=== PATIENT | female | born 1945 | race Caucasian/White ===

== ENCOUNTER 2017-03-16 17:22 | Inpatient (IN) | payer MEDICARE, OTHER ==
[~2017-03-16] VITALS: Ht 157.5 cm; Wt 48.1 kg
[2017-03-16] MEDS ORDERED: PIPER-TAZO 3.375 GM IV (PMX) 100 ML IVPB STA (19:31)
[2017-03-16] MEDS ORDERED: morphine 4 MG/ML VIAL IV STA (19:31)
[2017-03-16] MEDS ORDERED: ONDANSETRON 4 MG INJ IV STA (19:31)
[2017-03-16] MEDS ORDERED: SODIUM CHLORIDE 0.9% 1L BAG IV* STA (19:31)
[2017-03-16] MEDS ORDERED: VANCOMYCIN 1 GM (PMX) 250 ML IVPB ONE (20:00)
[2017-03-16 20:02] LABS: ADD SCAN DIFF NO
[2017-03-16 20:09] LABS: BASOPHILS % 0.2 % (0.0-2.0); EOSINOPHILS % 0.1 % (0.0-7.0); HEMATOCRIT 35.5 % (37.0-47.0); HEMOGLOBIN 11.8 g/dl (12.0-16.0); LYMPHOCYTES # 1.2 10^3/ul (0.8-2.9); MEAN CORPUSCULAR HEMOGLOBIN 28.9 pg (29.0-33.0); MEAN CORPUSCULAR HGB CONC 33.2 g/dl (32.0-37.0); MEAN PLATELET VOLUME 11.4 fl (7.4-10.4); MONOCYTE # 1.1 10^3/ul (0.3-0.9); MONOCYTES % 8.1 % (0.0-11.0); NEUTROPHIL # 10.9 10^3/ul (1.6-7.5); NEUTROPHILS % 82.1 % (39.0-77.0); PLATELET COUNT 332 10^3/UL (140-415); RED BLOOD COUNT 4.08 10^6/ul (4.20-5.40); WHITE BLOOD COUNT 13.3 10^3/ul (4.8-10.8)
[2017-03-16 20:21] LABS: INR 0.95; PROTIME 12.7 Sec (12.2-14.2)
[2017-03-16 20:22] LABS: PARTIAL THROMBOPLASTIN TIME 27.5 Sec (25.0-35.0)
[2017-03-16 20:32] LABS: ALBUMIN 3.8 g/dl (3.3-4.9); ALBUMIN/GLOBULIN RATIO 0.97; BILIRUBIN,INDIRECT 0.9 mg/dl (0-1.1); BILIRUBIN,TOTAL 0.9 mg/dl (0.2-1.3); CALCIUM 9.8 mg/dl (8.4-10.2); CREATININE 1.44 mg/dl (0.44-1.00); POTASSIUM 4.8 mmol/L (3.5-5.1); TOTAL PROTEIN 7.7 g/dl (6.1-8.1)
[2017-03-16] MEDS ORDERED: LEVO75TA5 PO (20:39)
[2017-03-16] MEDS ORDERED: ATEN100T PO (20:40)
[2017-03-16] MEDS ORDERED: LANT3I SC (20:40)
[2017-03-16] MEDS ORDERED: SIMV20TA PO (20:40)
[2017-03-16] MEDS ORDERED: NOVO3I SC (20:42)
[2017-03-16] MEDS ORDERED: BENA10TA48 PO (20:48)
[2017-03-16] MEDS ORDERED: AMLO-218 PO (20:49)
[2017-03-16] MEDS ORDERED: GABA300C16 PO (20:49)
[2017-03-16] MEDS ORDERED: HEPARIN 25000 UNITS/250 ML 250 ML IV STA (20:51)
--- NOTE | 2017-03-16 21:08 | RADRPT ---
PROCEDURE: XR Chest. CLINICAL INDICATION: Chest pain. Possible sepsis TECHNIQUE: Portable AP view of the chest was obtained. COMPARISON: None. FINDINGS: The cardiomediastinal silhouette is within normal limits. The lungs are clear. There is no evidenc e for pleural effusion, pneumothorax or pulmonary vascular congestion. The osseous structures are i ntact with no evidence for acute abnormality. Calcification is visible within the aorta. RPTAT:HJJR IMPRESSION: 1.No evidence for acute intrathoracic pathology. 2. Aortic atherosclerosis is present. Physician Natalie Date Time Electronically viewed and signed by Physician Natalie on 03/16/2017 21:08 JR/
--- NOTE | 2017-03-16 21:09 | RADRPT ---
PROCEDURE: XR left foot. CLINICAL INDICATION: Infection and pain of the toes TECHNIQUE: AP, lateral and oblique views of the left foot were obtained. COMPARISON: None. FINDINGS: Diffuse demineralization is noted. No fracture or osseous lesion is identified. There is no eviden ce for dislocation. No focal periosteal reaction or bone destruction is demonstrated. Incidental p lantar calcaneal spur is seen. Diffuse soft tissue swelling is noted. There is no evidence for a ra diopaque foreign body. IMPRESSION: Demineralization and soft tissue swelling without acute osseous abnormality involving the left foot. RPTAT:HJJR Physician Natalie Date Time Electronically viewed and signed by Physician Natalie on 03/16/2017 21:09 /
[2017-03-16] MEDS ORDERED: metroNIDAZOLE 500 MG/NS (PMX) 100 ML IVPB ONE (22:00)
[2017-03-16] MEDS ORDERED: CEFEPIME 1GM/50 ML (PMX) 50 ML IVPB ONE (22:00)
[2017-03-16] MEDS ORDERED: ONDANSETRON 4 MG INJ IV PRN (22:30)
--- NOTE | 2017-03-16 23:10 | ERA ---
ER Documentation Chief Complaint Date/Time DATE: 03/16/17 TIME: 23:03 Chief Complaint LEFT FOOT PAIN AND POSSIBLE INFECTION SENT BY PMD. NO FEVERS. HPI 71-year-old female sent in by vascular surgeon Jimmie from [place]. She was told that she would need to have toes amputated. He sent in handwritten note saying that he performed an arterial angiogram today as well as attempted procedures to clear vascular occlusions. She does have pain of her left 2 first toes in spite of neuropathy with decreased sensation. Says she has had chills but denies fevers. Has no pain or symptoms anywhere else in her body. ROS All systems reviewed and are negative except as per history of present illness. Medications Home Meds Reported Medications Gabapentin* (Gabapentin*) 300 Mg Capsule, 300 MG PO BID, #60 CAP 03/16/17 Amlodipine Besylate* (Norvasc*) 10 Mg Tablet, 10 MG PO DAILY, TAB 03/16/17 Benazepril Hcl* (Benazepril Hcl*) 10 Mg Tablet, 10 MG PO DAILY, #30 TAB 03/16/17 Insulin Aspart* (Novolog Insulin Pen*) 100 Unit/Ml Soln, 8 UNIT SC WITH MEALS, EA 03/16/17 Simvastatin* (Zocor*) 20 Mg Tablet, 20 MG PO QHS, #30 TAB 03/16/17 Atenolol* (Atenolol*) 100 Mg Tablet, 100 MG PO DAILY, #30 TAB 03/16/17 Insulin Glargine* (Lantus*) 100 Unit/Ml Soln, 20 UNIT SC QHS, #1 VIAL 03/16/17 Levothyroxine Sodium* (Levothyroxine Sodium*) 75 Mcg Tablet, 75 MCG PO BEFORE BREAKFAST, #30 TAB 03/16/17 Allergies Allergies: Coded Allergies: Penicillins (Verified Allergy, Unknown, 03/16/17) acetaminophen (Verified Allergy, Unknown, 03/16/17) codeine (Verified Allergy, Unknown, 03/16/17) PMhx/Soc Medical and Surgical Hx: pt denies Surgical Hx History of Surgery: No Anesthesia Reaction: No Hx Neurological Disorder: No Hx Respiratory Disorders: No Hx Cardiac Disorders: Yes (high cholesterol) Hx Psychiatric Problems: No Hx Miscellaneous Medical Probl: Yes (diabetes) Hx Alcohol Use: No Hx Substance Use: No Hx Tobacco Use: No Smoking Status: Never smoker Physical Exam Vitals Vital Signs Date Time Temp Pulse Resp B/P Pulse Ox O2 Delivery O2 Flow Rate FiO2 03/16/17 20:35 98.1 96 18 144/60 10 Room Air 03/16/17 19:59 97.8 93 19 144/85 100 Room Air 03/16/17 17:30 98.9 100 20 78/45 99 Physical Exam Const: [] Mild distress Head: Atraumatic Eyes: Normal Conjunctiva ENT: Normal External Ears, Nose and Mouth. Neck: Full range of motion..~ No meningismus. Resp: Clear to auscultation bilaterally Cardio: Regular rate and rhythm, no murmurs Abd: Soft, non tender, non distended. Normal bowel sounds Skin: No petechiae or rashes Back: No midline or flank tenderness Ext: No cyanosis, or edema, right lower leg and foot cold compared to right, no palpable pulses in left lower leg, necrotic first and second digit. Able to move all toes. Neur: Awake and alert and oriented 3, no focal deficits Psych: Normal Mood and Affect Result Diagram: 03/16/17193903/16/171939 Results 24 hrs Laboratory Tests Test 03/16/17 19:40 03/16/17 19:43 White Blood Count 13.310^3/ul Red Blood Count 4.0810^6/ul Hemoglobin 11.8g/dl Hematocrit 35.5% Mean Corpuscular Volume 87.0fl Mean Corpuscular Hemoglobin 28.9pg Mean Corpuscular Hemoglobin Concent 33.2g/dl Red Cell Distribution Width 12.0% Platelet Count 59161^3/UL Mean Platelet Volume 11.4fl Neutrophils % 82.1% Lymphocytes % 9.0% Monocytes % 8.1% Eosinophils % 0.1% Basophils % 0.2% Nucleated Red Blood Cells % 0.0/100WBC Neutrophils # 10.910^3/ul Lymphocytes # 1.210^3/ul Monocytes # 1.110^3/ul Eosinophils # 0.010^3/ul Basophils # 0.010^3/ul Nucleated Red Blood Cells # 0.010^3/ul Prothrombin Time 12.7Sec Prothrombin Time Ratio 1.0 INR International Normalized Ratio 0.95 Activated Partial Thromboplast Time 27.5Sec Sodium Level 136mmol/L Potassium Level 4.8mmol/L Chloride Level 98mmol/L Carbon Dioxide Level 22mmol/L Anion Gap 21 Blood Urea Nitrogen 48mg/dl Creatinine 1.44mg/dl Glucose Level 190mg/dl Calcium Level 9.8mg/dl Total Bilirubin 0.9mg/dl Direct Bilirubin 0.00mg/dl Indirect Bilirubin 0.9mg/dl Aspartate Amino Transf (AST/SGOT) 22IU/L Alanine Aminotransferase (ALT/SGPT) 29IU/L Alkaline Phosphatase 76IU/L Total Protein 7.7g/dl Albumin 3.8g/dl Globulin 3.90g/dl Albumin/Globulin Ratio 0.97 Bedside Glucose 185mg/dL Current Medications Medications (Trade) Dose Ordered Sig/Remy Route PRN Reason Start Time Stop Time Status Last Admin Dose Admin Sodium Chloride 1830 ml 1,830 ml BOLUS OVER 2 HOURS STAT IV* 03/16/17 19:31 03/16/17 19:35 DC 03/16/17 19:52 Vancomycin HCl 250 ml @ 125 mls/hr ONCE ONCE IVPB 03/16/17 20:00 03/16/17 21:59 DC 03/16/17 20:40 Piperacillin Sod/ Tazobactam Sod (Zosyn 3.375gm/ 100 ml (Pmx)) 100 ml @ 200 mls/hr ONCE STAT IVPB 03/16/17 19:31 03/16/17 20:00 Cancel Morphine Sulfate (morphine) 4 mg ONCE STAT IV 03/16/17 19:31 03/16/17 19:35 DC 03/16/17 19:52 Ondansetron HCl 4 mg 4 mg ONCE STAT IV 03/16/17 19:31 03/16/17 19:35 DC 03/16/17 19:51 Heparin Sodium (Porcine) 250 ml @ 0 mls/hr ONCE STAT IV 03/16/17 20:51 03/16/17 20:52 DC 03/16/17 21:44 Cefepime HCl 50 ml @ 100 mls/hr ONCE ONCE IVPB 03/16/17 22:00 03/16/17 22:29 DC Metronidazole (Flagyl 500 Mg (Pmx)) 100 ml @ 100 mls/hr ONCE ONCE IVPB 03/16/17 22:00 03/16/17 22:59 DC Ondansetron HCl (Zofran Inj) 4 mg ER BRIDGE PRN IV NAUSEA AND/OR VOMITING 03/16/17 22:30 03/17/17 22:29 Procedures/MDM Arterial vascular occlusion and necrotic foot infection. Patient was given normal saline hydration and heparinized. Spoke with , vascular surgeon, who agrees with heparin and asked that I add an arterial ultrasound of lower extremities. If the patient bank, cefepime and Flagyl as she is allergic to penicillin. Will be admitting to telemetry because of heparin drip. Dr. barbara arredondo will be admitting. Chest x-ray interpretation: I see no acute process. No infiltrate, no pulmonary edema, pneumothorax, no fractures Left foot x-ray interpretation: No fracture dislocation or bony erosion that I can see. Departure Diagnosis: Primary Impression: Arterial occlusion, lower extremity Additional Impressions: Cellulitis Tissue necrosis with gangrene in peripheral vascular disease Renal insufficiency Condition: Serious DIANNA MCKEON DO Mar 16, 2017 23:10
--- NOTE | 2017-03-16 23:19 | RADRPT ---
PROCEDURE: US bilateral lower extremity arteries. CLINICAL INDICATION: Bilateral leg pain. Claudication that interferes significantly with the kamila ent's lifestyle. TECHNIQUE: Multiple longitudinal and transverse images of the bilateral lower extremity arteries w ere obtained with cooper scale, pulsed Doppler, and color Doppler imaging. COMPARISON: No prior studies are available for comparison. FINDINGS: Right HAND BRAILLE TRANSCRIBER:122 cm/sec PSFA:66 cm/sec MSFA:101 cm/sec DSFA:104 cm/sec POP:49 cm/sec AURICULAR ACUPUNCTURIST:Occluded DPA:90 cm/sec Left HAND BRAILLE TRANSCRIBER:Occluded PSFA:Occluded MSFA:Occluded DSFA:Occluded POP:Occluded AURICULAR ACUPUNCTURIST:Occluded DPA:Occluded The right ankle-brachial index is 1.3. There is normal triphasic flow in the right femoral and popl iteal systems. There is biphasic flow in the right dorsalis pedis artery. The right posterior tibi al artery is completely occluded. The left lower extremity arterial system is completely occluded throughout. IMPRESSION: 1. Occluded right posterior tibial artery. 2. 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 Call report: A call report of the findings was made to Dr. Plasencia on 03/16/2017 at 2320 hours. RPTAT: QQ .Elpidio Gibbons MD, MD Date Time Electronically viewed and signed by .Elpidio Gibbons MD, MD on 03/16/2017 23:19 .R/
[2017-03-16] MEDS ORDERED: morphine 10 MG INJ IV ONE (23:30)
[2017-03-16 23:38] LABS: ADD UMIC YES; UR ASCORBIC ACID NEGATIVE (NEGATIVE); UR BILIRUBIN (Dip) NEGATIVE (NEGATIVE); UR BLOOD (Dip) NEGATIVE (NEGATIVE); UR BUDDING YEAST MANY /HPF (NONE SEEN); UR CLARITY SLIGHTLY CLOUDY (CLEAR); UR COLOR YELLOW (YELLOW); UR GLUCOSE (Dip) 1+ mg/dL (NEGATIVE); UR KETONES (Dip) TRACE mg/dL (NEGATIVE); UR LEUKOCYTE ESTERASE (Dip) TRACE Leu/ul (NEGATIVE); UR NITRITE (Dip) NEGATIVE (NEGATIVE); UR RBC 3 /HPF (0-5); UR SPECIFIC GRAVITY (Dip) 1.021 (1.003-1.030); UR SQUAMOUS EPITHELIAL CELL MODERATE /HPF (FEW); UR TOTAL PROTEIN (Dip) NEGATIVE (NEGATIVE); UR UROBILINOGEN (Dip) NEGATIVE (NEGATIVE)
[2017-03-17] VITALS (42 sets, daily range): BP systolic 120–159; BP diastolic 56–72; PULSE 77–94; RESP 15–28; TEMP 98.5; Ht 157.5 cm; Wt 48.1 kg
[2017-03-17] MEDS ORDERED: LIDOCAINE/MYLANTA 40 ML BTL PO ONE
[2017-03-17] MEDS ORDERED: NACL 0.9% 3 ML SYG IV SCH (01:00)
[2017-03-17 04:27] LABS: ADD SCAN DIFF NO
[2017-03-17 04:32] LABS: BASOPHILS % 0.2 % (0.0-2.0); HEMATOCRIT 31.7 % (37.0-47.0); HEMOGLOBIN 10.3 g/dl (12.0-16.0); LYMPHOCYTES # 1.7 10^3/ul (0.8-2.9); LYMPHOCYTES % 13.7 % (15.0-51.0); MEAN CORPUSCULAR HEMOGLOBIN 28.4 pg (29.0-33.0); MEAN CORPUSCULAR HGB CONC 32.5 g/dl (32.0-37.0); MEAN CORPUSCULAR VOLUME 87.3 fl (82.0-101.0); MEAN PLATELET VOLUME 11.6 fl (7.4-10.4); MONOCYTE # 0.8 10^3/ul (0.3-0.9); MONOCYTES % 6.7 % (0.0-11.0); NEUTROPHIL # 9.8 10^3/ul (1.6-7.5); NEUTROPHILS % 78.9 % (39.0-77.0); PLATELET COUNT 281 10^3/UL (140-415); RED BLOOD COUNT 3.63 10^6/ul (4.20-5.40); RED CELL DISTRIBUTION WIDTH 12.1 % (11.5-14.5); WHITE BLOOD COUNT 12.5 10^3/ul (4.8-10.8)
[2017-03-17 04:47] LABS: ALBUMIN 3.2 g/dl (3.3-4.9); ALBUMIN/GLOBULIN RATIO 0.88; BILIRUBIN,INDIRECT 0.6 mg/dl (0-1.1); BILIRUBIN,TOTAL 0.6 mg/dl (0.2-1.3); CALCIUM 9.2 mg/dl (8.4-10.2); CHOL/HDL RATIO 2.7 RATIO; CREATININE 1.04 mg/dl (0.44-1.00); INR 0.97; POTASSIUM 4.6 mmol/L (3.5-5.1); PROTIME 12.9 Sec (12.2-14.2); TOTAL PROTEIN 6.8 g/dl (6.1-8.1)
[2017-03-17 05:17] LABS: THYROID STIMULATING HORMONE 1.28 MIU/L (0.465-4.680)
[2017-03-17 05:52] LABS: PARTIAL THROMBOPLASTIN TIME 119.7 Sec (25.0-35.0)
[2017-03-17] MEDS ORDERED: VANCOMYCIN IV PER PHARMACY XX SCH (07:00)
[2017-03-17] MEDS: LEVOTHYROXINE 75 MCG TAB PO SCH (08:07)
[2017-03-17] MEDS: INSULIN ASPART [NOVOLOG] 3 ML PEN SC SCH ×3 (09:35→17:35)
[2017-03-17] MEDS: BENAZEPRIL 10 MG TAB PO SCH (09:57)
[2017-03-17] MEDS: GABAPENTIN 300 MG CAP PO SCH ×2 (09:58→21:00)
[2017-03-17] MEDS: AMLODIPINE 10 MG TAB PO SCH (09:59)
[2017-03-17] MEDS: ATENOLOL 100 MG TAB PO SCH (10:00)
[2017-03-17] MEDS: ENOXAPARIN 100 MG/ML SYG SC SCH ×2 (10:14→21:00)
--- NOTE | 2017-03-17 11:02 | QN ---
Documentation Comment Called to see our patient whom presented with left lower extremity cold and mottled limb. Upon discussion with the patient prior to midnight it seems shes been in denial with her critical limb ischemia as shes had LLE gangrene for months and shes been "hiding her black toes for a long time" per her sons reporting. Further he reports shes been in denial and rarely allows her children to help her with medical status. As I had evaluated the patient she has no motor from the knee down and fixed ankle. No sensory from knee down, Her lower leg is mottled with gangrene of her toes. Based on the findings provided from her interventionalist, Arterial Duplex and clinical exam there's no further vascular intervention possible as she would likely require a major amputation - Above knee amputation. The patient was informed of this and is in denial and would like to wait and think about her decision. Therefore, will keep the patient on Heparin gtt overnight and readdress the issue again in few hours. I have explained to the patient that her life can be threatened by waiting and risks of ID, rhabdomyolysis, stroke and further worsening her status is there by waiting. Consultation note will be dictated BERNY MOORE MD Mar 17, 2017 10:59
[2017-03-17] MEDS ORDERED: GLUCAGON 1 MG INJ IM PRN (12:00)
[2017-03-17] MEDS ORDERED: DEXTROSE 50% 50 ML SYRINGE IV PRN ×2 (12:00)
[2017-03-17] MEDS ORDERED: GLUCOSE GEL 15 GRAM TUBE BUCCAL PRN (12:00)
[2017-03-17] MEDS ORDERED: GLUCOSE GEL 15 GRAM TUBE PO PRN ×2 (12:00)
--- NOTE | 2017-03-17 12:42 | RADRPT ---
PROCEDURE: US Lower extremity Veins. CLINICAL INDICATION: Left toe gangrene. Preoperative evaluation. TECHNIQUE: Multiple longitudinal and transverse images of the bilateral lower extremity greater an d lesser saphenous veins was obtained with cooper scale and color Doppler imaging. COMPARISON: None available FINDINGS: Right lower extremity: Groin GSV0.41 cm Upper thigh GSV 0.15 cm Mid thigh GSV 0.10 cm Lower thigh GSV 0.11 cm Knee GSV 0.14 cm Upper calf GSV 0.09 cm Mid calf GSV 0.10 cm Ankle GSV0.09 cm Proximal calf SSV: 0.24 cm Mid calf SSV: 0.09 cm Proximal ankle SSV: 0.09 cm Left lower extremity: Groin GSV0.25 cm Upper thigh GSV 0.14 cm Mid thigh GSV 4.12 cm Lower thigh GSV 0.14 cm Knee GSV 0.16 cm Upper calf GSV 0.13 cm Mid calf GSV 0.14 cm Ankle GSV0.19 cm Proximal calf SSV: 0.24 cm Mid calf SSV: 0.19 cm Proximal ankle SSV: 0.25 cm IMPRESSION: 1. Bilateral lower extremity venous mapping as detailed above. RPTAT: GG .Fredrick Lewis MD, Date Time Electronically viewed and signed by .Fredrick Lewis MD, MD on 03/17/2017 12:41 .P/
[2017-03-17 13:10] LABS: PROTIME 13.2 Sec (12.2-14.2)
[2017-03-17 13:42] LABS: PARTIAL THROMBOPLASTIN TIME 130.1 Sec (25.0-35.0)
--- NOTE | 2017-03-17 16:05 | HPN ---
Date/Time of Note Date/Time of Note DATE: 03/17/17 TIME: 16:04 Interval H&P Admission Note Pt. seen H&P reviewed: No system changes BERNY MOORE MD Mar 17, 2017 16:05
[2017-03-17] MEDS ORDERED: HEPARIN 1000 UNITS/ML 10 ML INJ ONE (16:36)
[2017-03-17] MEDS ORDERED: LIDOCAINE 1% (MPF) 30 ML INJ ONE (16:36)
[2017-03-17] MEDS ORDERED: MIDAZOLAM 1 MG/ML 2 ML INJ ONE (16:40)
[2017-03-17] MEDS ORDERED: FENTAnyl 50 MCG/ML VIAL ONE (16:40)
[2017-03-17] MEDS ORDERED: ROPIVACAINE 0.5 % 30 ML VIAL ONE (16:41)
[2017-03-17] MEDS ORDERED: KETAMINE 500 MG INJ ONE (16:48)
[2017-03-17] MEDS ORDERED: SOD CHLORIDE 0.9% 100 ML ONE (17:15)
[2017-03-17] MEDS ORDERED: IODIXANOL LOCM 100 ML BTL ONE (17:15)
[2017-03-17] MEDS ORDERED: IODIXANOL LOCM 50 ML BTL ONE (17:15)
--- NOTE | 2017-03-17 18:25 | RADRPT ---
AMENDMENT: 03/17/2017 6:33:39 PM Sunil Taylor MD These findings were discussed with Wm Monet over the phone on 03/17/2017 at 6:28 PM . PROCEDURE: CT angiogram of the abdomen and pelvis with bilateral lower extremity runoff and with 3 -D reconstructions CLINICAL INDICATION: aortic occlusion TECHNIQUE: CT angiogram of the abdomen and pelvis with lower extremity runoff was performed on a m ultislice CT scanner . The patient was scanned after administration of intravenous contrast. Sagit maru and coronal reformatted images were obtained from the axial source images. 3D MIP reformatted im ages were also created from the axial source images. DLP 745.41 mGycm CTDI vol 45.19, 5.60 mGy One or more of the following dose reduction techniques were used: - Automated exposure control. - Adjustment of the mA and/or kV according to patient size. - Use of iterative reconstruction technique. COMPARISON: Duplex sonogram of the lower extremity arteries from 03/16/2017 FINDINGS: ANGIOGRAM: There is no acute dissection or aneurysm of the abdominal aorta. The celiac axis is widely patent. There is severe narrowing of the origin and proximal aspect of the SMA. The right hepatic artery is replaced off the SMA. There are single renal arteries bilaterally with severe narrowing at the origins of the right greate r than left renal arteries. The JUSTYNA is widely patent. There is mild narrowing of the proximal left common iliac artery. The right common iliac artery as well as the right internal and external iliac arteries are widely patent. The left internal and exte rnal iliac arteries are widely patent. RIGHT LOWER EXTREMITY: The BUS DRIVER, SFA, and profunda arteries are widely patent. The popliteal artery is widely patent. There is severe narrowing at the origin of the right anterior tibial artery which is patent to the a nkle. A patent dorsalis pedis artery is noted below the ankle. There is occlusion of the tibioperoneal trunk, peroneal artery and posterior tibial artery along the ir entire course. LEFT LOWER EXTREMITY: There is occlusion of the left common femoral artery at its origin just past the inferior epigastric artery. There is reconstitution of the left profunda and superficial femoral arteries at their rafael gins. The left profunda artery is widely patent. There is moderate narrowing of the mid to distal left superficial femoral artery which occludes at t he entrance to Benjamin's canal. The left popliteal artery as well as the infrapopliteal arteries are completely occluded along nearl y their entire course. There is reconstitution of very faint peroneal and posterior tibial arteries just above the ankle in even fainter posterior tibial artery noted below the ankle along the plantar surface of the foot. ANCILLARY: There are surgical clips in the gallbladder fossa consistent with cholecystectomy. There is asymmetric atrophy of the left kidney. There are numerous small bowel loops dilated to approximately 3.2 cm with air-fluid levels noted. Co llapsed distal loops of small bowel are noted with a transition point in the posterior aspect of the pelvis on series 3, image 156 The uterus is absent. Anastomotic sutures are identified in the cecum. Subcutaneous gas and deformity of the distal phalanx of the left big toe are noted. IMPRESSION: Complete occlusion of the left common femoral artery at its origin with reconstitution of the left s uperficial femoral and profunda arteries at their respective origins. There is moderate narrowing o f the mid to distal left superficial femoral artery as well as complete occlusion of the popliteal a nd anterior tibial arteries. There is faint reconstitution of the left peroneal and posterior tibia l arteries just above the ankle with the posterior tibial artery continuing below the ankle along th e plantar surface of the foot. Deformity of the distal phalanx of the left big toe with surrounding subcutaneous gas or suspicious for osteomyelitis. Clinical correlation is recommended. The right femoropopliteal arteries are widely patent. There is one-vessel uninterrupted runoff to t he right ankle from the anterior tibial artery which is severely narrowed proximally. Correlation f or symptoms of peripheral vascular disease in the right lower extremity is recommended. Severe narrowing at the origins of the right greater than left renal arteries. Correlation for wilson vascular hypertension is recommended. Status post cholecystectomy. Multiple dilated loops of small bowel with air-fluid levels as well as collapsed distal loops with a transition point in the posterior aspect of the pelvis consistent with a high-grade bowel obstructi on. These findings were discussed with the nurse taking care of the patient, aSnjuanita, over the phone on at 6:24 PM. RPTAT: EE Ar Claudia, Physician Date Time Electronically viewed and signed by Ar Taylor Physician on 03/17/2017 18:33 RA/
[2017-03-17 18:44] LABS: ADD SCAN DIFF NO
[2017-03-17 18:46] LABS: BASOPHILS % 0.2 % (0.0-2.0); EOSINOPHILS % 0.1 % (0.0-7.0); HEMATOCRIT 36.6 % (37.0-47.0); HEMOGLOBIN 12.2 g/dl (12.0-16.0); LYMPHOCYTES # 0.9 10^3/ul (0.8-2.9); LYMPHOCYTES % 6.4 % (15.0-51.0); MEAN CORPUSCULAR HEMOGLOBIN 28.8 pg (29.0-33.0); MEAN CORPUSCULAR HGB CONC 33.3 g/dl (32.0-37.0); MEAN CORPUSCULAR VOLUME 86.5 fl (82.0-101.0); MEAN PLATELET VOLUME 11.1 fl (7.4-10.4); MONOCYTE # 0.8 10^3/ul (0.3-0.9); MONOCYTES % 5.6 % (0.0-11.0); NEUTROPHIL # 12.5 10^3/ul (1.6-7.5); NEUTROPHILS % 87.2 % (39.0-77.0); PLATELET COUNT 319 10^3/UL (140-415); RED BLOOD COUNT 4.23 10^6/ul (4.20-5.40); RED CELL DISTRIBUTION WIDTH 12.2 % (11.5-14.5); WHITE BLOOD COUNT 14.3 10^3/ul (4.8-10.8)
[2017-03-17] MEDS: LACTATED RINGER'S 1,000 ML IV SCH (18:57)
[2017-03-17 19:01] LABS: INR 1.01; PROTIME 13.3 Sec (12.2-14.2)
[2017-03-17 19:02] LABS: PARTIAL THROMBOPLASTIN TIME 39.8 Sec (25.0-35.0)
[2017-03-17 19:04] LABS: CALCIUM 9.9 mg/dl (8.4-10.2); CREATININE 0.99 mg/dl (0.44-1.00); POTASSIUM 4.1 mmol/L (3.5-5.1)
[2017-03-17 19:16] LABS: CK-MB 11.6 ng/ml (0.0-2.4)
[2017-03-17 19:20] LABS: TROPONIN-I 2.11 ng/ml (0.00-0.12)
--- NOTE | 2017-03-17 19:35 | RADRPT ---
PROCEDURE: XR Abdomen. CLINICAL INDICATION: Abdominal pain. Nasogastric tube placement TECHNIQUE: AP abdomen x-ray. COMPARISON: None. FINDINGS: A nasogastric tube is seen in the gastric lumen. Diffusely distended small bowel is seen. Residual contrast in the collecting systems is seen. Upper quadrant surgical clips are seen. There are no ab normal calcifications overlying the urinary tracts. No osseous lesion is seen. The 89 age related se nescent changes in the osseous structures is seen. IMPRESSION: 1. Nasogastric tube in the gastric lumen. 2. Diffusely distended small bowel which may represent an ileus. RPTAT: HPNM Physician Hernan Date Time Electronically viewed and signed by Physician Hernan on 03/17/2017 19:34 /
--- NOTE | 2017-03-17 19:54 | CONS ---
Date/Time of Note Date/Time of Note DATE: 03/17/17 TIME: 19:31 Assessment/Plan Assessment/Plan Chief Complaint/Hosp Course 1. Abdominal pain with CT findings are suggestive of either obstructive pattern versus ileus. Patient has gas and stool in the colon. Less likelihood of bowel ischemia. -NG tube -NPO -Judicious IV fluids -Close monitoring 2. PVD/PAD with Left lower extremity ischemia with tissue necrosis and gangrene -Deferred to vascular surgery -Judicious fluid management -Anticoagulation -Amputation per vascular 3. Elevated troponin with possible demand ischemia and WI -Cardiac evaluation on optimization 4. Elevated BNP with possible CHF -Judicious fluid management -Cardiac optimization 5. Renal insufficiency, multifactorial secondary to above -Judicious fluid management and avoid nephrotoxic agents as possible 6. Anemia. Coffee-ground NG tube aspirate. -Close monitoring -Transfuse as needed 7. Diabetes -Diet and medication optimization 8. Hypertension -Diet and medication optimization 9. Hypercholesterolemia -Diet and medication optimization Thank you very much for consulting me in this patient's care, Problems: Consultation Date/Type/Reason Admit Date/Time Mar 16, 2017 at 22:23 Date of Consultation: Mar 17, 2017 Type of Consultation: General surgical Reason for Consultation Abdominal pain Renal insufficiency Left leg ischemia with plan for AKA by vascular Referring Provider: BERNY MOORE MD Hx of Present Illness Staci Masters is a 71-year-old female with multiple comorbidities who apparently was diagnosed on angiogram with left lower extremity ischemia and was transferred here for surgical intervention. Apparently patient has been ignoring her left black toes for a while. Patient was scheduled for AKA by vascular today however she was complaining of abdominal pain and therefore CT angiography abdomen was obtained. NG tube has been placed and dark fluid of about 400 mL's has been suctioned out. She reports bowel function yesterday. She denies any fevers or chills. She denies any nausea vomiting. She denies any chest pain or shortness of breath. She denies any cough, seizure, visual or neurologic changes. She denies dysuria or abnormal discharge. She denies any trauma or sick contacts. Patient does not seem to be a great historian and is somewhat confused. General surgical consultations obtained further evaluation and treatment. 12 point review of system negative unless addressed in HPI is obtained from patient staff and chart. Past Medical History Left lower extremity ischemia with tissue necrosis and gangrene Peripheral vascular/arterial disease Renal insufficiency Abdominal pain and distention Anemia Leukocytosis Cholesterolemia Diabetes Hypoalbuminemia Elevated troponin with possible WI Elevated BNP with possible CHF History of abdominal pains and discomfort Past Surgical History Open cholecystectomy Open hysterectomy Appendectomy Possible abdominal hernia repairs Recent angiography Family History Significant Family History: no pertinent family hx Social History Alcohol Use: none Smoking Status: Former smoker Drug Use: none Exam/Review of Systems Vital Signs Vitals Vital Signs Date Time Temp Pulse Resp B/P Pulse Ox O2 Delivery O2 Flow Rate FiO2 03/17/17 18:41 78 17 149/62 98 Room Air 03/17/17 18:36 97.8 Intake and Output 03/16/17 03/16/17 03/17/17 15:00 23:00 07:00 Intake Total 1830 ml 300 ml Balance 1830 ml 300 ml Exam Constitutional: alert, No oriented (Oriented to self but not location) Psych: confusion, No anxiety, No nl mood/affect Head: atraumatic, normocephalic Eyes: EOMI, PERRL, nl conjunctiva, No icteric ENMT: nl external ears & nose, nl lips & teeth, No mucosa pink and moist (Dry mucosa) Neck: jvd, non-tender, supple Respiratory: normal air movement, No congested cough, No diminished breath sounds, No labored breathing Cardiovascular: regular rate and rhythm, No edema Gastrointestinal: distended, soft, tender (Minimally in left lower quadrant), No firm, No rebound or guarding Musculoskeletal: No joint tenderness, No nl extremities to inspection (Left lower extremity gangrenous changes), No nl gait and stance Extremities: No calf tenderness, No normal pulses Neurological: nl speech, No nl strength Skin: No diaphoresis, No nl turgor, No rash or lesions Lymph: nl lymph nodes Results CT abdomen pelvis extremity angiography: Complete occlusion of the left common femoral artery at its origin with reconstitution of the left superficial femoral and profunda arteries at their respective origins. There is moderate narrowing of the mid to distal left superficial femoral artery as well as complete occlusion of the popliteal and anterior tibial arteries. There is faint reconstitution of the left peroneal and posterior tibial arteries just above the ankle with the posterior tibial artery continuing below the ankle along the plantar surface of the foot. Deformity of the distal phalanx of the left big toe with surrounding subcutaneous gas or suspicious for osteomyelitis. Clinical correlation is recommended. The right femoropopliteal arteries are widely patent. There is one-vessel uninterrupted runoff to the right ankle from the anterior tibial artery which is severely narrowed proximally. Correlation for symptoms of peripheral vascular disease in the right lower extremity is recommended. Severe narrowing at the origins of the right greater than left renal arteries. Correlation for renovascular hypertension is recommended. Status post cholecystectomy. Multiple dilated loops of small bowel with air-fluid levels as well as collapsed distal loops with a transition point in the posterior aspect of the pelvis consistent with a high-grade bowel obstruction. Result Diagram: 03/17/17 1835 03/17/17 183 Results 24 hrs Laboratory Tests Test 03/16/17 19:40 03/16/17 19:43 03/16/17 23:00 03/17/17 04:10 White Blood Count 13.3 H 12.5 H Red Blood Count 4.08 L 3.63 L Hemoglobin 11.8 L 10.3 L Hematocrit 35.5 L 31.7 L Mean Corpuscular Volume 87.0 87.3 Mean Corpuscular Hemoglobin 28.9 L 28.4 L Mean Corpuscular Hemoglobin Concent 33.2 32.5 Red Cell Distribution Width 12.0 12.1 Platelet Count 332 281 Mean Platelet Volume 11.4 H 11.6 H Neutrophils % 82.1 H 78.9 H Lymphocytes % 9.0 L 13.7 L Monocytes % 8.1 6.7 Eosinophils % 0.1 0.0 Basophils % 0.2 0.2 Nucleated Red Blood Cells % 0.0 0.0 Neutrophils # 10.9 H 9.8 H Lymphocytes # 1.2 1.7 Monocytes # 1.1 H 0.8 Eosinophils # 0.0 0.0 Basophils # 0.0 0.0 Nucleated Red Blood Cells # 0.0 0.0 Prothrombin Time 12.7 12.9 Prothrombin Time Ratio 1.0 1.0 INR International Normalized Ratio 0.95 0.97 Activated Partial Thromboplast Time 27.5 119.7 *H Sodium Level 136 141 Potassium Level 4.8 4.6 Chloride Level 98 103 Carbon Dioxide Level 22 21 Anion Gap 21 H 22 H Blood Urea Nitrogen 48 H 36 #H Creatinine 1.44 H 1.04 H Glucose Level 190 215 Calcium Level 9.8 9.2 Total Bilirubin 0.9 0.6 Direct Bilirubin 0.00 0.00 Indirect Bilirubin 0.9 0.6 Aspartate Amino Transf (AST/SGOT) 22 27 Alanine Aminotransferase (ALT/SGPT) 29 29 Alkaline Phosphatase 76 71 Total Protein 7.7 6.8 Albumin 3.8 3.2 L Globulin 3.90 H 3.60 H Albumin/Globulin Ratio 0.97 0.88 Bedside Glucose 185 Urine Color YELLOW Urine Clarity SLIGHTLY CLOUDY A Urine pH 5.0 Urine Specific [place] 1.021 Urine Ketones TRACE A Urine Nitrite NEGATIVE Urine Bilirubin NEGATIVE Urine Urobilinogen NEGATIVE Urine Leukocyte Esterase TRACE A Urine Microscopic RBC 3 Urine Microscopic WBC 7 H Urine Squamous Epithelial Cells MODERATE Urine Yeast (Budding) MANY A Urine Hemoglobin NEGATIVE Urine Glucose 1+ H Urine Total Protein NEGATIVE Hemoglobin A1c 8.4 H Triglycerides Level 67 Cholesterol Level 102 LDL Cholesterol, Calculated 52 HDL Cholesterol 37 Cholesterol/HDL Ratio 2.7 Thyroid Stimulating Hormone (TSH) 1.280 Test 03/17/17 09:21 03/17/17 12:12 03/17/17 18:35 Bedside Glucose 219 Prothrombin Time 13.2 13.3 Prothrombin Time Ratio 1.0 1.0 INR International Normalized Ratio 1.00 1.01 Activated Partial Thromboplast Time 130.1 *H 39.8 H White Blood Count 14.3 H Red Blood Count 4.23 Hemoglobin 12.2 Hematocrit 36.6 L Mean Corpuscular Volume 86.5 Mean Corpuscular Hemoglobin 28.8 L Mean Corpuscular Hemoglobin Concent 33.3 Red Cell Distribution Width 12.2 Platelet Count 319 Mean Platelet Volume 11.1 H Neutrophils % 87.2 H Lymphocytes % 6.4 L Monocytes % 5.6 Eosinophils % 0.1 Basophils % 0.2 Nucleated Red Blood Cells % 0.0 Neutrophils # 12.5 H Lymphocytes # 0.9 Monocytes # 0.8 Eosinophils # 0.0 Basophils # 0.0 Nucleated Red Blood Cells # 0.0 Sodium Level 142 Potassium Level 4.1 Chloride Level 96 L Carbon Dioxide Level 30 Anion Gap 20 H Blood Urea Nitrogen 29 H Creatinine 0.99 Glucose Level 86 # Calcium Level 9.9 Creatine Kinase 592 H Creatine Kinase Index 2.0 Creatinine Kinase MB (Mass) 11.60 H Troponin I 2.110 *H B-Type Natriuretic Peptide 9440 H Medications Medications Current Medications Ondansetron HCl (Zofran Inj) 4 mg Q6H PRN IV NAUSEA AND/OR VOMITING; Start at 01:00 Morphine Sulfate (morphine) 2 mg Q4H PRN IV PAIN LEVEL 7-10; Start 03/17/17 at 01:00 Amlodipine Besylate (Norvasc) 10 mg DAILY PO Last administered on 03/17/17 09: 59; Admin Dose 10 MG; Start 03/17/17 at 09:00 Atenolol (Tenormin) 100 mg DAILY PO Last administered on 03/17/17 10:00; Admin Dose 100 MG; Start 03/17/17 at 09:00 Benazepril HCl (Lotensin) 10 mg DAILY PO Last administered on 03/17/17 09:57; Admin Dose 10 MG; Start 03/17/17 at 09:00 Gabapentin (Neurontin) 300 mg BID PO Last administered on 03/17/17 09:58; Admin Dose 300 MG; Start 03/17/17 at 09:00 Insulin Glargine (Lantus) 20 unit QHS SC ; Start 03/17/17 at 21:00 Atorvastatin Calcium (Lipitor) 10 mg DAILY@21 PO ; Start 03/17/17 at 21:00 Enoxaparin Sodium 60 mg 60 mg Q12 SC ; Start 03/17/17 at 09:00 Vancomycin HCl/ Sodium Chloride (Vancocin/NS) 150 ml @ 75 mls/hr Q24H IVPB ; Start 03/17/17 at 21:00 Miscellaneous Information 1 ea NOTE XX ; Start 03/17/17 at 12:00 Glucose (Glutose) 15 gm Q15M PRN PO DECREASED GLUCOSE; Start 03/17/17 at 12:00 Glucose (Glutose) 22.5 gm Q15M PRN PO DECREASED GLUCOSE; Start 03/17/17 at 12: 00 Dextrose (D50w Syringe) 25 ml Q15M PRN IV DECREASED GLUCOSE; Start 03/17/17 at 12:00 Dextrose (D50w Syringe) 50 ml Q15M PRN IV DECREASED GLUCOSE; Start 03/17/17 at 12:00 Glucagon (Glucagen) 1 mg Q15M PRN IM DECREASED GLUCOSE; Start 03/17/17 at 12:00 Glucose (Glutose) 15 gm Q15M PRN BUCCAL DECREASED GLUCOSE; Start 03/17/17 at 12 :00 Famotidine 20 mg 20 mg HS IV ; Start 03/17/17 at 21:00 Lactated Ringer's (Lr) 1,000 ml @ 125 mls/hr Q8H IV Last administered on t 18:57; Admin Dose 125 MLS/HR; Start 03/17/17 at 18:30 Copies To: CC: BERNY MOORE MD, SAMUEL MD Mar 17, 2017 19:41
[2017-03-17] MEDS: ATORVASTATIN 10 MG TAB PO SCH (21:00)
[2017-03-17] MEDS ORDERED: INSULIN GLARGINE [LANtus] 3 ML PEN SC SCH (21:00)
[2017-03-17] MEDS ORDERED: NON-FORMULARY/PATIENT OWN MED (Simvastatin* (Zocor*) 20 MG) PO SCH (21:00)
[2017-03-17 22:48] LABS: ADD UMIC YES; UR ASCORBIC ACID NEGATIVE (NEGATIVE); UR BILIRUBIN (Dip) NEGATIVE (NEGATIVE); UR BLOOD (Dip) 3+ mg/dL (NEGATIVE); UR CLARITY SLIGHTLY CLOUDY (CLEAR); UR COLOR YELLOW (YELLOW); UR GLUCOSE (Dip) NEGATIVE (NEGATIVE); UR KETONES (Dip) 1+ mg/dL (NEGATIVE); UR LEUKOCYTE ESTERASE (Dip) 2+ Leu/ul (NEGATIVE); UR MUCUS FEW /HPF (NONE SEEN); UR NITRITE (Dip) NEGATIVE (NEGATIVE); UR RBC 58 /HPF (0-5); UR SPECIFIC GRAVITY (Dip) 1.059 (1.003-1.030); UR TOTAL PROTEIN (Dip) NEGATIVE (NEGATIVE); UR UROBILINOGEN (Dip) NEGATIVE (NEGATIVE)
[2017-03-17] MEDS ORDERED: HEPARIN 25000 UNITS/250 ML 250 ML IV SCH (23:00)
[2017-03-17] MEDS ORDERED: HEPARIN 1000 UNITS/ML 10 ML INJ IV ONE (23:00)
[2017-03-17] MEDS: FAMOTIDINE 20 MG INJ IV SCH (23:30)
[2017-03-17] MEDS: VANCOMYCIN 750 MG in SOD CHLORIDE 0.9% 150 ML IVPB SCH (23:31)
[2017-03-18] VITALS (50 sets, daily range): BP systolic 14–185; BP diastolic 42–128; PULSE 64–89; RESP 8–24
--- NOTE | 2017-03-18 03:43 | HP ---
DATE OF ADMISSION: 03/16/2017 Vascular Surgery History and Physical Dear Doctors, Ms. Masters is a 71-year-old female, who was transferred over to us from [facility] for evaluation of higher care from vascular surgery and limb salvage. It seems that the patient has had a history of left lower extremity gangrene that she has had for some time and a history of severe atherosclerotic disease in which she had presented to the [facility] with left lower extremity rest pain and mottling that she had developed for some time. At that time, patient was taken to the angio suite, and was evaluated by the interventionalist and had undergone multiple interventions that unfortunately seemed that it did not necessarily resolve all of her pain and issues. It was identified that the patient has significant atherosclerotic disease and occlusion below her knee. Attempt was made in order to increase her inflow to the popliteal artery; however, it seemed that may have not worked. At the moment the patient has been evaluated in the emergency department and it was identified patient has mottling of her left lower extremity, fixed ankle, unable to move any toes, has gangrene of her first 3 toes that have been there for some time. Further, the patient is not necessarily a great historian and seems to be in a bit of a denial of her current status. She does deny shortness of breath, chest pain, nausea, vomiting, fever, or chills. Patient has had history of rest pain for some time now in regard to her left lower. REVIEW OF SYSTEMS: Fourteen point review performed and negative except as mentioned in HPI. PAST MEDICAL HISTORY: 1. Diabetes. 2. Hypertension. 3. Coronary artery disease. 4. Hypercholesterolemia. 5. Bilateral lower extremity atherosclerosis and left lower extremity gangrene. PAST SURGICAL HISTORY: Endovascular intervention done at outside location for her left lower extremity. ALLERGIES: PENICILLIN. ACETAMINOPHEN AND CODEINE. SOCIAL HISTORY: Denies current tobacco, alcohol, or illicit drug use. PHYSICAL EXAMINATION: GENERAL APPEARANCE: She is alert and oriented x2. She is not able to tell us the time. HEENT: Normocephalic, atraumatic. EOMI. PERRLA. Mucosa moist. NECK: Supple. No carotid bruit. LUNGS: Clear to auscultation bilaterally. No crackles. CARDIOVASCULAR: S1, S2 present. No murmurs. ABDOMEN: Soft, nontender, nondistended. Bowel sounds positive. EXTREMITIES: Right lower extremity has faint femoral pulse. Nonpalpable pedal pulse. Motor and sensory intact. Capillary refill of 3-4 seconds. Left lower extremity: Faint femoral pulse. Nonpalpable pedal pulse. No motor or sensory from her knee down. The patient has mottling that goes from her toe all the way up to her knee. Gangrene of the first 3 toes. Has some calf pain in addition to ankle pain and forefoot pain. ASSESSMENT AND PLAN: Bilateral lower extremity atherosclerosis with left lower extremity critical limb ischemia: It seems the patient had developed significant gangrene, development of rest pain with critical limb ischemia for some time now. It seemed upon her presentation to the emergency department patient already had developed mottling of her left lower extremity with gangrene and cold foot. Upon evaluation of her arterial ultrasound, unfortunately everything seems to be occluded. There was no further intervention that can be done from a vascular surgery standpoint. At the bedside ultrasound there was no viable conduit for us to attempt for any limb salvage as the patient already has a fixed ankle and gangrene and mottling that has been going on for some time. Further discussion, we did speak with her vascular interventionalist, Dr. Samuel, who mentioned that the patient had presented with significant rest pain and mottling of her left lower extremity when he had seen her yesterday. It seems that this event has been going on for a longer than 24 hours prior to us being able to see the patient. At the moment I would recommend for the patient to be placed on heparin drip and I have offered the patient for an above knee amputation as she is not a candidate for any vascular surgery intervention. The patient would like to take the time and think about it as she has not understood her full extent of her vascular disease and vascular pathology. We will plan to contact family members to discuss our findings, they are aware as well. Optimize vascular status (blood pressure medications, diet, nutrition, exercise, sugar control, antiplatelets). Continue with anticoagulation. Discussed findings, plan and management with the patient and she understands; however, would like to wait and not to have any amputation for now as she would like to discuss this further with her family. Thank you for allowing us to partake in the care of your patient. Please call with any questions. Dictated By: Wm Fitch MD /olga/jason /Document#: [id number]
[2017-03-18] MEDS: LACTATED RINGER'S 1,000 ML IV SCH ×3 (04:20→14:06)
[2017-03-18] MEDS ORDERED: HEPARIN 1000 UNITS/ML 10 ML INJ IV PRN ×2 (05:00)
[2017-03-18 05:25] LABS: ADD SCAN DIFF NO
[2017-03-18 05:30] LABS: BASOPHILS % 0.2 % (0.0-2.0); HEMATOCRIT 36.6 % (37.0-47.0); HEMOGLOBIN 11.8 g/dl (12.0-16.0); LYMPHOCYTES # 1.5 10^3/ul (0.8-2.9); LYMPHOCYTES % 13.5 % (15.0-51.0); MEAN CORPUSCULAR HEMOGLOBIN 28.1 pg (29.0-33.0); MEAN CORPUSCULAR HGB CONC 32.2 g/dl (32.0-37.0); MEAN CORPUSCULAR VOLUME 87.1 fl (82.0-101.0); MEAN PLATELET VOLUME 11.5 fl (7.4-10.4); MONOCYTE # 0.7 10^3/ul (0.3-0.9); MONOCYTES % 6.5 % (0.0-11.0); NEUTROPHIL # 9.1 10^3/ul (1.6-7.5); NEUTROPHILS % 79.6 % (39.0-77.0); PLATELET COUNT 313 10^3/UL (140-415); RED CELL DISTRIBUTION WIDTH 12.5 % (11.5-14.5); WHITE BLOOD COUNT 11.4 10^3/ul (4.8-10.8)
[2017-03-18 05:53] LABS: ALBUMIN 3.3 g/dl (3.3-4.9); ALBUMIN/GLOBULIN RATIO 0.97; BILIRUBIN,INDIRECT 0.6 mg/dl (0-1.1); BILIRUBIN,TOTAL 0.6 mg/dl (0.2-1.3); CALCIUM 9.2 mg/dl (8.4-10.2); CREATININE 0.96 mg/dl (0.44-1.00); POTASSIUM 4.2 mmol/L (3.5-5.1); TOTAL PROTEIN 6.7 g/dl (6.1-8.1)
[2017-03-18 06:02] LABS: CK-MB 11.4 ng/ml (0.0-2.4)
[2017-03-18 06:04] LABS: TROPONIN-I 1.31 ng/ml (0.00-0.12)
[2017-03-18] MEDS ORDERED: GELATIN SIZE 100 SPONGE ONE (06:06)
[2017-03-18] MEDS ORDERED: THROMBIN 5000 UNIT VIAL ONE (06:06)
[2017-03-18] MEDS ORDERED: HEPARIN 1000 UNITS/ML 10 ML INJ ONE (06:07)
[2017-03-18 06:08] LABS: PROTIME 15.3 Sec (12.2-14.2); PT RATIO 1.2
[2017-03-18] MEDS ORDERED: MIDAZOLAM 1 MG/ML 2 ML INJ ONE (06:38)
[2017-03-18] MEDS ORDERED: FENTAnyl 50 MCG/ML VIAL ONE (06:49)
[2017-03-18] MEDS ORDERED: ETOMIDATE 20 MG INJ ONE (07:00)
[2017-03-18] MEDS: LEVOTHYROXINE 75 MCG TAB PO SCH (07:00)
[2017-03-18] MEDS ORDERED: LIDOCAINE 2% (SDV) 5 ML INJ ONE (07:00)
[2017-03-18 07:12] LABS: PARTIAL THROMBOPLASTIN TIME > 120.0 Sec (25.0-35.0)
[2017-03-18] MEDS ORDERED: SUCCINYLCHOLINE CHLORIDE 100 MG/5 ML SYG IV ONE (07:16)
[2017-03-18] MEDS ORDERED: FAMOTIDINE 20 MG INJ ONE (07:16)
[2017-03-18] MEDS ORDERED: ONDANSETRON 4 MG INJ ONE (07:16)
[2017-03-18] MEDS ORDERED: LABETALOL HCL 20MG INJ ONE (07:27)
--- NOTE | 2017-03-18 07:32 | QN ---
Documentation Comment -Patient seen and examined prior to going to Surgery in PACU. -It was identified patient having coffee ground, stool smelling vomitus. Concern for abdominal pathology was addressed by obtaining general surgery evaluation and emergent CT angiography of the abdomen and pelvis. -It was identified patient having high-grade SBO and concern for some bowel ischemia and in light of these findings in addition to her non-salvageable LLE ischemic limb and gangrene, decision was made to resuscitate further, NGT placement, Desai catheter placement and serial abdominal examinations and repeat laboratory work up. -Further the patient had elevated troponins and Cardiology has evaluated patient as the patient has concern for possible AL. -Had a detailed conversation with the family and addressed that concern of abdominal pathology supersedes her LLE already non-salvageable limb and await her improvement is of most importance prior to amputation. Our multidisciplinary colleagues also agreed with our plan and resuscitation -Will continue with close monitory, serial abdominal examinations, and labs and arrange amputation in the coming hours BERNY MOORE MD Mar 18, 2017 07:32
[2017-03-18] MEDS: INSULIN ASPART [NOVOLOG] 3 ML PEN SC SCH ×5 (07:35→20:33)
--- NOTE | 2017-03-18 07:46 | OPR ---
Date/Time of Note Date/Time of Note DATE: 03/18/17 TIME: 07:32 Operative Report Free Text/Dictation DATE OF OPERATION: 03/18/2017 SURGEON: Berny Moore MD PREOPERATIVE DIAGNOSIS: Left Lower Extremity critical limb ischemia and gangrene POSTOPERATIVE DIAGNOSIS: same ANESTHESIA: general BLOOD LOSS: 10ml COMPLICATIONS: None. INDICATIONS: This is an 71 female whom presented with left lower extremity critical ischemia with tissue loss no popliteal and pedal pulses and cold leg. Patient on examination also had mottled lower leg, fixed ankle and gangrene toes. Further, she had an episode of ground coffee-like vomiting last night prior to surgery and upon CT Angiogram it was identified that she has small bowel obstruction and question of bowel ischemia. General surgery evaluated the patient and with our team it was decided to observe her overnight with serial abdominal examination and blood work with resuscitation. Overnight her lactic acid was improved and abdominal examination improved. Risks and benefits were discussed with patient and family and not limited to , AK, stroke, pneumonia, hematoma, infection, revision of amputation, bleeding. PROCEDURE: 1. Left above knee amputation 2. Left femoral artery thrombectomy DESCRIPTION OF THE PROCEDURE: The patient was brought to the operating room and positioned in the supine position on the operating room table. The lower extremity was prepped and draped in usual sterile fashion. The preoperative antibiotics were given. Anesthesia was initiated and patient tolerated well. Desai catheter was placed. The correct site was marked and confirmed. Time-out was performed. Anterior and posterior skin flaps were outlined with a marking pen 10 cm proximal to the knee joint. This incision was then performed and deepened through serpiginous tissue into the muscular fascia was identified. The greater saphenous vein was identified and ligated with a 3-0 silk ties and divided. Muscle groups over the anterior and medial thigh were divided with electrocautery at the same level of the skin incision. The neurovascular bundle was identified in the medial aspect of the thigh. The popliteal vein was isolated and suture ligated with 3-0 Vicryl suture. The popliteal artery was isolated as well, a retrograde thrombectomy was performed with a 3 Fr Katelynn balloon catheter to address her proximal femoral thrombus and moderate amount of thrombus was removed. There was some rebleeding and the common femoral pulse still had appropriate pulsation of 2+. At this point the artery was suture ligated. The sciatic nerve was pulled and ligated with a 3-0 Vicryl suture tied and divided. The posterior thigh muscles were then divided with electrocautery. Once the muscle groups were circumferentially divided the periosteum was incised and elevated approximately 5 cm proximally off the femur. The femur was divided with electric saw. The proximal end of the transected femur was smoothed with a file. The amputation stump was irrigated copiously with antibiotic solution. Hemostasis was secured. The periosteum was closed with a interrupted 2-0 Vicryl suture over the transected femur. The fascia of the thigh muscles was also closed with interrupted 2-0 Vicryl suture. The dermal layer was approximated with interrupted 3-0 Vicryl sutures. Skin krystle were applied. Sterile dressing was applied with gauze and Kerlix and Juan Pablo bandage. The patient on procedure well was taken to post anesthesia care unit in stable condition. All instrument needle and sponge counts were correct 2. BERNY MOORE MD Mar 18, 2017 07:45
[2017-03-18] MEDS ORDERED: FENTAnyl 50 MCG/ML VIAL IV PRN (08:00)
[2017-03-18] MEDS ORDERED: ONDANSETRON 4 MG INJ IV PRN (08:00)
[2017-03-18] MEDS ORDERED: HYDROmorphONE 1 MG/ML SYG IV PRN (08:00)
[2017-03-18] MEDS: morphine 2 MG INJ IV PRN ×4 (08:35→21:27)
[2017-03-18] MEDS: BENAZEPRIL 10 MG TAB PO SCH (08:43)
[2017-03-18] MEDS: ATENOLOL 100 MG TAB PO SCH (08:44)
[2017-03-18] MEDS: AMLODIPINE 10 MG TAB PO SCH (08:44)
[2017-03-18] MEDS: GABAPENTIN 300 MG CAP PO SCH ×2 (08:44→20:00)
[2017-03-18] MEDS: METOPROLOL 5 MG INJ IV SCH ×4 (08:48→20:36)
--- NOTE | 2017-03-18 08:58 | RADRPT ---
PROCEDURE: XR Chest. CLINICAL INDICATION: POST SURGERY TECHNIQUE: Single frontal chest x-ray. COMPARISON: 03/16/2017 FINDINGS: The lungs are clear of acute infiltrates, edema, effusions, or masses. There is a nasogastric tube i n place with tip coiled in the stomach. Calcific atherosclerosis of the aorta is present.. The card iomediastinal silhouette is unremarkable. The osseous structures are intact. IMPRESSION: No acute cardiopulmonary disease. Nasogastric tube in place with tip in the stomach. RPTAT: EE .Abner Arguello MD, MD Date Time Electronically viewed and signed by .Abner Arguello MD, MD on 03/18/2017 08:58 .L/
--- NOTE | 2017-03-18 09:04 | PN ---
Date/Time of Note Date/Time of Note DATE: 03/18/17 TIME: 09:01 Assessment/Plan Lines/Catheters IV Catheter Type (from Nrs): Peripheral IV Desai in Place (from Nrs): Yes Assessment/Plan Chief Complaint/Hosp Course 1. Abdominal pain with CT findings are suggestive of either obstructive pattern versus ileus. Patient has gas and stool in the colon. Less likelihood of bowel ischemia; 200ml out overnight per NG tube; no n/v -NPO -Judicious IV fluids -Close monitoring 2. PVD/PAD with Left lower extremity ischemia with tissue necrosis and gangrene ; s/p left AKA -Deferred to vascular surgery -Judicious fluid management -Anticoagulation 3. Elevated troponin with possible demand ischemia and ME; troponin trending down -Cardiac evaluation on optimization 4. Elevated BNP with possible CHF -Judicious fluid management -Cardiac optimization 5. Renal insufficiency, multifactorial secondary to above -Judicious fluid management and avoid nephrotoxic agents as possible 6. Anemia. Coffee-ground NG tube aspirate. h/h stable -Close monitoring -Transfuse as needed 7. Diabetes -Diet and medication optimization 8. Hypertension -Diet and medication optimization 9. Hypercholesterolemia -Diet and medication optimization Patient seen and examined in collaboration with Dr. Steffen Kelly Problems: Subjective 24 Hr Interval Summary AKA done this morning. NGT output 200ml out overnight. Pain on left leg. No n/v/ d, chakraborty, dizziness, sz, fainting, cp, palpitations, fevers, chills, SOB, cough. No bm/flatus Exam/Review of Systems Vital Signs Vitals Vital Signs Date Time Temp Pulse Resp B/P Pulse Ox O2 Delivery O2 Flow Rate FiO2 03/18/17 05:00 79 16 149/61 99 Room Air 03/18/17 04:00 98.2 Intake and Output 03/17/17 03/17/17 03/18/17 15:00 23:00 07:00 Intake Total 250 ml 2047.5 ml Output Total 100 ml 950 ml 300 ml Balance -100 ml -700 ml 1747.5 ml Exam Free Text/Dictation Constitutional: alert Psych: confused but able to answer simple questions, follows commands No anxiety, No nl mood/affect Head: atraumatic, normocephalic Eyes: EOMI, PERRL, nl conjunctiva, No icteric ENMT: nl external ears & nose, nl lips & teeth, No mucosa pink and moist (Dry mucosa) Neck: jvd, non-tender, supple Respiratory: normal air movement, No congested cough, No diminished breath sounds, No labored breathing Cardiovascular: regular rate and rhythm, No edema Gastrointestinal: distended, soft, tender (Minimally in left lower quadrant), No firm, No rebound or guarding Musculoskeletal: No joint tenderness, No nl extremities to inspection (Left AKA ), No nl gait and stance Extremities: No calf tenderness, No normal pulses Neurological: nl speech, No nl strength Skin: No diaphoresis, No nl turgor, No rash or lesions Lymph: nl lymph nodes Results Result Diagram: 03/18/17 0500 03/18/17 0500 JULIANA RUFFIN NP Mar 18, 2017 09:04
--- NOTE | 2017-03-18 09:14 | HP ---
DATE OF ADMISSION: 03/16/2017 CHIEF COMPLAINT: Left foot pain. HISTORY OF PRESENT ILLNESS: Patient is a 71-year-old female who has a history of diabetes and dyslipidemia, who was sent from [facility] for further evaluation. For the past 2 months, the patient has been having pain in her left foot and has been noticing some skin change on her 1st and 2nd toes. Arterial angiogram was done at [place] today, and reportedly a procedure was done in an attempt to clear some vascular occlusion, but after that she was told that she will need her toes amputated and was sent here for that reason. The patient is complaining of pain on her toes and they look necrotic. When she presented to the ER, initial blood pressure documented was 78/45 with a heart rate of 100, but since then her blood pressure has been within acceptable range after she was given IV fluid boluses. She was also started on a heparin drip and started on antibiotics while she was in the ER. As far as her labs are concerned, she presented with a WBC of 19.3, hemoglobin 11.8. BUN 48, creatinine 1.44. An x-ray of her left foot shows demineralization and soft tissue swelling without acute osseous abnormality. Extremity arterial study bilaterally shows that there is occluded right posterior tibial artery and completely occluded left lower extremity arterial system. A chest x-ray shows no evidence of acute intrathoracic pathology. REVIEW OF SYSTEMS: A 12-point review was performed and negative except as in HPI. PAST MEDICAL HISTORY: As per HPI. SOCIAL HISTORY: Denies history of tobacco, alcohol, or illicit drug use. ALLERGIES: PENICILLIN. ACETAMINOPHEN. CODEINE. HOME MEDICATIONS: 1. Norvasc. 2. Atenolol. 3. Benazepril. 4. Zocor. 5. Gabapentin. 6. Insulin. 7. Synthroid. PHYSICAL EXAMINATION: VITALS: Stable. GENERAL: Patient looks somewhat uncomfortable because of pain. HEENT: No deformity. Pupils are reactive to light. intact. CARDIOVASCULAR: Slightly tachycardic with regular rhythm. LUNGS: Clear. ABDOMEN: Soft. No tenderness. Positive bowel sounds. EXTREMITIES: Her left 1st and 2nd toes are necrotic. There is also some tenderness in her foot. LABORATORY: Pertinent positives as mentioned in HPI IMAGING: Chest x-ray, bilateral extremity arterial study, and a left foot x-ray as above in patient's HPI. IMPRESSION: 1. 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 2. Right posterior tibial artery occlusion. 3. Left 1st and 2nd toe necrosis. 4. Sepsis as evidenced by leukocytosis and tachycardia, secondary to left foot necrosis. 5. History of diabetes. 6. History of dyslipidemia. 7. Presumed acute injury. 8. History of hypertension. PLAN: She will be continued on a heparin drip. Will provide pain medication as needed. She will be placed on antibiotics. She is currently awaiting evaluation by Dr Fitch from vascular surgery. Will obtain blood culture. She will be continued with her insulin as well as statin. Will also continue her antihypertensives with adjustment as needed. Her elevated creatinine is presumed to be acute; will follow up closely and will do additional workup, including a renal ultrasound and nephrology consult as needed. She will receive IV fluid for now. hospital course. Dictated By: Jesus Chin MD /olga/gary /Document#: [id number]
--- NOTE | 2017-03-18 09:17 | PN ---
Date/Time of Note Date/Time of Note DATE: 03/18/17 TIME: 09:03 Assessment/Plan VTE Prophylaxis VTE Prophylaxis Intervention: heparin Lines/Catheters IV Catheter Type (from Nrsg): Peripheral IV Urinary Cath still in place: Yes Reason Cath still needed: other (indicate) Assessment/Plan Chief Complaint/Hosp Course 1. 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 -Patient has been switched to subcutaneous heparin. We will follow-up with vascular surgery for postoperative courses. -Continue pain management and vascular check 2. Abdominal pain. CT findings are suggestive of possible obstructive pattern versus ileus. -Surgery on board patient has been started on NG tube decompression. -Strict n.p.o. -Continue IV fluids hydration and pain management 3. Elevated troponin-rule out acute coronary syndrome. Likely possible demand ischemia vs MD -Cardiac consult Dr. Thomson. -Continue anticoagulation and beta-blockers for now. -Monitor serial troponin and EKG in ICU. 4. Elevated BNP ,Rule out CHF -Obtain 2D echocardiogram. Follow-up with cardiology recommendation on further management. - Judicious fluid management 5. Anemia, mild, likely postoperative versus chronic -Panel and recording. Currently no indication for blood transfusion. 7. Type II diabetes. A1c 8.4 -Start Accu-Chek and mild algorithm insulin sliding scale every 4 hours patient is n.p.o. -Add Lantus 10 units subcutaneous at bedtime. 8. Essential hypertension -Continue under tenses. Further recommendation from cardiology. 9. Hypothyroidism. -Continue Synthroid and we will switch to PO while patient is n.p.o. 10. Hypercholesterolemia -Resume statin once patient is able to take p.o. 11. Leukocytosis, this is likely reactive. Improving. -Continue prophylactic antibiotics postoperatively. -Await for culture reports and consider ID if indicated. Prophylaxis: Heparin subcutaneous for DVT and Pepcid for PUD prophylaxis Plan patient to be monitored in ICU. We will follow-up with vascular and cardiology recommendation. Continue strict n.p.o. and continue to monitor vascular check. Monitor for possible arrhythmias. Start incentive spirometry every hour while awake. Patient will be kept full code. Plan of care discussed with patient and son at bedside. Discussed with nursing staff. 60 minutes critical care time spent. Case discussed with . Problems: Subjective 24 Hr Interval Summary Free Text/Dictation Patient in ICU, status post left AKA. Heparin gtt off. Exam/Review of Systems Vital Signs Vitals Vital Signs Date Time Temp Pulse Resp B/P Pulse Ox O2 Delivery O2 Flow Rate FiO2 03/18/17 05:00 79 16 149/61 99 Room Air 03/18/17 04:00 98.2 Intake and Output 03/17/17 03/17/17 03/18/17 15:00 23:00 07:00 Intake Total 250 ml 2047.5 ml Output Total 100 ml 950 ml 300 ml Balance -100 ml -700 ml 1747.5 ml Exam General: Thin built, not in any acute distress . HEENT: Normocephalic, Atraumatic, No laceration or hematoma; Eyes: PEERL, Conjunctiva clear, Anicteric sclera Neck: Supple without any lymphadenopathy, nontender, no JVD, no carotid bruits, trachea midline, no thyromegaly Cardiac: S1, S2 auscultated, regular rhythm and rate, no mumurs or gallop Pulmonary: Diminished breath sound bibasilar. Normal respiratory effort. Chest clear to auscultation bilaterally, no adventitious breath sounds GI: NG tube. Abdomen is slightly distended with minimal tenderness left lower quadrant. S no masses, no rebound tenderness or guarding. Bowel sounds hypoactive on all four quadrants Genitourinary: Deferred Extremities: Left AKA, surgical dressing intact. Neurologic: Alert to person, place, time, and situation. Affect appropriate, intact sensation. Skin: Clean,dry, and intact. No ecchymosis, no rashes, or lesions Results Result Diagram: 03/18/17 0500 03/18/17 0500 Results 24 hrs Laboratory Tests Test 03/17/17 09:21 03/17/17 12:12 03/17/17 18:35 03/17/17 19:30 Bedside Glucose 219 Prothrombin Time 13.2 13.3 Prothrombin Time Ratio 1.0 1.0 INR International Normalized Ratio 1.00 1.01 Activated Partial Thromboplast Time 130.1 *H 39.8 H White Blood Count 14.3 H Red Blood Count 4.23 Hemoglobin 12.2 Hematocrit 36.6 L Mean Corpuscular Volume 86.5 Mean Corpuscular Hemoglobin 28.8 L Mean Corpuscular Hemoglobin Concent 33.3 Red Cell Distribution Width 12.2 Platelet Count 319 Mean Platelet Volume 11.1 H Neutrophils % 87.2 H Lymphocytes % 6.4 L Monocytes % 5.6 Eosinophils % 0.1 Basophils % 0.2 Nucleated Red Blood Cells % 0.0 Neutrophils # 12.5 H Lymphocytes # 0.9 Monocytes # 0.8 Eosinophils # 0.0 Basophils # 0.0 Nucleated Red Blood Cells # 0.0 Sodium Level 142 Potassium Level 4.1 Chloride Level 96 L Carbon Dioxide Level 30 Anion Gap 20 H Blood Urea Nitrogen 29 H Creatinine 0.99 Glucose Level 86 # Calcium Level 9.9 Creatine Kinase 592 H Creatine Kinase Index 2.0 Creatinine Kinase MB (Mass) 11.60 H Troponin I 2.110 *H B-Type Natriuretic Peptide 9440 H Lactic Acid Level 11.6 *H Test 03/17/17 20:49 03/17/17 22:10 03/18/17 05:00 03/18/17 06:05 Bedside Glucose 122 158 Urine Color YELLOW Urine Clarity SLIGHTLY CLOUDY A Urine pH 5.0 Urine Specific [place] 1.059 H Urine Ketones 1+ H Urine Nitrite NEGATIVE Urine Bilirubin NEGATIVE Urine Urobilinogen NEGATIVE Urine Leukocyte Esterase 2+ H Urine Microscopic RBC 58 H Urine Microscopic WBC 43 H Urine Mucus FEW A Urine Hemoglobin 3+ H Urine Glucose NEGATIVE Urine Total Protein NEGATIVE White Blood Count 11.4 #H Red Blood Count 4.20 Hemoglobin 11.8 L Hematocrit 36.6 L Mean Corpuscular Volume 87.1 Mean Corpuscular Hemoglobin 28.1 L Mean Corpuscular Hemoglobin Concent 32.2 Red Cell Distribution Width 12.5 Platelet Count 313 Mean Platelet Volume 11.5 H Neutrophils % 79.6 H Lymphocytes % 13.5 L Monocytes % 6.5 Eosinophils % 0.0 Basophils % 0.2 Nucleated Red Blood Cells % 0.0 Neutrophils # 9.1 H Lymphocytes # 1.5 Monocytes # 0.7 Eosinophils # 0.0 Basophils # 0.0 Nucleated Red Blood Cells # 0.0 Prothrombin Time 15.3 H Prothrombin Time Ratio 1.2 INR International Normalized Ratio 1.20 Activated Partial Thromboplast Time > 120.0 *H Sodium Level 143 Potassium Level 4.2 Chloride Level 100 Carbon Dioxide Level 23 Anion Gap 24 H Blood Urea Nitrogen 23 H Creatinine 0.96 Glucose Level 154 Lactic Acid Level 1.1 Calcium Level 9.2 Total Bilirubin 0.6 Direct Bilirubin 0.00 Indirect Bilirubin 0.6 Aspartate Amino Transf (AST/SGOT) 47 H Alanine Aminotransferase (ALT/SGPT) 35 Alkaline Phosphatase 75 Creatine Kinase 788 H Creatine Kinase Index 1.4 Creatinine Kinase MB (Mass) 11.40 H Troponin I 1.310 *H Total Protein 6.7 Albumin 3.3 Globulin 3.40 H Albumin/Globulin Ratio 0.97 Test 03/18/17 08:38 Bedside Glucose 196 Medications Medications Current Medications Ondansetron HCl (Zofran Inj) 4 mg Q6H PRN IV NAUSEA AND/OR VOMITING; Start at 01:00 Morphine Sulfate (morphine) 2 mg Q4H PRN IV PAIN LEVEL 7-10 Last administered on 03/18/17 08:35; Admin Dose 2 MG; Start 03/17/17 at 01:00 Amlodipine Besylate (Norvasc) 10 mg DAILY PO Last administered on 03/17/17 09: 59; Admin Dose 10 MG; Start 03/17/17 at 09:00 Atenolol (Tenormin) 100 mg DAILY PO Last administered on 03/17/17 10:00; Admin Dose 100 MG; Start 03/17/17 at 09:00 Benazepril HCl (Lotensin) 10 mg DAILY PO Last administered on 03/17/17 09:57; Admin Dose 10 MG; Start 03/17/17 at 09:00 Gabapentin (Neurontin) 300 mg BID PO Last administered on 03/17/17 09:58; Admin Dose 300 MG; Start 03/17/17 at 09:00 Insulin Glargine (Lantus) 20 unit QHS SC ; Start 03/17/17 at 21:00 Atorvastatin Calcium 10 mg 10 mg DAILY@21 PO ; Start 03/17/17 at 21:00 Vancomycin HCl/ Sodium Chloride (Vancocin/NS) 150 ml @ 75 mls/hr Q24H IVPB Last administered on 03/17/17 23:31; Admin Dose 75 MLS/HR; Start 03/17/17 at 21 :00 Miscellaneous Information 1 ea NOTE XX ; Start 03/17/17 at 12:00 Glucose (Glutose) 15 gm Q15M PRN PO DECREASED GLUCOSE; Start 03/17/17 at 12:00 Glucose (Glutose) 22.5 gm Q15M PRN PO DECREASED GLUCOSE; Start 03/17/17 at 12: 00 Dextrose (D50w Syringe) 25 ml Q15M PRN IV DECREASED GLUCOSE; Start 03/17/17 at 12:00 Dextrose (D50w Syringe) 50 ml Q15M PRN IV DECREASED GLUCOSE; Start 03/17/17 at 12:00 Glucagon (Glucagen) 1 mg Q15M PRN IM DECREASED GLUCOSE; Start 03/17/17 at 12:00 Glucose (Glutose) 15 gm Q15M PRN BUCCAL DECREASED GLUCOSE; Start 03/17/17 at 12 :00 Famotidine 20 mg 20 mg HS IV Last administered on 03/17/17 23:30; Admin Dose 20 MG; Start 03/17/17 at 21:00 Lactated Ringer's (Lr) 1,000 ml @ 125 mls/hr Q8H IV Last administered on 04:20; Admin Dose 125 MLS/HR; Start 03/17/17 at 18:30 Metoprolol Tartrate (Lopressor) 5 mg Q4 IV Last administered on 03/18/17 08:48 ; Admin Dose 5 MG; Start 03/18/17 at 09:00 Heparin Sodium (Porcine) (Heparin (5000 Units/0.5 ml)) 5,000 unit Q8 SC ; Start 03/18/17 at 14:00 BEBA HENSON NP Mar 18, 2017 09:13
[2017-03-18] MEDS ORDERED: HYDROmorphONE 1 MG/ML SYG IV STA (11:17)
[2017-03-18] MEDS ORDERED: ASPIRIN 300 MG SUPP PR ONE (11:30)
[2017-03-18] MEDS ORDERED: CLONIDINE 0.2 MG/24 HR PATCH TRANSDERM SCH (12:30)
[2017-03-18] MEDS: HEPARIN 5,000 UNIT/0.5 ML VIAL SC SCH ×2 (13:15→21:24)
[2017-03-18 14:39] LABS: ADD SCAN DIFF NO
[2017-03-18 14:45] LABS: BASOPHILS % 0.2 % (0.0-2.0); EOSINOPHILS % 0.1 % (0.0-7.0); HEMATOCRIT 29.5 % (37.0-47.0); HEMOGLOBIN 9.7 g/dl (12.0-16.0); LYMPHOCYTES # 1.2 10^3/ul (0.8-2.9); LYMPHOCYTES % 12.1 % (15.0-51.0); MEAN CORPUSCULAR HEMOGLOBIN 28.4 pg (29.0-33.0); MEAN CORPUSCULAR HGB CONC 32.9 g/dl (32.0-37.0); MEAN CORPUSCULAR VOLUME 86.3 fl (82.0-101.0); MEAN PLATELET VOLUME 11.6 fl (7.4-10.4); MONOCYTE # 0.8 10^3/ul (0.3-0.9); MONOCYTES % 8.1 % (0.0-11.0); NEUTROPHIL # 7.5 10^3/ul (1.6-7.5); PLATELET COUNT 267 10^3/UL (140-415); RED BLOOD COUNT 3.42 10^6/ul (4.20-5.40); RED CELL DISTRIBUTION WIDTH 12.4 % (11.5-14.5); WHITE BLOOD COUNT 9.5 10^3/ul (4.8-10.8)
[2017-03-18 15:03] LABS: CALCIUM 8.8 mg/dl (8.4-10.2); CREATININE 0.83 mg/dl (0.44-1.00); POTASSIUM 3.6 mmol/L (3.5-5.1)
[2017-03-18 15:10] LABS: CK-MB 11.4 ng/ml (0.0-2.4)
[2017-03-18 15:16] LABS: TROPONIN-I 0.634 ng/ml (0.00-0.12)
--- NOTE | 2017-03-18 15:23 | RADRPT ---
Echocardiogram Report Patient Name: PIETER PEREZ Gender: Female Date: 1945 Study Date: 18-Mar-2017 Pipe Inspector: Suraj [facility] Location: 113 Ref. Physician: BEBA HENSON Quality: Adequate Procedures: Transthoracic echocardiogram with complete 2D, M-Mode, and doppler examination. Indications: Elevated troponin/elevated BNP. 2D/M Mode Doppler Measurement Value Normal Ranges Measurement Value Normal Ranges LVIDd 2D 3.5 3.5 - 5.6 cm AV Peak Facundo 1.3 m/sec LVIDs 2D 2.3 2.1 - 4.1 cm AV Peak PG 6.0 mmHg FS 2D 32.9 % LVOT Peak Facundo 0.8 m/sec LVPWd 2D 1.3 0.6 - 1.1 cm LVOT Peak PG 3.0 mmHg IVSd 2D 1.3 0.6 - 1.1 cm MV E Peak Facundo 0.8 m/sec IVS/LVPW 2D 1.0 MV A Peak Facundo 1.0 m/sec AoR Diam 2D 2.2 2.0 - 3.7 cm MV E/A 0.8 LA/Ao 2D 2 0 - 1 MV Decel Time 197 msec EDV 2D 42.9 cm3 MV E/A 0.8 ESV 2D 13.0 cm3 TR Peak Facundo 2.6 m/sec LA Dimen 2D 3.7 2.3 - 4.0 cm TR Peak PG 27.0 mmHg RVSP 30.0 mmHg Findings Left Ventricle: Normal left ventricular systolic function. Normal left ventricular cavity size. Mild concentric left ventricular hypertrophy. Ejection fraction is visually estimated at 60 %. Tissue Doppler/Mitral Doppler indices are consistent with impaired relaxation (Stage I diastolic dysfunction). Right Ventricle: Normal right ventricular size. Normal right ventricular systolic function. Left Atrium: The left atrium is normal in size. Right Atrium: The right atrium is normal in size. Mitral Valve: Mitral valve leaflets appear mildly thickened. Mild mitral annular calcification. Trace mitral regurgitation. Aortic Valve: No significant aortic stenosis or insufficiency. Aortic cusps appear mildly calcified. Tricuspid Valve: Normal appearance of the tricuspid valve. Estimated peak PA systolic pressure 30 mmHg. There is mild tricuspid regurgitation. Pulmonic Valve: Pulmonic valve not well visualized. There is trace pulmonic regurgitation. Pericardium: Normal pericardium with no significant pericardial effusion. Aorta: Normal aortic root. IVC: Normal size and normal respiratory collapse consistent with normal right atrial pressure. Conclusions 1.Normal left ventricular systolic function. Normal left ventricular cavity size. Mild concentric left ventricular hypertrophy. Ejection fraction is visually estimated at 60 %. Tissue Doppler/Mitral Doppler indices are consistent with impaired relaxation (Stage I diastolic dysfunction). 2.Normal right ventricular size. Normal right ventricular systolic function. 3.Mitral valve leaflets appear mildly thickened. Mild mitral annular calcification. Trace mitral regurgitation. 4.Normal appearance of the tricuspid valve. Estimated peak PA systolic pressure 30 mmHg. There is mild tricuspid regurgitation. 5.Pulmonic valve not well visualized. There is trace pulmonic regurgitation. Electronically Signed By: Ebenezer Thomson 18-Mar-2017 15:21:47 -0700 Patient Name: PIETER PEREZ Study Date: 18-Mar-2017 [id number]
--- NOTE | 2017-03-18 15:29 | RADRPT ---
Vent Rate: 84 bpm RR Interval: 0 msec CA Interval: 156 msec QRS Duration: 98 msec QT Interval: 416 msec QTC Interval: 491 msec P-R-T [place]: 61 - -29 - -52 degrees Normal sinus rhythm Cannot rule out Anterior infarct , age undetermined T wave abnormality, consider lateral ischemia Abnormal ECG Electronically Signed By: Ebenezer Thomson [id number]
[2017-03-18] MEDS: hydrALAzine 20 MG INJ IV PRN (15:30)
--- NOTE | 2017-03-18 15:30 | RADRPT ---
Vent Rate: 84 bpm RR Interval: 0 msec UT Interval: 172 msec QRS Duration: 100 msec QT Interval: 428 msec QTC Interval: 505 msec P-R-T [place]: 59 - -26 - -44 degrees Normal sinus rhythm Cannot rule out Anterior infarct , age undetermined T wave abnormality, consider inferolateral ischemia Abnormal ECG Electronically Signed By: Ebenezer Thomson [id number]
[2017-03-18] MEDS: KETOROLAC 15 MG INJ IV SCH ×2 (17:04→21:19)
[2017-03-18] MEDS: ATORVASTATIN 10 MG TAB PO SCH (20:00)
[2017-03-18] MEDS: FAMOTIDINE 20 MG INJ IV SCH (20:36)
[2017-03-18] MEDS ORDERED: INSULIN GLARGINE [LANtus] 3 ML PEN SC SCH (21:00)
[2017-03-18] MEDS: VANCOMYCIN 750 MG in SOD CHLORIDE 0.9% 150 ML IVPB SCH (21:18)
[2017-03-18] MEDS: ACCU-CHEK XX SCH (23:36)
[2017-03-19] VITALS (49 sets, daily range): BP systolic 95–178; BP diastolic 41–68; PULSE 69–85; RESP 11–28
[2017-03-19] MEDS: LACTATED RINGER'S 1,000 ML IV SCH ×4 (00:29→20:31)
[2017-03-19] MEDS: METOPROLOL 5 MG INJ IV SCH ×6 (00:29→20:35)
[2017-03-19] MEDS: INSULIN ASPART [NOVOLOG] 3 ML PEN SC SCH ×6 (00:45→20:39)
[2017-03-19] MEDS: hydrALAzine 20 MG INJ IV PRN ×3 (02:20→22:25)
[2017-03-19] MEDS: morphine 2 MG INJ IV PRN ×5 (02:48→20:37)
[2017-03-19] MEDS: KETOROLAC 15 MG INJ IV SCH ×2 (04:58→14:38)
[2017-03-19 05:31] LABS: ADD SCAN DIFF NO
[2017-03-19 05:34] LABS: BASOPHILS % 0.1 % (0.0-2.0); EOSINOPHILS # 0.1 10^3/ul (0.0-0.5); EOSINOPHILS % 0.5 % (0.0-7.0); HEMATOCRIT 30.6 % (37.0-47.0); HEMOGLOBIN 10.1 g/dl (12.0-16.0); LYMPHOCYTES # 1.8 10^3/ul (0.8-2.9); LYMPHOCYTES % 18.1 % (15.0-51.0); MEAN CORPUSCULAR HEMOGLOBIN 28.7 pg (29.0-33.0); MEAN CORPUSCULAR VOLUME 86.9 fl (82.0-101.0); MEAN PLATELET VOLUME 11.5 fl (7.4-10.4); MONOCYTE # 1.1 10^3/ul (0.3-0.9); MONOCYTES % 11.2 % (0.0-11.0); NEUTROPHILS % 69.8 % (39.0-77.0); PLATELET COUNT 286 10^3/UL (140-415); RED BLOOD COUNT 3.52 10^6/ul (4.20-5.40); RED CELL DISTRIBUTION WIDTH 12.6 % (11.5-14.5)
[2017-03-19] MEDS ORDERED: hydrALAzine 20 MG INJ IV ONE (06:00)
[2017-03-19] MEDS: LEVOTHYROXINE 100 MCG VIAL IV SCH (06:03)
[2017-03-19 06:07] LABS: IRON 37 ug/dl (35-150)
[2017-03-19] MEDS: HEPARIN 5,000 UNIT/0.5 ML VIAL SC SCH ×3 (06:13→22:14)
[2017-03-19 06:17] LABS: TOTAL IRON BINDING CAPACITY 193 ug/dl (241-421)
[2017-03-19] MEDS ORDERED: LEVOTHYROXINE 100 MCG VIAL IV ONE (06:30)
[2017-03-19 07:36] LABS: CALCIUM 8.9 mg/dl (8.4-10.2); CREATININE 0.83 mg/dl (0.44-1.00); MAGNESIUM 1.6 mg/dl (1.7-2.5); POTASSIUM 3.5 mmol/L (3.5-5.1)
[2017-03-19 08:13] LABS: CHOL/HDL RATIO 2.4 RATIO
--- NOTE | 2017-03-19 08:22 | PN ---
Date/Time of Note Date/Time of Note DATE: 03/19/17 TIME: 08:02 Assessment/Plan Lines/Catheters IV Catheter Type (from Nrs): A Line Desai in Place (from Nrs): Yes Assessment/Plan Chief Complaint/Hosp Course 1. Abdominal pain with CT findings are suggestive of either obstructive pattern versus ileus. Patient has gas and stool in the colon. Less likelihood of bowel ischemia; 100ml out overnight per NG tube; sanguinous drainage in tube. coffee grounds in canisterno n/v -NPO -Judicious IV fluids -Close monitoring -SBFT -Gi consult: likely need EGD -decrease/stop heparin 2. PVD/PAD with Left lower extremity ischemia with tissue necrosis and gangrene ; s/p left AKA with thrombectomy -Deferred to vascular surgery -Judicious fluid management -Anticoagulation 3. Elevated troponin with possible demand ischemia and TX; troponin improving -Cardiac evaluation on optimization 4. Elevated BNP with possible CHF -Judicious fluid management -Cardiac optimization 5. Renal insufficiency, multifactorial secondary to above -Judicious fluid management and avoid nephrotoxic agents as possible 6. Anemia. Coffee-ground NG tube aspirate. h/h improving -Close monitoring -Transfuse as needed 7. Diabetes: one episode of hypoglycemia overnight; BS improved -Diet and medication optimization 8. Hypertension -Diet and medication optimization 9. Hypercholesterolemia -Diet and medication optimization 10. Leukocytosis: 2/2 #1 and #2 improved -abx -supportive -as above Patient seen and examined in collaboration with Dr. Steffen Kelly Problems: Subjective 24 Hr Interval Summary Feeling well. Intermittent pain in left leg, especially when moving. GT tube with bloody drainage, canister with coffee ground drainage. No flatus/bm. No n/v /d, fevers, chills, chakraborty, sz, dizziness, cp, palpitations, sob. Exam/Review of Systems Vital Signs Vitals Vital Signs Date Time Temp Pulse Resp B/P Pulse Ox O2 Delivery O2 Flow Rate FiO2 03/19/17 06:20 85 18 145/42 97 Room Air 03/19/17 00:00 98.5 Intake and Output 03/18/17 03/18/17 03/19/17 15:00 23:00 07:00 Intake Total 1000 ml 900 ml 875 ml Output Total 805 ml 250 ml 400 ml Balance 195 ml 650 ml 475 ml Exam Free Text/Dictation Constitutional: alert Psych: confused but able to answer simple questions, follows commands No anxiety, No nl mood/affect Head: atraumatic, normocephalic Eyes: EOMI, PERRL, nl conjunctiva, No icteric ENMT: nl external ears & nose, nl lips & teeth, NG tube with sanguinous drainage, coffee ground drainage in suction canister No mucosa pink and moist (Dry mucosa) Neck: jvd, non-tender, supple Respiratory: normal air movement, No congested cough, No diminished breath sounds, No labored breathing Cardiovascular: regular rate and rhythm, No edema Gastrointestinal: distended, soft, tender (Minimally in left lower quadrant), No firm, No rebound or guarding, bowel sounds Musculoskeletal: No joint tenderness, No nl extremities to inspection (Left AKA ), No nl gait and stance Extremities: No calf tenderness, No normal pulses Neurological: nl speech, No nl strength Skin: No diaphoresis, No nl turgor, No rash or lesions Lymph: nl lymph nodes Results Result Diagram: 03/19/17 0445 03/19/17 0445 JULIANA RUFFIN NP Mar 19, 2017 08:15
--- NOTE | 2017-03-19 08:29 | PN ---
Date/Time of Note Date/Time of Note DATE: 03/19/17 TIME: 08:23 Assessment/Plan VTE Prophylaxis VTE Prophylaxis Intervention: heparin Lines/Catheters IV Catheter Type (from Nrsg): A Line Urinary Cath still in place: Yes Reason Cath still needed: other (indicate) Assessment/Plan Chief Complaint/Hosp Course 1. 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 -We will follow-up with vascular surgery for postoperative courses. -Continue pain management and vascular check 2. Abdominal pain. CT findings are suggestive of possible obstructive pattern versus ileus. -Continue NG tube decompression. -Strict n.p.o. -Continue IV fluids hydration and pain management -F/u with Surgery recs. 3. Non-STEMI . Troponin trending down. -Cardiology on board -On aspirin, BB, nitrates and anticoagulation 4. Elevated BNP ,Likely 2/2 diastolic dysfunction. 2D echo with preserved EF. - Follow-up with cardiology recommendation on further management. - On nitrates, betablockers and Judicious fluid management 5. Anemia, mild, likely postoperative versus chronic. HH stable. - Currently no indication for blood transfusion. 7. Type II diabetes. A1c 8.4 -On Accu-Chek and mild algorithm insulin sliding scale every 4 hours patient is n.p.o. -Decrease Lantus to 5 units subcutaneous at bedtime. 8. Essential hypertension -Continue antihypertensives. Further recommendation from cardiology. 9. Hypothyroidism. -Continue Synthroid and we will switch to PO while patient is n.p.o. 10. Hypercholesterolemia -Resume statin once patient is able to take p.o. 11. Leukocytosis, this is likely reactive. Resolved -Continue prophylactic antibiotics postoperatively. -Await cultures and consider ID if indicated. 12.Hypomagnesemia. replete and monitor. Prophylaxis: Heparin subcutaneous for DVT and Pepcid for PUD prophylaxis Plan:Continue ICU monitoring and follow up with consultants recs. 60 minutes critical care time spent. Case discussed with . Problems: Subjective 24 Hr Interval Summary Free Text/Dictation patient in ICU, off heparin drip. Improved pain status. denies chest pain, SOB, N/V or other constitutional symptoms.No overnight episodes. Exam/Review of Systems Vital Signs Vitals Vital Signs Date Time Temp Pulse Resp B/P Pulse Ox O2 Delivery O2 Flow Rate FiO2 03/19/17 06:20 85 18 145/42 97 Room Air 03/19/17 00:00 98.5 Intake and Output 03/18/17 03/18/17 03/19/17 15:00 23:00 07:00 Intake Total 1000 ml 900 ml 875 ml Output Total 805 ml 250 ml 400 ml Balance 195 ml 650 ml 475 ml Exam General: Thin built, not in any acute distress . HEENT: Normocephalic, Atraumatic, No laceration or hematoma; Eyes: PEERL, Conjunctiva clear, Anicteric sclera Neck: Supple without any lymphadenopathy, nontender, no JVD, no carotid bruits, trachea midline, no thyromegaly Cardiac: S1, S2 auscultated, regular rhythm and rate, no mumurs or gallop Pulmonary: Diminished breath sound bibasilar. Normal respiratory effort. Chest clear to auscultation bilaterally, no adventitious breath sounds GI: NG tube. Abdomen is slightly distended with minimal tenderness left lower quadrant. S no masses, no rebound tenderness or guarding. Bowel sounds hypoactive on all four quadrants Genitourinary: Deferred Extremities: Left AKA, surgical dressing intact. Neurologic: Alert to person, place, time, and situation. Affect appropriate, intact sensation. Skin: Clean,dry, and intact. No ecchymosis, no rashes, or lesions Results Result Diagram: 03/19/17 0445 03/19/17 0445 Results 24 hrs Laboratory Tests Test 03/18/17 08:38 03/18/17 13:11 03/18/17 14:00 03/18/17 16:58 Bedside Glucose 196 202 164 White Blood Count 9.5 Red Blood Count 3.42 L Hemoglobin 9.7 L Hematocrit 29.5 L Mean Corpuscular Volume 86.3 Mean Corpuscular Hemoglobin 28.4 L Mean Corpuscular Hemoglobin Concent 32.9 Red Cell Distribution Width 12.4 Platelet Count 267 Mean Platelet Volume 11.6 H Neutrophils % 79.0 H Lymphocytes % 12.1 L Monocytes % 8.1 Eosinophils % 0.1 Basophils % 0.2 Nucleated Red Blood Cells % 0.0 Neutrophils # 7.5 Lymphocytes # 1.2 Monocytes # 0.8 Eosinophils # 0.0 Basophils # 0.0 Nucleated Red Blood Cells # 0.0 Sodium Level 139 Potassium Level 3.6 Chloride Level 98 Carbon Dioxide Level 24 Anion Gap 21 H Blood Urea Nitrogen 21 H Creatinine 0.83 Glucose Level 184 Lactic Acid Level 1.3 Calcium Level 8.8 Creatine Kinase 754 H Creatine Kinase Index 1.5 Creatinine Kinase MB (Mass) 11.40 H Troponin I 0.634 *H Test 03/18/17 20:33 03/19/17 00:30 03/19/17 04:45 03/19/17 06:05 Bedside Glucose 129 104 69 L White Blood Count 10.0 Red Blood Count 3.52 L Hemoglobin 10.1 L Hematocrit 30.6 L Mean Corpuscular Volume 86.9 Mean Corpuscular Hemoglobin 28.7 L Mean Corpuscular Hemoglobin Concent 33.0 Red Cell Distribution Width 12.6 Platelet Count 286 Mean Platelet Volume 11.5 H Neutrophils % 69.8 Lymphocytes % 18.1 Monocytes % 11.2 H Eosinophils % 0.5 Basophils % 0.1 Nucleated Red Blood Cells % 0.0 Neutrophils # 7.0 Lymphocytes # 1.8 Monocytes # 1.1 H Eosinophils # 0.1 Basophils # 0.0 Nucleated Red Blood Cells # 0.0 Sodium Level 142 Potassium Level 3.5 Chloride Level 101 Carbon Dioxide Level 26 Anion Gap 19 H Blood Urea Nitrogen 15 Creatinine 0.83 Glucose Level 75 # Calcium Level 8.9 Magnesium Level 1.6 L Iron Level 37 Total Iron Binding Capacity 193 L Percent Iron Saturation 19 L Triglycerides Level 92 Cholesterol Level 94 L LDL Cholesterol, Calculated 38 HDL Cholesterol 38 Cholesterol/HDL Ratio 2.4 Test 03/19/17 06:26 03/19/17 06:47 Bedside Glucose 151 138 Medications Medications Current Medications Ondansetron HCl (Zofran Inj) 4 mg Q6H PRN IV NAUSEA AND/OR VOMITING; Start at 01:00 Morphine Sulfate (morphine) 2 mg Q4H PRN IV PAIN LEVEL 7-10 Last administered on 03/19/17 06:50; Admin Dose 2 MG; Start 03/17/17 at 01:00 Amlodipine Besylate (Norvasc) 10 mg DAILY PO Last administered on 03/17/17 09: 59; Admin Dose 10 MG; Start 03/17/17 at 09:00 Atenolol (Tenormin) 100 mg DAILY PO Last administered on 03/17/17 10:00; Admin Dose 100 MG; Start 03/17/17 at 09:00 Benazepril HCl (Lotensin) 10 mg DAILY PO Last administered on 03/17/17 09:57; Admin Dose 10 MG; Start 03/17/17 at 09:00 Gabapentin (Neurontin) 300 mg BID PO Last administered on 03/17/17 09:58; Admin Dose 300 MG; Start 03/17/17 at 09:00 Atorvastatin Calcium 10 mg 10 mg DAILY@21 PO ; Start 03/17/17 at 21:00 Vancomycin HCl/ Sodium Chloride (Vancocin/NS) 150 ml @ 75 mls/hr Q24H IVPB Last administered on 03/18/17 21:18; Admin Dose 75 MLS/HR; Start 03/17/17 at 21 :00 Miscellaneous Information 1 ea NOTE XX ; Start 03/17/17 at 12:00 Glucose (Glutose) 15 gm Q15M PRN PO DECREASED GLUCOSE; Start 03/17/17 at 12:00 Glucose (Glutose) 22.5 gm Q15M PRN PO DECREASED GLUCOSE; Start 03/17/17 at 12: 00 Dextrose (D50w Syringe) 25 ml Q15M PRN IV DECREASED GLUCOSE Last administered on 03/19/17 06:08; Admin Dose 25 ML; Start 03/17/17 at 12:00 Dextrose (D50w Syringe) 50 ml Q15M PRN IV DECREASED GLUCOSE; Start 03/17/17 at 12:00 Glucagon (Glucagen) 1 mg Q15M PRN IM DECREASED GLUCOSE; Start 03/17/17 at 12:00 Glucose (Glutose) 15 gm Q15M PRN BUCCAL DECREASED GLUCOSE; Start 03/17/17 at 12 :00 Famotidine 20 mg 20 mg HS IV Last administered on 03/18/17 20:36; Admin Dose 20 MG; Start 03/17/17 at 21:00 Lactated Ringer's (Lr) 1,000 ml @ 125 mls/hr Q8H IV Last administered on 00:29; Admin Dose 125 MLS/HR; Start 03/17/17 at 18:30 Metoprolol Tartrate (Lopressor) 5 mg Q4 IV Last administered on 03/19/17 04:19 ; Admin Dose 5 MG; Start 03/18/17 at 09:00 Heparin Sodium (Porcine) (Heparin (5000 Units/0.5 ml)) 5,000 unit Q8 SC Last administered on 03/19/17 06:13; Admin Dose 5,000 UNIT; Start 03/18/17 at 14:00 Insulin Glargine (Lantus) 10 unit QHS SC Last administered on 03/18/17 20:45; Admin Dose 10 UNIT; Start 03/18/17 at 21:00 Diagnostic Test (Pha) (Accu-Chek) 1 ea 02 XX ; Start 03/19/17 at 02:00 Insulin Aspart (Novolog Insulin Pen) NOVOLOG *MILD* ALGORI... Q4 SC Last administered on 03/18/17 17:06; Admin Dose 1 UNIT; Start 03/18/17 at 09:15 Levothyroxine Sodium (Synthroid Iv) 75 mcg DAILY@06 IV Last administered on 06:03; Admin Dose 75 MCG; Start 03/19/17 at 06:00 Clonidine HCl (Catapres-Tts 2 Patch) 1 patch Q7D TRANSDERM Last administered on 03/18/17 13:12; Admin Dose 1 PATCH; Start 03/18/17 at 12:30 Hydralazine HCl (Apresoline) 10 mg Q4H PRN IV SBP>160 Last administered on 03/19 02:20; Admin Dose 10 MG; Start 03/18/17 at 12:00 Ketorolac Tromethamine (Toradol) 15 mg Q8 IV Last administered on 03/19/17 04: 58; Admin Dose 15 MG; Start 03/18/17 at 16:30; Stop 03/19/17 at 16:30 BEBA HENSON NP Mar 19, 2017 08:29 BEBA HENSON NP Mar 19, 2017 08:29
[2017-03-19] MEDS ORDERED: MAGNESIUM SULFATE 2 GM/50 ML 50 ML IVPB ONE (08:30)
[2017-03-19] MEDS: GABAPENTIN 300 MG CAP PO SCH ×2 (09:00→21:00)
[2017-03-19] MEDS: ATENOLOL 100 MG TAB PO SCH (09:00)
[2017-03-19] MEDS: BENAZEPRIL 10 MG TAB PO SCH (09:00)
[2017-03-19] MEDS: AMLODIPINE 10 MG TAB PO SCH (09:00)
--- NOTE | 2017-03-19 11:41 | CONS ---
Date/Time of Note Date/Time of Note DATE: 03/19/17 TIME: 11:35 Assessment/Plan Assessment/Plan Chief Complaint/Hosp Course IMP: 1.Nstemi-now decreasing cardiac enzymes. NO CP. NL EF by echo 2.HTN 3.SBO 4.PAD s/p LLE amputtaion POD#1 5. Hypopthyroid 6.UTI 7.anemia Recc: -Tele monitoring/ok for transfer to tele floor -serial ecg's -maintain NPO for now -Continue IVP BB -Increase clonidine TTS to improve BP control -Continue abx's and f/u cx data -trend cardiac enzymes Problems: Consultation Date/Type/Reason Admit Date/Time Mar 16, 2017 at 22:23 Initial Consult Date 03/17/17 Type of Consultation: cardiology Reason for Consultation nstemi Referring Provider: BERNY MOORE MD Exam/Review of Systems Vital Signs Vitals Vital Signs Date Time Temp Pulse Resp B/P Pulse Ox O2 Delivery O2 Flow Rate FiO2 03/19/17 09:30 76 22 157/47 97 03/19/17 09:00 Room Air 03/19/17 08:00 97.7 Intake and Output 03/18/17 03/18/17 03/19/17 15:00 23:00 07:00 Intake Total 1000 ml 900 ml 875 ml Output Total 805 ml 250 ml 400 ml Balance 195 ml 650 ml 475 ml Exam Review of Systems: CONSTITUTIONAL: No fevers, chills. PULMONARY: No sob CARDIOVASCULAR: No chest pain/palpitations GASTROINTESTINAL: No nausea/vomiting. GENITOURINARY: No hematuria/dysuria. MUSCULOSKELETAL: pain in leg PSYCHIATRIC: The patient denies depression. NEUROLOGIC: No weakness Constitutional: alert Psych: no complaints ENMT: mucosa pink and moist, other (NGT in place) Cardiovascular: regular rate and rhythm Gastrointestinal: non-tender, soft Musculoskeletal: muscle tone (normal) Extremities: edema (none) Neurological: other (No focal deficits) Results Result Diagram: 03/19/175 03/19/17 0445 Results 24 hrs Laboratory Tests Test 03/18/17 13:11 03/18/17 14:00 03/18/17 16:58 03/18/17 20:33 Bedside Glucose 202 164 129 White Blood Count 9.5 Red Blood Count 3.42 L Hemoglobin 9.7 L Hematocrit 29.5 L Mean Corpuscular Volume 86.3 Mean Corpuscular Hemoglobin 28.4 L Mean Corpuscular Hemoglobin Concent 32.9 Red Cell Distribution Width 12.4 Platelet Count 267 Mean Platelet Volume 11.6 H Neutrophils % 79.0 H Lymphocytes % 12.1 L Monocytes % 8.1 Eosinophils % 0.1 Basophils % 0.2 Nucleated Red Blood Cells % 0.0 Neutrophils # 7.5 Lymphocytes # 1.2 Monocytes # 0.8 Eosinophils # 0.0 Basophils # 0.0 Nucleated Red Blood Cells # 0.0 Sodium Level 139 Potassium Level 3.6 Chloride Level 98 Carbon Dioxide Level 24 Anion Gap 21 H Blood Urea Nitrogen 21 H Creatinine 0.83 Glucose Level 184 Lactic Acid Level 1.3 Calcium Level 8.8 Creatine Kinase 754 H Creatine Kinase Index 1.5 Creatinine Kinase MB (Mass) 11.40 H Troponin I 0.634 *H Test 03/19/17 00:30 03/19/17 04:45 03/19/17 06:05 03/19/17 06:26 Bedside Glucose 104 69 L 151 White Blood Count 10.0 Red Blood Count 3.52 L Hemoglobin 10.1 L Hematocrit 30.6 L Mean Corpuscular Volume 86.9 Mean Corpuscular Hemoglobin 28.7 L Mean Corpuscular Hemoglobin Concent 33.0 Red Cell Distribution Width 12.6 Platelet Count 286 Mean Platelet Volume 11.5 H Neutrophils % 69.8 Lymphocytes % 18.1 Monocytes % 11.2 H Eosinophils % 0.5 Basophils % 0.1 Nucleated Red Blood Cells % 0.0 Neutrophils # 7.0 Lymphocytes # 1.8 Monocytes # 1.1 H Eosinophils # 0.1 Basophils # 0.0 Nucleated Red Blood Cells # 0.0 Sodium Level 142 Potassium Level 3.5 Chloride Level 101 Carbon Dioxide Level 26 Anion Gap 19 H Blood Urea Nitrogen 15 Creatinine 0.83 Glucose Level 75 # Calcium Level 8.9 Magnesium Level 1.6 L Iron Level 37 Total Iron Binding Capacity 193 L Percent Iron Saturation 19 L Triglycerides Level 92 Cholesterol Level 94 L LDL Cholesterol, Calculated 38 HDL Cholesterol 38 Cholesterol/HDL Ratio 2.4 Test 03/19/17 06:47 03/19/17 09:24 Bedside Glucose 138 133 Medications Medications Current Medications Ondansetron HCl (Zofran Inj) 4 mg Q6H PRN IV NAUSEA AND/OR VOMITING; Start at 01:00 Morphine Sulfate (morphine) 2 mg Q4H PRN IV PAIN LEVEL 7-10 Last administered on 03/19/17 06:50; Admin Dose 2 MG; Start 03/17/17 at 01:00 Amlodipine Besylate (Norvasc) 10 mg DAILY PO Last administered on 03/17/17 09: 59; Admin Dose 10 MG; Start 03/17/17 at 09:00 Atenolol (Tenormin) 100 mg DAILY PO Last administered on 03/17/17 10:00; Admin Dose 100 MG; Start 03/17/17 at 09:00 Benazepril HCl (Lotensin) 10 mg DAILY PO Last administered on 03/17/17 09:57; Admin Dose 10 MG; Start 03/17/17 at 09:00 Gabapentin (Neurontin) 300 mg BID PO Last administered on 03/17/17 09:58; Admin Dose 300 MG; Start 03/17/17 at 09:00 Atorvastatin Calcium 10 mg 10 mg DAILY@21 PO ; Start 03/17/17 at 21:00 Vancomycin HCl/ Sodium Chloride (Vancocin/NS) 150 ml @ 75 mls/hr Q24H IVPB Last administered on 03/18/17 21:18; Admin Dose 75 MLS/HR; Start 03/17/17 at 21 :00 Miscellaneous Information 1 ea NOTE XX ; Start 03/17/17 at 12:00 Glucose (Glutose) 15 gm Q15M PRN PO DECREASED GLUCOSE; Start 03/17/17 at 12:00 Glucose (Glutose) 22.5 gm Q15M PRN PO DECREASED GLUCOSE; Start 03/17/17 at 12: 00 Dextrose (D50w Syringe) 25 ml Q15M PRN IV DECREASED GLUCOSE Last administered on 03/19/17 06:08; Admin Dose 25 ML; Start 03/17/17 at 12:00 Dextrose (D50w Syringe) 50 ml Q15M PRN IV DECREASED GLUCOSE; Start 03/17/17 at 12:00 Glucagon (Glucagen) 1 mg Q15M PRN IM DECREASED GLUCOSE; Start 03/17/17 at 12:00 Glucose (Glutose) 15 gm Q15M PRN BUCCAL DECREASED GLUCOSE; Start 03/17/17 at 12 :00 Famotidine 20 mg 20 mg HS IV Last administered on 03/18/17 20:36; Admin Dose 20 MG; Start 03/17/17 at 21:00 Lactated Ringer's (Lr) 1,000 ml @ 125 mls/hr Q8H IV Last administered on 09:30; Admin Dose 125 MLS/HR; Start 03/17/17 at 18:30 Metoprolol Tartrate (Lopressor) 5 mg Q4 IV Last administered on 03/19/17 09:23 ; Admin Dose 5 MG; Start 03/18/17 at 09:00 Heparin Sodium (Porcine) (Heparin (5000 Units/0.5 ml)) 5,000 unit Q8 SC Last administered on 03/19/17 06:13; Admin Dose 5,000 UNIT; Start 03/18/17 at 14:00 Diagnostic Test (Pha) (Accu-Chek) 1 ea 02 XX ; Start 03/19/17 at 02:00 Insulin Aspart (Novolog Insulin Pen) NOVOLOG *MILD* ALGORI... Q4 SC Last administered on 03/18/17 17:06; Admin Dose 1 UNIT; Start 03/18/17 at 09:15 Levothyroxine Sodium (Synthroid Iv) 75 mcg DAILY@06 IV Last administered on 06:03; Admin Dose 75 MCG; Start 03/19/17 at 06:00 Clonidine HCl (Catapres-Tts 2 Patch) 1 patch Q7D TRANSDERM Last administered on 03/18/17 13:12; Admin Dose 1 PATCH; Start 03/18/17 at 12:30 Hydralazine HCl (Apresoline) 10 mg Q4H PRN IV SBP>160 Last administered on 03/19 02:20; Admin Dose 10 MG; Start 03/18/17 at 12:00 Ketorolac Tromethamine (Toradol) 15 mg Q8 IV Last administered on 03/19/17 04: 58; Admin Dose 15 MG; Start 03/18/17 at 16:30; Stop 03/19/17 at 16:30 Insulin Glargine (Lantus) 5 unit QHS SC ; Start 03/19/17 at 21:00 Miscellaneous Information (*Rx Drug Level Order Reminder*) VANCO TROUGH @ 2, 000 ON... ONCE ONCE XX ; Start 03/19/17 at 20:00; Stop 03/19/17 at 20:01 JAVI LION Mar 19, 2017 11:40
[2017-03-19] MEDS ORDERED: SOD CHLORIDE 0.9% 500 ML IV ONE (13:00)
[2017-03-19 14:14] LABS: ADD SCAN DIFF NO
[2017-03-19 14:27] LABS: BASOPHILS % 0.1 % (0.0-2.0); EOSINOPHILS % 0.2 % (0.0-7.0); HEMATOCRIT 29.2 % (37.0-47.0); HEMOGLOBIN 9.3 g/dl (12.0-16.0); LYMPHOCYTES # 1.3 10^3/ul (0.8-2.9); LYMPHOCYTES % 14.2 % (15.0-51.0); MEAN CORPUSCULAR HEMOGLOBIN 28.1 pg (29.0-33.0); MEAN CORPUSCULAR HGB CONC 31.8 g/dl (32.0-37.0); MEAN CORPUSCULAR VOLUME 88.2 fl (82.0-101.0); MEAN PLATELET VOLUME 11.4 fl (7.4-10.4); MONOCYTE # 0.9 10^3/ul (0.3-0.9); MONOCYTES % 9.7 % (0.0-11.0); NEUTROPHIL # 6.8 10^3/ul (1.6-7.5); NEUTROPHILS % 75.5 % (39.0-77.0); PLATELET COUNT 253 10^3/UL (140-415); RED BLOOD COUNT 3.31 10^6/ul (4.20-5.40); RED CELL DISTRIBUTION WIDTH 12.8 % (11.5-14.5)
[2017-03-19 14:35] LABS: CALCIUM 8.1 mg/dl (8.4-10.2); CREATININE 0.77 mg/dl (0.44-1.00); POTASSIUM 3.4 mmol/L (3.5-5.1)
[2017-03-19] MEDS: CLONIDINE 0.3 MG/24 HR PATCH TRANSDERM SCH (14:39)
[2017-03-19 14:46] LABS: CK-MB 16.3 ng/ml (0.0-2.4)
[2017-03-19 14:48] LABS: CK-MB 14.6 ng/ml (0.0-2.4)
[2017-03-19 14:49] LABS: TROPONIN-I 0.459 ng/ml (0.00-0.12)
[2017-03-19 14:50] LABS: TROPONIN-I 0.429 ng/ml (0.00-0.12)
[2017-03-19] MEDS ORDERED: DIATR MEGLU/DIATRIZOATE SODIUM 120 ML BTL ONE (16:54)
[2017-03-19] MEDS: FAMOTIDINE 20 MG INJ IV SCH (20:35)
[2017-03-19] MEDS: INSULIN GLARGINE [LANtus] 3 ML PEN SC SCH (20:40)
--- NOTE | 2017-03-19 21:05 | RADRPT ---
Vent Rate: 83 bpm RR Interval: 0 msec WV Interval: 158 msec QRS Duration: 96 msec QT Interval: 342 msec QTC Interval: 401 msec P-R-T [place]: 63 - -26 - 0 degrees Normal sinus rhythm Cannot rule out Anterior infarct , age undetermined Abnormal ECG Electronically Signed By: Ebenezer Thomson [id number]
[2017-03-19] MEDS: VANCOMYCIN 750 MG in SOD CHLORIDE 0.9% 150 ML IVPB SCH (22:13)
[2017-03-19] MEDS: ONDANSETRON 4 MG INJ IV PRN (22:49)
[2017-03-20] VITALS (39 sets, daily range): BP systolic 139–177; BP diastolic 44–144; PULSE 67–100; RESP 9–27
[2017-03-20] MEDS ORDERED: METOCLOPRAMIDE 10 MG INJ IV ONE (01:15)
[2017-03-20] MEDS: METOPROLOL 5 MG INJ IV SCH ×6 (01:32→21:24)
[2017-03-20] MEDS: morphine 2 MG INJ IV PRN ×5 (01:33→19:55)
[2017-03-20] MEDS: INSULIN ASPART [NOVOLOG] 3 ML PEN SC SCH ×6 (01:34→21:00)
[2017-03-20] MEDS: ACCU-CHEK XX SCH (02:00)
[2017-03-20] MEDS: LEVOTHYROXINE 100 MCG VIAL IV SCH (05:19)
[2017-03-20] MEDS: HEPARIN 5,000 UNIT/0.5 ML VIAL SC SCH ×3 (05:22→21:27)
[2017-03-20 05:35] LABS: ADD SCAN DIFF NO
[2017-03-20 05:37] LABS: ABNORMAL IP MESSAGE 1; BASOPHILS % 0.2 % (0.0-2.0); HEMATOCRIT 30.2 % (37.0-47.0); HEMOGLOBIN 9.6 g/dl (12.0-16.0); LYMPHOCYTES # 0.6 10^3/ul (0.8-2.9); LYMPHOCYTES % 6.4 % (15.0-51.0); MEAN CORPUSCULAR HGB CONC 31.8 g/dl (32.0-37.0); MEAN PLATELET VOLUME 11.4 fl (7.4-10.4); MONOCYTE # 0.6 10^3/ul (0.3-0.9); MONOCYTES % 6.5 % (0.0-11.0); NEUTROPHILS % 86.7 % (39.0-77.0); PLATELET COUNT 251 10^3/UL (140-415); RED BLOOD COUNT 3.43 10^6/ul (4.20-5.40); WHITE BLOOD COUNT 9.2 10^3/ul (4.8-10.8)
[2017-03-20] MEDS: LACTATED RINGER'S 1,000 ML IV SCH ×3 (06:22→19:57)
[2017-03-20 06:27] LABS: CREATININE 0.8 mg/dl (0.44-1.00); MAGNESIUM 2.2 mg/dl (1.7-2.5); POTASSIUM 3.8 mmol/L (3.5-5.1)
--- NOTE | 2017-03-20 08:48 | PN ---
Date/Time of Note Date/Time of Note DATE: 03/20/17 TIME: 08:45 Assessment/Plan VTE Prophylaxis VTE Prophylaxis Intervention: heparin Lines/Catheters IV Catheter Type (from Nrsg): A Line Urinary Cath still in place: Yes Reason Cath still needed: other (indicate) Assessment/Plan Chief Complaint/Hosp Course 1. 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 -We will follow-up with vascular surgery for postoperative courses. -Continue pain management and vascular check 2. Abdominal pain. CT findings are suggestive of possible obstructive pattern versus ileus. Symptoms improved. -Continue NG tube decompression. -Strict n.p.o. -Continue IV fluids hydration and pain management -F/u with Surgery/GI recs. 3. Non-STEMI . Troponin trending down. -Cardiology on board -On aspirin, BB, nitrates and anticoagulation 4. Elevated BNP ,Likely 2/2 diastolic dysfunction. 2D echo with preserved EF. - Follow-up with cardiology recommendation on further management. - On nitrates, betablockers and Judicious fluid management 5. Anemia, mild, likely postoperative versus chronic. HH stable. - Currently no indication for blood transfusion. 7. Type II diabetes. A1c 8.4 -On Accu-Chek and mild algorithm insulin sliding scale every 4 hours patient is n.p.o. -Continue Lantus to 5 units subcutaneous at bedtime. 8. Essential hypertension -Continue antihypertensives. Further recommendation from cardiology. 9. Hypothyroidism. -Continue Synthroid and we will switch to PO while patient is n.p.o. 10. Hypercholesterolemia -Resume statin once patient is able to take p.o. 11. Leukocytosis, this is likely reactive vs possible [place] UTI. Resolved -Continue prophylactic antibiotics postoperatively. -Urine growing yeast.Will wait for final cs.Add fluconazole. Prophylaxis: Heparin subcutaneous for DVT and Pepcid for PUD prophylaxis Plan:Once cleared from vascular, DC A line and possibly transfer to a tele bed. For now, Continue ICU monitoring and follow up with consultants recs. Discussed with RN. 60 minutes critical care time spent. Case discussed with . Problems: Subjective 24 Hr Interval Summary Free Text/Dictation Patient doing well. Passing flatus. NGtube to suction.With improved abdominal pain/discomfort.Afebrile. Exam/Review of Systems Vital Signs Vitals Vital Signs Date Time Temp Pulse Resp B/P Pulse Ox O2 Delivery O2 Flow Rate FiO2 03/20/17 06:30 79 16 177/57 98 03/20/17 06:00 Room Air 03/20/17 04:00 98.4 Intake and Output 03/19/17 03/19/17 03/20/17 15:00 23:00 07:00 Intake Total 1000 ml 950 ml 825 ml Output Total 205 ml 185 ml 1530 ml Balance 795 ml 765 ml -705 ml Exam General: Thin built, not in any acute distress . HEENT: Normocephalic, Atraumatic, No laceration or hematoma; Eyes: PEERL, Conjunctiva clear, Anicteric sclera Neck: Supple without any lymphadenopathy, nontender, no JVD, no carotid bruits, trachea midline, no thyromegaly Cardiac: S1, S2 auscultated, regular rhythm and rate, no mumurs or gallop Pulmonary: Diminished breath sound bibasilar. Normal respiratory effort. Chest clear to auscultation bilaterally, no adventitious breath sounds GI: NG tube. Abdomen soft,no masses, no rebound tenderness or guarding. Bowel sounds hypoactive on all four quadrants Genitourinary: Deferred Extremities: Left AKA, surgical dressing intact. Neurologic: Alert to person, place, time, and situation. Affect appropriate, intact sensation. Skin: Clean,dry, and intact. No ecchymosis, no rashes, or lesions Results Result Diagram: 03/20/17 0520 03/20/17 0520 Results 24 hrs Laboratory Tests Test 03/19/17 09:24 03/19/17 12:57 03/19/17 14:01 03/19/17 20:14 Bedside Glucose 133 116 White Blood Count 9.0 Red Blood Count 3.31 L Hemoglobin 9.3 L Hematocrit 29.2 L Mean Corpuscular Volume 88.2 Mean Corpuscular Hemoglobin 28.1 L Mean Corpuscular Hemoglobin Concent 31.8 L Red Cell Distribution Width 12.8 Platelet Count 253 Mean Platelet Volume 11.4 H Neutrophils % 75.5 Lymphocytes % 14.2 L Monocytes % 9.7 Eosinophils % 0.2 Basophils % 0.1 Neutrophils # 6.8 Lymphocytes # 1.3 Monocytes # 0.9 Eosinophils # 0.0 Basophils # 0.0 Nucleated Red Blood Cells # 0.0 Sodium Level 139 Potassium Level 3.4 L Chloride Level 103 Carbon Dioxide Level 25 Anion Gap 14 Blood Urea Nitrogen 14 Creatinine 0.77 Glucose Level 114 Lactic Acid Level 0.7 Calcium Level 8.1 L Creatine Kinase 1250 #H Creatine Kinase Index 1.3 Creatinine Kinase MB (Mass) 16.30 H Troponin I 0.459 *H Vancomycin Level Trough 12.1 Test 03/19/17 20:37 03/20/17 01:31 03/20/17 05:20 03/20/17 05:21 Bedside Glucose 149 147 142 White Blood Count 9.2 Red Blood Count 3.43 L Hemoglobin 9.6 L Hematocrit 30.2 L Mean Corpuscular Volume 88.0 Mean Corpuscular Hemoglobin 28.0 L Mean Corpuscular Hemoglobin Concent 31.8 L Red Cell Distribution Width 13.0 Platelet Count 251 Mean Platelet Volume 11.4 H Neutrophils % 86.7 H Lymphocytes % 6.4 L Monocytes % 6.5 Eosinophils % 0.0 Basophils % 0.2 Neutrophils # 8.0 H Lymphocytes # 0.6 L Monocytes # 0.6 Eosinophils # 0.0 Basophils # 0.0 Nucleated Red Blood Cells # 0.0 Sodium Level 142 Potassium Level 3.8 Chloride Level 102 Carbon Dioxide Level 25 Anion Gap 19 H Blood Urea Nitrogen 16 Creatinine 0.80 Glucose Level 145 Calcium Level 9.0 Magnesium Level 2.2 Medications Medications Current Medications Ondansetron HCl (Zofran Inj) 4 mg Q6H PRN IV NAUSEA AND/OR VOMITING Last administered on 03/19/17 22:49; Admin Dose 4 MG; Start 03/17/17 at 01:00 Morphine Sulfate (morphine) 2 mg Q4H PRN IV PAIN LEVEL 7-10 Last administered on 03/20/17 01:33; Admin Dose 2 MG; Start 03/17/17 at 01:00 Amlodipine Besylate (Norvasc) 10 mg DAILY PO Last administered on 03/17/17 09: 59; Admin Dose 10 MG; Start 03/17/17 at 09:00; Status Future Hold Atenolol (Tenormin) 100 mg DAILY PO Last administered on 03/17/17 10:00; Admin Dose 100 MG; Start 03/17/17 at 09:00; Status Future Hold Benazepril HCl (Lotensin) 10 mg DAILY PO Last administered on 03/17/17 09:57; Admin Dose 10 MG; Start 03/17/17 at 09:00; Status Future Hold Gabapentin (Neurontin) 300 mg BID PO Last administered on 03/17/17 09:58; Admin Dose 300 MG; Start 03/17/17 at 09:00 Atorvastatin Calcium 10 mg 10 mg DAILY@21 PO ; Start 03/17/17 at 21:00; Status Future Hold Vancomycin HCl/ Sodium Chloride (Vancocin/NS) 150 ml @ 75 mls/hr Q24H IVPB Last administered on 03/19/17 22:13; Admin Dose 75 MLS/HR; Start 03/17/17 at 21 :00 Miscellaneous Information 1 ea NOTE XX ; Start 03/17/17 at 12:00 Glucose (Glutose) 15 gm Q15M PRN PO DECREASED GLUCOSE; Start 03/17/17 at 12:00 Glucose (Glutose) 22.5 gm Q15M PRN PO DECREASED GLUCOSE; Start 03/17/17 at 12: 00 Dextrose (D50w Syringe) 25 ml Q15M PRN IV DECREASED GLUCOSE Last administered on 03/19/17 06:08; Admin Dose 25 ML; Start 03/17/17 at 12:00 Dextrose (D50w Syringe) 50 ml Q15M PRN IV DECREASED GLUCOSE; Start 03/17/17 at 12:00 Glucagon (Glucagen) 1 mg Q15M PRN IM DECREASED GLUCOSE; Start 03/17/17 at 12:00 Glucose (Glutose) 15 gm Q15M PRN BUCCAL DECREASED GLUCOSE; Start 03/17/17 at 12 :00 Famotidine 20 mg 20 mg HS IV Last administered on 03/19/17 20:35; Admin Dose 20 MG; Start 03/17/17 at 21:00 Lactated Ringer's (Lr) 1,000 ml @ 125 mls/hr Q8H IV Last administered on 06:22; Admin Dose 125 MLS/HR; Start 03/17/17 at 18:30 Metoprolol Tartrate (Lopressor) 5 mg Q4 IV Last administered on 03/20/17 05:20 ; Admin Dose 5 MG; Start 03/18/17 at 09:00 Heparin Sodium (Porcine) (Heparin (5000 Units/0.5 ml)) 5,000 unit Q8 SC Last administered on 03/20/17 05:22; Admin Dose 5,000 UNIT; Start 03/18/17 at 14:00 Diagnostic Test (Pha) (Accu-Chek) 1 ea 02 XX ; Start 03/19/17 at 02:00 Insulin Aspart (Novolog Insulin Pen) NOVOLOG *MILD* ALGORI... Q4 SC Last administered on 03/20/17 05:24; Admin Dose 1 UNIT; Start 03/18/17 at 09:15 Levothyroxine Sodium (Synthroid Iv) 75 mcg DAILY@06 IV Last administered on 05:19; Admin Dose 75 MCG; Start 03/19/17 at 06:00 Hydralazine HCl (Apresoline) 10 mg Q4H PRN IV SBP>160 Last administered on 03/19 22:25; Admin Dose 10 MG; Start 03/18/17 at 12:00 Insulin Glargine (Lantus) 5 unit QHS SC Last administered on 03/19/17 20:40; Admin Dose 5 UNIT; Start 03/19/17 at 21:00 Clonidine HCl (Catapres-Tts 3 Patch) 1 patch Q7D TRANSDERM Last administered on 03/19/17 14:39; Admin Dose 1 PATCH; Start 03/19/17 at 14:00 BEBA HENSON NP Mar 20, 2017 08:48
[2017-03-20] MEDS: GABAPENTIN 300 MG CAP PO SCH ×3 (09:00→21:00)
--- NOTE | 2017-03-20 11:46 | CONS ---
Date/Time of Note Date/Time of Note DATE: 03/20/17 TIME: 11:44 Assessment/Plan Assessment/Plan Chief Complaint/Hosp Course IMP: 1.Nstemi-now decreasing cardiac enzymes. NO CP. NL EF by echo 2.HTN 3.SBO 4.PAD s/p LLE amputation POD#2 5. Hypopthyroid 6.UTI 7.anemia Recc: -Tele monitoring/ok for transfer to tele floor -serial ecg's -Continue IVP BB while NPO -Increase clonidine TTS to improve BP control -Continue abx's and f/u cx data -trend cardiac enzymes -Pain control Problems: Consultation Date/Type/Reason Admit Date/Time Mar 16, 2017 at 22:23 Initial Consult Date 03/17/17 Type of Consultation: cardiology Reason for Consultation Nstemi Referring Provider: BERNY MOORE MD Exam/Review of Systems Vital Signs Vitals Vital Signs Date Time Temp Pulse Resp B/P Pulse Ox O2 Delivery O2 Flow Rate FiO2 03/20/17 10:00 69 12 149/50 98 Room Air 03/20/17 08:00 97.6 Intake and Output 03/19/17 03/19/17 03/20/17 15:00 23:00 07:00 Intake Total 1000 ml 950 ml 825 ml Output Total 205 ml 185 ml 1555 ml Balance 795 ml 765 ml -730 ml Exam Review of Systems: CONSTITUTIONAL: No fevers, chills. PULMONARY: No sob CARDIOVASCULAR: No chest pain/palpitations GASTROINTESTINAL: No nausea/vomiting. GENITOURINARY: No hematuria/dysuria. MUSCULOSKELETAL: pain in leg PSYCHIATRIC: The patient denies depression. NEUROLOGIC: No weakness Constitutional: alert Psych: no complaints Head: normocephalic ENMT: mucosa pink and moist Neck: jvd (9 cm water), supple Respiratory: diminished breath sounds (at bases/B) Cardiovascular: regular rate and rhythm Gastrointestinal: non-tender, soft Musculoskeletal: muscle tone (normal), other (s/p LLE amputation) Extremities: edema (none) Neurological: other (No focal deficts) Results Result Diagram: 03/20/17 0520 03/20/17 0520 Results 24 hrs Laboratory Tests Test 03/19/17 12:57 03/19/17 14:01 03/19/17 20:14 03/19/17 20:37 Bedside Glucose 116 149 White Blood Count 9.0 Red Blood Count 3.31 L Hemoglobin 9.3 L Hematocrit 29.2 L Mean Corpuscular Volume 88.2 Mean Corpuscular Hemoglobin 28.1 L Mean Corpuscular Hemoglobin Concent 31.8 L Red Cell Distribution Width 12.8 Platelet Count 253 Mean Platelet Volume 11.4 H Neutrophils % 75.5 Lymphocytes % 14.2 L Monocytes % 9.7 Eosinophils % 0.2 Basophils % 0.1 Neutrophils # 6.8 Lymphocytes # 1.3 Monocytes # 0.9 Eosinophils # 0.0 Basophils # 0.0 Nucleated Red Blood Cells # 0.0 Sodium Level 139 Potassium Level 3.4 L Chloride Level 103 Carbon Dioxide Level 25 Anion Gap 14 Blood Urea Nitrogen 14 Creatinine 0.77 Glucose Level 114 Lactic Acid Level 0.7 Calcium Level 8.1 L Creatine Kinase 1250 #H Creatine Kinase Index 1.3 Creatinine Kinase MB (Mass) 16.30 H Troponin I 0.459 *H Vancomycin Level Trough 12.1 Test 03/20/17 01:31 03/20/17 05:20 03/20/17 05:21 03/20/17 09:25 Bedside Glucose 147 142 144 White Blood Count 9.2 Red Blood Count 3.43 L Hemoglobin 9.6 L Hematocrit 30.2 L Mean Corpuscular Volume 88.0 Mean Corpuscular Hemoglobin 28.0 L Mean Corpuscular Hemoglobin Concent 31.8 L Red Cell Distribution Width 13.0 Platelet Count 251 Mean Platelet Volume 11.4 H Neutrophils % 86.7 H Lymphocytes % 6.4 L Monocytes % 6.5 Eosinophils % 0.0 Basophils % 0.2 Neutrophils # 8.0 H Lymphocytes # 0.6 L Monocytes # 0.6 Eosinophils # 0.0 Basophils # 0.0 Nucleated Red Blood Cells # 0.0 Sodium Level 142 Potassium Level 3.8 Chloride Level 102 Carbon Dioxide Level 25 Anion Gap 19 H Blood Urea Nitrogen 16 Creatinine 0.80 Glucose Level 145 Calcium Level 9.0 Magnesium Level 2.2 Medications Medications Current Medications Ondansetron HCl (Zofran Inj) 4 mg Q6H PRN IV NAUSEA AND/OR VOMITING Last administered on 03/19/17t 22:49; Admin Dose 4 MG; Start 03/17/17 at 01:00 Morphine Sulfate (morphine) 2 mg Q4H PRN IV PAIN LEVEL 7-10 Last administered on 03/20/17 09:23; Admin Dose 2 MG; Start 03/17/17 at 01:00 Amlodipine Besylate (Norvasc) 10 mg DAILY PO Last administered on 03/17/17 09: 59; Admin Dose 10 MG; Start 03/17/17 at 09:00; Status Future Hold Atenolol (Tenormin) 100 mg DAILY PO Last administered on 03/17/17 10:00; Admin Dose 100 MG; Start 03/17/17 at 09:00; Status Future Hold Benazepril HCl (Lotensin) 10 mg DAILY PO Last administered on 03/17/17 09:57; Admin Dose 10 MG; Start 03/17/17 at 09:00; Status Future Hold Gabapentin (Neurontin) 300 mg BID PO Last administered on 03/17/17 09:58; Admin Dose 300 MG; Start 03/17/17 at 09:00 Atorvastatin Calcium 10 mg 10 mg DAILY@21 PO ; Start 03/17/17 at 21:00; Status Future Hold Vancomycin HCl/ Sodium Chloride (Vancocin/NS) 150 ml @ 75 mls/hr Q24H IVPB Last administered on 03/19/17 22:13; Admin Dose 75 MLS/HR; Start 03/17/17 at 21 :00 Miscellaneous Information 1 ea NOTE XX ; Start 03/17/17 at 12:00 Glucose (Glutose) 15 gm Q15M PRN PO DECREASED GLUCOSE; Start 03/17/17 at 12:00 Glucose (Glutose) 22.5 gm Q15M PRN PO DECREASED GLUCOSE; Start 03/17/17 at 12: 00 Dextrose (D50w Syringe) 25 ml Q15M PRN IV DECREASED GLUCOSE Last administered on 03/19/17 06:08; Admin Dose 25 ML; Start 03/17/17 at 12:00 Dextrose (D50w Syringe) 50 ml Q15M PRN IV DECREASED GLUCOSE; Start 03/17/17 at 12:00 Glucagon (Glucagen) 1 mg Q15M PRN IM DECREASED GLUCOSE; Start 03/17/17 at 12:00 Glucose (Glutose) 15 gm Q15M PRN BUCCAL DECREASED GLUCOSE; Start 03/17/17 at 12 :00 Famotidine 20 mg 20 mg HS IV Last administered on 7/20/17at 20:35; Admin Dose 20 MG; Start 03/17/17 at 21:00 Lactated Ringer's (Lr) 1,000 ml @ 125 mls/hr Q8H IV Last administered on 06:22; Admin Dose 125 MLS/HR; Start 03/17/17 at 18:30 Metoprolol Tartrate (Lopressor) 5 mg Q4 IV Last administered on 03/20/17 09:23 ; Admin Dose 5 MG; Start 03/18/17 at 09:00 Heparin Sodium (Porcine) (Heparin (5000 Units/0.5 ml)) 5,000 unit Q8 SC Last administered on 03/20/17 05:22; Admin Dose 5,000 UNIT; Start 03/18/17 at 14:00 Diagnostic Test (Pha) (Accu-Chek) 1 ea 02 XX ; Start 03/19/17 at 02:00 Insulin Aspart (Novolog Insulin Pen) NOVOLOG *MILD* ALGORI... Q4 SC Last administered on 03/20/17 09:27; Admin Dose 1 UNIT; Start 03/18/17 at 09:15 Levothyroxine Sodium (Synthroid Iv) 75 mcg DAILY@06 IV Last administered on 05:19; Admin Dose 75 MCG; Start 03/19/17 at 06:00 Hydralazine HCl (Apresoline) 10 mg Q4H PRN IV SBP>160 Last administered on 03/19 22:25; Admin Dose 10 MG; Start 03/18/17 at 12:00 Insulin Glargine (Lantus) 5 unit QHS SC Last administered on 03/19/17 20:40; Admin Dose 5 UNIT; Start 03/19/17 at 21:00 Clonidine HCl 1 patch 1 patch Q7D TRANSDERM Last administered on 03/19/17 14: 39; Admin Dose 1 PATCH; Start 03/19/17 at 14:00 Fluconazole (Diflucan 400 Mg/ NS (Pmx)) 200 ml @ 200 mls/hr Q24H IVPB ; Start 03/20/17 at 12:00; Status JAVI FIGUEROA Mar 20, 2017 11:46
--- NOTE | 2017-03-20 13:31 | RADRPT ---
PROCEDURE: Small bowel follow-through. CLINICAL INDICATION: Abdomen pain. TECHNIQUE: Water-soluble contrast was administered orally and several spot and overhead radiograph s of the abdomen were obtained. COMPARISON: None. FINDINGS: On the preliminary radiograph, there is a nasogastric tube with the tip in the stomach. There is mi ld gaseous distension throughout the small bowel and colon. Surgical clips are present in the right upper quadrant of the abdomen. Surgical clips are present in the pelvis and there is a Desai cathete r in the bladder. There is no small bowel displacement or mass. The small bowel folds are normal. There is no definite evidence of obstruction. There is slow transit time with contrast in the stomach and mid small bowel at 8 hours. At 12 hours , the contrast is completely dilated and not well seen. The study was terminated at 12 hours. IMPRESSION: 1. No definite evidence of obstruction. However, the colon is not opacified due to dilution of con trast at 12 hours. RPTAT: QQ .Elpidio Gibbons MD, MD Date Time Electronically viewed and signed by .Elpidio Gibbons MD, on 03/20/2017 13:31 .R/
--- NOTE | 2017-03-20 13:51 | PN ---
Date/Time of Note Date/Time of Note DATE: 03/20/17 TIME: 13:31 Assessment/Plan Lines/Catheters IV Catheter Type (from Nrs): A Line Desai in Place (from Nrs): Yes Assessment/Plan Chief Complaint/Hosp Course 1. Abdominal pain with CT findings are suggestive of either obstructive pattern versus ileus. Patient has gas and stool in the colon. Less likelihood of bowel ischemia; sbft done, + flatus, no bm -NPO -Judicious IV fluids -Close monitoring -Gi consult: likely need EGD -decrease/stop heparin 2. PVD/PAD with Left lower extremity ischemia with tissue necrosis and gangrene ; s/p left AKA with thrombectomy; -Judicious fluid management -Anticoagulation 3. Elevated troponin with possible demand ischemia and DE -Cardiac evaluation on optimization 4. Elevated BNP with possible CHF -Judicious fluid management -Cardiac optimization 5. Renal insufficiency, multifactorial secondary to above -Judicious fluid management and avoid nephrotoxic agents as possible 6. Anemia. Coffee-ground NG tube aspirate. h/h stable -Close monitoring -Transfuse as needed 7. Diabetes: one episode of hypoglycemia overnight; BS improved -Diet and medication optimization 8. Hypertension -Diet and medication optimization 9. Hypercholesterolemia -Diet and medication optimization 10. Leukocytosis: 2/ #1 and #2 normalized -abx -supportive -as above Patient seen and examined in collaboration with Dr. Steffen Kelly Problems: Subjective 24 Hr Interval Summary Feels well. Report of vomiting after sbft, poss contrast material. 1400ml out from NGT. Now feels better. No n/v/d, chills, fevers, chakraborty, sz, dizziness, cough, cp, palpitations. + flatus/ no bm. Exam/Review of Systems Vital Signs Vitals Vital Signs Date Time Temp Pulse Resp B/P Pulse Ox O2 Delivery O2 Flow Rate FiO2 03/21/17 12:38 87 03/21/17 10:56 98.2 16 158/78 96 03/20/17 20:00 Room Air Intake and Output 03/20/17 03/20/17 03/21/17 15:00 23:00 07:00 Intake Total 0 ml 1950 ml 1000 ml Output Total 275 ml 145 ml 450 ml Balance -275 ml 1805 ml 550 ml Exam Free Text/Dictation Constitutional: alert Psych: confused but able to answer simple questions, follows commands No anxiety, No nl mood/affect Head: atraumatic, normocephalic Eyes: EOMI, PERRL, nl conjunctiva, No icteric ENMT: nl external ears & nose, nl lips & teeth, NG tube No mucosa pink and moist (Dry mucosa) Neck: jvd, non-tender, supple Respiratory: normal air movement, No congested cough, No diminished breath sounds, No labored breathing Cardiovascular: regular rate and rhythm, No edema Gastrointestinal: distended, soft, tender (Minimally in left lower quadrant), bowel sounds x 4 quads No firm, No rebound or guarding, Musculoskeletal: No joint tenderness, No nl extremities to inspection (Left AKA ), No nl gait and stance Extremities: No calf tenderness, No normal pulses Neurological: nl speech, No nl strength Skin: No diaphoresis, No nl turgor, No rash or lesions Lymph: nl lymph nodes Results Result Diagram: 03/21/17 0611 03/21/17 0611 JULIANA RUFFIN NP Mar 20, 2017 13:44
[2017-03-20] MEDS: FLUCONAZOLE 400 MG/NS (PMX) 200 ML IVPB SCH (13:53)
[2017-03-20] MEDS: CLONIDINE 0.1 MG/24 HR PATCH TRANSDERM SCH (13:53)
[2017-03-20 14:03] LABS: CK-MB 28.1 ng/ml (0.0-2.4)
[2017-03-20 14:18] LABS: TROPONIN-I 0.277 ng/ml (0.00-0.12)
[2017-03-20] MEDS: hydrALAzine 20 MG INJ IV PRN (17:12)
--- NOTE | 2017-03-20 20:06 | PN ---
Date/Time of Note Date/Time of Note DATE: 03/20/17 TIME: 20:02 Assessment/Plan Lines/Catheters IV Catheter Type (from Nrs): A Line Desai in Place (from Nrs): Yes Assessment/Plan Chief Complaint/Hosp Course -Left Lower extremity gangrene: S/P High Left AKA -Can be transferred to Telemetry -Continue supportive care -Continue antibiotics -Continue IVF hydration -Optimize vascular status (BP meds, diet nutrition, antiplatelets, sugar control ) Problems: Subjective 24 Hr Interval Summary No new vascular events overnight Exam/Review of Systems Vital Signs Vitals Vital Signs Date Time Temp Pulse Resp B/P Pulse Ox O2 Delivery O2 Flow Rate FiO2 03/20/17 18:00 74 21 159/59 99 Room Air 03/20/17 16:00 98.4 Intake and Output 03/19/17 03/19/17 03/20/17 15:00 23:00 07:00 Intake Total 1000 ml 950 ml 825 ml Output Total 205 ml 185 ml 1555 ml Balance 795 ml 765 ml -730 ml Exam Free Text/Dictation GENERAL: Alert and oriented x3 LUNGS: Clear to auscultation bilaterally. . CARDIOVASCULAR: S1, S2 present. ABDOMEN: Soft, nontender, nondistended. Bowel sounds positive. EXTREMITIES: Right lower extremity has faint femoral pulse. Nonpalpable pedal pulse. Motor and sensory intact. Capillary refill of 3-4 seconds. Left lower extremity: femoral pulse. Motor and sensory intact. Capillary refill of 2-3 seconds. stump site clean and intact Results Result Diagram: 03/20/17 0520 03/20/17 0520 BERNY MOORE MD Mar 20, 2017 20:06
[2017-03-20] MEDS: INSULIN GLARGINE [LANtus] 3 ML PEN SC SCH (21:25)
[2017-03-20] MEDS: FAMOTIDINE 20 MG INJ IV SCH (21:55)
[2017-03-21] VITALS (11 sets, daily range): BP systolic 152–167; BP diastolic 65–78; PULSE 71–87; RESP 16–18
[2017-03-21] MEDS: METOPROLOL 5 MG INJ IV SCH ×5 (00:40→17:29)
[2017-03-21] MEDS: INSULIN ASPART [NOVOLOG] 3 ML PEN SC SCH ×4 (00:40→12:11)
[2017-03-21] MEDS: ACCU-CHEK XX SCH (00:41)
[2017-03-21] MEDS: morphine 2 MG INJ IV PRN ×6 (00:46→21:10)
[2017-03-21] MEDS: LEVOTHYROXINE 100 MCG VIAL IV SCH (04:48)
[2017-03-21] MEDS: HEPARIN 5,000 UNIT/0.5 ML VIAL SC SCH ×3 (04:59→21:12)
[2017-03-21] MEDS: LACTATED RINGER'S 1,000 ML IV SCH (06:44)
[2017-03-21 07:33] LABS: BASOPHILS % 0.1 % (0.0-2.0); EOSINOPHILS % 0.1 % (0.0-7.0); HEMOGLOBIN 9.3 g/dl (12.0-16.0); LYMPHOCYTES # 1.1 10^3/ul (0.8-2.9); MEAN CORPUSCULAR HEMOGLOBIN 28.4 pg (29.0-33.0); MEAN CORPUSCULAR HGB CONC 32.1 g/dl (32.0-37.0); MEAN CORPUSCULAR VOLUME 88.7 fl (82.0-101.0); MEAN PLATELET VOLUME 11.8 fl (7.4-10.4); MONOCYTES % 9.5 % (0.0-11.0); NEUTROPHIL # 8.5 10^3/ul (1.6-7.5); NEUTROPHILS % 79.9 % (39.0-77.0); PLATELET COUNT 245 10^3/UL (140-415); RED BLOOD COUNT 3.27 10^6/ul (4.20-5.40); RED CELL DISTRIBUTION WIDTH 12.8 % (11.5-14.5); WHITE BLOOD COUNT 10.7 10^3/ul (4.8-10.8)
[2017-03-21 08:08] LABS: CALCIUM 8.6 mg/dl (8.4-10.2); CREATININE 0.69 mg/dl (0.44-1.00); MAGNESIUM 1.7 mg/dl (1.7-2.5); POTASSIUM 3.6 mmol/L (3.5-5.1)
[2017-03-21] MEDS: GABAPENTIN 300 MG CAP PO SCH ×2 (08:29→20:55)
--- NOTE | 2017-03-21 11:26 | CONS ---
Date/Time of Note Date/Time of Note DATE: 03/21/17 TIME: 10:54 Assessment/Plan Assessment/Plan Additional Assessment/Plan Assessment Abdominal pain Ileus resolved Small bowel follow through . No definite evidence of obstruction. However, the colon is not opacified due to dilution of contrast at 12 hours. * S/P above knee amputation left Impending gangrene foot left * PAD * Diabetes mellitus Plan * D/C NGT * clear liquids then progress if tolerated * continue present management * case discussed with Dr Chaudhary * further orders will depend on clinical course Consultation Date/Type/Reason Admit Date/Time Mar 16, 2017 at 22:23 Date of Consultation: Mar 21, 2017 Type of Consultation: Gastroenterology Reason for Consultation small bowel obstruction Referring Provider: MILES FLOREZ of Present Illness 71 year old female with history of diabetes mellitus,peripheral artery disease who was admitted in our hospital because of impending ischemic gangrene left foot.She subsequently underwent above knee amputation left and thrombectomy left femoral.Subsequently she had an episode of abdominal pain where a CT abdominal angiography revealed Complete occlusion of the left common femoral artery at its origin with reconstitution of the left superficial femoral and profunda arteries at their respective origins. There is moderate narrowing of the mid to distal left superficial femoral artery as well as complete occlusion of the popliteal and anterior tibial arteries. There is faint reconstitution of the left peroneal and posterior tibial arteries just above the ankle with the posterior tibial artery continuing below the ankle along the plantar surface of the foot. Deformity of the distal phalanx of the left big toe with surrounding subcutaneous gas or suspicious for osteomyelitis. Clinical correlation is recommended. The right femoropopliteal arteries are widely patent. There is one-vessel uninterrupted runoff to the right ankle from the anterior tibial artery which is severely narrowed proximally. Correlation for symptoms of peripheral vascular disease in the right lower extremity is recommended. Severe narrowing at the origins of the right greater than left renal arteries. Correlation for renovascular hypertension is recommended. Status post cholecystectomy. Multiple dilated loops of small bowel with air-fluid levels as well as collapsed distal loops with a transition point in the posterior aspect of the pelvis consistent with a high-grade bowel obstruction Subsequent small bowel series revealed. No definite evidence of obstruction. However, the colon is not opacified due to dilution of contrast at 12 hours. . On examination,patient claims to have been passing gas during the duration with no associated abdominal pain,nausea ,vomiting,nor hematemesis nor hematochezia. Present hemoglobin is 9.I have discussed the findings with the patient with no signs of obstruction,NGT is removed and will start her on clear liquids . Psychological: no complaints Past Medical History Medical History: diabetes Past Surgical History Past Surgical Hx: other (left aka) Social History Alcohol Use: none Smoking Status: Former smoker Drug Use: none Exam/Review of Systems Vital Signs Vitals Vital Signs Date Time Temp Pulse Resp B/P Pulse Ox O2 Delivery O2 Flow Rate FiO2 03/21/17 08:34 80 03/21/17 07:14 97.9 18 167/74 97 03/20/17 20:00 Room Air Intake and Output 03/20/17 03/20/17 03/21/17 15:00 23:00 07:00 Intake Total 0 ml 1950 ml 1000 ml Output Total 275 ml 145 ml 450 ml Balance -275 ml 1805 ml 550 ml Exam Constitutional: alert, oriented, well developed Psych: nl mood/affect, no complaints Head: atraumatic, normocephalic Eyes: EOMI, PERRL, nl conjunctiva, nl lids, nl sclera ENMT: nl external ears & nose, nl lips & teeth, nl nasal mucosa & septum Neck: non-tender, supple Respiratory: clear to auscultation, normal air movement Cardiovascular: nl pulses, regular rate and rhythm Gastrointestinal: nl liver, spleen, non-tender, soft Musculoskeletal: other (left aka) Extremities: normal pulses Neurological: nl speech, nl strength Skin: nl turgor, No rash or lesions Lymph: nl lymph nodes Results Result Diagram: 03/21/17 0611 03/21/17 0611 Results 24 hrs Laboratory Tests Test 03/20/17 13:05 03/20/17 13:56 03/20/17 17:14 03/20/17 21:08 Creatine Kinase 2457 #H Creatine Kinase Index 1.1 Creatinine Kinase MB (Mass) 28.10 H Troponin I 0.277 *H Bedside Glucose 118 112 118 Test 03/21/17 00:39 03/21/17 04:40 03/21/17 06:11 03/21/17 07:56 Bedside Glucose 117 83 72 White Blood Count 10.7 Red Blood Count 3.27 L Hemoglobin 9.3 L Hematocrit 29.0 L Mean Corpuscular Volume 88.7 Mean Corpuscular Hemoglobin 28.4 L Mean Corpuscular Hemoglobin Concent 32.1 Red Cell Distribution Width 12.8 Platelet Count 245 Mean Platelet Volume 11.8 H Neutrophils % 79.9 H Lymphocytes % 10.0 L Monocytes % 9.5 Eosinophils % 0.1 Basophils % 0.1 Nucleated Red Blood Cells % 0.0 Neutrophils # 8.5 H Lymphocytes # 1.1 Monocytes # 1.0 H Eosinophils # 0.0 Basophils # 0.0 Nucleated Red Blood Cells # 0.0 Sodium Level 142 Potassium Level 3.6 Chloride Level 100 Carbon Dioxide Level 28 Anion Gap 18 H Blood Urea Nitrogen 12 Creatinine 0.69 Glucose Level 64 #L Calcium Level 8.6 Magnesium Level 1.7 Medications Medications Current Medications Ondansetron HCl (Zofran Inj) 4 mg Q6H PRN IV NAUSEA AND/OR VOMITING Last administered on 03/19/17 22:49; Admin Dose 4 MG; Start 03/17/17 at 01:00 Morphine Sulfate (morphine) 2 mg Q4H PRN IV PAIN LEVEL 7-10 Last administered on 03/21/17 08:41; Admin Dose 2 MG; Start 03/17/17 at 01:00 Amlodipine Besylate (Norvasc) 10 mg DAILY PO Last administered on 03/17/17 09: 59; Admin Dose 10 MG; Start 03/17/17 at 09:00; Status Future Hold Atenolol (Tenormin) 100 mg DAILY PO Last administered on 03/17/17 10:00; Admin Dose 100 MG; Start 03/17/17 at 09:00; Status Future Hold Benazepril HCl (Lotensin) 10 mg DAILY PO Last administered on 03/17/17 09:57; Admin Dose 10 MG; Start 03/17/17 at 09:00; Status Future Hold Gabapentin (Neurontin) 300 mg BID PO Last administered on 03/17/17 09:58; Admin Dose 300 MG; Start 03/17/17 at 09:00 Atorvastatin Calcium (Lipitor) 10 mg DAILY@21 PO ; Start 03/17/17 at 21:00; Status Future Hold Miscellaneous Information 1 ea NOTE XX ; Start 03/17/17 at 12:00 Glucose (Glutose) 15 gm Q15M PRN PO DECREASED GLUCOSE; Start 03/17/17 at 12:00 Glucose (Glutose) 22.5 gm Q15M PRN PO DECREASED GLUCOSE; Start 03/17/17 at 12: 00 Dextrose (D50w Syringe) 25 ml Q15M PRN IV DECREASED GLUCOSE Last administered on 03/19/17 06:08; Admin Dose 25 ML; Start 03/17/17 at 12:00 Dextrose (D50w Syringe) 50 ml Q15M PRN IV DECREASED GLUCOSE; Start 03/17/17 at 12:00 Glucagon (Glucagen) 1 mg Q15M PRN IM DECREASED GLUCOSE; Start 03/17/17 at 12:00 Glucose (Glutose) 15 gm Q15M PRN BUCCAL DECREASED GLUCOSE; Start 03/17/17 at 12 :00 Famotidine 20 mg 20 mg HS IV Last administered on 03/20/17 21:55; Admin Dose 20 MG; Start 03/17/17 at 21:00 Lactated Ringer's (Lr) 1,000 ml @ 125 mls/hr Q8H IV Last administered on 06:44; Admin Dose 125 MLS/HR; Start 03/17/17 at 18:30 Metoprolol Tartrate (Lopressor) 5 mg Q4 IV Last administered on 03/21/17 08:42 ; Admin Dose 5 MG; Start 03/18/17 at 09:00 Heparin Sodium (Porcine) (Heparin (5000 Units/0.5 ml)) 5,000 unit Q8 SC Last administered on 03/21/17 04:59; Admin Dose 5,000 UNIT; Start 03/18/17 at 14:00 Diagnostic Test (Pha) (Accu-Chek) 1 ea 02 XX ; Start 03/19/17 at 02:00 Insulin Aspart (Novolog Insulin Pen) NOVOLOG *MILD* ALGORI... Q4 SC Last administered on 03/20/17 09:27; Admin Dose 1 UNIT; Start 03/18/17 at 09:15 Levothyroxine Sodium (Synthroid Iv) 75 mcg DAILY@06 IV Last administered on 04:48; Admin Dose 75 MCG; Start 03/19/17 at 06:00 Hydralazine HCl (Apresoline) 10 mg Q4H PRN IV SBP>160 Last administered on 03/20 17:12; Admin Dose 10 MG; Start 03/18/17 at 12:00 Insulin Glargine (Lantus) 5 unit QHS SC Last administered on 03/20/17 21:25; Admin Dose 5 UNIT; Start 03/19/17 at 21:00 Clonidine HCl 1 patch 1 patch Q7D TRANSDERM Last administered on 03/19/17 14: 39; Admin Dose 1 PATCH; Start 03/19/17 at 14:00 Fluconazole (Diflucan 400 Mg/ NS (Pmx)) 200 ml @ 200 mls/hr Q24H IVPB Last administered on 03/20/17 13:53; Admin Dose 200 MLS/HR; Start 03/20/17 at 13:00 Clonidine HCl (Catapres-Tts 1 Patch) 1 patch Q7D TRANSDERM Last administered on 03/20/17 13:53; Admin Dose 1 PATCH; Start 03/20/17 at 13:00 LUANN MACIAS NP Mar 21, 2017 11:04
[2017-03-21] MEDS: FLUCONAZOLE 400 MG/NS (PMX) 200 ML IVPB SCH (12:11)
--- NOTE | 2017-03-21 14:18 | PN ---
Date/Time of Note Date/Time of Note DATE: 03/21/17 TIME: 14:06 Assessment/Plan VTE Prophylaxis VTE Prophylaxis Intervention: heparin Lines/Catheters IV Catheter Type (from Nrs): Saline Lock Urinary Cath still in place: Yes Reason Cath still needed: other (indicate) (montior I&O) Assessment/Plan Chief Complaint/Hosp Course Assessment and plan 1. Left lower extremity critical limb ischemia and gangrene. Patient status post left [id number] amputation and left lateral artery thrombectomy . Continue surgeon recommendations and vascular checks. 2. Abdominal pain with CT scan suggestive of possible obstructive pattern versus ileus. NG tube was in place but now discontinued. Advance diet as tolerated. GI following as well as surgeon. Small bowel follow-through with no definite evidence of obstruction. 3. Non-ST elevated myocardial infarction. The following. Continue telemetry monitoring. Continue optimization of beta terra and nitrates anticoagulation. 4. Anemia (likely postoperative). H&H remained stable. Monitor at this time. 5. Diabetes with A1c of 8.4. Continue insulin regimen. Will adjust as needed 6. Essential hypertension. On antihypertensives and adjust as needed. 7. Hypothyroidism. Continue on Synthroid 8. Dyslipidemia. Continue on statin medication once able to tolerate oral intake Disposition and plan: Appears to be improving. NG tube was discontinued. Advance diet as tolerated. Await for clinical improvement. Discharge when medically stable for by consultants. Discussed plan of care with Dr. Rush Problems: Subjective 24 Hr Interval Summary Free Text/Dictation Seen with NG tube in place. Denies any abdominal pain at this time. Exam/Review of Systems Vital Signs Vitals Vital Signs Date Time Temp Pulse Resp B/P Pulse Ox O2 Delivery O2 Flow Rate FiO2 03/21/17 12:38 87 03/21/17 10:56 98.2 16 158/78 96 03/20/17 20:00 Room Air Intake and Output 03/20/17 03/20/17 03/21/17 15:00 23:00 07:00 Intake Total 0 ml 1950 ml 1000 ml Output Total 275 ml 145 ml 450 ml Balance -275 ml 1805 ml 550 ml Exam Constitutional: alert Psych: nl mood/affect Head: normocephalic Neck: supple, No jvd Respiratory: normal air movement Cardiovascular: regular rate and rhythm Gastrointestinal: non-tender, soft Musculoskeletal: other (Left AKA) Neurological: nl mental status, nl speech Results Result Diagram: 03/21/17 0611 03/21/17 0611 Results 24 hrs Laboratory Tests Test 03/20/17 17:14 03/20/17 21:08 03/21/17 00:39 03/21/17 04:40 Bedside Glucose 112 118 117 83 Test 03/21/17 06:11 03/21/17 07:56 03/21/17 12:06 White Blood Count 10.7 Red Blood Count 3.27 L Hemoglobin 9.3 L Hematocrit 29.0 L Mean Corpuscular Volume 88.7 Mean Corpuscular Hemoglobin 28.4 L Mean Corpuscular Hemoglobin Concent 32.1 Red Cell Distribution Width 12.8 Platelet Count 245 Mean Platelet Volume 11.8 H Neutrophils % 79.9 H Lymphocytes % 10.0 L Monocytes % 9.5 Eosinophils % 0.1 Basophils % 0.1 Nucleated Red Blood Cells % 0.0 Neutrophils # 8.5 H Lymphocytes # 1.1 Monocytes # 1.0 H Eosinophils # 0.0 Basophils # 0.0 Nucleated Red Blood Cells # 0.0 Sodium Level 142 Potassium Level 3.6 Chloride Level 100 Carbon Dioxide Level 28 Anion Gap 18 H Blood Urea Nitrogen 12 Creatinine 0.69 Glucose Level 64 #L Calcium Level 8.6 Magnesium Level 1.7 Bedside Glucose 72 93 Medications Medications Current Medications Ondansetron HCl (Zofran Inj) 4 mg Q6H PRN IV NAUSEA AND/OR VOMITING Last administered on 03/19/17 22:49; Admin Dose 4 MG; Start 03/17/17 at 01:00 Morphine Sulfate (morphine) 2 mg Q4H PRN IV PAIN LEVEL 7-10 Last administered on 03/21/17 13:18; Admin Dose 2 MG; Start 03/17/17 at 01:00 Amlodipine Besylate (Norvasc) 10 mg DAILY PO Last administered on 03/17/17 09: 59; Admin Dose 10 MG; Start 03/17/17 at 09:00; Status Future Hold Atenolol (Tenormin) 100 mg DAILY PO Last administered on 03/17/17 10:00; Admin Dose 100 MG; Start 03/17/17 at 09:00; Status Future Hold Benazepril HCl (Lotensin) 10 mg DAILY PO Last administered on 03/17/17 09:57; Admin Dose 10 MG; Start 03/17/17 at 09:00; Status Future Hold Gabapentin (Neurontin) 300 mg BID PO Last administered on 03/17/17 09:58; Admin Dose 300 MG; Start 03/17/17 at 09:00 Atorvastatin Calcium (Lipitor) 10 mg DAILY@21 PO ; Start 03/17/17 at 21:00; Status Future Hold Miscellaneous Information 1 ea NOTE XX ; Start 03/17/17 at 12:00 Glucose (Glutose) 15 gm Q15M PRN PO DECREASED GLUCOSE; Start 03/17/17 at 12:00 Glucose (Glutose) 22.5 gm Q15M PRN PO DECREASED GLUCOSE; Start 03/17/17 at 12: 00 Dextrose (D50w Syringe) 25 ml Q15M PRN IV DECREASED GLUCOSE Last administered on 03/19/17 06:08; Admin Dose 25 ML; Start 03/17/17 at 12:00 Dextrose (D50w Syringe) 50 ml Q15M PRN IV DECREASED GLUCOSE; Start 03/17/17 at 12:00 Glucagon (Glucagen) 1 mg Q15M PRN IM DECREASED GLUCOSE; Start 03/17/17 at 12:00 Glucose (Glutose) 15 gm Q15M PRN BUCCAL DECREASED GLUCOSE; Start 03/17/17 at 12 :00 Famotidine (Pepcid Iv) 20 mg HS IV Last administered on 03/20/17 21:55; Admin Dose 20 MG; Start 03/17/17 at 21:00 Metoprolol Tartrate (Lopressor) 5 mg Q4 IV Last administered on 03/21/17 12:11 ; Admin Dose 5 MG; Start 03/18/17 at 09:00 Heparin Sodium (Porcine) (Heparin (5000 Units/0.5 ml)) 5,000 unit Q8 SC Last administered on 03/21/17 13:30; Admin Dose 5,000 UNIT; Start 03/18/17 at 14:00 Diagnostic Test (Pha) (Accu-Chek) 1 ea 02 XX ; Start 03/19/17 at 02:00 Levothyroxine Sodium (Synthroid Iv) 75 mcg DAILY@06 IV Last administered on 04:48; Admin Dose 75 MCG; Start 03/19/17 at 06:00 Hydralazine HCl (Apresoline) 10 mg Q4H PRN IV SBP>160 Last administered on 03/20 17:12; Admin Dose 10 MG; Start 03/18/17 at 12:00 Insulin Glargine (Lantus) 5 unit QHS SC Last administered on 03/20/17 21:25; Admin Dose 5 UNIT; Start 03/19/17 at 21:00 Clonidine HCl 1 patch 1 patch Q7D TRANSDERM Last administered on 03/19/17 14: 39; Admin Dose 1 PATCH; Start 03/19/17 at 14:00 Fluconazole (Diflucan 400 Mg/ NS (Pmx)) 200 ml @ 200 mls/hr Q24H IVPB Last administered on 03/21/17 12:11; Admin Dose 200 MLS/HR; Start 03/20/17 at 13:00 Clonidine HCl (Catapres-Tts 1 Patch) 1 patch Q7D TRANSDERM Last administered on 03/20/17 13:53; Admin Dose 1 PATCH; Start 03/20/17 at 13:00 MILES FLOREZ Mar 21, 2017 14:18
[2017-03-21] MEDS ORDERED: INSULIN ASPART [NOVOLOG] 3 ML PEN SC SCH (17:25)
[2017-03-21] MEDS: Insulin NOVOLOG SS MILD Algorithm (SS with meals and bedtime) SC SCH ×2 (17:37→21:02)
--- NOTE | 2017-03-21 17:53 | CONS ---
Date/Time of Note Date/Time of Note DATE: 03/21/17 TIME: 17:50 Assessment/Plan Assessment/Plan Additional Assessment/Plan Left Lower extremity gangrene: S/P High Left AKA ACS HTN SBO Hypothyroid UTI Anemia Continue Metoprolol Continue Lipitor Continue Insulin continue Levothyroxine Consultation Date/Type/Reason Admit Date/Time Mar 16, 2017 at 22:23 Psychological: nl mood/affect Past Medical History Medical History: diabetes Past Surgical History Past Surgical Hx: other (left aka) Social History Alcohol Use: none Smoking Status: Former smoker Drug Use: none Exam/Review of Systems Vital Signs Vitals Vital Signs Date Time Temp Pulse Resp B/P Pulse Ox O2 Delivery O2 Flow Rate FiO2 03/21/17 16:40 87 03/21/17 15:12 98.2 16 155/65 96 03/20/17 20:00 Room Air Intake and Output 03/20/17 03/20/17 03/21/17 15:00 23:00 07:00 Intake Total 0 ml 1950 ml 1000 ml Output Total 275 ml 145 ml 450 ml Balance -275 ml 1805 ml 550 ml Exam Head: atraumatic, normocephalic Neck: non-tender, supple Respiratory: clear to auscultation Cardiovascular: regular rate and rhythm Gastrointestinal: nl liver, spleen, non-tender Extremities: other ( High Left AKA) Results Result Diagram: 03/21/17 0611 03/21/17 0611 Results 24 hrs Laboratory Tests Test 03/20/17 21:08 03/21/17 00:39 03/21/17 04:40 03/21/17 06:11 Bedside Glucose 118 117 83 White Blood Count 10.7 Red Blood Count 3.27 L Hemoglobin 9.3 L Hematocrit 29.0 L Mean Corpuscular Volume 88.7 Mean Corpuscular Hemoglobin 28.4 L Mean Corpuscular Hemoglobin Concent 32.1 Red Cell Distribution Width 12.8 Platelet Count 245 Mean Platelet Volume 11.8 H Neutrophils % 79.9 H Lymphocytes % 10.0 L Monocytes % 9.5 Eosinophils % 0.1 Basophils % 0.1 Nucleated Red Blood Cells % 0.0 Neutrophils # 8.5 H Lymphocytes # 1.1 Monocytes # 1.0 H Eosinophils # 0.0 Basophils # 0.0 Nucleated Red Blood Cells # 0.0 Sodium Level 142 Potassium Level 3.6 Chloride Level 100 Carbon Dioxide Level 28 Anion Gap 18 H Blood Urea Nitrogen 12 Creatinine 0.69 Glucose Level 64 #L Calcium Level 8.6 Magnesium Level 1.7 Test 03/21/17 07:56 03/21/17 12:06 03/21/17 17:26 Bedside Glucose 72 93 293 H Medications Medications Current Medications Ondansetron HCl (Zofran Inj) 4 mg Q6H PRN IV NAUSEA AND/OR VOMITING Last administered on 03/19/17 22:49; Admin Dose 4 MG; Start 03/17/17 at 01:00 Morphine Sulfate (morphine) 2 mg Q4H PRN IV PAIN LEVEL 7-10 Last administered on 03/21/17 17:29; Admin Dose 2 MG; Start 03/17/17 at 01:00 Amlodipine Besylate (Norvasc) 10 mg DAILY PO Last administered on 03/17/17 09: 59; Admin Dose 10 MG; Start 03/17/17 at 09:00; Status Future Hold Atenolol (Tenormin) 100 mg DAILY PO Last administered on 03/17/17 10:00; Admin Dose 100 MG; Start 03/17/17 at 09:00; Status Future Hold Benazepril HCl (Lotensin) 10 mg DAILY PO Last administered on 03/17/17 09:57; Admin Dose 10 MG; Start 03/17/17 at 09:00; Status Future Hold Gabapentin (Neurontin) 300 mg BID PO Last administered on 03/17/17 09:58; Admin Dose 300 MG; Start 03/17/17 at 09:00 Atorvastatin Calcium (Lipitor) 10 mg DAILY@21 PO ; Start 03/17/17 at 21:00; Status Future Hold Miscellaneous Information 1 ea NOTE XX ; Start 03/17/17 at 12:00 Glucose (Glutose) 15 gm Q15M PRN PO DECREASED GLUCOSE; Start 03/17/17 at 12:00 Glucose (Glutose) 22.5 gm Q15M PRN PO DECREASED GLUCOSE; Start 03/17/17 at 12: 00 Dextrose (D50w Syringe) 25 ml Q15M PRN IV DECREASED GLUCOSE Last administered on 03/19/17 06:08; Admin Dose 25 ML; Start 03/17/17 at 12:00 Dextrose (D50w Syringe) 50 ml Q15M PRN IV DECREASED GLUCOSE; Start 03/17/17 at 12:00 Glucagon (Glucagen) 1 mg Q15M PRN IM DECREASED GLUCOSE; Start 03/17/17 at 12:00 Glucose (Glutose) 15 gm Q15M PRN BUCCAL DECREASED GLUCOSE; Start 03/17/17 at 12 :00 Famotidine (Pepcid Iv) 20 mg HS IV Last administered on 03/20/17 21:55; Admin Dose 20 MG; Start 03/17/17 at 21:00 Metoprolol Tartrate (Lopressor) 5 mg Q4 IV Last administered on 03/21/17 17:29 ; Admin Dose 5 MG; Start 03/18/17 at 09:00 Heparin Sodium (Porcine) (Heparin (5000 Units/0.5 ml)) 5,000 unit Q8 SC Last administered on 03/21/17 13:30; Admin Dose 5,000 UNIT; Start 03/18/17 at 14:00 Diagnostic Test (Pha) (Accu-Chek) 1 ea 02 XX ; Start 03/19/17 at 02:00 Levothyroxine Sodium (Synthroid Iv) 75 mcg DAILY@06 IV Last administered on 04:48; Admin Dose 75 MCG; Start 03/19/17 at 06:00 Hydralazine HCl (Apresoline) 10 mg Q4H PRN IV SBP>160 Last administered on 03/20 17:12; Admin Dose 10 MG; Start 03/18/17 at 12:00 Insulin Glargine (Lantus) 5 unit QHS SC Last administered on 03/20/17 21:25; Admin Dose 5 UNIT; Start 03/19/17 at 21:00 Clonidine HCl 1 patch 1 patch Q7D TRANSDERM Last administered on 03/19/17 14: 39; Admin Dose 1 PATCH; Start 03/19/17 at 14:00 Fluconazole (Diflucan 400 Mg/ NS (Pmx)) 200 ml @ 200 mls/hr Q24H IVPB Last administered on 03/21/17 12:11; Admin Dose 200 MLS/HR; Start 03/20/17 at 13:00 Clonidine HCl (Catapres-Tts 1 Patch) 1 patch Q7D TRANSDERM Last administered on 03/20/17 13:53; Admin Dose 1 PATCH; Start 03/20/17 at 13:00 SULEIMAN FLOYD M.D. Mar 21, 2017 17:53
[2017-03-21] MEDS: CALCIUM CARBONATE 500 MG CHEW TAB PO SCH (19:09)
--- NOTE | 2017-03-21 20:41 | PN ---
Date/Time of Note Date/Time of Note DATE: 03/21/17 TIME: 20:39 Assessment/Plan Lines/Catheters IV Catheter Type (from [facility]): Saline Lock Desai in Place (from [facility]): Yes Assessment/Plan Chief Complaint/Hosp Course 1. Abdominal pain with CT findings are suggestive of either obstructive pattern versus ileus. Patient has gas and stool in the colon. Less likelihood of bowel ischemia; Flatus. SBFT noted. NGT has been removed and pt given clears. -diet as tolerated -close monitoring 2. PVD/PAD with Left lower extremity ischemia with tissue necrosis and gangrene ; s/p left AKA with thrombectomy; -Judicious fluid management -Anticoagulation 3. Elevated troponin with possible demand ischemia and SD -Cardiac evaluation on optimization 4. Elevated BNP with possible CHF -Judicious fluid management -Cardiac optimization 5. Renal insufficiency, multifactorial secondary to above -Judicious fluid management and avoid nephrotoxic agents as possible 6. Anemia. Coffee-ground NG tube aspirate. h/h stable -Close monitoring -Transfuse as needed 7. Diabetes: one episode of hypoglycemia overnight; BS improved -Diet and medication optimization 8. Hypertension -Diet and medication optimization 9. Hypercholesterolemia -Diet and medication optimization 10. Leukocytosis: 2/ #1 and #2 normalized -abx -supportive -as above Thank you, Problems: Subjective 24 Hr Interval Summary Flatus. Feels well. NGT has been removed and given fluids. No n/v/d, chills, fevers, chakraborty, sz, dizziness, cough, cp, palpitations. Exam/Review of Systems Vital Signs Vitals Vital Signs Date Time Temp Pulse Resp B/P Pulse Ox O2 Delivery O2 Flow Rate FiO2 03/21/17 20:16 82 03/21/17 15:12 98.2 16 155/65 96 03/20/17 20:00 Room Air Intake and Output 03/20/17 03/20/17 03/21/17 15:00 23:00 07:00 Intake Total 0 ml 1950 ml 1000 ml Output Total 275 ml 145 ml 450 ml Balance -275 ml 1805 ml 550 ml Exam Free Text/Dictation Constitutional: awake, NAD Psych: confused but able to answer simple questions, follows commands No anxiety, No nl mood/affect Head: atraumatic, normocephalic Eyes: EOMI, PERRL, nl conjunctiva, No icteric ENMT: nl external ears & nose, nl lips & teeth, NG tube No mucosa pink and moist (Dry mucosa) Neck: jvd, non-tender, supple Respiratory: normal air movement, No congested cough, No diminished breath sounds, No labored breathing Cardiovascular: regular rate and rhythm, No edema Gastrointestinal: Min distended, soft, tender (Minimally in left lower quadrant ), No firm, No rebound or guarding, Musculoskeletal: No joint tenderness, No nl extremities to inspection (Left AKA ), No nl gait and stance Extremities: No calf tenderness, No normal pulses Neurological: nl speech, No nl strength Skin: No diaphoresis, No nl turgor, No rash or lesions Lymph: nl lymph nodes Results Result Diagram: 03/21/17 0611 03/21/17 0611 ABNER FELIPE MD Mar 21, 2017 20:41
[2017-03-21] MEDS: FAMOTIDINE 20 MG INJ IV SCH (20:55)
[2017-03-21] MEDS: METOPROLOL 50 MG TAB PO SCH (20:55)
[2017-03-21] MEDS: INSULIN GLARGINE [LANtus] 3 ML PEN SC SCH (21:04)
[2017-03-22] VITALS (12 sets, daily range): BP systolic 122–151; BP diastolic 64–88; PULSE 71–101; RESP 16–20
[2017-03-22] MEDS: ACCU-CHEK XX SCH (02:00)
[2017-03-22] MEDS: LEVOTHYROXINE 100 MCG VIAL IV SCH (06:18)
[2017-03-22] MEDS: HEPARIN 5,000 UNIT/0.5 ML VIAL SC SCH ×3 (06:31→21:49)
[2017-03-22] MEDS: morphine 2 MG INJ IV PRN ×2 (07:53→14:01)
[2017-03-22] MEDS: Insulin NOVOLOG SS MILD Algorithm (SS with meals and bedtime) SC SCH ×4 (08:01→21:00)
[2017-03-22] MEDS: GABAPENTIN 300 MG CAP PO SCH ×2 (08:02→21:43)
[2017-03-22] MEDS: METOPROLOL 50 MG TAB PO SCH ×2 (08:02→21:44)
[2017-03-22] MEDS: CALCIUM CARBONATE 500 MG CHEW TAB PO SCH ×3 (08:02→16:54)
--- NOTE | 2017-03-22 11:32 | PN ---
Date/Time of Note Date/Time of Note DATE: 03/22/17 TIME: 11:28 Assessment/Plan VTE Prophylaxis VTE Prophylaxis Intervention: heparin Lines/Catheters IV Catheter Type (from Nrs): Saline Lock Urinary Cath still in place: Yes Reason Cath still needed: urinary retention Assessment/Plan Chief Complaint/Hosp Course . Problems: Assessment/Plan Assessment Abdominal pain Ileus resolved Small bowel follow through . No definite evidence of obstruction. However, the colon is not opacified due to dilution of contrast at 12 hours. * S/P above knee amputation left Impending gangrene foot left * PAD * Diabetes mellitus Plan * will signed out but will see patient is needed * regular diet * continue present management * case discussed with Dr Chaudhary * further orders will depend on clinical course Subjective 24 Hr Interval Summary Free Text/Dictation * Course reviewed with RN * Tolerating diet * Denies any abdominal pain,patient passing gas Exam/Review of Systems Vital Signs Vitals Vital Signs Date Time Temp Pulse Resp B/P Pulse Ox O2 Delivery O2 Flow Rate FiO2 03/22/17 11:09 98.3 79 16 122/68 96 03/22/17 04:00 Room Air Intake and Output 03/21/17 03/21/17 03/22/17 15:00 23:00 07:00 Intake Total 450 ml Output Total 850 ml Balance -400 ml Exam Constitutional: alert, oriented Head: atraumatic, normocephalic Neck: non-tender, supple Respiratory: clear to auscultation, normal air movement Cardiovascular: nl pulses, regular rate and rhythm Gastrointestinal: nl liver, spleen, non-tender, soft Musculoskeletal: other (s/p aka left) Extremities: normal pulses Neurological: nl speech, nl strength Skin: nl turgor, No rash or lesions Lymph: nl lymph nodes Results Result Diagram: 03/21/17 0611 03/21/17 0611 Results 24 hrs Laboratory Tests Test 03/21/17 12:06 03/21/17 17:26 03/21/17 20:18 03/21/17 20:58 Bedside Glucose 93 293 H 281 H 277 H Test 03/22/17 02:50 03/22/17 07:52 Bedside Glucose 250 H 230 H Medications Medications Current Medications Ondansetron HCl (Zofran Inj) 4 mg Q6H PRN IV NAUSEA AND/OR VOMITING Last administered on 03/19/17t 22:49; Admin Dose 4 MG; Start 03/17/17 at 01:00 Morphine Sulfate (morphine) 2 mg Q4H PRN IV PAIN LEVEL 7-10 Last administered on 03/22/17 07:53; Admin Dose 2 MG; Start 03/17/17 at 01:00 Amlodipine Besylate (Norvasc) 10 mg DAILY PO Last administered on 03/17/17 09: 59; Admin Dose 10 MG; Start 03/17/17 at 09:00; Status Future Hold Atenolol (Tenormin) 100 mg DAILY PO Last administered on 03/17/17 10:00; Admin Dose 100 MG; Start 03/17/17 at 09:00; Status Future Hold Benazepril HCl (Lotensin) 10 mg DAILY PO Last administered on 03/17/17 09:57; Admin Dose 10 MG; Start 03/17/17 at 09:00; Status Future Hold Gabapentin (Neurontin) 300 mg BID PO Last administered on 03/22/17 08:02; Admin Dose 300 MG; Start 03/17/17 at 09:00 Atorvastatin Calcium (Lipitor) 10 mg DAILY@21 PO ; Start 03/17/17 at 21:00; Status Future Hold Miscellaneous Information 1 ea NOTE XX ; Start 03/17/17 at 12:00 Glucose (Glutose) 15 gm Q15M PRN PO DECREASED GLUCOSE; Start 03/17/17 at 12:00 Glucose (Glutose) 22.5 gm Q15M PRN PO DECREASED GLUCOSE; Start 03/17/17 at 12: 00 Dextrose (D50w Syringe) 25 ml Q15M PRN IV DECREASED GLUCOSE Last administered on 03/19/17 06:08; Admin Dose 25 ML; Start 03/17/17 at 12:00 Dextrose (D50w Syringe) 50 ml Q15M PRN IV DECREASED GLUCOSE; Start 03/17/17 at 12:00 Glucagon (Glucagen) 1 mg Q15M PRN IM DECREASED GLUCOSE; Start 03/17/17 at 12:00 Glucose (Glutose) 15 gm Q15M PRN BUCCAL DECREASED GLUCOSE; Start 03/17/17 at 12 :00 Famotidine (Pepcid Iv) 20 mg HS IV Last administered on 03/21/17 20:55; Admin Dose 20 MG; Start 03/17/17 at 21:00 Heparin Sodium (Porcine) (Heparin (5000 Units/0.5 ml)) 5,000 unit Q8 SC Last administered on 03/22/17 06:31; Admin Dose 5,000 UNIT; Start 03/18/17 at 14:00 Diagnostic Test (Pha) (Accu-Chek) 1 ea 02 XX ; Start 03/19/17 at 02:00 Levothyroxine Sodium (Synthroid Iv) 75 mcg DAILY@06 IV Last administered on 06:18; Admin Dose 75 MCG; Start 03/19/17 at 06:00 Hydralazine HCl (Apresoline) 10 mg Q4H PRN IV SBP>160 Last administered on 03/20 17:12; Admin Dose 10 MG; Start 03/18/17 at 12:00 Insulin Glargine (Lantus) 5 unit QHS SC Last administered on 03/21/17 21:04; Admin Dose 5 UNIT; Start 03/19/17 at 21:00 Clonidine HCl 1 patch 1 patch Q7D TRANSDERM Last administered on 03/19/17 14: 39; Admin Dose 1 PATCH; Start 03/19/17 at 14:00 Fluconazole (Diflucan 400 Mg/ NS (Pmx)) 200 ml @ 200 mls/hr Q24H IVPB Last administered on 03/21/17 12:11; Admin Dose 200 MLS/HR; Start 03/20/17 at 13:00 Clonidine HCl (Catapres-Tts 1 Patch) 1 patch Q7D TRANSDERM Last administered on 03/20/17 13:53; Admin Dose 1 PATCH; Start 03/20/17 at 13:00 Metoprolol Tartrate (Lopressor) 50 mg BID PO Last administered on 03/22/17 08: 02; Admin Dose 50 MG; Start 03/21/17 at 21:00 LUANN MACIAS NP Mar 22, 2017 11:32
[2017-03-22 13:08] LABS: CALCIUM 7.8 mg/dl (8.4-10.2); CREATININE 0.65 mg/dl (0.44-1.00); POTASSIUM 3.2 mmol/L (3.5-5.1)
[2017-03-22] MEDS: FLUCONAZOLE 400 MG/NS (PMX) 200 ML IVPB SCH (13:41)
--- NOTE | 2017-03-22 14:31 | PN ---
Date/Time of Note Date/Time of Note DATE: 03/22/17 TIME: 14:30 Assessment/Plan VTE Prophylaxis VTE Prophylaxis Intervention: heparin Lines/Catheters IV Catheter Type (from Nrs): Saline Lock Urinary Cath still in place: Yes Reason Cath still needed: other (indicate) (montior I&O) Assessment/Plan Chief Complaint/Hosp Course Assessment and plan 1. Left lower extremity critical limb ischemia and gangrene. Patient status post left [id number] amputation and left lateral artery thrombectomy . Continue surgeon recommendations and vascular checks. 2. Abdominal pain with CT scan suggestive of possible obstructive pattern versus ileus. NG tube was in place but now discontinued. . GI following as well as surgeon. Small bowel follow-through with no definite evidence of obstruction. Continue to advance diet as tolerated 3. Non-ST elevated myocardial infarction. The following. Continue telemetry monitoring. Continue optimization of beta terra and nitrates anticoagulation. 4. Anemia (likely postoperative). H&H remained stable. Monitor at this time. 5. Diabetes with A1c of 8.4. Continue insulin regimen. Will adjust as needed 6. Essential hypertension. On antihypertensives and adjust as needed. 7. Hypothyroidism. Continue on Synthroid 8. Dyslipidemia. Continue on statin medication once able to tolerate oral intake Disposition and plan: Continue to advance diet as tolerated. Follow-up with case management for possible placement. Discharged in medically stable and cleared by consultants Discussed plan of care with Dr. Rush Problems: Subjective 24 Hr Interval Summary Free Text/Dictation No apparent distress seen at this time. Denies any abdominal pain. Still reports feeling constipated Exam/Review of Systems Vital Signs Vitals Vital Signs Date Time Temp Pulse Resp B/P Pulse Ox O2 Delivery O2 Flow Rate FiO2 03/22/17 12:25 71 03/22/17 11:09 98.3 16 122/68 96 03/22/17 04:00 Room Air Intake and Output 03/21/17 03/21/17 03/22/17 15:00 23:00 07:00 Intake Total 450 ml Output Total 850 ml Balance -400 ml Exam Constitutional: alert Psych: nl mood/affect Head: normocephalic Neck: supple, No jvd Respiratory: normal air movement Cardiovascular: regular rate and rhythm Gastrointestinal: non-tender, soft Musculoskeletal: other (Left AKA) Neurological: nl mental status, nl speech Results Result Diagram: 03/21/17 0611 03/22/17 1206 Results 24 hrs Laboratory Tests Test 03/21/17 17:26 03/21/17 20:18 03/21/17 20:58 03/22/17 02:50 Bedside Glucose 293 H 281 H 277 H 250 H Test 03/22/17 07:52 03/22/17 11:52 03/22/17 12:06 Bedside Glucose 230 H 228 H Sodium Level 133 L Potassium Level 3.2 L Chloride Level 94 L Carbon Dioxide Level 32 H Anion Gap 10 # Blood Urea Nitrogen 10 Creatinine 0.65 Glucose Level 216 # Calcium Level 7.8 L Medications Medications Current Medications Ondansetron HCl (Zofran Inj) 4 mg Q6H PRN IV NAUSEA AND/OR VOMITING Last administered on 03/19/17 22:49; Admin Dose 4 MG; Start 03/17/17 at 01:00 Morphine Sulfate (morphine) 2 mg Q4H PRN IV PAIN LEVEL 7-10 Last administered on 03/22/17 14:01; Admin Dose 2 MG; Start 03/17/17 at 01:00 Amlodipine Besylate (Norvasc) 10 mg DAILY PO Last administered on 03/17/17 09: 59; Admin Dose 10 MG; Start 03/17/17 at 09:00; Status Future Hold Atenolol (Tenormin) 100 mg DAILY PO Last administered on 03/17/17 10:00; Admin Dose 100 MG; Start 03/17/17 at 09:00; Status Future Hold Benazepril HCl (Lotensin) 10 mg DAILY PO Last administered on 03/17/17 09:57; Admin Dose 10 MG; Start 03/17/17 at 09:00; Status Future Hold Gabapentin (Neurontin) 300 mg BID PO Last administered on 03/22/17 08:02; Admin Dose 300 MG; Start 03/17/17 at 09:00 Atorvastatin Calcium (Lipitor) 10 mg DAILY@21 PO ; Start 03/17/17 at 21:00; Status Future Hold Miscellaneous Information 1 ea NOTE XX ; Start 03/17/17 at 12:00 Glucose (Glutose) 15 gm Q15M PRN PO DECREASED GLUCOSE; Start 03/17/17 at 12:00 Glucose (Glutose) 22.5 gm Q15M PRN PO DECREASED GLUCOSE; Start 03/17/17 at 12: 00 Dextrose (D50w Syringe) 25 ml Q15M PRN IV DECREASED GLUCOSE Last administered on 03/19/17 06:08; Admin Dose 25 ML; Start 03/17/17 at 12:00 Dextrose (D50w Syringe) 50 ml Q15M PRN IV DECREASED GLUCOSE; Start 03/17/17 at 12:00 Glucagon (Glucagen) 1 mg Q15M PRN IM DECREASED GLUCOSE; Start 03/17/17 at 12:00 Glucose (Glutose) 15 gm Q15M PRN BUCCAL DECREASED GLUCOSE; Start 03/17/17 at 12 :00 Famotidine (Pepcid Iv) 20 mg HS IV Last administered on 03/21/17 20:55; Admin Dose 20 MG; Start 03/17/17 at 21:00 Heparin Sodium (Porcine) (Heparin (5000 Units/0.5 ml)) 5,000 unit Q8 SC Last administered on 03/22/17 13:45; Admin Dose 5,000 UNIT; Start 03/18/17 at 14:00 Diagnostic Test (Pha) (Accu-Chek) 1 ea 02 XX ; Start 03/19/17 at 02:00 Levothyroxine Sodium (Synthroid Iv) 75 mcg DAILY@06 IV Last administered on 06:18; Admin Dose 75 MCG; Start 03/19/17 at 06:00 Hydralazine HCl (Apresoline) 10 mg Q4H PRN IV SBP>160 Last administered on 03/20 17:12; Admin Dose 10 MG; Start 03/18/17 at 12:00 Clonidine HCl 1 patch 1 patch Q7D TRANSDERM Last administered on 03/19/17 14: 39; Admin Dose 1 PATCH; Start 03/19/17 at 14:00 Fluconazole (Diflucan 400 Mg/ NS (Pmx)) 200 ml @ 200 mls/hr Q24H IVPB Last administered on 03/22/17 13:41; Admin Dose 200 MLS/HR; Start 03/20/17 at 13:00 Clonidine HCl (Catapres-Tts 1 Patch) 1 patch Q7D TRANSDERM Last administered on 03/20/17 13:53; Admin Dose 1 PATCH; Start 03/20/17 at 13:00 Metoprolol Tartrate (Lopressor) 50 mg BID PO Last administered on 03/22/17t 08: 02; Admin Dose 50 MG; Start 03/21/17 at 21:00 Insulin Glargine (Lantus) 12 unit QHS SC ; Start 03/22/17 at 21:00 MILES FLOREZ Mar 22, 2017 14:31
[2017-03-22] MEDS ORDERED: PENDING SANTYL ORDER FOR WOUND CARE XX PRN (15:00)
--- NOTE | 2017-03-22 15:19 | CONS ---
Date/Time of Note Date/Time of Note DATE: 03/22/17 TIME: 15:18 Assessment/Plan Assessment/Plan Additional Assessment/Plan Left Lower extremity gangrene: S/P High Left AKA ACS HTN SBO Dyslipidemia Diabetes Hypothyroid UTI Anemia Clinically stable Continue Metoprolol Continue Lipitor Continue Insulin continue Levothyroxine Consultation Date/Type/Reason Admit Date/Time Mar 16, 2017 at 22:23 Initial Consult Date 03/21/17 Type of Consultation: Gastroenterology Referring Provider: MILES FLOREZ Exam/Review of Systems Vital Signs Vitals Vital Signs Date Time Temp Pulse Resp B/P Pulse Ox O2 Delivery O2 Flow Rate FiO2 03/22/17 12:25 71 03/22/17 11:09 98.3 16 122/68 96 03/22/17 04:00 Room Air Intake and Output 03/21/17 03/21/17 03/22/17 15:00 23:00 07:00 Intake Total 450 ml Output Total 850 ml Balance -400 ml Results Result Diagram: 03/21/17 0611 03/22/17 1206 Results 24 hrs Laboratory Tests Test 03/21/17 17:26 03/21/17 20:18 03/21/17 20:58 03/22/17 02:50 Bedside Glucose 293 H 281 H 277 H 250 H Test 03/22/17 07:52 03/22/17 11:52 03/22/17 12:06 Bedside Glucose 230 H 228 H Sodium Level 133 L Potassium Level 3.2 L Chloride Level 94 L Carbon Dioxide Level 32 H Anion Gap 10 # Blood Urea Nitrogen 10 Creatinine 0.65 Glucose Level 216 # Calcium Level 7.8 L Medications Medications Current Medications Ondansetron HCl (Zofran Inj) 4 mg Q6H PRN IV NAUSEA AND/OR VOMITING Last administered on 03/19/17 22:49; Admin Dose 4 MG; Start 03/17/17 at 01:00 Morphine Sulfate (morphine) 2 mg Q4H PRN IV PAIN LEVEL 7-10 Last administered on 03/22/17 14:01; Admin Dose 2 MG; Start 03/17/17 at 01:00 Amlodipine Besylate (Norvasc) 10 mg DAILY PO Last administered on 03/17/17 09: 59; Admin Dose 10 MG; Start 03/17/17 at 09:00; Status Future Hold Atenolol (Tenormin) 100 mg DAILY PO Last administered on 03/17/17 10:00; Admin Dose 100 MG; Start 03/17/17 at 09:00; Status Future Hold Benazepril HCl (Lotensin) 10 mg DAILY PO Last administered on 03/17/17 09:57; Admin Dose 10 MG; Start 03/17/17 at 09:00; Status Future Hold Gabapentin (Neurontin) 300 mg BID PO Last administered on 03/22/17 08:02; Admin Dose 300 MG; Start 03/17/17 at 09:00 Atorvastatin Calcium (Lipitor) 10 mg DAILY@21 PO ; Start 03/17/17 at 21:00; Status Future Hold Miscellaneous Information 1 ea NOTE XX ; Start 03/17/17 at 12:00 Glucose (Glutose) 15 gm Q15M PRN PO DECREASED GLUCOSE; Start 03/17/17 at 12:00 Glucose (Glutose) 22.5 gm Q15M PRN PO DECREASED GLUCOSE; Start 03/17/17 at 12: 00 Dextrose (D50w Syringe) 25 ml Q15M PRN IV DECREASED GLUCOSE Last administered on 03/19/17 06:08; Admin Dose 25 ML; Start 03/17/17 at 12:00 Dextrose (D50w Syringe) 50 ml Q15M PRN IV DECREASED GLUCOSE; Start 03/17/17 at 12:00 Glucagon (Glucagen) 1 mg Q15M PRN IM DECREASED GLUCOSE; Start 03/17/17 at 12:00 Glucose (Glutose) 15 gm Q15M PRN BUCCAL DECREASED GLUCOSE; Start 03/17/17 at 12 :00 Famotidine (Pepcid Iv) 20 mg HS IV Last administered on 03/21/17 20:55; Admin Dose 20 MG; Start 03/17/17 at 21:00 Heparin Sodium (Porcine) (Heparin (5000 Units/0.5 ml)) 5,000 unit Q8 SC Last administered on 03/22/17 13:45; Admin Dose 5,000 UNIT; Start 03/18/17 at 14:00 Diagnostic Test (Pha) (Accu-Chek) 1 ea 02 XX ; Start 03/19/17 at 02:00 Levothyroxine Sodium (Synthroid Iv) 75 mcg DAILY@06 IV Last administered on 06:18; Admin Dose 75 MCG; Start 03/19/17 at 06:00 Hydralazine HCl (Apresoline) 10 mg Q4H PRN IV SBP>160 Last administered on 03/20 17:12; Admin Dose 10 MG; Start 03/18/17 at 12:00 Clonidine HCl 1 patch 1 patch Q7D TRANSDERM Last administered on 03/19/17 14: 39; Admin Dose 1 PATCH; Start 03/19/17 at 14:00 Fluconazole (Diflucan 400 Mg/ NS (Pmx)) 200 ml @ 200 mls/hr Q24H IVPB Last administered on 03/22/17 13:41; Admin Dose 200 MLS/HR; Start 03/20/17 at 13:00 Clonidine HCl (Catapres-Tts 1 Patch) 1 patch Q7D TRANSDERM Last administered on 03/20/17 13:53; Admin Dose 1 PATCH; Start 03/20/17 at 13:00 Metoprolol Tartrate (Lopressor) 50 mg BID PO Last administered on 03/22/17 08: 02; Admin Dose 50 MG; Start 03/21/17 at 21:00 Insulin Glargine (Lantus) 12 unit QHS SC ; Start 03/22/17 at 21:00 Miscellaneous Information (Pending [facility]yl Order For Wound Care) This patient chakraborty... PRN PRN XX WOUND CARE; Start 03/22/17 at 15:00 SULEIMAN FLOYD M.D. Mar 22, 2017 15:19
[2017-03-22] MEDS ORDERED: POTASSIUM CHLORIDE 20 MEQ POWDER FOR ORAL SOLN PO ONE (16:30)
[2017-03-22] MEDS: ONDANSETRON 4 MG INJ IV PRN (20:44)
[2017-03-22] MEDS: FAMOTIDINE 20 MG INJ IV SCH (21:44)
[2017-03-22] MEDS: INSULIN GLARGINE [LANtus] 3 ML PEN SC SCH (21:48)
[2017-03-23] VITALS (12 sets, daily range): BP systolic 114–137; BP diastolic 58–68; PULSE 80–100; RESP 15–18
[2017-03-23] MEDS: ACCU-CHEK XX SCH (02:00)
[2017-03-23] MEDS: LEVOTHYROXINE 100 MCG VIAL IV SCH (06:29)
[2017-03-23] MEDS: HEPARIN 5,000 UNIT/0.5 ML VIAL SC SCH ×3 (06:31→23:00)
[2017-03-23] MEDS: CALCIUM CARBONATE 500 MG CHEW TAB PO SCH ×3 (08:55→17:34)
[2017-03-23] MEDS: GABAPENTIN 300 MG CAP PO SCH ×2 (08:55→20:25)
[2017-03-23] MEDS: METOPROLOL 50 MG TAB PO SCH ×2 (08:55→20:27)
[2017-03-23] MEDS ORDERED: MAGNESIUM HYDROXIDE 30ML CUP PO ONE (09:00)
[2017-03-23] MEDS ORDERED: MAGNESIUM HYDROXIDE 30ML CUP PO PRN (09:00)
[2017-03-23] MEDS: Insulin NOVOLOG SS MILD Algorithm (SS with meals and bedtime) SC SCH ×4 (09:07→20:29)
--- NOTE | 2017-03-23 09:15 | PN ---
Date/Time of Note Date/Time of Note DATE: 03/23/17 TIME: 09:08 Assessment/Plan VTE Prophylaxis VTE Prophylaxis Intervention: heparin Lines/Catheters IV [facility] Type [facility] Saline Lock Assessment/Plan Chief Complaint/Hosp Course 1. Left lower extremity critical limb ischemia and gangrene. -Patient status post left [id number] amputation and left lateral artery thrombectomy . Continue surgeon recommendations and vascular checks. 2. Abdominal pain with CT scan suggestive of possible obstructive pattern versus ileus. -Status post NGtube decompression. Small bowel follow-through with no definite evidence of obstruction. -Continue to advance diet as tolerated 3. Non-ST elevated myocardial infarction. -Cardiology following. -Continue telemetry monitoring. Continue optimization of beta terra and nitrates anticoagulation. 4. Anemia (likely postoperative). H&H remained stable. - Monitor at this time. 5. Diabetes with A1c of 8.4. -Change diet to ADA-carb controlled. Patient has been on anon-carb controlled diet and this explains her hyperglycemia yesterday. - Continue insulin regimen. Will adjust as needed 6. Essential hypertension. Stable. - On antihypertensives and adjust as needed. 7. Hypothyroidism. Continue on Synthroid 8. Dyslipidemia. Continue on statin 9.Constipation.Treat with stool softners and PRN Laxatives. 10.Nina UTI. -Continue Azole. -Repeat culture Prophylaxis: Heparin subcu/Pepcid Disposition and plan: Continue to advance diet as tolerated. Follow-up with case management for possible placement. Discharged in medically stable and cleared by consultants Discussed plan of care with . Problems: Subjective 24 Hr Interval Summary Free Text/Dictation Desai has been dcd and no voids yet. Denies any abdominal or urinary discomfort.Afebrile.Having constipation.Reports no BM since surgery. Exam/Review of Systems Vital Signs Vitals Vital Signs Date Time Temp Pulse Resp B/P Pulse Ox O2 Delivery O2 Flow Rate FiO2 03/23/17 07:55 98.3 92 18 125/59 95 03/22/17 04:00 Room Air Intake and Output 03/22/17 03/22/17 03/23/17 15:00 23:00 07:00 Intake Total 800 ml 550 ml Output Total 800 ml Balance 0 ml 550 ml Exam General: Thin built, not in any acute distress . HEENT: Normocephalic, Atraumatic, No laceration or hematoma; Eyes: PEERL, Conjunctiva clear, Anicteric sclera Neck: Supple without any lymphadenopathy, nontender, no JVD, no carotid bruits, trachea midline, no thyromegaly Cardiac: S1, S2 auscultated, regular rhythm and rate, no mumurs or gallop Pulmonary: Diminished breath sound bibasilar. Normal respiratory effort. Chest clear to auscultation bilaterally, no adventitious breath sounds GI: NG tube. Abdomen soft,no masses, no rebound tenderness or guarding. Bowel sounds hypoactive on all four quadrants Genitourinary: Deferred Extremities: Left AKA, surgical dressing intact. Neurologic: Alert to person, place, time, and situation. Affect appropriate, intact sensation. Skin: Clean,dry, and intact. No ecchymosis, no rashes, or lesions Results Result Diagram: 03/21/17 0611 03/22/17 1206 Results 24 hrs Laboratory Tests Test 03/22/17 11:52 03/22/17 12:06 03/22/17 16:52 03/22/17 21:11 Bedside Glucose 228 H 175 141 Sodium Level 133 L Potassium Level 3.2 L Chloride Level 94 L Carbon Dioxide Level 32 H Anion Gap 10 # Blood Urea Nitrogen 10 Creatinine 0.65 Glucose Level 216 # Calcium Level 7.8 L Medications Medications Current Medications Ondansetron HCl (Zofran Inj) 4 mg Q6H PRN IV NAUSEA AND/OR VOMITING Last administered on 03/22/17 20:44; Admin Dose 4 MG; Start 03/17/17 at 01:00 Morphine Sulfate (morphine) 2 mg Q4H PRN IV PAIN LEVEL 7-10 Last administered on 03/22/17 14:01; Admin Dose 2 MG; Start 03/17/17 at 01:00 Amlodipine Besylate (Norvasc) 10 mg DAILY PO Last administered on 03/17/17 09: 59; Admin Dose 10 MG; Start 03/17/17 at 09:00; Status Future Hold Atenolol (Tenormin) 100 mg DAILY PO Last administered on 03/17/17 10:00; Admin Dose 100 MG; Start 03/17/17 at 09:00; Status Future Hold Benazepril HCl (Lotensin) 10 mg DAILY PO Last administered on 03/17/17 09:57; Admin Dose 10 MG; Start 03/17/17 at 09:00; Status Future Hold Gabapentin (Neurontin) 300 mg BID PO Last administered on 03/22/17 21:43; Admin Dose 300 MG; Start 03/17/17 at 09:00 Atorvastatin Calcium (Lipitor) 10 mg DAILY@21 PO ; Start 03/17/17 at 21:00; Status Future Hold Miscellaneous Information 1 ea NOTE XX ; Start 03/17/17 at 12:00 Glucose (Glutose) 15 gm Q15M PRN PO DECREASED GLUCOSE; Start 03/17/17 at 12:00 Glucose (Glutose) 22.5 gm Q15M PRN PO DECREASED GLUCOSE; Start 03/17/17 at 12: 00 Dextrose (D50w Syringe) 25 ml Q15M PRN IV DECREASED GLUCOSE Last administered on 03/19/17 06:08; Admin Dose 25 ML; Start 03/17/17 at 12:00 Dextrose (D50w Syringe) 50 ml Q15M PRN IV DECREASED GLUCOSE; Start 03/17/17 at 12:00 Glucagon (Glucagen) 1 mg Q15M PRN IM DECREASED GLUCOSE; Start 03/17/17 at 12:00 Glucose (Glutose) 15 gm Q15M PRN BUCCAL DECREASED GLUCOSE; Start 03/17/17 at 12 :00 Famotidine (Pepcid Iv) 20 mg HS IV Last administered on 03/22/17 21:44; Admin Dose 20 MG; Start 03/17/17 at 21:00 Heparin Sodium (Porcine) (Heparin (5000 Units/0.5 ml)) 5,000 unit Q8 SC Last administered on 03/23/17 06:31; Admin Dose 5,000 UNIT; Start 03/18/17 at 14:00 Diagnostic Test (Pha) (Accu-Chek) 1 ea 02 XX ; Start 03/19/17 at 02:00 Levothyroxine Sodium (Synthroid Iv) 75 mcg DAILY@06 IV Last administered on 06:29; Admin Dose 75 MCG; Start 03/19/17 at 06:00 Hydralazine HCl (Apresoline) 10 mg Q4H PRN IV SBP>160 Last administered on 03/20 17:12; Admin Dose 10 MG; Start 03/18/17 at 12:00 Clonidine HCl 1 patch 1 patch Q7D TRANSDERM Last administered on 03/19/17 14: 39; Admin Dose 1 PATCH; Start 03/19/17 at 14:00 Fluconazole (Diflucan 400 Mg/ NS (Pmx)) 200 ml @ 200 mls/hr Q24H IVPB Last administered on 03/22/17 13:41; Admin Dose 200 MLS/HR; Start 03/20/17 at 13:00 Clonidine HCl (Catapres-Tts 1 Patch) 1 patch Q7D TRANSDERM Last administered on 03/20/17 13:53; Admin Dose 1 PATCH; Start 03/20/17 at 13:00 Metoprolol Tartrate (Lopressor) 50 mg BID PO Last administered on 03/22/17 21: 44; Admin Dose 50 MG; Start 03/21/17 at 21:00 Insulin Glargine (Lantus) 12 unit QHS SC Last administered on 03/22/17 21:48; Admin Dose 12 UNIT; Start 03/22/17 at 21:00 Miscellaneous Information (Pending [facility] Order For Wound Care) This patient chakraborty... PRN PRN XX WOUND CARE; Start 03/22/17 at 15:00 BEBA HENSON NP Mar 23, 2017 09:15
--- NOTE | 2017-03-23 10:03 | PN ---
Date/Time of Note Date/Time of Note DATE: 03/23/17 TIME: 09:57 Assessment/Plan Lines/Catheters IV [facility]from [facility] Saline Lock Assessment/Plan Chief Complaint/Hosp Course 1. Abdominal pain with CT findings are suggestive of either obstructive pattern versus ileus. Patient has gas and stool in the colon. Less likelihood of bowel ischemia; Flatus. SBFT noted. NGT out, min nausea after meds -diet as tolerated -close monitoring 2. PVD/PAD with Left lower extremity ischemia with tissue necrosis and gangrene ; s/p left AKA with thrombectomy; -Judicious fluid management -Anticoagulation 3. Elevated troponin with possible demand ischemia and SD -Cardiac evaluation on optimization 4. Elevated BNP with possible CHF -Judicious fluid management -Cardiac optimization 5. Renal insufficiency, multifactorial secondary to above -Judicious fluid management and avoid nephrotoxic agents as possible 6. Anemia. Coffee-ground NG tube aspirate. h/h stable -Close monitoring -Transfuse as needed 7. Diabetes: one episode of hypoglycemia overnight; BS improved -Diet and medication optimization 8. Hypertension -Diet and medication optimization 9. Hypercholesterolemia -Diet and medication optimization 10. Leukocytosis: 10/02 #1 and #2 normalized -abx -supportive -as above Patient seen and examined in collaboration with Dr. Steffen Kelly Problems: Subjective 24 Hr Interval Summary Feeling ok. Min nausea after medications this morning with some vomiting. + flatus, no bm. rivera out. Tolerating clears. Up with PT. No c/o chakraborty, sz, dizziness, n/v/d, dysuria, fevers, chills. Exam/Review of Systems Vital Signs Vitals Vital Signs Date Time Temp Pulse Resp B/P Pulse Ox O2 Delivery O2 Flow Rate FiO2 03/23/17 08:22 87 03/23/17 07:55 98.3 18 125/59 95 03/22/17 04:00 Room Air Intake and Output 03/22/17 03/22/17 03/23/17 15:00 23:00 07:00 Intake Total 800 ml 550 ml Output Total 800 ml Balance 0 ml 550 ml Exam Free Text/Dictation Constitutional: awake, NAD Psych: confused but able to answer simple questions, follows commands No anxiety, No nl mood/affect Head: atraumatic, normocephalic Eyes: EOMI, PERRL, nl conjunctiva, No icteric ENMT: nl external ears & nose, nl lips & teeth, NG tube No mucosa pink and moist (Dry mucosa) Neck: jvd, non-tender, supple Respiratory: normal air movement, No congested cough, No diminished breath sounds, No labored breathing Cardiovascular: regular rate and rhythm, No edema Gastrointestinal: Min distended, soft, nontender No firm, No rebound or guarding, Musculoskeletal: No joint tenderness, No nl extremities to inspection (Left AKA ), No nl gait and stance Extremities: No calf tenderness, No normal pulses Neurological: nl speech, No nl strength Skin: No diaphoresis, No nl turgor, No rash or lesions Lymph: nl lymph nodes Results Result Diagram: 03/21/17 0611 03/22/17 1206 JULIANA RUFFIN NP Mar 23, 2017 10:02
[2017-03-23 10:20] LABS: EOSINOPHILS % 0.1 % (0.0-7.0); HEMATOCRIT 26.9 % (37.0-47.0); HEMOGLOBIN 8.9 g/dl (12.0-16.0); MEAN CORPUSCULAR HEMOGLOBIN 28.8 pg (29.0-33.0); MEAN CORPUSCULAR HGB CONC 33.1 g/dl (32.0-37.0); MEAN CORPUSCULAR VOLUME 87.1 fl (82.0-101.0); MEAN PLATELET VOLUME 11.9 fl (7.4-10.4); MONOCYTE # 0.6 10^3/ul (0.3-0.9); MONOCYTES % 5.4 % (0.0-11.0); NEUTROPHIL # 9.7 10^3/ul (1.6-7.5); NEUTROPHILS % 85.1 % (39.0-77.0); RED BLOOD COUNT 3.09 10^6/ul (4.20-5.40); RED CELL DISTRIBUTION WIDTH 12.8 % (11.5-14.5); WHITE BLOOD COUNT 11.4 10^3/ul (4.8-10.8)
[2017-03-23 10:21] LABS: PLATELET COUNT 151 10^3/UL (140-415); POSITIVE DIFF @See below
[2017-03-23] MEDS: morphine 2 MG INJ IV PRN ×2 (10:23→22:27)
[2017-03-23] MEDS: ONDANSETRON 4 MG INJ IV PRN (10:24)
[2017-03-23 10:35] LABS: CALCIUM 8.2 mg/dl (8.4-10.2); CREATININE 0.84 mg/dl (0.44-1.00)
[2017-03-23 11:10] LABS: POTASSIUM 3.4 mmol/L (3.5-5.1)
[2017-03-23] MEDS ORDERED: PENDING SANTYL ORDER FOR WOUND CARE XX PRN (11:30)
[2017-03-23] MEDS ORDERED: COLLAGENASE 30 GM TUBE TOP PRN (11:30)
[2017-03-23] MEDS ORDERED: COLLAGENASE 30 GM TUBE TOP ONE (11:30)
--- NOTE | 2017-03-23 12:15 | CONS ---
Date/Time of Note Date/Time of Note DATE: 03/23/17 TIME: 12:12 Assessment/Plan Assessment/Plan Chief Complaint/Hosp Course IMP: 1.Nstemi-now decreasing cardiac enzymes. NO CP. NL EF by echo 2.HTN 3.SBO 4.PAD s/p LLE amputation POD#2 5. Hypopthyroid 6.UTI 7.anemia Recc: -Tele -serial ecg's -Continue PO BB -Continue clonidine TTAS -Continue abx's and f/u cx data -trend cardiac enzymes -Pain control Problems: Consultation Date/Type/Reason Admit Date/Time Mar 16, 2017 at 22:23 Initial Consult Date 03/17/17 Type of Consultation: caradiology Reason for Consultation positive troponin Referring Provider: MILES FLOREZ Exam/Review of Systems Vital Signs Vitals Vital Signs Date Time Temp Pulse Resp B/P Pulse Ox O2 Delivery O2 Flow Rate FiO2 03/23/17 11:21 98.2 80 16 131/60 97 03/22/17 04:00 Room Air Intake and Output 03/22/17 03/22/17 03/23/17 15:00 23:00 07:00 Intake Total 800 ml 550 ml Output Total 800 ml Balance 0 ml 550 ml Exam Review of Systems: CONSTITUTIONAL: No fevers, chills. PULMONARY: No sob CARDIOVASCULAR: No chest pain/palpitations GASTROINTESTINAL: No nausea/vomiting. GENITOURINARY: No hematuria/dysuria. MUSCULOSKELETAL: pain in leg PSYCHIATRIC: The patient denies depression. NEUROLOGIC: No weakness Constitutional: alert Psych: no complaints Head: normocephalic Neck: jvd (9 cm water), supple Respiratory: diminished breath sounds (at bases/B) Cardiovascular: regular rate and rhythm Gastrointestinal: non-tender, soft Musculoskeletal: muscle tone (normal) Extremities: edema (none), other (s/p LLE amputtaion) Neurological: other (No focal deficits) Results Result Diagram: 03/23/17 0934 03/23/17 0934 Results 24 hrs Laboratory Tests Test 03/22/17 16:52 03/22/17 21:11 03/23/17 08:52 03/23/17 09:34 Bedside Glucose 175 141 248 H White Blood Count 11.4 H Red Blood Count 3.09 L Hemoglobin 8.9 L Hematocrit 26.9 L Mean Corpuscular Volume 87.1 Mean Corpuscular Hemoglobin 28.8 L Mean Corpuscular Hemoglobin Concent 33.1 Red Cell Distribution Width 12.8 Platelet Count 151 # Mean Platelet Volume 11.9 H Neutrophils % 85.1 H Lymphocytes % 9.0 L Monocytes % 5.4 Eosinophils % 0.1 Basophils % 0.0 Nucleated Red Blood Cells % 0.0 Neutrophils # 9.7 H Lymphocytes # 1.0 Monocytes # 0.6 Eosinophils # 0.0 Basophils # 0.0 Nucleated Red Blood Cells # 0.0 Sodium Level 135 Potassium Level 3.4 L Chloride Level 90 L Carbon Dioxide Level 34 H Anion Gap 14 Blood Urea Nitrogen 14 Creatinine 0.84 Glucose Level 227 H Calcium Level 8.2 L Medications Medications Current Medications Ondansetron HCl (Zofran Inj) 4 mg Q6H PRN IV NAUSEA AND/OR VOMITING Last administered on 03/23/17 10:24; Admin Dose 4 MG; Start 03/17/17 at 01:00 Morphine Sulfate (morphine) 2 mg Q4H PRN IV PAIN LEVEL 7-10 Last administered on 03/23/17 10:23; Admin Dose 2 MG; Start 03/17/17 at 01:00 Amlodipine Besylate (Norvasc) 10 mg DAILY PO Last administered on 03/17/17 09: 59; Admin Dose 10 MG; Start 03/17/17 at 09:00; Status Future Hold Atenolol (Tenormin) 100 mg DAILY PO Last administered on 03/17/17 10:00; Admin Dose 100 MG; Start 03/17/17 at 09:00; Status Future Hold Benazepril HCl (Lotensin) 10 mg DAILY PO Last administered on 03/17/17 09:57; Admin Dose 10 MG; Start 03/17/17 at 09:00; Status Future Hold Gabapentin (Neurontin) 300 mg BID PO Last administered on 03/23/17 08:55; Admin Dose 300 MG; Start 03/17/17 at 09:00 Atorvastatin Calcium (Lipitor) 10 mg DAILY@21 PO ; Start 03/17/17 at 21:00; Status Future Hold Miscellaneous Information 1 ea NOTE XX ; Start 03/17/17 at 12:00 Glucose (Glutose) 15 gm Q15M PRN PO DECREASED GLUCOSE; Start 03/17/17 at 12:00 Glucose (Glutose) 22.5 gm Q15M PRN PO DECREASED GLUCOSE; Start 03/17/17 at 12: 00 Dextrose (D50w Syringe) 25 ml Q15M PRN IV DECREASED GLUCOSE Last administered on 03/19/17 06:08; Admin Dose 25 ML; Start 03/17/17 at 12:00 Dextrose (D50w Syringe) 50 ml Q15M PRN IV DECREASED GLUCOSE; Start 03/17/17 at 12:00 Glucagon (Glucagen) 1 mg Q15M PRN IM DECREASED GLUCOSE; Start 03/17/17 at 12:00 Glucose (Glutose) 15 gm Q15M PRN BUCCAL DECREASED GLUCOSE; Start 03/17/17 at 12 :00 Heparin Sodium (Porcine) (Heparin (5000 Units/0.5 ml)) 5,000 unit Q8 SC Last administered on 03/23/17 06:31; Admin Dose 5,000 UNIT; Start 03/18/17 at 14:00 Diagnostic Test (Pha) (Accu-Chek) 1 ea 02 XX ; Start 03/19/17 at 02:00 Levothyroxine Sodium (Synthroid Iv) 75 mcg DAILY@06 IV Last administered on 06:29; Admin Dose 75 MCG; Start 03/19/17 at 06:00 Hydralazine HCl (Apresoline) 10 mg Q4H PRN IV SBP>160 Last administered on 03/20 17:12; Admin Dose 10 MG; Start 03/18/17 at 12:00 Clonidine HCl 1 patch 1 patch Q7D TRANSDERM Last administered on 03/19/17 14: 39; Admin Dose 1 PATCH; Start 03/19/17 at 14:00 Fluconazole (Diflucan 400 Mg/ NS (Pmx)) 200 ml @ 200 mls/hr Q24H IVPB Last administered on 03/22/17 13:41; Admin Dose 200 MLS/HR; Start 03/20/17 at 13:00 Clonidine HCl (Catapres-Tts 1 Patch) 1 patch Q7D TRANSDERM Last administered on 03/20/17 13:53; Admin Dose 1 PATCH; Start 03/20/17 at 13:00 Metoprolol Tartrate (Lopressor) 50 mg BID PO Last administered on 03/23/17 08: 55; Admin Dose 50 MG; Start 03/21/17 at 21:00 Insulin Glargine (Lantus) 12 unit QHS SC Last administered on 03/22/17t 21:48; Admin Dose 12 UNIT; Start 03/22/17 at 21:00 Magnesium Hydroxide (Milk Of Mag) 30 ml DAILY PRN PO CONSTIPATION; Start at 09:00 Famotidine (Pepcid) 20 mg 21 PO ; Start 03/23/17 at 21:00 Collagenase (Santyl) 1 applic DAILY TOP ; Start 03/23/17 at 12:30 Collagenase (Santyl) 1 applic PRN PRN TOP WOUND CARE; Start 03/23/17 at 11:30 JVAI LION Mar 23, 2017 12:15
[2017-03-23 12:19] LABS: ADD UMIC YES; UR ASCORBIC ACID NEGATIVE (NEGATIVE); UR BACTERIA FEW /HPF (NONE SEEN); UR BILIRUBIN (Dip) NEGATIVE (NEGATIVE); UR BLOOD (Dip) 2+ mg/dL (NEGATIVE); UR BUDDING YEAST MANY /HPF (NONE SEEN); UR CLARITY CLOUDY (CLEAR); UR COLOR AMBER (YELLOW); UR GLUCOSE (Dip) 2+ mg/dL (NEGATIVE); UR KETONES (Dip) TRACE mg/dL (NEGATIVE); UR LEUKOCYTE ESTERASE (Dip) 2+ Leu/ul (NEGATIVE); UR NITRITE (Dip) NEGATIVE (NEGATIVE); UR RBC 69 /HPF (0-5); UR SQUAMOUS EPITHELIAL CELL FEW /HPF (FEW); UR TOTAL PROTEIN (Dip) 1+ mg/dl (NEGATIVE); UR UROBILINOGEN (Dip) 1+ mg/dL (NEGATIVE)
[2017-03-23] MEDS: COLLAGENASE 30 GM TUBE TOP SCH (12:30)
[2017-03-23] MEDS: FLUCONAZOLE 400 MG/NS (PMX) 200 ML IVPB SCH (12:50)
[2017-03-23] MEDS ORDERED: COLLAGENASE 30 GM TUBE TOP SCH (13:00)
[2017-03-23] MEDS: FAMOTIDINE 20 MG TAB PO SCH (20:25)
[2017-03-23] MEDS: INSULIN GLARGINE [LANtus] 3 ML PEN SC SCH (20:29)
[2017-03-24] VITALS (12 sets, daily range): BP systolic 91–133; BP diastolic 55–89; PULSE 76–95; RESP 15–18
[2017-03-24] MEDS: ACCU-CHEK XX SCH (02:00)
[2017-03-24] MEDS: LEVOTHYROXINE 100 MCG VIAL IV SCH (05:57)
[2017-03-24] MEDS: HEPARIN 5,000 UNIT/0.5 ML VIAL SC SCH ×2 (06:22→22:25)
[2017-03-24 07:54] LABS: BASOPHILS % 0.1 % (0.0-2.0); EOSINOPHILS % 0.3 % (0.0-7.0); HEMATOCRIT 26.6 % (37.0-47.0); HEMOGLOBIN 8.4 g/dl (12.0-16.0); LYMPHOCYTES # 1.5 10^3/ul (0.8-2.9); LYMPHOCYTES % 15.7 % (15.0-51.0); MEAN CORPUSCULAR HEMOGLOBIN 28.6 pg (29.0-33.0); MEAN CORPUSCULAR HGB CONC 31.6 g/dl (32.0-37.0); MEAN CORPUSCULAR VOLUME 90.5 fl (82.0-101.0); MEAN PLATELET VOLUME 11.9 fl (7.4-10.4); MONOCYTE # 0.9 10^3/ul (0.3-0.9); MONOCYTES % 9.6 % (0.0-11.0); NEUTROPHIL # 6.9 10^3/ul (1.6-7.5); PLATELET COUNT 230 10^3/UL (140-415); RED BLOOD COUNT 2.94 10^6/ul (4.20-5.40); RED CELL DISTRIBUTION WIDTH 12.9 % (11.5-14.5); WHITE BLOOD COUNT 9.3 10^3/ul (4.8-10.8)
[2017-03-24] MEDS: INSULIN ASPART [NOVOLOG] 3 ML PEN SC SCH ×4 (08:06→23:25)
[2017-03-24] MEDS: COLLAGENASE 30 GM TUBE TOP SCH (08:09)
[2017-03-24] MEDS: CALCIUM CARBONATE 500 MG CHEW TAB PO SCH ×3 (08:09→17:08)
[2017-03-24] MEDS: GABAPENTIN 300 MG CAP PO SCH ×2 (08:09→20:19)
[2017-03-24] MEDS: METOPROLOL 50 MG TAB PO SCH ×2 (08:10→20:22)
[2017-03-24] MEDS: morphine 2 MG INJ IV PRN ×4 (08:20→21:34)
[2017-03-24] MEDS: ONDANSETRON 4 MG INJ IV PRN (08:20)
[2017-03-24 08:36] LABS: CK-MB 14.8 ng/ml (0.0-2.4)
[2017-03-24 08:44] LABS: CALCIUM 7.6 mg/dl (8.4-10.2); CREATININE 0.8 mg/dl (0.44-1.00); POTASSIUM 3.9 mmol/L (3.5-5.1)
[2017-03-24 08:46] LABS: TROPONIN-I 3.8 ng/ml (0.00-0.12)
--- NOTE | 2017-03-24 11:04 | PN ---
Date/Time of Note Date/Time of Note DATE: 03/24/17 TIME: 10:57 Assessment/Plan VTE Prophylaxis VTE Prophylaxis Intervention: heparin Lines/Catheters IV [facility]): Saline Lock Urinary Cath still in place: Yes Reason Cath still needed: other (indicate) Assessment/Plan Chief Complaint/Hosp Course 1. Left lower extremity critical limb ischemia and gangrene. -Patient status post left [id number] amputation and left lateral artery thrombectomy . Continue surgeon recommendations and vascular checks. 2. Nausea/Vomiting/ Abdominal pain with CT scan suggestive of possible obstructive pattern versus ileus. Symptoms recurred again. -Status post NGtube decompression. Small bowel follow-through with no definite evidence of obstruction. -Continue n.p.o. status. -We will also consider GI consult to rule out other GI causes-may need endoscopy. 3. Non-ST elevated myocardial infarction. -Cardiology following. -Continue telemetry monitoring. Continue optimization of beta terra and nitrates anticoagulation. 4. Anemia (likely postoperative). Hemoglobin trending down. -We will decrease heparin to every 12 (spoke with vascular regarding this) and continue to monitor H&H.. 5. Diabetes with A1c of 8.4. - Continue insulin regimen. Will adjust as needed -Carb controlled diet once p.o. is resumed. 6. Essential hypertension. Stable. - On antihypertensives and adjust as needed. 7. Hypothyroidism. Continue on Synthroid 8. Dyslipidemia. Continue on statin 9.Constipation.Treat with stool softners and PRN Laxatives. 10.Nina UTI. Repeat culture growing yeast. -Continue Azole. 11. Urinary retention. -Reinsert Desai -Urology consult Prophylaxis: Heparin subcu/Pepcid Disposition and plan: Continue n.p.o. status. Follow-up with GI and surgery recommendation regarding persistent abdominal pain/nausea/vomiting. Follow-up with cardiology recommendation on elevated troponin. Discussed plan of care with . Problems: Subjective 24 Hr Interval Summary Free Text/Dictation Patient with persistent greenish colored vomiting multiple episodes with abdominal pain overnight. Now n.p.o. status. Patient was also retaining urine requiring Desai insertion Exam/Review of Systems Vital Signs Vitals Vital Signs Date Time Temp Pulse Resp B/P Pulse Ox O2 Delivery O2 Flow Rate FiO2 03/24/17 08:41 83 03/24/17 07:11 97.9 18 110/55 92 03/22/17 04:00 Room Air Intake and Output 03/23/17 03/23/17 03/24/17 14:59 22:59 06:59 Intake Total 1010 ml Output Total 450 ml 800 ml Balance -450 ml 210 ml Exam General: Thin built, not in any acute distress . HEENT: Normocephalic, Atraumatic, No laceration or hematoma; Eyes: PEERL, Conjunctiva clear, Anicteric sclera Neck: Supple without any lymphadenopathy, nontender, no JVD, no carotid bruits, trachea midline, no thyromegaly Cardiac: S1, S2 auscultated, regular rhythm and rate, no mumurs or gallop Pulmonary: Diminished breath sound bibasilar. Normal respiratory effort. Chest clear to auscultation bilaterally, no adventitious breath sounds GI: +Nausea/Vomiting. Abdomen soft,no masses, no rebound tenderness or guarding. Bowel sounds hypoactive on all four quadrants Genitourinary: Deferred Extremities: Left AKA, surgical dressing intact. Neurologic: Alert to person, place, time, and situation. Affect appropriate, intact sensation. Skin: Clean,dry, and intact. No ecchymosis, no rashes, or lesions Results Result Diagram: 03/24/17 0635 03/24/17 0635 Results 24 hrs Laboratory Tests Test 03/23/17 11:05 03/23/17 12:30 03/23/17 17:32 03/23/17 20:24 Urine Color LAURA Urine Clarity CLOUDY A Urine pH 5.0 Urine Specific [place] 1.020 Urine Ketones TRACE A Urine Nitrite NEGATIVE Urine Bilirubin NEGATIVE Urine Urobilinogen 1+ H Urine Leukocyte Esterase 2+ H Urine Microscopic RBC 69 H Urine Microscopic WBC 112 H Urine Squamous Epithelial Cells FEW Urine Bacteria FEW A Urine Yeast (Budding) MANY A Urine Hemoglobin 2+ H Urine Glucose 2+ H Urine Total Protein 1+ H Bedside Glucose 203 172 187 Test 03/24/17 02:54 03/24/17 06:35 03/24/17 07:59 Bedside Glucose 171 157 White Blood Count 9.3 Red Blood Count 2.94 L Hemoglobin 8.4 L Hematocrit 26.6 L Mean Corpuscular Volume 90.5 Mean Corpuscular Hemoglobin 28.6 L Mean Corpuscular Hemoglobin Concent 31.6 L Red Cell Distribution Width 12.9 Platelet Count 230 # Mean Platelet Volume 11.9 H Neutrophils % 74.0 Lymphocytes % 15.7 Monocytes % 9.6 Eosinophils % 0.3 Basophils % 0.1 Nucleated Red Blood Cells % 0.0 Neutrophils # 6.9 Lymphocytes # 1.5 Monocytes # 0.9 Eosinophils # 0.0 Basophils # 0.0 Nucleated Red Blood Cells # 0.0 Sodium Level 136 Potassium Level 3.9 Chloride Level 86 L Carbon Dioxide Level 39 H Anion Gap 15 Blood Urea Nitrogen 13 Creatinine 0.80 Glucose Level 152 Calcium Level 7.6 L Creatine Kinase 757 H Creatine Kinase Index 2.0 Creatinine Kinase MB (Mass) 14.80 H Troponin I 3.800 *H Medications Medications Current Medications Ondansetron HCl (Zofran Inj) 4 mg Q6H PRN IV NAUSEA AND/OR VOMITING Last administered on 03/24/17 08:20; Admin Dose 4 MG; Start 03/17/17 at 01:00 Morphine Sulfate (morphine) 2 mg Q4H PRN IV PAIN LEVEL 7-10 Last administered on 03/24/17 08:20; Admin Dose 2 MG; Start 03/17/17 at 01:00 Amlodipine Besylate (Norvasc) 10 mg DAILY PO Last administered on 03/17/17 09: 59; Admin Dose 10 MG; Start 03/17/17 at 09:00; Status Future Hold Atenolol (Tenormin) 100 mg DAILY PO Last administered on 03/17/17 10:00; Admin Dose 100 MG; Start 03/17/17 at 09:00; Status Future Hold Benazepril HCl (Lotensin) 10 mg DAILY PO Last administered on 03/17/17 09:57; Admin Dose 10 MG; Start 03/17/17 at 09:00; Status Future Hold Gabapentin (Neurontin) 300 mg BID PO Last administered on 03/23/17 20:25; Admin Dose 300 MG; Start 03/17/17 at 09:00 Atorvastatin Calcium (Lipitor) 10 mg DAILY@21 PO ; Start 03/17/17 at 21:00; Status Future Hold Miscellaneous Information 1 ea NOTE XX ; Start 03/17/17 at 12:00 Glucose (Glutose) 15 gm Q15M PRN PO DECREASED GLUCOSE; Start 03/17/17 at 12:00 Glucose (Glutose) 22.5 gm Q15M PRN PO DECREASED GLUCOSE; Start 03/17/17 at 12: 00 Dextrose (D50w Syringe) 25 ml Q15M PRN IV DECREASED GLUCOSE Last administered on 03/19/17 06:08; Admin Dose 25 ML; Start 03/17/17 at 12:00 Dextrose (D50w Syringe) 50 ml Q15M PRN IV DECREASED GLUCOSE; Start 03/17/17 at 12:00 Glucagon (Glucagen) 1 mg Q15M PRN IM DECREASED GLUCOSE; Start 03/17/17 at 12:00 Glucose (Glutose) 15 gm Q15M PRN BUCCAL DECREASED GLUCOSE; Start 03/17/17 at 12 :00 Heparin Sodium (Porcine) (Heparin (5000 Units/0.5 ml)) 5,000 unit Q8 SC Last administered on 03/24/17 06:22; Admin Dose 5,000 UNIT; Start 03/18/17 at 14:00 Diagnostic Test (Pha) (Accu-Chek) 1 ea 02 XX ; Start 03/19/17 at 02:00 Levothyroxine Sodium (Synthroid Iv) 75 mcg DAILY@06 IV Last administered on 05:57; Admin Dose 75 MCG; Start 03/19/17 at 06:00 Hydralazine HCl (Apresoline) 10 mg Q4H PRN IV SBP>160 Last administered on 03/20 17:12; Admin Dose 10 MG; Start 03/18/17 at 12:00 Clonidine HCl 1 patch 1 patch Q7D TRANSDERM Last administered on 03/19/17 14: 39; Admin Dose 1 PATCH; Start 03/19/17 at 14:00 Fluconazole (Diflucan 400 Mg/ NS (Pmx)) 200 ml @ 200 mls/hr Q24H IVPB Last administered on 03/23/17 12:50; Admin Dose 200 MLS/HR; Start 03/20/17 at 13:00 Clonidine HCl (Catapres-Tts 1 Patch) 1 patch Q7D TRANSDERM Last administered on 03/20/17 13:53; Admin Dose 1 PATCH; Start 03/20/17 at 13:00 Metoprolol Tartrate (Lopressor) 50 mg BID PO Last administered on 03/23/17 20: 27; Admin Dose 50 MG; Start 03/21/17 at 21:00 Insulin Glargine (Lantus) 12 unit QHS SC Last administered on 03/23/17 20:29; Admin Dose 12 UNIT; Start 03/22/17 at 21:00 Magnesium Hydroxide (Milk Of Mag) 30 ml DAILY PRN PO CONSTIPATION; Start at 09:00 Famotidine (Pepcid) 20 mg 21 PO Last administered on 03/23/17 20:25; Admin Dose 20 MG; Start 03/23/17 at 21:00 Collagenase (Santyl) 1 applic DAILY TOP ; Start 03/23/17 at 12:30 Collagenase (Santyl) 1 applic PRN PRN TOP WOUND CARE; Start 03/23/17 at 11:30 Insulin Aspart (Novolog Insulin Pen) NOVOLOG *MILD* ALGORI... Q6 SC Last administered on 03/24/17 08:06; Admin Dose 1 UNIT; Start 03/24/17 at 07:30 BEBA HENSON NP Mar 24, 2017 11:04
[2017-03-24] MEDS: FLUCONAZOLE 400 MG/NS (PMX) 200 ML IVPB SCH (12:16)
--- NOTE | 2017-03-24 12:21 | PN ---
Date/Time of Note Date/Time of Note DATE: 03/24/17 TIME: 12:19 Assessment/Plan Lines/Catheters IV Catheter Type (from Nrs): Saline Lock Desai in Place (from Nrsg): Yes Assessment/Plan Chief Complaint/Hosp Course -Left Lower extremity gangrene: S/P High Left AKA -Dynamics orthotics to be consulted for prosthetic evaluation and svp of digital placement -Continue supportive care -Continue antibiotics -Optimize vascular status (BP meds, diet nutrition, antiplatelets, sugar control ) -Discussed findings, plan and management with the patient and she understands -Thank you for allowing us to partake in the care of your patient, please call with any questions Problems: Subjective 24 Hr Interval Summary no new vascular events overnight Exam/Review of Systems Vital Signs Vitals Vital Signs Date Time Temp Pulse Resp B/P Pulse Ox O2 Delivery O2 Flow Rate FiO2 03/24/17 11:27 98.4 80 18 110/57 93 03/22/17 04:00 Room Air Intake and Output 03/23/17 03/23/17 03/24/17 15:00 23:00 07:00 Intake Total 1010 ml Output Total 450 ml 800 ml Balance -450 ml 210 ml Exam Free Text/Dictation GENERAL: Alert and oriented x3 LUNGS: Clear to auscultation bilaterally. . CARDIOVASCULAR: S1, S2 present. ABDOMEN: Soft, nontender, nondistended. Bowel sounds positive. EXTREMITIES: Right lower extremity: femoral pulse. Nonpalpable pedal pulse. Motor and sensory intact. Capillary refill of 3-4 seconds. Left lower extremity: femoral pulse. Motor and sensory intact. Capillary refill of 2-3 seconds. stump site clean and intact Results Result Diagram: 03/24/17 0635 03/24/17 0635 BERNY MOORE MD Mar 24, 2017 12:21
--- NOTE | 2017-03-24 13:39 | CONS ---
Date/Time of Note Date/Time of Note DATE: 03/24/17 TIME: 13:25 Assessment/Plan Assessment/Plan Chief Complaint/Hosp Course Patient has been having nausea and vomiting. She is n.p.o. at the present She was not making urine and voiding on her own. Bladder scan has been showing over 350 mL and she was getting in and out catheterization and now she does have an indwelling Desai catheter. I would recommend at the present to keep the Desai catheter in wait till she is able to take oral medications then I could start her on low-dose Urecholine and discontinue the Desai and see if she is able to urinate. She may have neurogenic diabetic bladder Problems: Additional Assessment/Plan Keep the Desai catheter until she is able to tolerate oral food and then discontinue the catheter and start her on Urecholine 10 mg 3 times a day and see if she is able to urinate Consultation Date/Type/Reason Admit Date/Time Mar 16, 2017 at 22:23 Date of Consultation: Mar 24, 2017 Type of Consultation: Urology Reason for Consultation Urinary retention Referring Provider: TOPHER DUNBAR MD Hx of Present Illness 71-year-old 1. Left lower extremity critical limb ischemia and gangrene. -Patient status post left [id number] amputation and left lateral artery thrombectomy . 2. Nausea/Vomiting/ Abdominal pain with CT scan suggestive of possible obstructive pattern versus ileus. -Status post NGtube decompression. Small bowel follow-through with no definite evidence of obstruction. 3. Non-ST elevated myocardial infarction. 4. Anemia (likely postoperative). Hemoglobin trending down. 5. Diabetes with A1c of 8.4. 6. Essential hypertension. Stable. 7. Hypothyroidism. 8. Dyslipidemia. 9.Constipation 10.Nina UTI. culture growing yeast. 11. Urinary retention. Patient states that she lives at home with her sons. She usually have nocturia about 2-3 times, no bedwetting at night. During the day she goes to the bathroom every 2-3 hours, denies any dysuria, no gross hematuria. After she underwent her surgery here, left above-knee amputation, she had an indwelling Desai catheter and one that was removed she was not urinating and the bladder scan showed over 350 mL therefore she was undergoing straight catheterization and this morning Desai catheter was reinserted and kept in. The patient is n.p.o. at the present because of nausea and vomiting, she is being worked up to find the reason for this nausea and vomiting Psychological: no complaints Past Medical History Medical History: diabetes, high cholesterol, hypertension, hypothyroid, urinary tract infection, other (Peripheral vascular disease) Past Surgical History Past Surgical Hx: appendectomy, cholecystectomy, other (left above knee amputation,hysterectomy) Family History Significant Family History: no pertinent family hx Social History Alcohol Use: none Smoking Status: Former smoker Drug Use: none Exam/Review of Systems Vital Signs Vitals Vital Signs Date Time Temp Pulse Resp B/P Pulse Ox O2 Delivery O2 Flow Rate FiO2 03/24/17 13:06 76 03/24/17 11:27 98.4 18 110/57 93 03/22/17 04:00 Room Air Intake and Output 03/23/17 03/23/17 03/24/17 15:00 23:00 07:00 Intake Total 1010 ml Output Total 450 ml 800 ml Balance -450 ml 210 ml Exam Constitutional: alert, oriented Psych: no complaints Head: normocephalic Eyes: nl conjunctiva ENMT: nl external ears & nose Neck: supple Respiratory: normal air movement Cardiovascular: No edema Gastrointestinal: non-tender, other (Patient had a bowel movement today), soft , surgical scars Genitourinary - Female: other (She does have ecchymosis and discoloration of the left labia majora most likely from hematoma was blood coming from the left inguinal area and settling in the labia majora. She does have an indwelling Desai catheter that is draining clear urine) Musculoskeletal: other (Status post left above-knee amputation) Extremities: other (Status post left above-knee amputation) Skin: nl turgor Results Result Diagram: 03/24/17 0635 03/24/17 0635 Results 24 hrs Laboratory Tests Test 03/23/17 17:32 03/23/17 20:24 03/24/17 02:54 03/24/17 06:35 Bedside Glucose 172 187 171 White Blood Count 9.3 Red Blood Count 2.94 L Hemoglobin 8.4 L Hematocrit 26.6 L Mean Corpuscular Volume 90.5 Mean Corpuscular Hemoglobin 28.6 L Mean Corpuscular Hemoglobin Concent 31.6 L Red Cell Distribution Width 12.9 Platelet Count 230 # Mean Platelet Volume 11.9 H Neutrophils % 74.0 Lymphocytes % 15.7 Monocytes % 9.6 Eosinophils % 0.3 Basophils % 0.1 Nucleated Red Blood Cells % 0.0 Neutrophils # 6.9 Lymphocytes # 1.5 Monocytes # 0.9 Eosinophils # 0.0 Basophils # 0.0 Nucleated Red Blood Cells # 0.0 Sodium Level 136 Potassium Level 3.9 Chloride Level 86 L Carbon Dioxide Level 39 H Anion Gap 15 Blood Urea Nitrogen 13 Creatinine 0.80 Glucose Level 152 Calcium Level 7.6 L Creatine Kinase 757 H Creatine Kinase Index 2.0 Creatinine Kinase MB (Mass) 14.80 H Troponin I 3.800 *H Test 03/24/17 07:59 03/24/17 12:08 Bedside Glucose 157 115 Medications Medications Current Medications Ondansetron HCl (Zofran Inj) 4 mg Q6H PRN IV NAUSEA AND/OR VOMITING Last administered on 03/24/17 08:20; Admin Dose 4 MG; Start 03/17/17 at 01:00 Morphine Sulfate (morphine) 2 mg Q4H PRN IV PAIN LEVEL 7-10 Last administered on 03/24/17 12:15; Admin Dose 2 MG; Start 03/17/17 at 01:00 Amlodipine Besylate (Norvasc) 10 mg DAILY PO Last administered on 03/17/17 09: 59; Admin Dose 10 MG; Start 03/17/17 at 09:00; Status Future Hold Atenolol (Tenormin) 100 mg DAILY PO Last administered on 03/17/17 10:00; Admin Dose 100 MG; Start 03/17/17 at 09:00; Status Future Hold Benazepril HCl (Lotensin) 10 mg DAILY PO Last administered on 03/17/17 09:57; Admin Dose 10 MG; Start 03/17/17 at 09:00; Status Future Hold Gabapentin (Neurontin) 300 mg BID PO Last administered on 03/23/17 20:25; Admin Dose 300 MG; Start 03/17/17 at 09:00 Atorvastatin Calcium (Lipitor) 10 mg DAILY@21 PO ; Start 03/17/17 at 21:00; Status Future Hold Miscellaneous Information 1 ea NOTE XX ; Start 03/17/17 at 12:00 Glucose (Glutose) 15 gm Q15M PRN PO DECREASED GLUCOSE; Start 03/17/17 at 12:00 Glucose (Glutose) 22.5 gm Q15M PRN PO DECREASED GLUCOSE; Start 03/17/17 at 12: 00 Dextrose (D50w Syringe) 25 ml Q15M PRN IV DECREASED GLUCOSE Last administered on 03/19/17 06:08; Admin Dose 25 ML; Start 03/17/17 at 12:00 Dextrose (D50w Syringe) 50 ml Q15M PRN IV DECREASED GLUCOSE; Start 03/17/17 at 12:00 Glucagon (Glucagen) 1 mg Q15M PRN IM DECREASED GLUCOSE; Start 03/17/17 at 12:00 Glucose (Glutose) 15 gm Q15M PRN BUCCAL DECREASED GLUCOSE; Start 03/17/17 at 12 :00 Diagnostic Test (Pha) (Accu-Chek) 1 ea 02 XX ; Start 03/19/17 at 02:00 Levothyroxine Sodium (Synthroid Iv) 75 mcg DAILY@06 IV Last administered on 05:57; Admin Dose 75 MCG; Start 03/19/17 at 06:00 Hydralazine HCl (Apresoline) 10 mg Q4H PRN IV SBP>160 Last administered on 03/20 17:12; Admin Dose 10 MG; Start 03/18/17 at 12:00 Clonidine HCl 1 patch 1 patch Q7D TRANSDERM Last administered on 03/19/17 14: 39; Admin Dose 1 PATCH; Start 03/19/17 at 14:00 Fluconazole (Diflucan 400 Mg/ NS (Pmx)) 200 ml @ 200 mls/hr Q24H IVPB Last administered on 03/24/17 12:16; Admin Dose 200 MLS/HR; Start 03/20/17 at 13:00 Clonidine HCl (Catapres-Tts 1 Patch) 1 patch Q7D TRANSDERM Last administered on 03/20/17 13:53; Admin Dose 1 PATCH; Start 03/20/17 at 13:00 Metoprolol Tartrate (Lopressor) 50 mg BID PO Last administered on 03/23/17 20: 27; Admin Dose 50 MG; Start 03/21/17 at 21:00 Insulin Glargine (Lantus) 12 unit QHS SC Last administered on 03/23/17 20:29; Admin Dose 12 UNIT; Start 03/22/17 at 21:00 Magnesium Hydroxide (Milk Of Mag) 30 ml DAILY PRN PO CONSTIPATION; Start at 09:00 Famotidine (Pepcid) 20 mg 21 PO Last administered on 03/23/17 20:25; Admin Dose 20 MG; Start 03/23/17 at 21:00 Collagenase (Santyl) 1 applic DAILY TOP ; Start 03/23/17 at 12:30 Collagenase (Santyl) 1 applic PRN PRN TOP WOUND CARE; Start 03/23/17 at 11:30 Insulin Aspart (Novolog Insulin Pen) NOVOLOG *MILD* ALGORI... Q6 SC Last administered on 03/24/17 08:06; Admin Dose 1 UNIT; Start 03/24/17 at 07:30 Heparin Sodium (Porcine) (Heparin (5000 Units/0.5 ml)) 5,000 unit Q12 SC ; Start 03/24/17 at 21:00 ELLI BURNETT MD Mar 24, 2017 13:36
--- NOTE | 2017-03-24 14:07 | PN ---
Date/Time of Note Date/Time of Note DATE: 03/24/17 TIME: 14:02 Assessment/Plan VTE Prophylaxis VTE Prophylaxis Intervention: SCD's Lines/Catheters [facility] Saline Lock Urinary Cath still in place: Yes Reason Cath still needed: urinary retention Assessment/Plan Chief Complaint/Hosp Course . Problems: Assessment/Plan Assessment * Nausea/vomiting resolved * Elevated troponin * Abdominal pain Ileus resolved Small bowel follow through . No definite evidence of obstruction. However, the colon is not opacified due to dilution of contrast at 12 hours. * S/P above knee amputation left Impending gangrene foot left * PAD * Diabetes mellitus Plan * clear liquids * KUB * continue present management * case discussed with Dr Chaudhary * further orders will depend on clinical course Subjective 24 Hr Interval Summary Free Text/Dictation * Course reviewed with RN * Patient seen and examined * Episode of nausea and vomiting yesterday but today no episode of nausea and vomiting * Had bowel movement and pass gas * troponin 3.8 Exam/Review of Systems Vital Signs Vitals Vital Signs Date Time Temp Pulse Resp B/P Pulse Ox O2 Delivery O2 Flow Rate FiO2 03/24/17 13:06 76 03/24/17 11:27 98.4 18 110/57 93 03/22/17 04:00 Room Air Intake and Output 03/23/17 03/23/17 03/24/17 15:00 23:00 07:00 Intake Total 1010 ml Output Total 450 ml 800 ml Balance -450 ml 210 ml Exam Constitutional: alert, oriented Neck: non-tender, supple Respiratory: clear to auscultation, normal air movement Cardiovascular: nl pulses, regular rate and rhythm Gastrointestinal: bowel sounds, non-tender, soft Musculoskeletal: other (aka left) Extremities: normal pulses Neurological: nl speech, nl strength Skin: nl turgor, No rash or lesions Results Result Diagram: 03/24/17 0635 03/24/17 0635 Results 24 hrs Laboratory Tests Test 03/23/17 17:32 03/23/17 20:24 03/24/17 02:54 03/24/17 06:35 Bedside Glucose 172 187 171 White Blood Count 9.3 Red Blood Count 2.94 L Hemoglobin 8.4 L Hematocrit 26.6 L Mean Corpuscular Volume 90.5 Mean Corpuscular Hemoglobin 28.6 L Mean Corpuscular Hemoglobin Concent 31.6 L Red Cell Distribution Width 12.9 Platelet Count 230 # Mean Platelet Volume 11.9 H Neutrophils % 74.0 Lymphocytes % 15.7 Monocytes % 9.6 Eosinophils % 0.3 Basophils % 0.1 Nucleated Red Blood Cells % 0.0 Neutrophils # 6.9 Lymphocytes # 1.5 Monocytes # 0.9 Eosinophils # 0.0 Basophils # 0.0 Nucleated Red Blood Cells # 0.0 Sodium Level 136 Potassium Level 3.9 Chloride Level 86 L Carbon Dioxide Level 39 H Anion Gap 15 Blood Urea Nitrogen 13 Creatinine 0.80 Glucose Level 152 Calcium Level 7.6 L Creatine Kinase 757 H Creatine Kinase Index 2.0 Creatinine Kinase MB (Mass) 14.80 H Troponin I 3.800 *H Test 03/24/17 07:59 03/24/17 12:08 Bedside Glucose 157 115 Medications Medications Current Medications Ondansetron HCl (Zofran Inj) 4 mg Q6H PRN IV NAUSEA AND/OR VOMITING Last administered on 03/24/17 08:20; Admin Dose 4 MG; Start 03/17/17 at 01:00 Morphine Sulfate (morphine) 2 mg Q4H PRN IV PAIN LEVEL 7-10 Last administered on 03/24/17 12:15; Admin Dose 2 MG; Start 03/17/17 at 01:00 Amlodipine Besylate (Norvasc) 10 mg DAILY PO Last administered on 03/17/17 09: 59; Admin Dose 10 MG; Start 03/17/17 at 09:00; Status Future Hold Atenolol (Tenormin) 100 mg DAILY PO Last administered on 03/17/17 10:00; Admin Dose 100 MG; Start 03/17/17 at 09:00; Status Future Hold Benazepril HCl (Lotensin) 10 mg DAILY PO Last administered on 03/17/17 09:57; Admin Dose 10 MG; Start 03/17/17 at 09:00; Status Future Hold Gabapentin (Neurontin) 300 mg BID PO Last administered on 03/23/17 20:25; Admin Dose 300 MG; Start 03/17/17 at 09:00 Atorvastatin Calcium (Lipitor) 10 mg DAILY@21 PO ; Start 03/17/17 at 21:00; Status Future Hold Miscellaneous Information 1 ea NOTE XX ; Start 03/17/17 at 12:00 Glucose (Glutose) 15 gm Q15M PRN PO DECREASED GLUCOSE; Start 03/17/17 at 12:00 Glucose (Glutose) 22.5 gm Q15M PRN PO DECREASED GLUCOSE; Start 03/17/17 at 12: 00 Dextrose (D50w Syringe) 25 ml Q15M PRN IV DECREASED GLUCOSE Last administered on 03/19/17 06:08; Admin Dose 25 ML; Start 03/17/17 at 12:00 Dextrose (D50w Syringe) 50 ml Q15M PRN IV DECREASED GLUCOSE; Start 03/17/17 at 12:00 Glucagon (Glucagen) 1 mg Q15M PRN IM DECREASED GLUCOSE; Start 03/17/17 at 12:00 Glucose (Glutose) 15 gm Q15M PRN BUCCAL DECREASED GLUCOSE; Start 03/17/17 at 12 :00 Diagnostic Test (Pha) (Accu-Chek) 1 ea 02 XX ; Start 03/19/17 at 02:00 Levothyroxine Sodium (Synthroid Iv) 75 mcg DAILY@06 IV Last administered on 05:57; Admin Dose 75 MCG; Start 03/19/17 at 06:00 Hydralazine HCl (Apresoline) 10 mg Q4H PRN IV SBP>160 Last administered on 03/20 17:12; Admin Dose 10 MG; Start 03/18/17 at 12:00 Clonidine HCl 1 patch 1 patch Q7D TRANSDERM Last administered on 03/19/17 14: 39; Admin Dose 1 PATCH; Start 03/19/17 at 14:00 Fluconazole (Diflucan 400 Mg/ NS (Pmx)) 200 ml @ 200 mls/hr Q24H IVPB Last administered on 03/24/17 12:16; Admin Dose 200 MLS/HR; Start 03/20/17 at 13:00 Clonidine HCl (Catapres-Tts 1 Patch) 1 patch Q7D TRANSDERM Last administered on 03/20/17 13:53; Admin Dose 1 PATCH; Start 03/20/17 at 13:00 Metoprolol Tartrate (Lopressor) 50 mg BID PO Last administered on 03/23/17 20: 27; Admin Dose 50 MG; Start 03/21/17 at 21:00 Insulin Glargine (Lantus) 12 unit QHS SC Last administered on 03/23/17 20:29; Admin Dose 12 UNIT; Start 03/22/17 at 21:00 Magnesium Hydroxide (Milk Of Mag) 30 ml DAILY PRN PO CONSTIPATION; Start at 09:00 Famotidine (Pepcid) 20 mg 21 PO Last administered on 03/23/17 20:25; Admin Dose 20 MG; Start 03/23/17 at 21:00 Collagenase (Santyl) 1 applic DAILY TOP ; Start 03/23/17 at 12:30 Collagenase (Santyl) 1 applic PRN PRN TOP WOUND CARE; Start 03/23/17 at 11:30 Insulin Aspart (Novolog Insulin Pen) NOVOLOG *MILD* ALGORI... Q6 SC Last administered on 03/24/17 08:06; Admin Dose 1 UNIT; Start 03/24/17 at 07:30 Heparin Sodium (Porcine) (Heparin (5000 Units/0.5 ml)) 5,000 unit Q12 SC ; Start 03/24/17 at 21:00 LUANN MACIAS NP Mar 24, 2017 14:07
--- NOTE | 2017-03-24 15:04 | CONS ---
Date/Time of Note Date/Time of Note DATE: 03/24/17 TIME: 15:01 Assessment/Plan Assessment/Plan Chief Complaint/Hosp Course IMP: 1.Nstemi-Increased troponin with decreased CK . NO CP. NL EF by echo 2.HTN 3.SBO 4.PAD s/p LLE amputation POD#2 5. Hypopthyroid 6.UTI 7.anemia Recc: -Tele -serial ecg's -Continue PO BB -Continue clonidine TTS -Continue abx's and f/u cx data -trend cardiac enzymes -Continue heparin SQ but increase to q8/start asa -Pain control Problems: Consultation Date/Type/Reason Admit Date/Time Mar 16, 2017 at 22:23 Initial Consult Date 03/17/17 Type of Consultation: cardiology Reason for Consultation Nstemi Referring Provider: TOPHER DUNBAR MD Exam/Review of Systems Vital Signs Vitals Vital Signs Date Time Temp Pulse Resp B/P Pulse Ox O2 Delivery O2 Flow Rate FiO2 03/24/17 13:06 76 03/24/17 11:27 98.4 18 110/57 93 03/22/17 04:00 Room Air Intake and Output 03/23/17 03/23/17 03/24/17 15:00 23:00 07:00 Intake Total 1010 ml Output Total 450 ml 800 ml Balance -450 ml 210 ml Exam Review of Systems: CONSTITUTIONAL: No fevers, chills. PULMONARY: No sob CARDIOVASCULAR: No chest pain/palpitations GASTROINTESTINAL: No nausea/vomiting. GENITOURINARY: No hematuria/dysuria. MUSCULOSKELETAL: No myagias/arthalgias. PSYCHIATRIC: The patient denies depression. NEUROLOGIC: somewhat lethargic Constitutional: alert Psych: no complaints Head: normocephalic ENMT: mucosa pink and moist Neck: jvd (8-9 cm water), supple Respiratory: diminished breath sounds Cardiovascular: regular rate and rhythm Gastrointestinal: non-tender, soft Extremities: edema (none) Neurological: other (No focal deficits) Results Result Diagram: 03/24/17 0635 03/24/17 0635 Results 24 hrs Laboratory Tests Test 03/23/17 17:32 03/23/17 20:24 03/24/17 02:54 03/24/17 06:35 Bedside Glucose 172 187 171 White Blood Count 9.3 Red Blood Count 2.94 L Hemoglobin 8.4 L Hematocrit 26.6 L Mean Corpuscular Volume 90.5 Mean Corpuscular Hemoglobin 28.6 L Mean Corpuscular Hemoglobin Concent 31.6 L Red Cell Distribution Width 12.9 Platelet Count 230 # Mean Platelet Volume 11.9 H Neutrophils % 74.0 Lymphocytes % 15.7 Monocytes % 9.6 Eosinophils % 0.3 Basophils % 0.1 Nucleated Red Blood Cells % 0.0 Neutrophils # 6.9 Lymphocytes # 1.5 Monocytes # 0.9 Eosinophils # 0.0 Basophils # 0.0 Nucleated Red Blood Cells # 0.0 Sodium Level 136 Potassium Level 3.9 Chloride Level 86 L Carbon Dioxide Level 39 H Anion Gap 15 Blood Urea Nitrogen 13 Creatinine 0.80 Glucose Level 152 Calcium Level 7.6 L Creatine Kinase 757 H Creatine Kinase Index 2.0 Creatinine Kinase MB (Mass) 14.80 H Troponin I 3.800 *H Test 03/24/17 07:59 03/24/17 12:08 Bedside Glucose 157 115 Medications Medications Current Medications Ondansetron HCl (Zofran Inj) 4 mg Q6H PRN IV NAUSEA AND/OR VOMITING Last administered on 03/24/17 08:20; Admin Dose 4 MG; Start 03/17/17 at 01:00 Morphine Sulfate (morphine) 2 mg Q4H PRN IV PAIN LEVEL 7-10 Last administered on 03/24/17 12:15; Admin Dose 2 MG; Start 03/17/17 at 01:00 Amlodipine Besylate (Norvasc) 10 mg DAILY PO Last administered on 03/17/17 09: 59; Admin Dose 10 MG; Start 03/17/17 at 09:00; Status Future Hold Atenolol (Tenormin) 100 mg DAILY PO Last administered on 03/17/17 10:00; Admin Dose 100 MG; Start 03/17/17 at 09:00; Status Future Hold Benazepril HCl (Lotensin) 10 mg DAILY PO Last administered on 03/17/17 09:57; Admin Dose 10 MG; Start 03/17/17 at 09:00; Status Future Hold Gabapentin (Neurontin) 300 mg BID PO Last administered on 03/23/17 20:25; Admin Dose 300 MG; Start 03/17/17 at 09:00 Atorvastatin Calcium (Lipitor) 10 mg DAILY@21 PO ; Start 03/17/17 at 21:00; Status Future Hold Miscellaneous Information 1 ea NOTE XX ; Start 03/17/17 at 12:00 Glucose (Glutose) 15 gm Q15M PRN PO DECREASED GLUCOSE; Start 03/17/17 at 12:00 Glucose (Glutose) 22.5 gm Q15M PRN PO DECREASED GLUCOSE; Start 03/17/17 at 12: 00 Dextrose (D50w Syringe) 25 ml Q15M PRN IV DECREASED GLUCOSE Last administered on 03/19/17 06:08; Admin Dose 25 ML; Start 03/17/17 at 12:00 Dextrose (D50w Syringe) 50 ml Q15M PRN IV DECREASED GLUCOSE; Start 03/17/17 at 12:00 Glucagon (Glucagen) 1 mg Q15M PRN IM DECREASED GLUCOSE; Start 03/17/17 at 12:00 Glucose (Glutose) 15 gm Q15M PRN BUCCAL DECREASED GLUCOSE; Start 03/17/17 at 12 :00 Diagnostic Test (Pha) (Accu-Chek) 1 ea 02 XX ; Start 03/19/17 at 02:00 Levothyroxine Sodium (Synthroid Iv) 75 mcg DAILY@06 IV Last administered on 05:57; Admin Dose 75 MCG; Start 03/19/17 at 06:00 Hydralazine HCl (Apresoline) 10 mg Q4H PRN IV SBP>160 Last administered on 03/20 17:12; Admin Dose 10 MG; Start 03/18/17 at 12:00 Clonidine HCl 1 patch 1 patch Q7D TRANSDERM Last administered on 03/19/17 14: 39; Admin Dose 1 PATCH; Start 03/19/17 at 14:00 Fluconazole (Diflucan 400 Mg/ NS (Pmx)) 200 ml @ 200 mls/hr Q24H IVPB Last administered on 03/24/17 12:16; Admin Dose 200 MLS/HR; Start 03/20/17 at 13:00 Clonidine HCl (Catapres-Tts 1 Patch) 1 patch Q7D TRANSDERM Last administered on 03/20/17 13:53; Admin Dose 1 PATCH; Start 03/20/17 at 13:00 Metoprolol Tartrate (Lopressor) 50 mg BID PO Last administered on 03/23/17 20: 27; Admin Dose 50 MG; Start 03/21/17 at 21:00 Insulin Glargine (Lantus) 12 unit QHS SC Last administered on 03/23/17 20:29; Admin Dose 12 UNIT; Start 03/22/17 at 21:00 Magnesium Hydroxide (Milk Of Mag) 30 ml DAILY PRN PO CONSTIPATION; Start at 09:00 Famotidine (Pepcid) 20 mg 21 PO Last administered on 03/23/17 20:25; Admin Dose 20 MG; Start 03/23/17 at 21:00 Collagenase (Santyl) 1 applic DAILY TOP ; Start 03/23/17 at 12:30 Collagenase (Santyl) 1 applic PRN PRN TOP WOUND CARE; Start 03/23/17 at 11:30 Insulin Aspart (Novolog Insulin Pen) NOVOLOG *MILD* ALGORI... Q6 SC Last administered on 03/24/17 08:06; Admin Dose 1 UNIT; Start 03/24/17 at 07:30 Heparin Sodium (Porcine) (Heparin (5000 Units/0.5 ml)) 5,000 unit Q12 SC ; Start 03/24/17 at 21:00 JAVI LION Mar 24, 2017 15:03
--- NOTE | 2017-03-24 15:39 | PN ---
Date/Time of Note Date/Time of Note DATE: 03/24/17 TIME: 15:34 Assessment/Plan Lines/Catheters IV C[facility]ter Type (from [facility] Saline Lock Desai in Place (from Nrs): Yes Assessment/Plan Chief Complaint/Hosp Course 1. Abdominal pain with CT findings are suggestive of either obstructive pattern versus ileus. Patient has gas and stool in the colon. Less likelihood of bowel ischemia; Flatus. SBFT noted. NGT out, vomiting overnight but improved now; tolerating liquid diet -diet as tolerated -close monitoring 2. PVD/PAD with Left lower extremity ischemia with tissue necrosis and gangrene ; s/p left AKA with thrombectomy; -Anticoagulation 3. Elevated troponin with possible demand ischemia and CA -Cardiac evaluation on optimization 4. Elevated BNP with possible CHF -Judicious fluid management -Cardiac optimization 5. Renal insufficiency, multifactorial secondary to above -Judicious fluid management and avoid nephrotoxic agents as possible 6. Anemia. no nat bleed noted. h/h stable -Close monitoring -Transfuse as needed 7. Diabetes: one episode of hypoglycemia overnight; BS improved -Diet and medication optimization 8. Hypertension: improved -Diet and medication optimization 9. Hypercholesterolemia -Diet and medication optimization 10. Leukocytosis: / #1 and #2 normalized -monitor 11. NSTEMI: elevated troponin, no cp -further workup per cardiology Patient seen and examined in collaboration with Dr. Steffen Kelly Problems: Subjective 24 Hr Interval Summary Patient feeling well. Reports of vomiting overnight. Tolerating liquids currently. + bowel function. No c/o chakraborty, dizziness, fainting, cp, palpitations, n /v/d, fevers, chills. Exam/Review of Systems Vital Signs Vitals Vital Signs Date Time Temp Pulse Resp B/P Pulse Ox O2 Delivery O2 Flow Rate FiO2 03/25/17 12:23 83 03/25/17 11:35 98.6 18 91/55 95 03/25/17 09:02 Nasal Cannula 2.0 Intake and Output 03/24/17 03/24/17 03/25/17 15:00 23:00 07:00 Intake Total 300 ml 1080 ml 660 ml Output Total 350 ml 550 ml 600 ml Balance -50 ml 530 ml 60 ml Exam Free Text/Dictation Constitutional: awake, NAD Psych: confused but able to answer simple questions, follows commands No anxiety, No nl mood/affect Head: atraumatic, normocephalic Eyes: EOMI, PERRL, nl conjunctiva, No icteric ENMT: nl external ears & nose, nl lips & teeth, NG tube No mucosa pink and moist (Dry mucosa) Neck: jvd, non-tender, supple Respiratory: normal air movement, No congested cough, No diminished breath sounds, No labored breathing Cardiovascular: regular rate and rhythm, No edema Gastrointestinal: nondistended, soft, nontender, bowel sounds x4 No firm, No rebound or guarding, Musculoskeletal: No joint tenderness, No nl extremities to inspection (Left AKA ), No nl gait and stance Extremities: No calf tenderness, No normal pulses Neurological: nl speech, No nl strength Skin: No diaphoresis, No nl turgor, No rash or lesions Lymph: nl lymph nodes Results Result Diagram: 03/25/17 0709 03/25/17 0709 JULIANA RUFFIN NP Mar 24, 2017 15:39
--- NOTE | 2017-03-24 16:44 | RADRPT ---
PROCEDURE: XR Abdomen. CLINICAL INDICATION: abdominal distention and vomiting TECHNIQUE: AP abdomen x-ray. COMPARISON: Small bowel follow-through 03/19/2017 and 03/20/2017 FINDINGS: Residual oral contrast material is seen within the hepatic flexure, transverse colon, descending col on and rectosigmoid. There are multiple gas-distended mildly dilated segments of small bowel. The degree of small bowel dilatation is decreased compared to prior study with a claim representative small bowel segment in the lef t lower quadrant measuring approximately 3 cm in diameter currently as compared to 4 cm on prior paula dy. There is no evidence of high-grade bowel obstruction at this time. Right upper quadrant surgical clips are compatible with prior cholecystectomy. Several surgical cli ps are again seen projecting over the lower pelvis. There are degenerative changes of the visualized spine. IMPRESSION: 1. As compared to the small bowel follow-through completed on 03/20/2017, there has been interval tr ansit of oral contrast material through the colon and into the lower rectum. 2. There are multiple persistent gas distended mildly dilated segments of small bowel. The degree of small bowel dilatation is overall decreased compared to prior study, with a claim representative small zachariah wel segment in the left lower quadrant currently measuring approximately 3 cm in diameter, as compar ed to 4 cm on prior study. 3. No evidence of high-grade bowel obstruction at this time. RPTAT: PP Physician Gosia Date Time Electronically viewed and signed by Physician Gosia on 03/24/2017 16:44 ARNAV/
[2017-03-24] MEDS: FAMOTIDINE 20 MG TAB PO SCH (20:19)
[2017-03-24] MEDS: INSULIN GLARGINE [LANtus] 3 ML PEN SC SCH (20:24)
[2017-03-24] MEDS ORDERED: HEPARIN 5,000 UNIT/0.5 ML VIAL SC SCH (21:00)
[2017-03-25] VITALS (13 sets, daily range): BP systolic 91–101; BP diastolic 53–58; PULSE 83–98; RESP 18
[2017-03-25] MEDS: ACCU-CHEK XX SCH (02:00)
[2017-03-25] MEDS: morphine 2 MG INJ IV PRN ×4 (02:29→22:05)
[2017-03-25] MEDS: LEVOTHYROXINE 100 MCG VIAL IV SCH (05:52)
[2017-03-25] MEDS: INSULIN ASPART [NOVOLOG] 3 ML PEN SC SCH ×4 (06:00→21:00)
[2017-03-25] MEDS: HEPARIN 5,000 UNIT/0.5 ML VIAL SC SCH ×3 (06:00→21:57)
[2017-03-25 08:21] LABS: BASOPHILS % 0.1 % (0.0-2.0); EOSINOPHILS # 0.1 10^3/ul (0.0-0.5); EOSINOPHILS % 0.8 % (0.0-7.0); HEMATOCRIT 25.3 % (37.0-47.0); HEMOGLOBIN 8.1 g/dl (12.0-16.0); LYMPHOCYTES # 1.7 10^3/ul (0.8-2.9); LYMPHOCYTES % 19.9 % (15.0-51.0); MEAN CORPUSCULAR VOLUME 90.7 fl (82.0-101.0); MEAN PLATELET VOLUME 12.5 fl (7.4-10.4); MONOCYTE # 0.9 10^3/ul (0.3-0.9); MONOCYTES % 10.6 % (0.0-11.0); NEUTROPHILS % 68.1 % (39.0-77.0); PLATELET COUNT 218 10^3/UL (140-415); RED BLOOD COUNT 2.79 10^6/ul (4.20-5.40); RED CELL DISTRIBUTION WIDTH 13.1 % (11.5-14.5); WHITE BLOOD COUNT 8.8 10^3/ul (4.8-10.8)
[2017-03-25] MEDS: COLLAGENASE 30 GM TUBE TOP SCH (08:45)
[2017-03-25] MEDS: GABAPENTIN 300 MG CAP PO SCH ×2 (08:45→21:24)
[2017-03-25] MEDS: CALCIUM CARBONATE 500 MG CHEW TAB PO SCH ×3 (08:45→16:41)
[2017-03-25] MEDS: ASPIRIN 300 MG SUPP PR SCH (08:45)
[2017-03-25 08:52] LABS: CALCIUM 7.7 mg/dl (8.4-10.2); CREATININE 0.86 mg/dl (0.44-1.00); POTASSIUM 3.8 mmol/L (3.5-5.1)
[2017-03-25] MEDS: METOPROLOL 50 MG TAB PO SCH ×2 (08:57→21:00)
[2017-03-25 09:01] LABS: CK-MB 26.8 ng/ml (0.0-2.4)
--- NOTE | 2017-03-25 09:02 | RADRPT ---
Vent Rate: 85 bpm RR Interval: 0 msec IN Interval: 182 msec QRS Duration: 108 msec QT Interval: 410 msec QTC Interval: 487 msec P-R-T [place]: 25 - -4 - 0 degrees Normal sinus rhythm ST amp; T wave abnormality, consider inferior ischemia Prolonged QT Abnormal ECG Electronically Signed By: Steve Kenny [id number]
[2017-03-25 09:15] LABS: TROPONIN-I 12.2 ng/ml (0.00-0.12)
--- NOTE | 2017-03-25 10:29 | PN ---
Date/Time of Note Date/Time of Note DATE: 03/25/17 TIME: 10:29 Assessment/Plan VTE Prophylaxis VTE Prophylaxis Intervention: heparin Lines/Catheters IV [facility] Saline Lock Urinary Cath still in place: No Assessment/Plan Chief Complaint/Hosp Course 1. Left lower extremity critical limb ischemia and gangrene. -Patient status post left [id number] amputation and left lateral artery thrombectomy . Continue surgeon recommendations and vascular checks. 2. Nausea/Vomiting/ Abdominal pain with CT scan suggestive of possible obstructive pattern versus ileus. Resolved. -Status post NGtube decompression. Small bowel follow-through with no definite evidence of obstruction. -Advance diet to full liquid. 3. Non-ST elevated myocardial infarction. Trending up Troponin. -Cardiology following and we will follow recs. -Continue telemetry monitoring. Continue optimization with anticoagulation, beta terra and nitrates anticoagulation. 4. Acute on chronic Anemia (likely postoperative). -Patient back to q8h Heparin per cards. Will monitor for any bleeding. Monitor HH closely and transfuse if indicated. 5. Diabetes with A1c of 8.4. - Continue insulin regimen. Will adjust as needed -Carb controlled diet 6. Essential hypertension. Stable. - On antihypertensives and adjust as needed. 7. Hypothyroidism. Continue on Synthroid 8. Dyslipidemia. Continue on statin 9.Constipation. Resolved. -continue stool softners and PRN Laxatives. 10.Nina UTI. -Continue Azole. 11. Urinary retention possibly neurogenic diabetic bladder.Urology eval appreciated and recommended rivera continuation until PO is tolerated and start urecholine 10mg Q8H and f/u. Prophylaxis: Heparin subcu/Pepcid Disposition and plan: Continue current medical management. Advance diet as tolerated. Anticipate DC planning to ARU Discussed plan of care with . Problems: Subjective 24 Hr Interval Summary Free Text/Dictation No further episodes of nausea,vomiting or abd pain.Tolerates clear diet.Afebrile. Exam/Review of Systems Vital Signs Vitals Vital Signs Date Time Temp Pulse Resp B/P Pulse Ox O2 Delivery O2 Flow Rate FiO2 03/25/17 09:02 Nasal Cannula 2.0 03/25/17 08:59 96 03/25/17 08:19 90 03/25/17 06:52 97.8 18 94/54 Intake and Output 03/24/17 03/24/17 03/25/17 15:00 23:00 07:00 Intake Total 300 ml 1080 ml 660 ml Output Total 350 ml 550 ml 600 ml Balance -50 ml 530 ml 60 ml Exam General: Thin built, not in any acute distress . HEENT: Normocephalic, Atraumatic, No laceration or hematoma; Eyes: PEERL, Conjunctiva clear, Anicteric sclera Neck: Supple without any lymphadenopathy, nontender, no JVD, no carotid bruits, trachea midline, no thyromegaly Cardiac: S1, S2 auscultated, regular rhythm and rate, no mumurs or gallop Pulmonary: Diminished breath sound bibasilar. Normal respiratory effort. Chest clear to auscultation bilaterally, no adventitious breath sounds GI: Abdomen soft,no masses, no rebound tenderness or guarding. Bowel sounds hypoactive on all four quadrants Genitourinary: Deferred Extremities: Left AKA, surgical dressing intact. Neurologic: Alert to person, place, time, and situation. Affect appropriate, intact sensation. Skin: Clean,dry, and intact. No ecchymosis, no rashes, or lesions Results Result Diagram: 03/25/17 0709 03/25/17 0709 Results 24 hrs Laboratory Tests Test 03/24/17 12:08 03/24/17 17:09 03/24/17 20:18 03/24/17 23:24 Bedside Glucose 115 88 119 126 Test 03/25/17 02:21 03/25/17 05:51 03/25/17 07:09 03/25/17 08:42 Bedside Glucose 125 111 108 White Blood Count 8.8 Red Blood Count 2.79 L Hemoglobin 8.1 L Hematocrit 25.3 L Mean Corpuscular Volume 90.7 Mean Corpuscular Hemoglobin 29.0 Mean Corpuscular Hemoglobin Concent 32.0 Red Cell Distribution Width 13.1 Platelet Count 218 Mean Platelet Volume 12.5 H Neutrophils % 68.1 Lymphocytes % 19.9 Monocytes % 10.6 Eosinophils % 0.8 Basophils % 0.1 Nucleated Red Blood Cells % 0.0 Neutrophils # 6.0 Lymphocytes # 1.7 Monocytes # 0.9 Eosinophils # 0.1 Basophils # 0.0 Nucleated Red Blood Cells # 0.0 Sodium Level 135 Potassium Level 3.8 Chloride Level 92 L Carbon Dioxide Level 34 H Anion Gap 13 Blood Urea Nitrogen 15 Creatinine 0.86 Glucose Level 94 # Calcium Level 7.7 L Creatine Kinase 698 H Creatine Kinase Index 3.8 Creatinine Kinase MB (Mass) 26.80 H Troponin I 12.200 *H Medications Medications Current Medications Ondansetron HCl (Zofran Inj) 4 mg Q6H PRN IV NAUSEA AND/OR VOMITING Last administered on 03/24/17 08:20; Admin Dose 4 MG; Start 03/17/17 at 01:00 Morphine Sulfate (morphine) 2 mg Q4H PRN IV PAIN LEVEL 7-10 Last administered on 03/25/17 08:44; Admin Dose 2 MG; Start 03/17/17 at 01:00 Amlodipine Besylate (Norvasc) 10 mg DAILY PO Last administered on 03/17/17 09: 59; Admin Dose 10 MG; Start 03/17/17 at 09:00; Status Future Hold Atenolol (Tenormin) 100 mg DAILY PO Last administered on 03/17/17 10:00; Admin Dose 100 MG; Start 03/17/17 at 09:00; Status Future Hold Benazepril HCl (Lotensin) 10 mg DAILY PO Last administered on 03/17/17 09:57; Admin Dose 10 MG; Start 03/17/17 at 09:00; Status Future Hold Gabapentin (Neurontin) 300 mg BID PO Last administered on 03/25/17 08:45; Admin Dose 300 MG; Start 03/17/17 at 09:00 Atorvastatin Calcium (Lipitor) 10 mg DAILY@21 PO ; Start 03/17/17 at 21:00; Status Future Hold Miscellaneous Information 1 ea NOTE XX ; Start 03/17/17 at 12:00 Glucose (Glutose) 15 gm Q15M PRN PO DECREASED GLUCOSE; Start 03/17/17 at 12:00 Glucose (Glutose) 22.5 gm Q15M PRN PO DECREASED GLUCOSE; Start 03/17/17 at 12: 00 Dextrose (D50w Syringe) 25 ml Q15M PRN IV DECREASED GLUCOSE Last administered on 03/19/17 06:08; Admin Dose 25 ML; Start 03/17/17 at 12:00 Dextrose (D50w Syringe) 50 ml Q15M PRN IV DECREASED GLUCOSE; Start 03/17/17 at 12:00 Glucagon (Glucagen) 1 mg Q15M PRN IM DECREASED GLUCOSE; Start 03/17/17 at 12:00 Glucose (Glutose) 15 gm Q15M PRN BUCCAL DECREASED GLUCOSE; Start 03/17/17 at 12 :00 Diagnostic Test (Pha) (Accu-Chek) 1 ea 02 XX ; Start 03/19/17 at 02:00 Levothyroxine Sodium (Synthroid Iv) 75 mcg DAILY@06 IV Last administered on 05:52; Admin Dose 75 MCG; Start 03/19/17 at 06:00 Hydralazine HCl (Apresoline) 10 mg Q4H PRN IV SBP>160 Last administered on 03/20 17:12; Admin Dose 10 MG; Start 03/18/17 at 12:00 Clonidine HCl 1 patch 1 patch Q7D TRANSDERM Last administered on 03/19/17 14: 39; Admin Dose 1 PATCH; Start 03/19/17 at 14:00 Fluconazole (Diflucan 400 Mg/ NS (Pmx)) 200 ml @ 200 mls/hr Q24H IVPB Last administered on 03/24/17 12:16; Admin Dose 200 MLS/HR; Start 03/20/17 at 13:00 Clonidine HCl (Catapres-Tts 1 Patch) 1 patch Q7D TRANSDERM Last administered on 03/20/17 13:53; Admin Dose 1 PATCH; Start 03/20/17 at 13:00 Insulin Glargine (Lantus) 12 unit QHS SC Last administered on 03/24/17 20:24; Admin Dose 12 UNIT; Start 03/22/17 at 21:00 Magnesium Hydroxide (Milk Of Mag) 30 ml DAILY PRN PO CONSTIPATION; Start at 09:00 Famotidine (Pepcid) 20 mg 21 PO Last administered on 03/24/17 20:19; Admin Dose 20 MG; Start 03/23/17 at 21:00 Collagenase (Santyl) 1 applic DAILY TOP ; Start 03/23/17 at 12:30 Collagenase (Santyl) 1 applic PRN PRN TOP WOUND CARE; Start 03/23/17 at 11:30 Heparin Sodium (Porcine) (Heparin (5000 Units/0.5 ml)) 5,000 unit Q8 SC Last administered on 03/25/17 06:00; Admin Dose 5,000 UNIT; Start 03/24/17 at 22:00 Aspirin (Aspirin) 300 mg DAILY MS Last administered on 03/25/17t 08:45; Admin Dose 300 MG; Start 03/25/17 at 09:00 Metoprolol Tartrate (Lopressor) 25 mg BID PO ; Start 03/25/17 at 21:00 BEBA HENSON NP Mar 25, 2017 10:29
--- NOTE | 2017-03-25 11:49 | RADRPT ---
PROCEDURE: XR Chest. CLINICAL INDICATION: Shortness of breath TECHNIQUE: Single frontal chest x-ray. COMPARISON: 03/18/2017 FINDINGS: The heart size is enlarged. There is interval development of moderate congestion and diffusely prom inent interstitial lung markings. There are new small bilateral pleural effusions with atelectasis. There is interval removal of the previously seen nasogastric tube. Calcific atherosclerosis of the aorta is present. The cardiomediastinal silhouette is unremarkable. The osseous structures are stab le. IMPRESSION: 1. Cardiomegaly with interval development of moderate congestion, diffuse interstitial prominence l ikely representing edema, and small bilateral pleural effusions with atelectasis. 2. Aortic atherosclerosis. RPTAT: EE .Storm Matos MD, Date Time Electronically viewed and signed by .Storm Matos MD, on 03/25/2017 11:49 .A/
--- NOTE | 2017-03-25 13:05 | CONS ---
Date/Time of Note Date/Time of Note DATE: 03/25/17 TIME: 13:01 Assessment/Plan Assessment/Plan Chief Complaint/Hosp Course IMP: 1.Nstemi-Increased troponin/CK-MB further today. NO CP. NL EF by echo 2.HTN 3.SBO 4.PAD s/p LLE amputation POD#2 5. Hypopthyroid 6.UTI 7.anemia Recc: -Tele -serial ecg's -Continue PO BB -Continue clonidine TTS -Continue abx's and f/u cx data -trend cardiac enzymes -Continue heparin SQ /ASA and will discuss cardiac cath with family. She is on schedule for tomorrow if agreeable -Pain control Problems: Consultation Date/Type/Reason Admit Date/Time Mar 16, 2017 at 22:23 Initial Consult Date 03/17/17 Type of Consultation: cardiology Reason for Consultation positive troponin Referring Provider: TOPHER DUNBAR MD Exam/Review of Systems Vital Signs Vitals Vital Signs Date Time Temp Pulse Resp B/P Pulse Ox O2 Delivery O2 Flow Rate FiO2 03/25/17 12:23 83 03/25/17 11:35 98.6 18 91/55 95 03/25/17 09:02 Nasal Cannula 2.0 Intake and Output 03/24/17 03/24/17 03/25/17 15:00 23:00 07:00 Intake Total 300 ml 1080 ml 660 ml Output Total 350 ml 550 ml 600 ml Balance -50 ml 530 ml 60 ml Exam Review of Systems: CONSTITUTIONAL: No fevers, chills. PULMONARY: No sob CARDIOVASCULAR: No chest pain/palpitations GASTROINTESTINAL: No nausea/vomiting. GENITOURINARY: No hematuria/dysuria. MUSCULOSKELETAL: s/p LE amputation PSYCHIATRIC: The patient denies depression. NEUROLOGIC: No weakness Constitutional: alert Psych: no complaints Head: normocephalic ENMT: mucosa pink and moist Neck: jvd (9 cm water), supple Respiratory: diminished breath sounds (at bases/B) Cardiovascular: regular rate and rhythm Gastrointestinal: non-tender, soft Musculoskeletal: muscle tone (normal) Extremities: edema (none) Neurological: other (No focal deficits) Results Result Diagram: 03/25/17 0709 03/25/17 0709 Results 24 hrs Laboratory Tests Test 03/24/17 17:09 03/24/17 20:18 03/24/17 23:24 03/25/17 02:21 Bedside Glucose 88 119 126 125 Test 03/25/17 05:51 03/25/17 07:09 03/25/17 08:42 03/25/17 12:04 Bedside Glucose 111 108 135 White Blood Count 8.8 Red Blood Count 2.79 L Hemoglobin 8.1 L Hematocrit 25.3 L Mean Corpuscular Volume 90.7 Mean Corpuscular Hemoglobin 29.0 Mean Corpuscular Hemoglobin Concent 32.0 Red Cell Distribution Width 13.1 Platelet Count 218 Mean Platelet Volume 12.5 H Neutrophils % 68.1 Lymphocytes % 19.9 Monocytes % 10.6 Eosinophils % 0.8 Basophils % 0.1 Nucleated Red Blood Cells % 0.0 Neutrophils # 6.0 Lymphocytes # 1.7 Monocytes # 0.9 Eosinophils # 0.1 Basophils # 0.0 Nucleated Red Blood Cells # 0.0 Sodium Level 135 Potassium Level 3.8 Chloride Level 92 L Carbon Dioxide Level 34 H Anion Gap 13 Blood Urea Nitrogen 15 Creatinine 0.86 Glucose Level 94 # Calcium Level 7.7 L Creatine Kinase 698 H Creatine Kinase Index 3.8 Creatinine Kinase MB (Mass) 26.80 H Troponin I 12.200 *H Medications Medications Current Medications Ondansetron HCl (Zofran Inj) 4 mg Q6H PRN IV NAUSEA AND/OR VOMITING Last administered on 03/24/17 08:20; Admin Dose 4 MG; Start 03/17/17 at 01:00 Morphine Sulfate (morphine) 2 mg Q4H PRN IV PAIN LEVEL 7-10 Last administered on 03/25/17 08:44; Admin Dose 2 MG; Start 03/17/17 at 01:00 Amlodipine Besylate (Norvasc) 10 mg DAILY PO Last administered on 03/17/17 09: 59; Admin Dose 10 MG; Start 03/17/17 at 09:00; Status Future Hold Atenolol (Tenormin) 100 mg DAILY PO Last administered on 03/17/17 10:00; Admin Dose 100 MG; Start 03/17/17 at 09:00; Status Future Hold Benazepril HCl (Lotensin) 10 mg DAILY PO Last administered on 03/17/17 09:57; Admin Dose 10 MG; Start 03/17/17 at 09:00; Status Future Hold Gabapentin (Neurontin) 300 mg BID PO Last administered on 03/25/17 08:45; Admin Dose 300 MG; Start 03/17/17 at 09:00 Atorvastatin Calcium (Lipitor) 10 mg DAILY@21 PO ; Start 03/17/17 at 21:00; Status Future Hold Miscellaneous Information 1 ea NOTE XX ; Start 03/17/17 at 12:00 Glucose (Glutose) 15 gm Q15M PRN PO DECREASED GLUCOSE; Start 03/17/17 at 12:00 Glucose (Glutose) 22.5 gm Q15M PRN PO DECREASED GLUCOSE; Start 03/17/17 at 12: 00 Dextrose (D50w Syringe) 25 ml Q15M PRN IV DECREASED GLUCOSE Last administered on 03/19/17 06:08; Admin Dose 25 ML; Start 03/17/17 at 12:00 Dextrose (D50w Syringe) 50 ml Q15M PRN IV DECREASED GLUCOSE; Start 03/17/17 at 12:00 Glucagon (Glucagen) 1 mg Q15M PRN IM DECREASED GLUCOSE; Start 03/17/17 at 12:00 Glucose (Glutose) 15 gm Q15M PRN BUCCAL DECREASED GLUCOSE; Start 03/17/17 at 12 :00 Diagnostic Test (Pha) (Accu-Chek) 1 ea 02 XX ; Start 03/19/17 at 02:00 Levothyroxine Sodium (Synthroid Iv) 75 mcg DAILY@06 IV Last administered on 05:52; Admin Dose 75 MCG; Start 03/19/17 at 06:00 Hydralazine HCl (Apresoline) 10 mg Q4H PRN IV SBP>160 Last administered on 03/20 17:12; Admin Dose 10 MG; Start 03/18/17 at 12:00 Clonidine HCl 1 patch 1 patch Q7D TRANSDERM Last administered on 03/19/17 14: 39; Admin Dose 1 PATCH; Start 03/19/17 at 14:00 Fluconazole (Diflucan 400 Mg/ NS (Pmx)) 200 ml @ 200 mls/hr Q24H IVPB Last administered on 03/24/17 12:16; Admin Dose 200 MLS/HR; Start 03/20/17 at 13:00 Clonidine HCl (Catapres-Tts 1 Patch) 1 patch Q7D TRANSDERM Last administered on 7/21/17at 13:53; Admin Dose 1 PATCH; Start 03/20/17 at 13:00 Insulin Glargine (Lantus) 12 unit QHS SC Last administered on 03/24/17 20:24; Admin Dose 12 UNIT; Start 03/22/17 at 21:00 Magnesium Hydroxide (Milk Of Mag) 30 ml DAILY PRN PO CONSTIPATION; Start at 09:00 Collagenase (Santyl) 1 applic DAILY TOP ; Start 03/23/17 at 12:30 Collagenase (Santyl) 1 applic PRN PRN TOP WOUND CARE; Start 03/23/17 at 11:30 Heparin Sodium (Porcine) (Heparin (5000 Units/0.5 ml)) 5,000 unit Q8 SC Last administered on 03/25/17 06:00; Admin Dose 5,000 UNIT; Start 03/24/17 at 22:00 Aspirin (Aspirin) 300 mg DAILY HI Last administered on 03/25/17 08:45; Admin Dose 300 MG; Start 03/25/17 at 09:00 Metoprolol Tartrate (Lopressor) 25 mg BID PO ; Start 03/25/17 at 21:00 Famotidine (Pepcid) 20 mg BID PO ; Start 03/25/17 at 21:00 Simethicone (Mylicon) 80 mg Q6H PRN PO DISTENSION/GAS/BLOATING; Start 03/25/17 at 10:30 JAVI LION Mar 25, 2017 13:05
[2017-03-25] MEDS: FLUCONAZOLE 400 MG/NS (PMX) 200 ML IVPB SCH (13:12)
--- NOTE | 2017-03-25 13:13 | PN ---
Date/Time of Note Date/Time of Note DATE: 03/25/17 TIME: 13:10 Assessment/Plan VTE Prophylaxis VTE Prophylaxis Intervention: heparin Lines/Catheters IV C[facility]ter Type (from [facility]): Saline Lock Urinary Cath still in place: No Assessment/Plan Chief Complaint/Hosp Course . Problems: Assessment/Plan Assessment * Nausea/vomiting resolved * Elevated troponin * Abdominal pain Ileus resolved Small bowel follow through . No definite evidence of obstruction. However, the colon is not opacified due to dilution of contrast at 12 hours. * S/P above knee amputation left Impending gangrene foot left * PAD * Diabetes mellitus Plan * continue present management * case discussed with Dr Chaudhary * further orders will depend on clinical course Subjective 24 Hr Interval Summary Free Text/Dictation * Course reviewed with RN * Patient seen and examined * Denies any nausea nor vomiting * bowel movement yesterday ,passing gas * Elevated troponin * KUB 1. As compared to the small bowel follow-through completed on 03/20/2017, there has been interval transit of oral contrast material through the colon and into the lower rectum. 2. There are multiple persistent gas distended mildly dilated segments of small bowel. 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 3. No evidence of high-grade bowel obstruction at this time. Exam/Review of Systems Vital Signs Vitals Vital Signs Date Time Temp Pulse Resp B/P Pulse Ox O2 Delivery O2 Flow Rate FiO2 03/25/17 12:23 83 03/25/17 11:35 98.6 18 91/55 95 03/25/17 09:02 Nasal Cannula 2.0 Intake and Output 03/24/17 03/24/17 03/25/17 15:00 23:00 07:00 Intake Total 300 ml 1080 ml 660 ml Output Total 350 ml 550 ml 600 ml Balance -50 ml 530 ml 60 ml Exam Constitutional: alert, oriented Head: atraumatic, normocephalic Neck: non-tender, supple Respiratory: clear to auscultation, normal air movement Cardiovascular: nl pulses, regular rate and rhythm Gastrointestinal: nl liver, spleen, non-tender, soft Musculoskeletal: other (aka) Extremities: normal pulses Neurological: nl mental status, nl speech Skin: nl turgor, No rash or lesions Lymph: nl lymph nodes Results Result Diagram: 03/25/17 0709 03/25/17 0709 Results 24 hrs Laboratory Tests Test 03/24/17 17:09 03/24/17 20:18 03/24/17 23:24 03/25/17 02:21 Bedside Glucose 88 119 126 125 Test 03/25/17 05:51 03/25/17 07:09 03/25/17 08:42 03/25/17 12:04 Bedside Glucose 111 108 135 White Blood Count 8.8 Red Blood Count 2.79 L Hemoglobin 8.1 L Hematocrit 25.3 L Mean Corpuscular Volume 90.7 Mean Corpuscular Hemoglobin 29.0 Mean Corpuscular Hemoglobin Concent 32.0 Red Cell Distribution Width 13.1 Platelet Count 218 Mean Platelet Volume 12.5 H Neutrophils % 68.1 Lymphocytes % 19.9 Monocytes % 10.6 Eosinophils % 0.8 Basophils % 0.1 Nucleated Red Blood Cells % 0.0 Neutrophils # 6.0 Lymphocytes # 1.7 Monocytes # 0.9 Eosinophils # 0.1 Basophils # 0.0 Nucleated Red Blood Cells # 0.0 Sodium Level 135 Potassium Level 3.8 Chloride Level 92 L Carbon Dioxide Level 34 H Anion Gap 13 Blood Urea Nitrogen 15 Creatinine 0.86 Glucose Level 94 # Calcium Level 7.7 L Creatine Kinase 698 H Creatine Kinase Index 3.8 Creatinine Kinase MB (Mass) 26.80 H Troponin I 12.200 *H Medications Medications Current Medications Ondansetron HCl (Zofran Inj) 4 mg Q6H PRN IV NAUSEA AND/OR VOMITING Last administered on 03/24/17 08:20; Admin Dose 4 MG; Start 03/17/17 at 01:00 Morphine Sulfate (morphine) 2 mg Q4H PRN IV PAIN LEVEL 7-10 Last administered on 03/25/17 08:44; Admin Dose 2 MG; Start 03/17/17 at 01:00 Amlodipine Besylate (Norvasc) 10 mg DAILY PO Last administered on 03/17/17 09: 59; Admin Dose 10 MG; Start 03/17/17 at 09:00; Status Future Hold Atenolol (Tenormin) 100 mg DAILY PO Last administered on 03/17/17 10:00; Admin Dose 100 MG; Start 03/17/17 at 09:00; Status Future Hold Benazepril HCl (Lotensin) 10 mg DAILY PO Last administered on 03/17/17 09:57; Admin Dose 10 MG; Start 03/17/17 at 09:00; Status Future Hold Gabapentin (Neurontin) 300 mg BID PO Last administered on 03/25/17 08:45; Admin Dose 300 MG; Start 03/17/17 at 09:00 Atorvastatin Calcium (Lipitor) 10 mg DAILY@21 PO ; Start 03/17/17 at 21:00; Status Future Hold Miscellaneous Information 1 ea NOTE XX ; Start 03/17/17 at 12:00 Glucose (Glutose) 15 gm Q15M PRN PO DECREASED GLUCOSE; Start 03/17/17 at 12:00 Glucose (Glutose) 22.5 gm Q15M PRN PO DECREASED GLUCOSE; Start 03/17/17 at 12: 00 Dextrose (D50w Syringe) 25 ml Q15M PRN IV DECREASED GLUCOSE Last administered on 03/19/17 06:08; Admin Dose 25 ML; Start 03/17/17 at 12:00 Dextrose (D50w Syringe) 50 ml Q15M PRN IV DECREASED GLUCOSE; Start 03/17/17 at 12:00 Glucagon (Glucagen) 1 mg Q15M PRN IM DECREASED GLUCOSE; Start 03/17/17 at 12:00 Glucose (Glutose) 15 gm Q15M PRN BUCCAL DECREASED GLUCOSE; Start 03/17/17 at 12 :00 Diagnostic Test (Pha) (Accu-Chek) 1 ea 02 XX ; Start 03/19/17 at 02:00 Levothyroxine Sodium (Synthroid Iv) 75 mcg DAILY@06 IV Last administered on 05:52; Admin Dose 75 MCG; Start 03/19/17 at 06:00 Hydralazine HCl (Apresoline) 10 mg Q4H PRN IV SBP>160 Last administered on 03/20 17:12; Admin Dose 10 MG; Start 03/18/17 at 12:00 Clonidine HCl 1 patch 1 patch Q7D TRANSDERM Last administered on 03/19/17 14: 39; Admin Dose 1 PATCH; Start 03/19/17 at 14:00 Fluconazole (Diflucan 400 Mg/ NS (Pmx)) 200 ml @ 200 mls/hr Q24H IVPB Last administered on 03/24/17 12:16; Admin Dose 200 MLS/HR; Start 03/20/17 at 13:00 Clonidine HCl (Catapres-Tts 1 Patch) 1 patch Q7D TRANSDERM Last administered on 03/20/17 13:53; Admin Dose 1 PATCH; Start 03/20/17 at 13:00 Insulin Glargine (Lantus) 12 unit QHS SC Last administered on 03/24/17 20:24; Admin Dose 12 UNIT; Start 03/22/17 at 21:00 Magnesium Hydroxide (Milk Of Mag) 30 ml DAILY PRN PO CONSTIPATION; Start at 09:00 Collagenase (Santyl) 1 applic DAILY TOP ; Start 03/23/17 at 12:30 Collagenase (Santyl) 1 applic PRN PRN TOP WOUND CARE; Start 03/23/17 at 11:30 Heparin Sodium (Porcine) (Heparin (5000 Units/0.5 ml)) 5,000 unit Q8 SC Last administered on 03/25/17 06:00; Admin Dose 5,000 UNIT; Start 03/24/17 at 22:00 Aspirin (Aspirin) 300 mg DAILY ME Last administered on 03/25/17 08:45; Admin Dose 300 MG; Start 03/25/17 at 09:00 Metoprolol Tartrate (Lopressor) 25 mg BID PO ; Start 03/25/17 at 21:00 Famotidine (Pepcid) 20 mg BID PO ; Start 03/25/17 at 21:00 Simethicone (Mylicon) 80 mg Q6H PRN PO DISTENSION/GAS/BLOATING; Start 03/25/17 at 10:30 LUANN MACIAS NP Mar 25, 2017 13:13
--- NOTE | 2017-03-25 13:53 | PN ---
Date/Time of Note Date/Time of Note DATE: 03/25/17 TIME: 13:46 Assessment/Plan Lines/Catheters IV Catheter Type (from [facility]): Saline Lock Desai in Place (from [facility]): No Assessment/Plan Chief Complaint/Hosp Course 1. Abdominal pain with CT findings are suggestive of either obstructive pattern versus ileus. Patient has gas and stool in the colon. Less likelihood of bowel ischemia; Flatus. SBFT noted. NGT out, vomiting overnight but improved now; tolerating liquid diet -diet as tolerated -close monitoring 2. PVD/PAD with Left lower extremity ischemia with tissue necrosis and gangrene ; s/p left AKA with thrombectomy; -Anticoagulation 3. Elevated troponin with possible demand ischemia and OH -Cardiac evaluation on optimization 4. Elevated BNP with possible CHF -Judicious fluid management -Cardiac optimization 5. Renal insufficiency, multifactorial secondary to above -Judicious fluid management and avoid nephrotoxic agents as possible 6. Anemia. no nat bleed noted. h/h stable -Close monitoring -Transfuse as needed 7. Diabetes: one episode of hypoglycemia overnight; BS improved -Diet and medication optimization 8. Hypertension: improved -Diet and medication optimization 9. Hypercholesterolemia -Diet and medication optimization 10. Leukocytosis: 2/ #1 and #2 normalized -monitor 11. NSTEMI: elevated troponin: no chest pain -per cardiology for workup Patient seen and examined in collaboration with Dr. Steffen Kelly Problems: Subjective 24 Hr Interval Summary Feeling well. No nausea/vomiting. Tolerating diet. +bowel function. Stump clean. No c/o chakraborty, dizziness, cp,palpitations, sob, cough, dysuria, fevers, chills. Exam/Review of Systems Vital Signs Vitals Vital Signs Date Time Temp Pulse Resp B/P Pulse Ox O2 Delivery O2 Flow Rate FiO2 03/25/17 12:23 83 03/25/17 11:35 98.6 18 91/55 95 03/25/17 09:02 Nasal Cannula 2.0 Intake and Output 03/24/17 03/24/17 03/25/17 15:00 23:00 07:00 Intake Total 300 ml 1080 ml 660 ml Output Total 350 ml 550 ml 600 ml Balance -50 ml 530 ml 60 ml Exam Free Text/Dictation Constitutional: awake, NAD Psych: confused but able to answer simple questions, follows commands No anxiety, No nl mood/affect Head: atraumatic, normocephalic Eyes: EOMI, PERRL, nl conjunctiva, No icteric ENMT: nl external ears & nose, nl lips & teeth, NG tube No mucosa pink and moist (Dry mucosa) Neck: jvd, non-tender, supple Respiratory: normal air movement, No congested cough, No diminished breath sounds, No labored breathing Cardiovascular: regular rate and rhythm, No edema Gastrointestinal: nondistended, soft, nontender, bowel sounds x4 No firm, No rebound or guarding, Musculoskeletal: No joint tenderness, No nl extremities to inspection (Left AKA ), No nl gait and stance Extremities: No calf tenderness, No normal pulses Neurological: nl speech, No nl strength Skin: No diaphoresis, No nl turgor, No rash or lesions Lymph: nl lymph nodes Results Result Diagram: 03/25/17 0709 03/25/17 0709 JULIANA RUFFIN NP Mar 25, 2017 13:53
--- NOTE | 2017-03-25 18:36 | PN ---
Date/Time of Note Date/Time of Note DATE: 03/25/17 TIME: 18:30 Assessment/Plan VTE Prophylaxis VTE Prophylaxis Intervention: heparin (Heparin subcut) Lines/Catheters IV [facility] Saline Lock Urinary Cath still in place: Yes Reason Cath still needed: urinary retention Assessment/Plan Chief Complaint/Hosp Course Patient is feeling better and is on liquid diet. She has no nausea or vomiting today she does have an indwelling Desai catheter. I would recommend at the present to keep the Desai catheter in wait till she is able to take oral medications then I could start her on low-dose Urecholine and discontinue the Desai and see if she is able to urinate. She may have neurogenic diabetic bladder Patient is going to have cardiac catheterization tomorrow. We will keep the Desai catheter in for now Problems: Subjective 24 Hr Interval Summary Constitutional: other (Patient is feeling better now that she is on liquid diet ) Eyes: no complaints ENT: no complaints Respiratory: no complaints Cardiovascular: other (Patient is scheduled for cardiac cath tomorrow) Gastrointestinal: No nausea, No vomiting Genitourinary: other (Urinary retention, patient has an indwelling Desai cath and she needs it because of urinary retention) Musculoskeletal: no complaints Skin: no complaints Neurologic: no complaints Endocrine: no complaints Exam/Review of Systems Vital Signs Vitals Vital Signs Date Time Temp Pulse Resp B/P Pulse Ox O2 Delivery O2 Flow Rate FiO2 03/25/17 16:39 93/54 03/25/17 16:35 89 03/25/17 14:57 98.3 18 92 03/25/17 09:02 Nasal Cannula 2.0 Intake and Output 03/24/17 03/24/17 03/25/17 15:00 23:00 07:00 Intake Total 300 ml 1080 ml 660 ml Output Total 350 ml 550 ml 600 ml Balance -50 ml 530 ml 60 ml Exam Constitutional: alert, oriented Psych: no complaints Head: normocephalic Eyes: nl conjunctiva ENMT: nl external ears & nose Neck: non-tender, supple Respiratory: normal air movement Gastrointestinal: soft Genitourinary - Female: other (Desai catheter in place and draining clear urine ), No CVA tenderness Extremities: other (Left above-knee amputation) Skin: nl turgor Results Result Diagram: 03/25/17 0709 03/25/17 0709 Results 24 hrs Laboratory Tests Test 03/24/17 20:18 03/24/17 23:24 03/25/17 02:21 03/25/17 05:51 Bedside Glucose 119 126 125 111 Test 03/25/17 07:09 03/25/17 08:42 03/25/17 12:04 03/25/17 16:42 White Blood Count 8.8 Red Blood Count 2.79 L Hemoglobin 8.1 L Hematocrit 25.3 L Mean Corpuscular Volume 90.7 Mean Corpuscular Hemoglobin 29.0 Mean Corpuscular Hemoglobin Concent 32.0 Red Cell Distribution Width 13.1 Platelet Count 218 Mean Platelet Volume 12.5 H Neutrophils % 68.1 Lymphocytes % 19.9 Monocytes % 10.6 Eosinophils % 0.8 Basophils % 0.1 Nucleated Red Blood Cells % 0.0 Neutrophils # 6.0 Lymphocytes # 1.7 Monocytes # 0.9 Eosinophils # 0.1 Basophils # 0.0 Nucleated Red Blood Cells # 0.0 Sodium Level 135 Potassium Level 3.8 Chloride Level 92 L Carbon Dioxide Level 34 H Anion Gap 13 Blood Urea Nitrogen 15 Creatinine 0.86 Glucose Level 94 # Calcium Level 7.7 L Creatine Kinase 698 H Creatine Kinase Index 3.8 Creatinine Kinase MB (Mass) 26.80 H Troponin I 12.200 *H Bedside Glucose 108 135 106 Medications Medications Current Medications Ondansetron HCl (Zofran Inj) 4 mg Q6H PRN IV NAUSEA AND/OR VOMITING Last administered on 03/24/17 08:20; Admin Dose 4 MG; Start 03/17/17 at 01:00 Morphine Sulfate (morphine) 2 mg Q4H PRN IV PAIN LEVEL 7-10 Last administered on 03/25/17 16:40; Admin Dose 2 MG; Start 03/17/17 at 01:00 Amlodipine Besylate (Norvasc) 10 mg DAILY PO Last administered on 03/17/17 09: 59; Admin Dose 10 MG; Start 03/17/17 at 09:00; Status Future Hold Atenolol (Tenormin) 100 mg DAILY PO Last administered on 03/17/17 10:00; Admin Dose 100 MG; Start 03/17/17 at 09:00; Status Future Hold Benazepril HCl (Lotensin) 10 mg DAILY PO Last administered on 03/17/17 09:57; Admin Dose 10 MG; Start 03/17/17 at 09:00; Status Future Hold Gabapentin (Neurontin) 300 mg BID PO Last administered on 03/25/17 08:45; Admin Dose 300 MG; Start 03/17/17 at 09:00 Atorvastatin Calcium (Lipitor) 10 mg DAILY@21 PO ; Start 03/17/17 at 21:00; Status Future Hold Miscellaneous Information 1 ea NOTE XX ; Start 03/17/17 at 12:00 Glucose (Glutose) 15 gm Q15M PRN PO DECREASED GLUCOSE; Start 03/17/17 at 12:00 Glucose (Glutose) 22.5 gm Q15M PRN PO DECREASED GLUCOSE; Start 03/17/17 at 12: 00 Dextrose (D50w Syringe) 25 ml Q15M PRN IV DECREASED GLUCOSE Last administered on 03/19/17 06:08; Admin Dose 25 ML; Start 03/17/17 at 12:00 Dextrose (D50w Syringe) 50 ml Q15M PRN IV DECREASED GLUCOSE; Start 03/17/17 at 12:00 Glucagon (Glucagen) 1 mg Q15M PRN IM DECREASED GLUCOSE; Start 03/17/17 at 12:00 Glucose (Glutose) 15 gm Q15M PRN BUCCAL DECREASED GLUCOSE; Start 03/17/17 at 12 :00 Diagnostic Test (Pha) (Accu-Chek) 1 ea 02 XX ; Start 03/19/17 at 02:00 Levothyroxine Sodium (Synthroid Iv) 75 mcg DAILY@06 IV Last administered on 05:52; Admin Dose 75 MCG; Start 03/19/17 at 06:00 Hydralazine HCl (Apresoline) 10 mg Q4H PRN IV SBP>160 Last administered on 03/20 17:12; Admin Dose 10 MG; Start 03/18/17 at 12:00 Clonidine HCl 1 patch 1 patch Q7D TRANSDERM Last administered on 03/19/17 14: 39; Admin Dose 1 PATCH; Start 03/19/17 at 14:00 Fluconazole (Diflucan 400 Mg/ NS (Pmx)) 200 ml @ 200 mls/hr Q24H IVPB Last administered on 03/25/17 13:12; Admin Dose 200 MLS/HR; Start 03/20/17 at 13:00 Clonidine HCl (Catapres-Tts 1 Patch) 1 patch Q7D TRANSDERM Last administered on 03/20/17 13:53; Admin Dose 1 PATCH; Start 03/20/17 at 13:00 Insulin Glargine (Lantus) 12 unit QHS SC Last administered on 03/24/17 20:24; Admin Dose 12 UNIT; Start 03/22/17 at 21:00 Magnesium Hydroxide (Milk Of Mag) 30 ml DAILY PRN PO CONSTIPATION; Start at 09:00 Collagenase (Santyl) 1 applic DAILY TOP ; Start 03/23/17 at 12:30 Collagenase (Santyl) 1 applic PRN PRN TOP WOUND CARE; Start 03/23/17 at 11:30 Heparin Sodium (Porcine) (Heparin (5000 Units/0.5 ml)) 5,000 unit Q8 SC Last administered on 03/25/17 13:17; Admin Dose 5,000 UNIT; Start 03/24/17 at 22:00 Aspirin (Aspirin) 300 mg DAILY [place] Last administered on 03/25/17 08:45; Admin Dose 300 MG; Start 03/25/17 at 09:00 Metoprolol Tartrate (Lopressor) 25 mg BID PO ; Start 03/25/17 at 21:00 Famotidine (Pepcid) 20 mg BID PO ; Start 03/25/17 at 21:00 Simethicone (Mylicon) 80 mg Q6H PRN PO DISTENSION/GAS/BLOATING; Start 03/25/17 at 10:30 Diazepam (Valium) 2.5 mg OC ONCE PO ; Start 03/26/17 at 08:00; Stop 03/26/17 at 08:01 Diphenhydramine HCl (Benadryl) 50 mg OC ONCE PO ; Start 03/26/17 at 08:00; Stop 03/26/17 at 08:01 ELLI BURNETT MD Mar 25, 2017 18:36
[2017-03-25] MEDS: FAMOTIDINE 20 MG TAB PO SCH (21:25)
[2017-03-25] MEDS: INSULIN GLARGINE [LANtus] 3 ML PEN SC SCH (21:57)
[2017-03-26] VITALS (27 sets, daily range): BP systolic 77–106; BP diastolic 51–65; PULSE 86–104; RESP 17–27
[2017-03-26] MEDS: ACCU-CHEK XX SCH (02:00)
[2017-03-26] MEDS: LEVOTHYROXINE 100 MCG VIAL IV SCH (06:39)
[2017-03-26] MEDS: HEPARIN 5,000 UNIT/0.5 ML VIAL SC SCH ×3 (06:49→22:26)
[2017-03-26] MEDS: morphine 2 MG INJ IV PRN ×3 (06:57→23:20)
[2017-03-26] MEDS: INSULIN ASPART [NOVOLOG] 3 ML PEN SC SCH (07:25)
[2017-03-26 07:59] LABS: BASOPHILS % 0.1 % (0.0-2.0); EOSINOPHILS % 0.3 % (0.0-7.0); HEMATOCRIT 27.7 % (37.0-47.0); HEMOGLOBIN 8.7 g/dl (12.0-16.0); LYMPHOCYTES # 1.6 10^3/ul (0.8-2.9); LYMPHOCYTES % 13.6 % (15.0-51.0); MEAN CORPUSCULAR HEMOGLOBIN 28.1 pg (29.0-33.0); MEAN CORPUSCULAR HGB CONC 31.4 g/dl (32.0-37.0); MEAN CORPUSCULAR VOLUME 89.4 fl (82.0-101.0); MEAN PLATELET VOLUME 12.2 fl (7.4-10.4); MONOCYTE # 1.4 10^3/ul (0.3-0.9); MONOCYTES % 11.4 % (0.0-11.0); NEUTROPHIL # 8.8 10^3/ul (1.6-7.5); NEUTROPHILS % 74.3 % (39.0-77.0); PLATELET COUNT 319 10^3/UL (140-415); RED CELL DISTRIBUTION WIDTH 13.4 % (11.5-14.5); WHITE BLOOD COUNT 11.9 10^3/ul (4.8-10.8)
[2017-03-26] MEDS ORDERED: DIAZEPAM 5 MG TAB PO ONE (08:00)
[2017-03-26] MEDS ORDERED: DIPHENHYDRAMINE 50 MG CAP PO ONE (08:00)
[2017-03-26 08:22] LABS: CALCIUM 8.2 mg/dl (8.4-10.2); CREATININE 0.83 mg/dl (0.44-1.00); POTASSIUM 3.6 mmol/L (3.5-5.1)
[2017-03-26] MEDS: CALCIUM CARBONATE 500 MG CHEW TAB PO SCH ×3 (08:55→20:21)
[2017-03-26] MEDS: ASPIRIN 300 MG SUPP PR SCH (09:00)
[2017-03-26] MEDS: METOPROLOL 50 MG TAB PO SCH ×2 (09:00→20:21)
[2017-03-26] MEDS: COLLAGENASE 30 GM TUBE TOP SCH (09:00)
[2017-03-26] MEDS: GABAPENTIN 300 MG CAP PO SCH ×2 (09:00→20:21)
[2017-03-26] MEDS: FAMOTIDINE 20 MG TAB PO SCH ×2 (09:00→20:21)
[2017-03-26 09:35] LABS: CK-MB 14.2 ng/ml (0.0-2.4)
[2017-03-26 09:38] LABS: TROPONIN-I 11.4 ng/ml (0.00-0.12)
[2017-03-26] MEDS: DEXTROSE 5%-0.45% NACL 1,000 ML IV SCH (10:00)
--- NOTE | 2017-03-26 10:08 | PN ---
Date/Time of Note Date/Time of Note DATE: 03/26/17 TIME: 10:04 Assessment/Plan VTE Prophylaxis VTE Prophylaxis Intervention: heparin Lines/Catheters IV Catheter Type (from Nrs): Saline Lock Urinary Cath still in place: Yes Reason Cath still needed: urinary retention Assessment/Plan Chief Complaint/Hosp Course 1. Left lower extremity critical limb ischemia and gangrene. -Patient status post left [id number] amputation and left lateral artery thrombectomy . Continue surgeon recommendations and vascular checks. 2. Nausea/Vomiting/ Abdominal pain with CT scan suggestive of possible obstructive pattern versus ileus. Resolved. -Status post NGtube decompression. Small bowel follow-through with no definite evidence of obstruction. -Patient was tolerating full liquid diet. 3. Non-ST elevated myocardial infarction. Trending up Troponin. -Cardiology following and plan for cardiac catheterization today. -Continue telemetry monitoring. Continue optimization with anticoagulation, beta terra and nitrates anticoagulation. 4. Acute on chronic Anemia (likely postoperative). H&H stable. -We will continue to monitor HH closely and transfuse if indicated. 5. Diabetes with A1c of 8.4, now with hypoglycemia secondary to patient being n.p.o. and administering insulin. -Hold all insulin for now. Gentle hydration with D5 half NS as patient is for cardiac catheterization today. -Resume insulin with carb controlled diet post catheterization when patient is resumed on diet. 6. Essential hypertension. Stable. - On antihypertensives and adjust as needed. 7. Hypothyroidism. Continue on Synthroid 8. Dyslipidemia. Continue on statin 9.Constipation. Resolved. -continue stool softners and PRN Laxatives. 10.Nina UTI. -Continue Azole. 11. Urinary retention possibly neurogenic diabetic bladder.Urology eval appreciated and recommended rivera continuation until PO is tolerated and start urecholine 10mg Q8H and f/u. Prophylaxis: Heparin subcu/Pepcid Disposition and plan: Follow-up with cardiac catheterization reports. Continue current medical management. Advance diet as tolerated. Anticipate DC planning to ARU once medically stable Discussed plan of care with . Problems: Subjective 24 Hr Interval Summary Free Text/Dictation Patient is scheduled for cardiac catheterization today. She was kept n.p.o. and was given insulin and had hypoglycemic episodes. Exam/Review of Systems Vital Signs Vitals Vital Signs Date Time Temp Pulse Resp B/P Pulse Ox O2 Delivery O2 Flow Rate FiO2 03/26/17 08:15 93 03/26/17 07:22 98.5 18 99/52 99 03/25/17 23:50 Nasal Cannula 2.0 Intake and Output 03/25/17 03/25/17 03/26/17 15:00 23:00 07:00 Intake Total 600 ml 200 ml Output Total 400 ml 275 ml Balance 200 ml -75 ml Exam General: Thin built, not in any acute distress . HEENT: Normocephalic, Atraumatic, No laceration or hematoma; Eyes: PEERL, Conjunctiva clear, Anicteric sclera Neck: Supple without any lymphadenopathy, nontender, no JVD, no carotid bruits, trachea midline, no thyromegaly Cardiac: S1, S2 auscultated, regular rhythm and rate, no mumurs or gallop Pulmonary: Diminished breath sound bibasilar. Normal respiratory effort. Chest clear to auscultation bilaterally, no adventitious breath sounds GI: Abdomen soft,no masses, no rebound tenderness or guarding. Bowel sounds hypoactive on all four quadrants Genitourinary: Deferred Extremities: Left AKA, surgical dressing intact. Neurologic: Alert to person, place, time, and situation. Affect appropriate, intact sensation. Skin: Clean,dry, and intact. No ecchymosis, no rashes, or lesions Results Result Diagram: 03/26/17 0716 03/26/17 0716 Results 24 hrs Laboratory Tests Test 03/25/17 12:04 03/25/17 16:42 03/25/17 21:27 03/26/17 07:16 Bedside Glucose 135 106 115 White Blood Count 11.9 #H Red Blood Count 3.10 L Hemoglobin 8.7 L Hematocrit 27.7 L Mean Corpuscular Volume 89.4 Mean Corpuscular Hemoglobin 28.1 L Mean Corpuscular Hemoglobin Concent 31.4 L Red Cell Distribution Width 13.4 Platelet Count 319 # Mean Platelet Volume 12.2 H Neutrophils % 74.3 Lymphocytes % 13.6 L Monocytes % 11.4 H Eosinophils % 0.3 Basophils % 0.1 Nucleated Red Blood Cells % 0.0 Neutrophils # 8.8 H Lymphocytes # 1.6 Monocytes # 1.4 H Eosinophils # 0.0 Basophils # 0.0 Nucleated Red Blood Cells # 0.0 Sodium Level 134 L Potassium Level 3.6 Chloride Level 87 L Carbon Dioxide Level 34 H Anion Gap 17 H Blood Urea Nitrogen 16 Creatinine 0.83 Glucose Level 42 #*L Calcium Level 8.2 L Creatine Kinase 660 H Creatine Kinase Index 2.2 Creatinine Kinase MB (Mass) 14.20 H Troponin I 11.400 *H Test 03/26/17 08:31 Bedside Glucose 45 *L Medications Medications Current Medications Ondansetron HCl (Zofran Inj) 4 mg Q6H PRN IV NAUSEA AND/OR VOMITING Last administered on 03/24/17 08:20; Admin Dose 4 MG; Start 03/17/17 at 01:00 Morphine Sulfate (morphine) 2 mg Q4H PRN IV PAIN LEVEL 7-10 Last administered on 03/26/17 06:57; Admin Dose 2 MG; Start 03/17/17 at 01:00 Amlodipine Besylate (Norvasc) 10 mg DAILY PO Last administered on 03/17/17 09: 59; Admin Dose 10 MG; Start 03/17/17 at 09:00; Status Future Hold Atenolol (Tenormin) 100 mg DAILY PO Last administered on 03/17/17 10:00; Admin Dose 100 MG; Start 03/17/17 at 09:00; Status Future Hold Benazepril HCl (Lotensin) 10 mg DAILY PO Last administered on 03/17/17 09:57; Admin Dose 10 MG; Start 03/17/17 at 09:00; Status Future Hold Gabapentin (Neurontin) 300 mg BID PO Last administered on 03/25/17 21:24; Admin Dose 300 MG; Start 03/17/17 at 09:00 Atorvastatin Calcium (Lipitor) 10 mg DAILY@21 PO ; Start 03/17/17 at 21:00; Status Future Hold Miscellaneous Information 1 ea NOTE XX ; Start 03/17/17 at 12:00 Glucose (Glutose) 15 gm Q15M PRN PO DECREASED GLUCOSE; Start 03/17/17 at 12:00 Glucose (Glutose) 22.5 gm Q15M PRN PO DECREASED GLUCOSE; Start 03/17/17 at 12: 00 Dextrose (D50w Syringe) 25 ml Q15M PRN IV DECREASED GLUCOSE Last administered on 03/19/17 06:08; Admin Dose 25 ML; Start 03/17/17 at 12:00 Dextrose (D50w Syringe) 50 ml Q15M PRN IV DECREASED GLUCOSE; Start 03/17/17 at 12:00 Glucagon (Glucagen) 1 mg Q15M PRN IM DECREASED GLUCOSE; Start 03/17/17 at 12:00 Glucose (Glutose) 15 gm Q15M PRN BUCCAL DECREASED GLUCOSE Last administered on 03/26/17 09:24; Admin Dose 15 GM; Start 03/17/17 at 12:00 Diagnostic Test (Pha) (Accu-Chek) 1 ea 02 XX ; Start 03/19/17 at 02:00 Levothyroxine Sodium (Synthroid Iv) 75 mcg DAILY@06 IV Last administered on 06:39; Admin Dose 75 MCG; Start 03/19/17 at 06:00 Hydralazine HCl (Apresoline) 10 mg Q4H PRN IV SBP>160 Last administered on 03/20 17:12; Admin Dose 10 MG; Start 03/18/17 at 12:00 Clonidine HCl 1 patch 1 patch Q7D TRANSDERM Last administered on 03/19/17 14: 39; Admin Dose 1 PATCH; Start 03/19/17 at 14:00 Fluconazole (Diflucan 400 Mg/ NS (Pmx)) 200 ml @ 200 mls/hr Q24H IVPB Last administered on 03/25/17 13:12; Admin Dose 200 MLS/HR; Start 03/20/17 at 13:00 Clonidine HCl (Catapres-Tts 1 Patch) 1 patch Q7D TRANSDERM Last administered on 03/20/17 13:53; Admin Dose 1 PATCH; Start 03/20/17 at 13:00 Insulin Glargine (Lantus) 12 unit QHS SC Last administered on 03/25/17 21:57; Admin Dose 12 UNIT; Start 03/22/17 at 21:00 Magnesium Hydroxide (Milk Of Mag) 30 ml DAILY PRN PO CONSTIPATION; Start at 09:00 Collagenase (Santyl) 1 applic DAILY TOP ; Start 03/23/17 at 12:30 Collagenase (Santyl) 1 applic PRN PRN TOP WOUND CARE; Start 03/23/17 at 11:30 Heparin Sodium (Porcine) (Heparin (5000 Units/0.5 ml)) 5,000 unit Q8 SC Last administered on 03/26/17 06:49; Admin Dose 5,000 UNIT; Start 03/24/17 at 22:00 Aspirin (Aspirin) 300 mg DAILY [place] Last administered on 03/25/17 08:45; Admin Dose 300 MG; Start 03/25/17 at 09:00 Metoprolol Tartrate (Lopressor) 25 mg BID PO ; Start 03/25/17 at 21:00 Famotidine (Pepcid) 20 mg BID PO Last administered on 03/25/17 21:25; Admin Dose 20 MG; Start 03/25/17 at 21:00 Simethicone (Mylicon) 80 mg Q6H PRN PO DISTENSION/GAS/BLOATING; Start 03/25/17 at 10:30 BEBA HENSON NP Mar 26, 2017 10:08
--- NOTE | 2017-03-26 11:15 | CONS ---
Date/Time of Note Date/Time of Note DATE: 03/26/17 TIME: 11:14 Assessment/Plan Assessment/Plan Chief Complaint/Hosp Course IMP: 1.Nstemi-Increased troponin/CK-MB which started to downtrend today. NO CP. NL EF by echo 2.HTN 3.SBO 4.PAD s/p LLE amputation POD#2 5. Hypopthyroid 6.UTI 7.anemia Recc: -Tele -serial ecg's -Continue PO BB -Continue clonidine TTS -Continue abx's and f/u cx data -trend cardiac enzymes -Continue heparin SQ /ASA -Pain control -[facility] with possible PTCA/stent today Problems: Consultation Date/Type/Reason Admit Date/Time Mar 16, 2017 at 22:23 Initial Consult Date 03/17/17 Type of Consultation: cardiology Reason for Consultation NSTEMI Referring Provider: TOPHER DUNBAR MD Exam/Review of Systems Vital Signs Vitals Vital Signs Date Time Temp Pulse Resp B/P Pulse Ox O2 Delivery O2 Flow Rate FiO2 03/26/17 10:56 98.3 99 18 94/51 97 03/25/17 23:50 Nasal Cannula 2.0 Intake and Output 03/25/17 03/25/17 03/26/17 15:00 23:00 07:00 Intake Total 600 ml 200 ml Output Total 400 ml 275 ml Balance 200 ml -75 ml Exam Review of Systems: CONSTITUTIONAL: No fevers, chills. PULMONARY: No sob CARDIOVASCULAR: No chest pain/palpitations GASTROINTESTINAL: No nausea/vomiting. GENITOURINARY: No hematuria/dysuria. MUSCULOSKELETAL: No myagias/arthalgias. PSYCHIATRIC: The patient denies depression. NEUROLOGIC: No weakness Constitutional: alert Psych: no complaints Head: normocephalic ENMT: mucosa pink and moist Neck: jvd (8-9 cm water), supple Respiratory: diminished breath sounds (at bases/B) Cardiovascular: regular rate and rhythm Gastrointestinal: non-tender, soft Musculoskeletal: muscle tone (normal) Extremities: edema (none) Neurological: other (No focal deficits) Results Result Diagram: 03/26/17 0716 03/26/17 0716 Results 24 hrs Laboratory Tests Test 03/25/17 12:04 03/25/17 16:42 03/25/17 21:27 03/26/17 07:16 Bedside Glucose 135 106 115 White Blood Count 11.9 #H Red Blood Count 3.10 L Hemoglobin 8.7 L Hematocrit 27.7 L Mean Corpuscular Volume 89.4 Mean Corpuscular Hemoglobin 28.1 L Mean Corpuscular Hemoglobin Concent 31.4 L Red Cell Distribution Width 13.4 Platelet Count 319 # Mean Platelet Volume 12.2 H Neutrophils % 74.3 Lymphocytes % 13.6 L Monocytes % 11.4 H Eosinophils % 0.3 Basophils % 0.1 Nucleated Red Blood Cells % 0.0 Neutrophils # 8.8 H Lymphocytes # 1.6 Monocytes # 1.4 H Eosinophils # 0.0 Basophils # 0.0 Nucleated Red Blood Cells # 0.0 Sodium Level 134 L Potassium Level 3.6 Chloride Level 87 L Carbon Dioxide Level 34 H Anion Gap 17 H Blood Urea Nitrogen 16 Creatinine 0.83 Glucose Level 42 #*L Calcium Level 8.2 L Creatine Kinase 660 H Creatine Kinase Index 2.2 Creatinine Kinase MB (Mass) 14.20 H Troponin I 11.400 *H Test 03/26/17 08:31 03/26/17 10:22 Bedside Glucose 45 *L 52 L Medications Medications Current Medications Ondansetron HCl (Zofran Inj) 4 mg Q6H PRN IV NAUSEA AND/OR VOMITING Last administered on 03/24/17 08:20; Admin Dose 4 MG; Start 03/17/17 at 01:00 Morphine Sulfate (morphine) 2 mg Q4H PRN IV PAIN LEVEL 7-10 Last administered on 03/26/17 06:57; Admin Dose 2 MG; Start 03/17/17 at 01:00 Amlodipine Besylate (Norvasc) 10 mg DAILY PO Last administered on 03/17/17 09: 59; Admin Dose 10 MG; Start 03/17/17 at 09:00; Status Future Hold Atenolol (Tenormin) 100 mg DAILY PO Last administered on 03/17/17 10:00; Admin Dose 100 MG; Start 03/17/17 at 09:00; Status Future Hold Benazepril HCl (Lotensin) 10 mg DAILY PO Last administered on 03/17/17 09:57; Admin Dose 10 MG; Start 03/17/17 at 09:00; Status Future Hold Gabapentin (Neurontin) 300 mg BID PO Last administered on 03/25/17 21:24; Admin Dose 300 MG; Start 03/17/17 at 09:00 Atorvastatin Calcium (Lipitor) 10 mg DAILY@21 PO ; Start 03/17/17 at 21:00; Status Future Hold Miscellaneous Information 1 ea NOTE XX ; Start 03/17/17 at 12:00 Glucose (Glutose) 15 gm Q15M PRN PO DECREASED GLUCOSE Last administered on 03/26 10:59; Admin Dose 15 GM; Start 03/17/17 at 12:00 Glucose (Glutose) 22.5 gm Q15M PRN PO DECREASED GLUCOSE; Start 03/17/17 at 12: 00 Dextrose (D50w Syringe) 25 ml Q15M PRN IV DECREASED GLUCOSE Last administered on 03/19/17 06:08; Admin Dose 25 ML; Start 03/17/17 at 12:00 Dextrose (D50w Syringe) 50 ml Q15M PRN IV DECREASED GLUCOSE; Start 03/17/17 at 12:00 Glucagon (Glucagen) 1 mg Q15M PRN IM DECREASED GLUCOSE; Start 03/17/17 at 12:00 Glucose (Glutose) 15 gm Q15M PRN BUCCAL DECREASED GLUCOSE Last administered on 03/26/17 09:24; Admin Dose 15 GM; Start 03/17/17 at 12:00 Diagnostic Test (Pha) (Accu-Chek) 1 ea 02 XX ; Start 03/19/17 at 02:00 Levothyroxine Sodium (Synthroid Iv) 75 mcg DAILY@06 IV Last administered on 06:39; Admin Dose 75 MCG; Start 03/19/17 at 06:00 Hydralazine HCl (Apresoline) 10 mg Q4H PRN IV SBP>160 Last administered on 03/20 17:12; Admin Dose 10 MG; Start 03/18/17 at 12:00 Clonidine HCl 1 patch 1 patch Q7D TRANSDERM Last administered on 03/19/17 14: 39; Admin Dose 1 PATCH; Start 03/19/17 at 14:00 Fluconazole (Diflucan 400 Mg/ NS (Pmx)) 200 ml @ 200 mls/hr Q24H IVPB Last administered on 03/25/17 13:12; Admin Dose 200 MLS/HR; Start 03/20/17 at 13:00 Clonidine HCl (Catapres-Tts 1 Patch) 1 patch Q7D TRANSDERM Last administered on 03/20/17 13:53; Admin Dose 1 PATCH; Start 03/20/17 at 13:00 Insulin Glargine (Lantus) 12 unit QHS SC Last administered on 03/25/17 21:57; Admin Dose 12 UNIT; Start 03/22/17 at 21:00; Status Future Hold Magnesium Hydroxide (Milk Of Mag) 30 ml DAILY PRN PO CONSTIPATION; Start at 09:00 Collagenase (Santyl) 1 applic DAILY TOP ; Start 03/23/17 at 12:30 Collagenase (Santyl) 1 applic PRN PRN TOP WOUND CARE; Start 03/23/17 at 11:30 Heparin Sodium (Porcine) (Heparin (5000 Units/0.5 ml)) 5,000 unit Q8 SC Last administered on 03/26/17 06:49; Admin Dose 5,000 UNIT; Start 03/24/17 at 22:00 Aspirin (Aspirin) 300 mg DAILY [place] Last administered on 03/25/17 08:45; Admin Dose 300 MG; Start 03/25/17 at 09:00 Metoprolol Tartrate (Lopressor) 25 mg BID PO ; Start 03/25/17 at 21:00 Famotidine (Pepcid) 20 mg BID PO Last administered on 03/25/17 21:25; Admin Dose 20 MG; Start 03/25/17 at 21:00 Simethicone 80 mg 80 mg Q6H PRN PO DISTENSION/GAS/BLOATING; Start 03/25/17 at 10:30 Dextrose/Sodium Chloride (D5-1/2ns) 1,000 ml @ 50 mls/hr Q20H IV ; Start at 10:00 JAVI LION Mar 26, 2017 11:15
--- NOTE | 2017-03-26 12:35 | PN ---
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 -Dynamics orthotics to be consulted for prosthetic evaluation and irrigator valve pipe placement -Continue supportive care -Follow up with daren in 2 weeks -Optimize vascular status (BP meds, diet nutrition, antiplatelets, sugar control ) -Discussed findings, plan and management with the patient and she understands -Thank you for allowing us to partake in the care of your patient, please call with any questions Problems: Subjective 24 Hr Interval Summary no new vascular events overnight Exam/Review of Systems Vital Signs Vitals Vital Signs Date Time Temp Pulse Resp B/P Pulse Ox O2 Delivery O2 Flow Rate FiO2 03/26/17 12:09 94 03/26/17 10:56 98.3 18 94/51 97 03/25/17 23:50 Nasal Cannula 2.0 Intake and Output 03/25/17 03/25/17 03/26/17 14:59 22:59 06:59 Intake Total 600 ml 200 ml Output Total 400 ml 275 ml Balance 200 ml -75 ml Exam Free Text/Dictation GENERAL: Alert and oriented x3 LUNGS: Clear to auscultation bilaterally. . CARDIOVASCULAR: S1, S2 present. ABDOMEN: Soft, nontender, nondistended. Bowel sounds positive. EXTREMITIES: Right lower extremity: femoral pulse. Nonpalpable pedal pulse. Motor and sensory intact. Capillary refill of 3-4 seconds. Left lower extremity: femoral pulse. Motor and sensory intact. Capillary refill of 2-3 seconds. stump site clean and intact Results Result Diagram: 03/26/17 0716 03/26/17 0716 BERNY MOORE MD Mar 26, 2017 12:35
[2017-03-26] MEDS ORDERED: IODIXANOL LOCM 100 ML BTL ONE (12:49)
[2017-03-26] MEDS ORDERED: LIDOCAINE 1% (MDV) 20 ML INJ ONE (12:49)
[2017-03-26] MEDS ORDERED: HEPARIN 1000 UNITS/ML 10 ML INJ ONE (12:50)
[2017-03-26] MEDS ORDERED: VERAPAMIL 5 MG INJ ONE (12:50)
[2017-03-26] MEDS ORDERED: NITROGLYCERIN (IC) 100 MCG/ML INJ ONE (12:50)
[2017-03-26] MEDS ORDERED: FENTAnyl 50 MCG/ML VIAL ONE (12:51)
[2017-03-26] MEDS ORDERED: MIDAZOLAM 1 MG/ML 2 ML INJ ONE (12:51)
[2017-03-26] MEDS: FLUCONAZOLE 400 MG/NS (PMX) 200 ML IVPB SCH (13:00)
--- NOTE | 2017-03-26 13:24 | PN ---
Date/Time of Note Date/Time of Note DATE: 03/26/17 TIME: 13:18 Assessment/Plan Lines/Catheters IV Catheter Type (from [facility]): Saline Lock Desai in Place (from [facility]): Yes Assessment/Plan Chief Complaint/Hosp Course 1. Abdominal pain with CT findings are suggestive of either obstructive pattern versus ileus. Patient has gas and stool in the colon. Less likelihood of bowel ischemia; Flatus. SBFT noted. NGT out, vomiting overnight but improved now; tolerating diet -diet as tolerated -close monitoring 2. PVD/PAD with Left lower extremity ischemia with tissue necrosis and gangrene ; s/p left AKA with thrombectomy; -Anticoagulation 3. Elevated troponin with possible demand ischemia and DE; left heart cath today -Cardiac evaluation on optimization 4. Elevated BNP with possible CHF -Judicious fluid management -Cardiac optimization 5. Renal insufficiency, multifactorial secondary to above; cr normalized -Judicious fluid management and avoid nephrotoxic agents as possible 6. Anemia. no nat bleed noted. h/h stable -Close monitoring -Transfuse as needed 7. Diabetes: one episode of hypoglycemia again today; BS improved -Diet and medication optimization 8. Hypertension: improved -Diet and medication optimization 9. Hypercholesterolemia -Diet and medication optimization 10. Leukocytosis: 2/2 #1 and #2 normalized; wbc up again today: likely 2/2 #7; afebrile -monitor 11. NSTEMI: elevated troponin, no cp; left heart cath today -further workup per cardiology Patient seen and examined in collaboration with Dr. Steffen Kelly Problems: Subjective 24 Hr Interval Summary Hypoglycemic episode today. Left heart cath today. +bowel function. Tolerating diet, NPO for procedure. No c/o chakraborty, dizziness, cp, palpitations, n/v/d. Exam/Review of Systems Vital Signs Vitals Vital Signs Date Time Temp Pulse Resp B/P Pulse Ox O2 Delivery O2 Flow Rate FiO2 03/26/17 12:09 94 03/26/17 10:56 98.3 18 94/51 97 03/25/17 23:50 Nasal Cannula 2.0 Intake and Output 03/25/17 03/25/17 03/26/17 14:59 22:59 06:59 Intake Total 600 ml 200 ml Output Total 400 ml 275 ml Balance 200 ml -75 ml Exam Free Text/Dictation Constitutional: awake, NAD Psych: confused but able to answer simple questions, follows commands No anxiety, No nl mood/affect Head: atraumatic, normocephalic Eyes: EOMI, PERRL, nl conjunctiva, No icteric ENMT: nl external ears & nose, nl lips & teeth, NG tube No mucosa pink and moist (Dry mucosa) Neck: jvd, non-tender, supple Respiratory: normal air movement, No congested cough, No diminished breath sounds, No labored breathing Cardiovascular: regular rate and rhythm, No edema Gastrointestinal: nondistended, soft, nontender, bowel sounds x4 No firm, No rebound or guarding, Musculoskeletal: No joint tenderness, No nl extremities to inspection (Left AKA ), No nl gait and stance Extremities: No calf tenderness, No normal pulses Neurological: nl speech, No nl strength Skin: No diaphoresis, No nl turgor, No rash or lesions Lymph: nl lymph nodes Results Result Diagram: 03/26/17 0716 03/26/17 0716 JULIANA RUFFIN NP Mar 26, 2017 13:24
[2017-03-26] MEDS: CLONIDINE 0.3 MG/24 HR PATCH TRANSDERM SCH (14:00)
[2017-03-26] MEDS ORDERED: SOD CHLORIDE 0.9% 1,000 ML IV SCH (14:23)
--- NOTE | 2017-03-26 14:24 | RADRPT ---
PROCEDURE: XR Chest. CLINICAL INDICATION: CHF TECHNIQUE: Single frontal view of the chest was obtained COMPARISON: Chest x-ray 03/25/2017 FINDINGS: There has been interval increase in pulmonary vascular congestion and diffuse prominent interstitial lung markings likely representing increased pulmonary interstitial edema. Bilateral pleural effusi ons appear increased in size, likely small to moderate. The cardiac silhouette is enlarged, but partially obscured by adjacent opacities. There are atherosclerotic calcifications of the thoracic aorta. No pneumothorax is identified. There are degenerative changes of the visualized spine. IMPRESSION: 1. Interval increase in both pulmonary vascular congestion and diffuse interstitial pulmonary edema. Underlying infection cannot be excluded. 2. Probable increase in bilateral pleural effusions, now likely small moderate in size. 3. Aortic atherosclerotic disease. 4. Cardiomegaly. RPTAT: PP Physician Gosia Date Time Electronically viewed and signed by Physician Gosia on 03/26/2017 14:24 ARNAV/
[2017-03-26] MEDS ORDERED: AL HYDROX/MG HYDROX/SIMETH 30 ML CUP PO PRN (14:30)
[2017-03-26] MEDS ORDERED: ONDANSETRON 4 MG INJ IV PRN (14:30)
[2017-03-26 15:57] LABS: EOSINOPHILS % 0.4 % (0.0-7.0); HEMATOCRIT 25.1 % (37.0-47.0); HEMOGLOBIN 8.1 g/dl (12.0-16.0); LYMPHOCYTES # 1.2 10^3/ul (0.8-2.9); LYMPHOCYTES % 15.3 % (15.0-51.0); MEAN CORPUSCULAR HEMOGLOBIN 29.1 pg (29.0-33.0); MEAN CORPUSCULAR HGB CONC 32.3 g/dl (32.0-37.0); MEAN CORPUSCULAR VOLUME 90.3 fl (82.0-101.0); MONOCYTE # 0.8 10^3/ul (0.3-0.9); MONOCYTES % 9.4 % (0.0-11.0); NEUTROPHILS % 74.5 % (39.0-77.0); PLATELET COUNT 244 10^3/UL (140-415); RED BLOOD COUNT 2.78 10^6/ul (4.20-5.40); RED CELL DISTRIBUTION WIDTH 13.2 % (11.5-14.5)
[2017-03-26 16:25] LABS: CALCIUM 7.6 mg/dl (8.4-10.2); CREATININE 0.89 mg/dl (0.44-1.00); POTASSIUM 4.1 mmol/L (3.5-5.1)
--- NOTE | 2017-03-26 17:24 | PN ---
Date/Time of Note Date/Time of Note DATE: 03/26/17 TIME: 17:20 Assessment/Plan VTE Prophylaxis VTE Prophylaxis Intervention: heparin Lines/Catheters IV C[facility] Type [facility]from [facility] Saline Lock Urinary Cath still in place: Yes Reason Cath still needed: urinary retention Assessment/Plan Chief Complaint/Hosp Course . Problems: Assessment/Plan Assessment * Nausea/vomiting resolved * Elevated troponin * Abdominal pain Ileus resolved Small bowel follow through . No definite evidence of obstruction. However, the colon is not opacified due to dilution of contrast at 12 hours. * S/P above knee amputation left Impending gangrene foot left * PAD * Diabetes mellitus Plan * will signed out for now and follow up as needed * continue present management * case discussed with Dr Chaudhary * further orders will depend on clinical course Subjective 24 Hr Interval Summary Free Text/Dictation * Course reviewed with RN * Patient seen and examined * No untoward events overnight * post heart catheterization Exam/Review of Systems Vital Signs Vitals Vital Signs Date Time Temp Pulse Resp B/P Pulse Ox O2 Delivery O2 Flow Rate FiO2 03/26/17 16:36 102 24 99/65 93 03/26/17 16:31 Nasal Cannula 2.0 03/26/17 10:56 98.3 Intake and Output 03/25/17 03/25/17 03/26/17 15:00 23:00 07:00 Intake Total 600 ml 200 ml Output Total 400 ml 275 ml Balance 200 ml -75 ml Exam Constitutional: alert, oriented Neck: non-tender, supple Respiratory: clear to auscultation, normal air movement Cardiovascular: nl pulses Gastrointestinal: nl liver, spleen, non-tender, soft Musculoskeletal: nl extremities to inspection, nl gait and stance Extremities: normal pulses Neurological: nl mental status Results Result Diagram: 03/26/17 1546 03/26/17 1546 Results 24 hrs Laboratory Tests Test 03/25/17 21:27 03/26/17 07:16 03/26/17 08:31 03/26/17 10:22 Bedside Glucose 115 45 *L 52 L White Blood Count 11.9 #H Red Blood Count 3.10 L Hemoglobin 8.7 L Hematocrit 27.7 L Mean Corpuscular Volume 89.4 Mean Corpuscular Hemoglobin 28.1 L Mean Corpuscular Hemoglobin Concent 31.4 L Red Cell Distribution Width 13.4 Platelet Count 319 # Mean Platelet Volume 12.2 H Neutrophils % 74.3 Lymphocytes % 13.6 L Monocytes % 11.4 H Eosinophils % 0.3 Basophils % 0.1 Nucleated Red Blood Cells % 0.0 Neutrophils # 8.8 H Lymphocytes # 1.6 Monocytes # 1.4 H Eosinophils # 0.0 Basophils # 0.0 Nucleated Red Blood Cells # 0.0 Sodium Level 134 L Potassium Level 3.6 Chloride Level 87 L Carbon Dioxide Level 34 H Anion Gap 17 H Blood Urea Nitrogen 16 Creatinine 0.83 Glucose Level 42 #*L Calcium Level 8.2 L Creatine Kinase 660 H Creatine Kinase Index 2.2 Creatinine Kinase MB (Mass) 14.20 H Troponin I 11.400 *H Test 03/26/17 11:59 03/26/17 15:46 03/26/17 16:18 Bedside Glucose 82 118 White Blood Count 8.0 # Red Blood Count 2.78 L Hemoglobin 8.1 L Hematocrit 25.1 L Mean Corpuscular Volume 90.3 Mean Corpuscular Hemoglobin 29.1 Mean Corpuscular Hemoglobin Concent 32.3 Red Cell Distribution Width 13.2 Platelet Count 244 # Mean Platelet Volume 11.0 H Neutrophils % 74.5 Lymphocytes % 15.3 Monocytes % 9.4 Eosinophils % 0.4 Basophils % 0.0 Nucleated Red Blood Cells % 0.0 Neutrophils # 6.0 Lymphocytes # 1.2 Monocytes # 0.8 Eosinophils # 0.0 Basophils # 0.0 Nucleated Red Blood Cells # 0.0 Sodium Level 132 L Potassium Level 4.1 Chloride Level 89 L Carbon Dioxide Level 33 H Anion Gap 14 Blood Urea Nitrogen 14 Creatinine 0.89 Glucose Level 116 # Calcium Level 7.6 L Medications Medications Current Medications Ondansetron HCl (Zofran Inj) 4 mg Q6H PRN IV NAUSEA AND/OR VOMITING Last administered on 03/24/17 08:20; Admin Dose 4 MG; Start 03/17/17 at 01:00 Morphine Sulfate (morphine) 2 mg Q4H PRN IV PAIN LEVEL 7-10 Last administered on 03/26/17 06:57; Admin Dose 2 MG; Start 03/17/17 at 01:00 Amlodipine Besylate (Norvasc) 10 mg DAILY PO Last administered on 03/17/17 09: 59; Admin Dose 10 MG; Start 03/17/17 at 09:00; Status Future Hold Atenolol (Tenormin) 100 mg DAILY PO Last administered on 03/17/17 10:00; Admin Dose 100 MG; Start 03/17/17 at 09:00; Status Future Hold Benazepril HCl (Lotensin) 10 mg DAILY PO Last administered on 03/17/17 09:57; Admin Dose 10 MG; Start 03/17/17 at 09:00; Status Future Hold Gabapentin (Neurontin) 300 mg BID PO Last administered on 03/25/17 21:24; Admin Dose 300 MG; Start 03/17/17 at 09:00 Atorvastatin Calcium (Lipitor) 10 mg DAILY@21 PO ; Start 03/17/17 at 21:00; Status Future Hold Miscellaneous Information 1 ea NOTE XX ; Start 03/17/17 at 12:00 Glucose (Glutose) 15 gm Q15M PRN PO DECREASED GLUCOSE Last administered on 03/26 10:59; Admin Dose 15 GM; Start 03/17/17 at 12:00 Glucose (Glutose) 22.5 gm Q15M PRN PO DECREASED GLUCOSE; Start 03/17/17 at 12: 00 Dextrose (D50w Syringe) 25 ml Q15M PRN IV DECREASED GLUCOSE Last administered on 03/19/17 06:08; Admin Dose 25 ML; Start 03/17/17 at 12:00 Dextrose (D50w Syringe) 50 ml Q15M PRN IV DECREASED GLUCOSE; Start 03/17/17 at 12:00 Glucagon (Glucagen) 1 mg Q15M PRN IM DECREASED GLUCOSE; Start 03/17/17 at 12:00 Glucose (Glutose) 15 gm Q15M PRN BUCCAL DECREASED GLUCOSE Last administered on 03/26/17 09:24; Admin Dose 15 GM; Start 03/17/17 at 12:00 Diagnostic Test (Pha) (Accu-Chek) 1 ea 02 XX ; Start 03/19/17 at 02:00 Levothyroxine Sodium (Synthroid Iv) 75 mcg DAILY@06 IV Last administered on 06:39; Admin Dose 75 MCG; Start 03/19/17 at 06:00 Hydralazine HCl (Apresoline) 10 mg Q4H PRN IV SBP>160 Last administered on 03/20 17:12; Admin Dose 10 MG; Start 03/18/17 at 12:00 Clonidine HCl 1 patch 1 patch Q7D TRANSDERM Last administered on 03/19/17 14: 39; Admin Dose 1 PATCH; Start 03/19/17 at 14:00 Fluconazole (Diflucan 400 Mg/ NS (Pmx)) 200 ml @ 200 mls/hr Q24H IVPB Last administered on 03/25/17 13:12; Admin Dose 200 MLS/HR; Start 03/20/17 at 13:00 Clonidine HCl (Catapres-Tts 1 Patch) 1 patch Q7D TRANSDERM Last administered on 03/20/17 13:53; Admin Dose 1 PATCH; Start 03/20/17 at 13:00 Insulin Glargine (Lantus) 12 unit QHS SC Last administered on 03/25/17 21:57; Admin Dose 12 UNIT; Start 03/22/17 at 21:00; Status Future Hold Magnesium Hydroxide (Milk Of Mag) 30 ml DAILY PRN PO CONSTIPATION; Start at 09:00 Collagenase (Santyl) 1 applic DAILY TOP ; Start 03/23/17 at 12:30 Collagenase (Santyl) 1 applic PRN PRN TOP WOUND CARE; Start 03/23/17 at 11:30 Heparin Sodium (Porcine) (Heparin (5000 Units/0.5 ml)) 5,000 unit Q8 SC Last administered on 03/26/17 06:49; Admin Dose 5,000 UNIT; Start 03/24/17 at 22:00 Aspirin (Aspirin) 300 mg DAILY VA Last administered on 03/25/17 08:45; Admin Dose 300 MG; Start 03/25/17 at 09:00 Metoprolol Tartrate (Lopressor) 25 mg BID PO ; Start 03/25/17 at 21:00 Famotidine (Pepcid) 20 mg BID PO Last administered on 03/25/17 21:25; Admin Dose 20 MG; Start 03/25/17 at 21:00 Simethicone 80 mg 80 mg Q6H PRN PO DISTENSION/GAS/BLOATING; Start 03/25/17 at 10:30 Dextrose/Sodium Chloride (D5-1/2ns) 1,000 ml @ 50 mls/hr Q20H IV ; Start at 10:00 Al Hydrox/Mg Hydrox/Simethicone (Mag-Al Plus) 30 ml Q4H PRN PO GASTROINTESTINAL UPSET; Start 03/26/17 at 14:30 Ondansetron HCl 4 mg 4 mg Q4H PRN IV NAUSEA AND/OR VOMITING; Start 03/26/17 at 14:30 Sodium Chloride (NS) 1,000 ml @ 75 mls/hr [id number] IV Last administered on 03/26t 15:18; Admin Dose 75 MLS/HR; Start 03/26/17 at 14:23; Stop 03/26/17 at 19: 22 LUANN MACIAS NP Mar 26, 2017 17:24
[2017-03-27] VITALS (11 sets, daily range): BP systolic 90–105; BP diastolic 51–60; PULSE 85–99; RESP 18–19
[2017-03-27] MEDS: ACCU-CHEK XX SCH (02:00)
[2017-03-27] MEDS: morphine 2 MG INJ IV PRN (04:45)
[2017-03-27] MEDS: DEXTROSE 5%-0.45% NACL 1,000 ML IV SCH (06:11)
[2017-03-27] MEDS: LEVOTHYROXINE 100 MCG VIAL IV SCH (06:11)
[2017-03-27 06:24] LABS: BASOPHILS % 0.1 % (0.0-2.0); EOSINOPHILS % 0.3 % (0.0-7.0); HEMATOCRIT 26.2 % (37.0-47.0); LYMPHOCYTES % 13.1 % (15.0-51.0); MEAN CORPUSCULAR HEMOGLOBIN 27.9 pg (29.0-33.0); MEAN CORPUSCULAR HGB CONC 30.5 g/dl (32.0-37.0); MEAN CORPUSCULAR VOLUME 91.3 fl (82.0-101.0); MEAN PLATELET VOLUME 11.7 fl (7.4-10.4); MONOCYTE # 0.6 10^3/ul (0.3-0.9); MONOCYTES % 8.1 % (0.0-11.0); PLATELET COUNT 241 10^3/UL (140-415); RED BLOOD COUNT 2.87 10^6/ul (4.20-5.40); RED CELL DISTRIBUTION WIDTH 13.3 % (11.5-14.5); WHITE BLOOD COUNT 7.7 10^3/ul (4.8-10.8)
[2017-03-27] MEDS: HEPARIN 5,000 UNIT/0.5 ML VIAL SC SCH ×3 (06:26→22:16)
[2017-03-27 07:23] LABS: CALCIUM 7.6 mg/dl (8.4-10.2); CREATININE 1.01 mg/dl (0.44-1.00)
--- NOTE | 2017-03-27 07:35 | CARRPT ---
DATE OF PROCEDURE: 03/26/2017 PROCEDURES: 1. Left heart catheterization. 2. Coronary angiography. 3. Left vesiculogram. ATTENDING PHYSICIAN: Ebenezer Thomson, Medical REFERRING PHYSICIAN: [____]. INDICATION: Non-ST elevation myocardial infarction. TYPE OF ANESTHESIA: Local. BRIEF HISTORY: The patient is a 71-year-old female with a history of hypertension, dyslipidemia, peripheral arterial disease, status post lower extremity amputation who was ruled in for non-ST elevation myocardial infarction. Postoperatively the patient was medically managed and continued to have increased troponins and was brought to cardiac laborer steel handling in order to assess the possibility [____] to manage her symptoms of chest pain and non-ST elevation myocardial infarction. PROCEDURE: After informed consent the patient was brought to the cardiac laborer steel handling where a right radial artery was prepped and draped in the usual sterile fashion and lidocaine administered by anesthesia. Using modified Selinger technique the radial artery was cannulated and 6 [place] [id number] catheter was used to catheterize the left main coronary artery and contrast was injected. We also used the left coronary artery [____]. [____] a GR4 was used to catheterize the right coronary artery [____]. JR4 using a guidewire and 6 [place] pigtail was passed up the aorta down the ascending aorta into the left ventricle. The left end diastolic pressure was measured. Using a power injector 20 cc of contrast was injected opacifying the left ventricle and pull back across the aortic valve, significant gradient which was not removed. Subsequently at this time the patient's radial sheath was removed and [____] procedure. No complications. FINDINGS: 1. Coronary angiography: Left main 4 mm with an ostial 60 percent stenosis. Circumflex approximately is a 3 mm vessel and its mid portion has a 50 percent stenosis. The distal portion [____] become diffusely diseased with stenosis up to approximately 80 to 90 percent. There is a mid branch [____] vessel diffuse disease up to approximately 70 percent. The LAD proximally is a 3 mm vessel and [____] stent with restenosed approximately 60 percent in the mid portion. There is high grade stenosis in the LAD approximately 95 percent diffusely. The LAD is a small capsular vessel [____] [____] up to 80 percent of the distal portion. There is a mid branching diagonal approximately [____] with significant [____] of 95 percent. The patient's right coronary artery proximally is a [____] vessel and the mid distal portion has [____] stenosis of approximately 80 percent. [____] a small PDA [____] vessel with [____] stenosis and small post lateral branch with stenosis up to approximately 70 percent. 2. Left vesiculogram revealed a severely depressed left ejection fraction of approximately 25 percent with the majority of the patient's contraction preserved in the base and severe anteroapical hypokinesis. Left end diastolic pressure is 12 [____], 14 [____], no significant [____] gradient. 3. Total fluoroscopy time 3.5 minutes. 4. Total contrast 70 cc. IMPRESSION: 1. Multi vessel obstructive coronary artery disease involving an ostial left main stenosis, diffuse disease throughout the LAD and diagonals. Diffuse disease in the distal circumflex, and high grade mid right coronary artery stenosis. 2. Normal left heart filling pressures. 3. One to 2 plus mitral regurgitation. RECOMMENDATIONS: 1. In light of the findings at this time, the patient will be referred for possible coronary artery bypass graft surgery and if thought to be a poor candidate she will be considered for high risk multi vessel PCI. 2. Maximize medical management. Aggressive [____]. 3. The patient will be readmitted to the telemetry floor for post-catheterization to continue to manage symptoms. Dictated By: Nu Akbar /[email or web address]/[email or web address] /Document#: [id number] ; Dr. Link/unsure of spelling
[2017-03-27] MEDS: METOPROLOL 50 MG TAB PO SCH (09:00)
[2017-03-27] MEDS: GABAPENTIN 300 MG CAP PO SCH ×2 (09:42→20:42)
[2017-03-27] MEDS: CALCIUM CARBONATE 500 MG CHEW TAB PO SCH ×3 (09:42→19:00)
[2017-03-27] MEDS: ASPIRIN 325 MG TAB PO SCH (09:42)
[2017-03-27] MEDS: FAMOTIDINE 20 MG TAB PO SCH ×2 (09:43→20:42)
[2017-03-27] MEDS: COLLAGENASE 30 GM TUBE TOP SCH (09:44)
[2017-03-27] MEDS: CLONIDINE 0.1 MG/24 HR PATCH TRANSDERM SCH (12:27)
[2017-03-27] MEDS: FLUCONAZOLE 200 MG TAB PO SCH (13:00)
--- NOTE | 2017-03-27 13:21 | CONS ---
Date/Time of Note Date/Time of Note DATE: 03/27/17 TIME: 13:16 Assessment/Plan Assessment/Plan Chief Complaint/Hosp Course IMP: 1.Nstemi-Increased troponin/CK-MB which started to downtrend today. NO CP. Now s /p LHC revealing mutivessel obstructive cad and now newly decreased LVEF 25% by cath LV gram 2.HTN 3.SBO 4.PAD now [post-op s/p LLE amputation 5. Hypopthyroid 6.UTI 7.anemia Recc: -Tele -serial ecg's -Continue PO BB as trolerated and start low dose afterload reduction as tolerated -Holding clonidine TTS -Continue abx's and f/u cx data -trend cardiac enzymes -Continue heparin SQ /ASA -Pain control -Awaiting CT surgical eval for possible cabg Problems: Consultation Date/Type/Reason Admit Date/Time Mar 16, 2017 at 22:23 Initial Consult Date 03/17/17 Type of Consultation: cardiology Reason for Consultation nstemi/cad Referring Provider: TOPHER DUNBAR MD Exam/Review of Systems Vital Signs Vitals Vital Signs Date Time Temp Pulse Resp B/P Pulse Ox O2 Delivery O2 Flow Rate FiO2 03/27/17 12:46 91 03/27/17 11:22 Nasal Cannula 2.0 03/27/17 11:04 98.3 18 101/57 95 Intake and Output 03/26/17 03/26/17 03/27/17 15:00 23:00 07:00 Intake Total 240 ml 240 ml Output Total 150 ml 275 ml Balance 90 ml -35 ml Exam Review of Systems: CONSTITUTIONAL: No fevers, chills. PULMONARY: No sob CARDIOVASCULAR: No chest pain/palpitations GASTROINTESTINAL: No nausea/vomiting. GENITOURINARY: No hematuria/dysuria. MUSCULOSKELETAL: No myagias/arthalgias. PSYCHIATRIC: The patient denies depression. NEUROLOGIC: lethargic Constitutional: alert Psych: no complaints Head: normocephalic ENMT: mucosa pink and moist Neck: jvd (8-9 cm water), supple Respiratory: diminished breath sounds (at bases/B) Cardiovascular: regular rate and rhythm Gastrointestinal: non-tender, soft Musculoskeletal: muscle tone (normal) Extremities: edema (none) Neurological: other (No focal deficits) Results Result Diagram: 03/27/17 0557 03/27/17 0557 Results 24 hrs Laboratory Tests Test 03/26/17 15:46 03/26/17 16:18 03/26/17 20:17 03/27/17 05:57 White Blood Count 8.0 # 7.7 Red Blood Count 2.78 L 2.87 L Hemoglobin 8.1 L 8.0 L Hematocrit 25.1 L 26.2 L Mean Corpuscular Volume 90.3 91.3 Mean Corpuscular Hemoglobin 29.1 27.9 L Mean Corpuscular Hemoglobin Concent 32.3 30.5 L Red Cell Distribution Width 13.2 13.3 Platelet Count 244 # 241 Mean Platelet Volume 11.0 H 11.7 H Neutrophils % 74.5 78.0 H Lymphocytes % 15.3 13.1 L Monocytes % 9.4 8.1 Eosinophils % 0.4 0.3 Basophils % 0.0 0.1 Nucleated Red Blood Cells % 0.0 0.0 Neutrophils # 6.0 6.0 Lymphocytes # 1.2 1.0 Monocytes # 0.8 0.6 Eosinophils # 0.0 0.0 Basophils # 0.0 0.0 Nucleated Red Blood Cells # 0.0 0.0 Sodium Level 132 L 132 L Potassium Level 4.1 5.0 Chloride Level 89 L 89 L Carbon Dioxide Level 33 H 33 H Anion Gap 14 15 Blood Urea Nitrogen 14 20 Creatinine 0.89 1.01 H Glucose Level 116 # 266 #H Calcium Level 7.6 L 7.6 L Bedside Glucose 118 185 Medications Medications Current Medications Ondansetron HCl (Zofran Inj) 4 mg Q6H PRN IV NAUSEA AND/OR VOMITING Last administered on 03/24/17 08:20; Admin Dose 4 MG; Start 03/17/17 at 01:00 Morphine Sulfate (morphine) 2 mg Q4H PRN IV PAIN LEVEL 7-10 Last administered on 03/27/17 04:45; Admin Dose 2 MG; Start 03/17/17 at 01:00 Amlodipine Besylate (Norvasc) 10 mg DAILY PO Last administered on 03/17/17 09: 59; Admin Dose 10 MG; Start 03/17/17 at 09:00; Status Future Hold Atenolol (Tenormin) 100 mg DAILY PO Last administered on 03/17/17 10:00; Admin Dose 100 MG; Start 03/17/17 at 09:00; Status Future Hold Benazepril HCl (Lotensin) 10 mg DAILY PO Last administered on 03/17/17 09:57; Admin Dose 10 MG; Start 03/17/17 at 09:00; Status Future Hold Gabapentin (Neurontin) 300 mg BID PO Last administered on 03/27/17 09:42; Admin Dose 300 MG; Start 03/17/17 at 09:00 Atorvastatin Calcium (Lipitor) 10 mg DAILY@21 PO ; Start 03/17/17 at 21:00; Status Future Hold Miscellaneous Information 1 ea NOTE XX ; Start 03/17/17 at 12:00 Glucose (Glutose) 15 gm Q15M PRN PO DECREASED GLUCOSE Last administered on 03/26 10:59; Admin Dose 15 GM; Start 03/17/17 at 12:00 Glucose (Glutose) 22.5 gm Q15M PRN PO DECREASED GLUCOSE; Start 03/17/17 at 12: 00 Dextrose (D50w Syringe) 25 ml Q15M PRN IV DECREASED GLUCOSE Last administered on 03/19/17 06:08; Admin Dose 25 ML; Start 03/17/17 at 12:00 Dextrose (D50w Syringe) 50 ml Q15M PRN IV DECREASED GLUCOSE; Start 03/17/17 at 12:00 Glucagon (Glucagen) 1 mg Q15M PRN IM DECREASED GLUCOSE; Start 03/17/17 at 12:00 Glucose (Glutose) 15 gm Q15M PRN BUCCAL DECREASED GLUCOSE Last administered on 03/26/17 09:24; Admin Dose 15 GM; Start 03/17/17 at 12:00 Diagnostic Test (Pha) (Accu-Chek) 1 ea 02 XX ; Start 03/19/17 at 02:00 Levothyroxine Sodium (Synthroid Iv) 75 mcg DAILY@06 IV Last administered on 06:11; Admin Dose 75 MCG; Start 03/19/17 at 06:00 Hydralazine HCl (Apresoline) 10 mg Q4H PRN IV SBP>160 Last administered on 03/20 17:12; Admin Dose 10 MG; Start 03/18/17 at 12:00 Clonidine HCl (Catapres-Tts 3 Patch) 1 patch Q7D TRANSDERM Last administered on 03/19/17 14:39; Admin Dose 1 PATCH; Start 03/19/17 at 14:00 Clonidine HCl (Catapres-Tts 1 Patch) 1 patch Q7D TRANSDERM Last administered on 03/20/17 13:53; Admin Dose 1 PATCH; Start 03/20/17 at 13:00 Insulin Glargine (Lantus) 12 unit QHS SC Last administered on 03/25/17 21:57; Admin Dose 12 UNIT; Start 03/22/17 at 21:00; Status Future Hold Magnesium Hydroxide (Milk Of Mag) 30 ml DAILY PRN PO CONSTIPATION; Start at 09:00 Collagenase (Santyl) 1 applic DAILY TOP Last administered on 03/27/17 09:44; Admin Dose 1 APPLIC; Start 03/23/17 at 12:30 Collagenase (Santyl) 1 applic PRN PRN TOP WOUND CARE; Start 03/23/17 at 11:30 Heparin Sodium (Porcine) (Heparin (5000 Units/0.5 ml)) 5,000 unit Q8 SC Last administered on 03/27/17 12:37; Admin Dose 5,000 UNIT; Start 03/24/17 at 22:00 Metoprolol Tartrate (Lopressor) 25 mg BID PO ; Start 03/25/17 at 21:00 Famotidine (Pepcid) 20 mg BID PO Last administered on 03/27/17 09:43; Admin Dose 20 MG; Start 03/25/17 at 21:00 Simethicone 80 mg 80 mg Q6H PRN PO DISTENSION/GAS/BLOATING; Start 03/25/17 at 10:30 Dextrose/Sodium Chloride (D5-1/2ns) 1,000 ml @ 50 mls/hr Q20H IV Last administered on 03/27/17 06:11; Admin Dose 50 MLS/HR; Start 03/26/17 at 10:00 Al Hydrox/Mg Hydrox/Simethicone (Mag-Al Plus) 30 ml Q4H PRN PO GASTROINTESTINAL UPSET; Start 03/26/17 at 14:30 Ondansetron HCl (Zofran Inj) 4 mg Q4H PRN IV NAUSEA AND/OR VOMITING; Start at 14:30 Aspirin (Aspirin) 325 mg DAILY PO Last administered on 7/28/17at 09:42; Admin Dose 325 MG; Start 03/27/17 at 09:30 Fluconazole (Diflucan) 400 mg DAILY PO ; Start 03/27/17 at 13:00 JAVI LION Mar 27, 2017 13:21
--- NOTE | 2017-03-27 14:21 | PN ---
Date/Time of Note Date/Time of Note DATE: 03/27/17 TIME: 14:09 Assessment/Plan VTE Prophylaxis VTE Prophylaxis Intervention: heparin Lines/Catheters IV Catheter Type (from [facility]): Saline Lock Urinary Cath still in place: Yes Reason Cath still needed: urinary retention Assessment/Plan Chief Complaint/Hosp Course 1. Left lower extremity critical limb ischemia and gangrene. -Patient status post left [id number] amputation and left lateral artery thrombectomy . Continue surgeon recommendations and vascular checks. 2. Multivessel coronary artery disease. -Status post left heart catheterization with recommendation of CABG-pending CT surgery consult - Continue optimization with anticoagulation, beta terra and DAMION inhibitors. 3. Abdominal pain with CT scan suggestive of possible obstructive pattern versus ileus. Resolved. -Status post NGtube decompression. Small bowel follow-through with no definite evidence of obstruction. 4. Acute on chronic Anemia (likely postoperative). H&H stable. -We will continue to monitor HH closely and transfuse if indicated. 5. Diabetes with A1c of 8.4, now with hypoglycemia secondary to patient being n.p.o. Resolved. -Resume ISS with carb controlled diet-we will monitor and adjust as indicated. Hold all other antidiabetic agents. 6. Essential hypertension. Stable. - On antihypertensives and adjust as needed. 7. Hypothyroidism. Continue on Synthroid 8. Dyslipidemia. Continue on statin 9.Constipation. Resolved. -continue stool softners and PRN Laxatives. 10.Nina UTI. -Continue Azole X 7 day course. 11. Urinary retention possibly neurogenic diabetic bladder.Urology eval appreciated and recommended rivera continuation for now with the plan of starting Urecholine and reassess. Prophylaxis: Heparin subcu/Pepcid Plan: Continue current medical management. Follow-up with CT surgery recommendation. Discussed plan of care with Dr. Grewal Problems: Subjective 24 Hr Interval Summary Free Text/Dictation Patient is status post left heart catheterization. Denies chest pain, palpitation or other discomfort. Had one episode of symptomatic hypoglycemia this morning. Exam/Review of Systems Vital Signs Vitals Vital Signs Date Time Temp Pulse Resp B/P Pulse Ox O2 Delivery O2 Flow Rate FiO2 03/27/17 12:46 91 03/27/17 11:22 Nasal Cannula 2.0 03/27/17 11:04 98.3 18 101/57 95 Intake and Output 03/26/17 03/26/17 03/27/17 15:00 23:00 07:00 Intake Total 240 ml 240 ml Output Total 150 ml 275 ml Balance 90 ml -35 ml Exam General: Thin built, not in any acute distress . HEENT: Normocephalic, Atraumatic, No laceration or hematoma; Eyes: PEERL, Conjunctiva clear, Anicteric sclera Neck: Supple without any lymphadenopathy, nontender, no JVD, no carotid bruits, trachea midline, no thyromegaly Cardiac: S1, S2 auscultated, regular rhythm and rate, no mumurs or gallop Pulmonary: Diminished breath sound bibasilar. Normal respiratory effort. Chest clear to auscultation bilaterally, no adventitious breath sounds GI: Abdomen soft,no masses, no rebound tenderness or guarding. Bowel sounds hypoactive on all four quadrants Genitourinary: Deferred Extremities: Left AKA, surgical dressing intact. Heart cath site intact. Neurologic: Alert to person, place, time, and situation. Affect appropriate, intact sensation. Skin: Clean,dry, and intact. No ecchymosis, no rashes, or lesions Results Result Diagram: 03/27/17 0557 03/27/17 0557 Results 24 hrs Laboratory Tests Test 03/26/17 15:46 03/26/17 16:18 03/26/17 20:17 03/27/17 05:57 White Blood Count 8.0 # 7.7 Red Blood Count 2.78 L 2.87 L Hemoglobin 8.1 L 8.0 L Hematocrit 25.1 L 26.2 L Mean Corpuscular Volume 90.3 91.3 Mean Corpuscular Hemoglobin 29.1 27.9 L Mean Corpuscular Hemoglobin Concent 32.3 30.5 L Red Cell Distribution Width 13.2 13.3 Platelet Count 244 # 241 Mean Platelet Volume 11.0 H 11.7 H Neutrophils % 74.5 78.0 H Lymphocytes % 15.3 13.1 L Monocytes % 9.4 8.1 Eosinophils % 0.4 0.3 Basophils % 0.0 0.1 Nucleated Red Blood Cells % 0.0 0.0 Neutrophils # 6.0 6.0 Lymphocytes # 1.2 1.0 Monocytes # 0.8 0.6 Eosinophils # 0.0 0.0 Basophils # 0.0 0.0 Nucleated Red Blood Cells # 0.0 0.0 Sodium Level 132 L 132 L Potassium Level 4.1 5.0 Chloride Level 89 L 89 L Carbon Dioxide Level 33 H 33 H Anion Gap 14 15 Blood Urea Nitrogen 14 20 Creatinine 0.89 1.01 H Glucose Level 116 # 266 #H Calcium Level 7.6 L 7.6 L Bedside Glucose 118 185 Medications Medications Current Medications Ondansetron HCl (Zofran Inj) 4 mg Q6H PRN IV NAUSEA AND/OR VOMITING Last administered on 03/24/17 08:20; Admin Dose 4 MG; Start 03/17/17 at 01:00 Morphine Sulfate (morphine) 2 mg Q4H PRN IV PAIN LEVEL 7-10 Last administered on 03/27/17 04:45; Admin Dose 2 MG; Start 03/17/17 at 01:00 Amlodipine Besylate (Norvasc) 10 mg DAILY PO Last administered on 03/17/17 09: 59; Admin Dose 10 MG; Start 03/17/17 at 09:00; Status Future Hold Benazepril HCl (Lotensin) 10 mg DAILY PO Last administered on 03/17/17 09:57; Admin Dose 10 MG; Start 03/17/17 at 09:00; Status Future hold Gabapentin (Neurontin) 300 mg BID PO Last administered on 03/27/17 09:42; Admin Dose 300 MG; Start 03/17/17 at 09:00 Atorvastatin Calcium (Lipitor) 10 mg DAILY@21 PO ; Start 03/17/17 at 21:00; Status Future Hold Miscellaneous Information 1 ea NOTE XX ; Start 03/17/17 at 12:00 Glucose (Glutose) 15 gm Q15M PRN PO DECREASED GLUCOSE Last administered on 03/26 10:59; Admin Dose 15 GM; Start 03/17/17 at 12:00 Glucose (Glutose) 22.5 gm Q15M PRN PO DECREASED GLUCOSE; Start 03/17/17 at 12: 00 Dextrose (D50w Syringe) 25 ml Q15M PRN IV DECREASED GLUCOSE Last administered on 03/19/17 06:08; Admin Dose 25 ML; Start 03/17/17 at 12:00 Dextrose (D50w Syringe) 50 ml Q15M PRN IV DECREASED GLUCOSE; Start 03/17/17 at 12:00 Glucagon (Glucagen) 1 mg Q15M PRN IM DECREASED GLUCOSE; Start 03/17/17 at 12:00 Glucose (Glutose) 15 gm Q15M PRN BUCCAL DECREASED GLUCOSE Last administered on 03/26/17 09:24; Admin Dose 15 GM; Start 03/17/17 at 12:00 Diagnostic Test (Pha) (Accu-Chek) 1 ea 02 XX ; Start 03/19/17 at 02:00 Levothyroxine Sodium (Synthroid Iv) 75 mcg DAILY@06 IV Last administered on 06:11; Admin Dose 75 MCG; Start 03/19/17 at 06:00 Hydralazine HCl (Apresoline) 10 mg Q4H PRN IV SBP>160 Last administered on 03/20 17:12; Admin Dose 10 MG; Start 03/18/17 at 12:00 Clonidine HCl (Catapres-Tts 3 Patch) 1 patch Q7D TRANSDERM Last administered on 03/19/17 14:39; Admin Dose 1 PATCH; Start 03/19/17 at 14:00; Status Future Hold Clonidine HCl (Catapres-Tts 1 Patch) 1 patch Q7D TRANSDERM Last administered on 03/20/17 13:53; Admin Dose 1 PATCH; Start 03/20/17 at 13:00; Status Future Hold Insulin Glargine (Lantus) 12 unit QHS SC Last administered on 03/25/17 21:57; Admin Dose 12 UNIT; Start 03/22/17 at 21:00; Status Future Hold Magnesium Hydroxide (Milk Of Mag) 30 ml DAILY PRN PO CONSTIPATION; Start at 09:00 Collagenase (Santyl) 1 applic DAILY TOP Last administered on 03/27/17 09:44; Admin Dose 1 APPLIC; Start 03/23/17 at 12:30 Collagenase (Santyl) 1 applic PRN PRN TOP WOUND CARE; Start 03/23/17 at 11:30 Heparin Sodium (Porcine) (Heparin (5000 Units/0.5 ml)) 5,000 unit Q8 SC Last administered on 03/27/17 12:37; Admin Dose 5,000 UNIT; Start 03/24/17 at 22:00 Famotidine (Pepcid) 20 mg BID PO Last administered on 03/27/17 09:43; Admin Dose 20 MG; Start 03/25/17 at 21:00 Simethicone 80 mg 80 mg Q6H PRN PO DISTENSION/GAS/BLOATING; Start 03/25/17 at 10:30 Dextrose/Sodium Chloride (D5-1/2ns) 1,000 ml @ 50 mls/hr Q20H IV Last administered on 03/27/17 06:11; Admin Dose 50 MLS/HR; Start 03/26/17 at 10:00 Al Hydrox/Mg Hydrox/Simethicone (Mag-Al Plus) 30 ml Q4H PRN PO GASTROINTESTINAL UPSET; Start 03/26/17 at 14:30 Ondansetron HCl (Zofran Inj) 4 mg Q4H PRN IV NAUSEA AND/OR VOMITING; Start at 14:30 Aspirin (Aspirin) 325 mg DAILY PO Last administered on 03/27/17 09:42; Admin Dose 325 MG; Start 03/27/17 at 09:30 Fluconazole (Diflucan) 400 mg DAILY PO ; Start 03/27/17 at 13:00 Carvedilol (Coreg) 3.125 mg BID PO ; Start 03/27/17 at 21:00 BEBA HENSON NP Mar 27, 2017 14:21 BEBA HENSON NP Mar 27, 2017 14:21
--- NOTE | 2017-03-27 14:24 | CONS ---
Date/Time of Note Date/Time of Note DATE: 03/27/17 TIME: 14:20 Assessment/Plan Assessment/Plan Additional Assessment/Plan Three-vessel coronary artery disease Status post non-ST elevation PR Peripheral vascular disease Recent above-knee amputation Diabetes Small bowel obstruction versus Hypothyroid Anemia UTI Patient will need coronary artery bypass grafting however this needs to be done after medically stabilized Discussed with the patient and the family We will discuss with Dr. Gonzalez Consultation Date/Type/Reason Admit Date/Time Mar 16, 2017 at 22:23 Date of Consultation: Mar 27, 2017 Hx of Present Illness Evaluation for coronary artery bypass grafting This is a 71-year-old male admitted because of toe gangrene foot gangrene underwent a lower extremity above-knee amputation patient was found to have non- ST elevation PR underwent cardiac catheterization was found to severe three- vessel coronary artery disease echocardiogram has been done which has showed ejection fraction is a 60% No other significant valvular abnormalities were noted Constitutional: other (Patient is feeling better now that she is on liquid diet ) Eyes: no complaints ENT: no complaints Respiratory: no complaints Cardiovascular: other (Patient is scheduled for cardiac cath tomorrow) Gastrointestinal: No nausea, No vomiting Genitourinary: other (Urinary retention, patient has an indwelling Desai cath and she needs it because of urinary retention) Musculoskeletal: no complaints Skin: no complaints Neurologic: no complaints Endocrine: no complaints Psychological: no complaints Past Medical History Medical History: diabetes, high cholesterol, hypertension, hypothyroid, urinary tract infection, other (Peripheral vascular disease) Past Surgical History Past Surgical Hx: appendectomy, cholecystectomy, other (left above knee amputation,hysterectomy) Social History Alcohol Use: none Smoking Status: Former smoker Drug Use: none Exam/Review of Systems Vital Signs Vitals Vital Signs Date Time Temp Pulse Resp B/P Pulse Ox O2 Delivery O2 Flow Rate FiO2 03/27/17 12:46 91 03/27/17 11:22 Nasal Cannula 2.0 03/27/17 11:04 98.3 18 101/57 95 Intake and Output 03/26/17 03/26/17 03/27/17 15:00 23:00 07:00 Intake Total 240 ml 240 ml Output Total 150 ml 275 ml Balance 90 ml -35 ml Exam ENMT: nl external ears & nose, nl lips & teeth, nl nasal mucosa & septum Neck: non-tender, supple Respiratory: clear to auscultation, normal air movement Cardiovascular: nl pulses, regular rate and rhythm Gastrointestinal: nl liver, spleen, non-tender, soft Results Result Diagram: 03/27/17 0557 03/27/17 0557 Results 24 hrs Laboratory Tests Test 03/26/17 15:46 03/26/17 16:18 03/26/17 20:17 03/27/17 05:57 White Blood Count 8.0 # 7.7 Red Blood Count 2.78 L 2.87 L Hemoglobin 8.1 L 8.0 L Hematocrit 25.1 L 26.2 L Mean Corpuscular Volume 90.3 91.3 Mean Corpuscular Hemoglobin 29.1 27.9 L Mean Corpuscular Hemoglobin Concent 32.3 30.5 L Red Cell Distribution Width 13.2 13.3 Platelet Count 244 # 241 Mean Platelet Volume 11.0 H 11.7 H Neutrophils % 74.5 78.0 H Lymphocytes % 15.3 13.1 L Monocytes % 9.4 8.1 Eosinophils % 0.4 0.3 Basophils % 0.0 0.1 Nucleated Red Blood Cells % 0.0 0.0 Neutrophils # 6.0 6.0 Lymphocytes # 1.2 1.0 Monocytes # 0.8 0.6 Eosinophils # 0.0 0.0 Basophils # 0.0 0.0 Nucleated Red Blood Cells # 0.0 0.0 Sodium Level 132 L 132 L Potassium Level 4.1 5.0 Chloride Level 89 L 89 L Carbon Dioxide Level 33 H 33 H Anion Gap 14 15 Blood Urea Nitrogen 14 20 Creatinine 0.89 1.01 H Glucose Level 116 # 266 #H Calcium Level 7.6 L 7.6 L Bedside Glucose 118 185 Medications Medications Current Medications Ondansetron HCl (Zofran Inj) 4 mg Q6H PRN IV NAUSEA AND/OR VOMITING Last administered on 03/24/17 08:20; Admin Dose 4 MG; Start 03/17/17 at 01:00 Morphine Sulfate (morphine) 2 mg Q4H PRN IV PAIN LEVEL 7-10 Last administered on 03/27/17 04:45; Admin Dose 2 MG; Start 03/17/17 at 01:00 Amlodipine Besylate (Norvasc) 10 mg DAILY PO Last administered on 03/17/17 09: 59; Admin Dose 10 MG; Start 03/17/17 at 09:00; Status Future Hold Benazepril HCl (Lotensin) 10 mg DAILY PO Last administered on 03/17/17 09:57; Admin Dose 10 MG; Start 03/17/17 at 09:00; Status Future hold Gabapentin (Neurontin) 300 mg BID PO Last administered on 03/27/17 09:42; Admin Dose 300 MG; Start 03/17/17 at 09:00 Atorvastatin Calcium (Lipitor) 10 mg DAILY@21 PO ; Start 03/17/17 at 21:00; Status Future Hold Miscellaneous Information 1 ea NOTE XX ; Start 03/17/17 at 12:00 Glucose (Glutose) 15 gm Q15M PRN PO DECREASED GLUCOSE Last administered on 03/26 10:59; Admin Dose 15 GM; Start 03/17/17 at 12:00 Glucose (Glutose) 22.5 gm Q15M PRN PO DECREASED GLUCOSE; Start 03/17/17 at 12: 00 Dextrose (D50w Syringe) 25 ml Q15M PRN IV DECREASED GLUCOSE Last administered on 03/19/17 06:08; Admin Dose 25 ML; Start 03/17/17 at 12:00 Dextrose (D50w Syringe) 50 ml Q15M PRN IV DECREASED GLUCOSE; Start 03/17/17 at 12:00 Glucagon (Glucagen) 1 mg Q15M PRN IM DECREASED GLUCOSE; Start 03/17/17 at 12:00 Glucose (Glutose) 15 gm Q15M PRN BUCCAL DECREASED GLUCOSE Last administered on 03/26/17 09:24; Admin Dose 15 GM; Start 03/17/17 at 12:00 Diagnostic Test (Pha) (Accu-Chek) 1 ea 02 XX ; Start 03/19/17 at 02:00 Levothyroxine Sodium (Synthroid Iv) 75 mcg DAILY@06 IV Last administered on 06:11; Admin Dose 75 MCG; Start 03/19/17 at 06:00 Hydralazine HCl (Apresoline) 10 mg Q4H PRN IV SBP>160 Last administered on 03/20 17:12; Admin Dose 10 MG; Start 03/18/17 at 12:00 Clonidine HCl (Catapres-Tts 3 Patch) 1 patch Q7D TRANSDERM Last administered on 03/19/17 14:39; Admin Dose 1 PATCH; Start 03/19/17 at 14:00; Status Future Hold Clonidine HCl (Catapres-Tts 1 Patch) 1 patch Q7D TRANSDERM Last administered on 03/20/17 13:53; Admin Dose 1 PATCH; Start 03/20/17 at 13:00; Status Future Hold Insulin Glargine (Lantus) 12 unit QHS SC Last administered on 03/25/17 21:57; Admin Dose 12 UNIT; Start 03/22/17 at 21:00; Status Future Hold Magnesium Hydroxide (Milk Of Mag) 30 ml DAILY PRN PO CONSTIPATION; Start at 09:00 Collagenase (Santyl) 1 applic DAILY TOP Last administered on 03/27/17 09:44; Admin Dose 1 APPLIC; Start 03/23/17 at 12:30 Collagenase (Santyl) 1 applic PRN PRN TOP WOUND CARE; Start 03/23/17 at 11:30 Heparin Sodium (Porcine) (Heparin (5000 Units/0.5 ml)) 5,000 unit Q8 SC Last administered on 03/27/17 12:37; Admin Dose 5,000 UNIT; Start 03/24/17 at 22:00 Famotidine (Pepcid) 20 mg BID PO Last administered on 03/27/17 09:43; Admin Dose 20 MG; Start 03/25/17 at 21:00 Simethicone 80 mg 80 mg Q6H PRN PO DISTENSION/GAS/BLOATING; Start 03/25/17 at 10:30 Dextrose/Sodium Chloride (D5-1/2ns) 1,000 ml @ 50 mls/hr Q20H IV Last administered on 03/27/17 06:11; Admin Dose 50 MLS/HR; Start 03/26/17 at 10:00 Al Hydrox/Mg Hydrox/Simethicone (Mag-Al Plus) 30 ml Q4H PRN PO GASTROINTESTINAL UPSET; Start 03/26/17 at 14:30 Ondansetron HCl (Zofran Inj) 4 mg Q4H PRN IV NAUSEA AND/OR VOMITING; Start at 14:30 Aspirin (Aspirin) 325 mg DAILY PO Last administered on 03/27/17 09:42; Admin Dose 325 MG; Start 03/27/17 at 09:30 Fluconazole (Diflucan) 400 mg DAILY PO ; Start 03/27/17 at 13:00 Carvedilol (Coreg) 3.125 mg BID PO ; Start 03/27/17 at 21:00 ZE CISSE MD Mar 27, 2017 14:24
[2017-03-27] MEDS ORDERED: BETHANECHOL 10 MG TAB NGT SCH (14:30)
--- NOTE | 2017-03-27 14:58 | PN ---
Date/Time of Note Date/Time of Note DATE: 03/27/17 TIME: 14:52 Assessment/Plan Lines/Catheters IV Catheter Type (from [facility]): Saline Lock Desai in Place (from Nrs): Yes Assessment/Plan Chief Complaint/Hosp Course 1. Abdominal pain with CT findings are suggestive of either obstructive pattern versus ileus. Patient has gas and stool in the colon. Less likelihood of bowel ischemia; Flatus. SBFT noted. NGT out, vomiting overnight but improved now; tolerating diet -close monitoring 2. PVD/PAD with Left lower extremity ischemia with tissue necrosis and gangrene ; s/p left AKA with thrombectomy; -Anticoagulation 3. Elevated troponin with possible demand ischemia and MS; left heart cath today -Cardiac evaluation on optimization 4. Elevated BNP with possible CHF -Judicious fluid management -Cardiac optimization 5. Renal insufficiency, multifactorial secondary to above; cr normalized -Judicious fluid management and avoid nephrotoxic agents as possible 6. Anemia. no nat bleed noted. h/h stable -Close monitoring -Transfuse as needed 7. Diabetes: episodes of hypoglycemia ; BS improved -Diet and medication optimization 8. Hypertension: improved -Diet and medication optimization 9. Hypercholesterolemia -Diet and medication optimization 10. Leukocytosis: 2/2 #1 and #2 normalized;: likely 2/2 #7; afebrile -monitor 11. NSTEMI: elevated troponin, no cp; s/p left heart cath 12. 3 vessel CAD pending CABG Patient seen and examined in collaboration with Dr. Steffen Kelly Problems: Subjective 24 Hr Interval Summary Feels well. s/p left heart cath. No c/o cp, palpitations, sob, cough, n/v/d. tolerating diet. +bowel function. Exam/Review of Systems Vital Signs Vitals Vital Signs Date Time Temp Pulse Resp B/P Pulse Ox O2 Delivery O2 Flow Rate FiO2 03/27/17 12:46 91 03/27/17 11:22 Nasal Cannula 2.0 03/27/17 11:04 98.3 18 101/57 95 Intake and Output 03/26/17 03/26/17 03/27/17 14:59 22:59 06:59 Intake Total 240 ml 240 ml Output Total 150 ml 275 ml Balance 90 ml -35 ml Exam Free Text/Dictation Constitutional: awake, NAD Psych: confused but able to answer simple questions, follows commands No anxiety, No nl mood/affect Head: atraumatic, normocephalic Eyes: EOMI, PERRL, nl conjunctiva, No icteric ENMT: nl external ears & nose, nl lips & teeth, NG tube No mucosa pink and moist (Dry mucosa) Neck: jvd, non-tender, supple Respiratory: normal air movement, No congested cough, No diminished breath sounds, No labored breathing Cardiovascular: regular rate and rhythm, No edema Gastrointestinal: nondistended, soft, nontender, bowel sounds x4 No firm, No rebound or guarding, Musculoskeletal: No joint tenderness, No nl extremities to inspection (Left AKA ), No nl gait and stance Extremities: No calf tenderness, No normal pulses Neurological: nl speech, No nl strength Skin: No diaphoresis, No nl turgor, No rash or lesions Lymph: nl lymph nodes Results Result Diagram: 03/27/17 0557 03/27/17 0557 JULIANA RUFFIN NP Mar 27, 2017 14:58
[2017-03-27] MEDS: INSULIN ASPART [NOVOLOG] 3 ML PEN SC SCH ×2 (17:01→20:51)
--- NOTE | 2017-03-27 18:58 | RADRPT ---
Vent Rate: 105 bpm RR Interval: 0 msec AL Interval: 174 msec QRS Duration: 102 msec QT Interval: 334 msec QTC Interval: 441 msec P-R-T [place]: 74 - 8 - 170 degrees Sinus tachycardia Possible Anterior infarct , age undetermined Abnormal ECG Electronically Signed By: Steve Kenny [id number]
--- NOTE | 2017-03-27 19:30 | PN ---
Date/Time of Note Date/Time of Note DATE: 03/27/17 TIME: 19:24 Assessment/Plan VTE Prophylaxis VTE Prophylaxis Intervention: heparin Lines/Catheters IV Catheter Type (from [facility]): Saline Lock Urinary Cath still in place: Yes Reason Cath still needed: urinary retention Assessment/Plan Chief Complaint/Hosp Course Patient is feeling better and is on 1800 patrick diet. She has no nausea or vomiting today she does have an indwelling Desai catheter. I would recommend at the present to keep the Desai catheter in, start her on low-dose Urecholine and then discontinue the Desai and see if she is able to urinate. She may have neurogenic diabetic bladder Problems: Subjective 24 Hr Interval Summary Constitutional: no complaints, other (Patient states that she is feeling better ) Eyes: no complaints ENT: no complaints Respiratory: no complaints Cardiovascular: No chest pain Gastrointestinal: No nausea, No vomiting Genitourinary: other (Patient has a Desai catheter that is draining clear urine ) Musculoskeletal: no complaints Skin: no complaints Neurologic: no complaints Endocrine: no complaints Lymphatic: no complaints Psychological: no complaints Exam/Review of Systems Vital Signs Vitals Vital Signs Date Time Temp Pulse Resp B/P Pulse Ox O2 Delivery O2 Flow Rate FiO2 03/27/17 17:16 85 03/27/17 17:12 2.0 03/27/17 15:31 98.4 18 90/55 95 03/27/17 11:22 Nasal Cannula Intake and Output 03/26/17 03/26/17 03/27/17 15:00 23:00 07:00 Intake Total 240 ml 240 ml Output Total 150 ml 275 ml Balance 90 ml -35 ml Exam Constitutional: alert, oriented Psych: no complaints Head: atraumatic Eyes: nl conjunctiva ENMT: nl external ears & nose Neck: non-tender, supple Respiratory: normal air movement Cardiovascular: regular rate and rhythm Gastrointestinal: non-tender, soft Genitourinary - Female: No CVA tenderness Extremities: other (Status post left [id number] amputation) Skin: nl turgor Results Result Diagram: 03/27/17 0557 03/27/17 0557 Results 24 hrs Laboratory Tests Test 03/26/17 20:17 03/27/17 05:57 03/27/17 17:00 Bedside Glucose 185 335 H White Blood Count 7.7 Red Blood Count 2.87 L Hemoglobin 8.0 L Hematocrit 26.2 L Mean Corpuscular Volume 91.3 Mean Corpuscular Hemoglobin 27.9 L Mean Corpuscular Hemoglobin Concent 30.5 L Red Cell Distribution Width 13.3 Platelet Count 241 Mean Platelet Volume 11.7 H Neutrophils % 78.0 H Lymphocytes % 13.1 L Monocytes % 8.1 Eosinophils % 0.3 Basophils % 0.1 Nucleated Red Blood Cells % 0.0 Neutrophils # 6.0 Lymphocytes # 1.0 Monocytes # 0.6 Eosinophils # 0.0 Basophils # 0.0 Nucleated Red Blood Cells # 0.0 Sodium Level 132 L Potassium Level 5.0 Chloride Level 89 L Carbon Dioxide Level 33 H Anion Gap 15 Blood Urea Nitrogen 20 Creatinine 1.01 H Glucose Level 266 #H Calcium Level 7.6 L Medications Medications Current Medications Ondansetron HCl (Zofran Inj) 4 mg Q6H PRN IV NAUSEA AND/OR VOMITING Last administered on 03/24/17 08:20; Admin Dose 4 MG; Start 03/17/17 at 01:00 Morphine Sulfate (morphine) 2 mg Q4H PRN IV PAIN LEVEL 7-10 Last administered on 03/27/17 04:45; Admin Dose 2 MG; Start 03/17/17 at 01:00 Amlodipine Besylate (Norvasc) 10 mg DAILY PO Last administered on 03/17/17 09: 59; Admin Dose 10 MG; Start 03/17/17 at 09:00; Status Future Hold Benazepril HCl (Lotensin) 10 mg DAILY PO Last administered on 03/17/17 09:57; Admin Dose 10 MG; Start 03/17/17 at 09:00; Status Future hold Gabapentin (Neurontin) 300 mg BID PO Last administered on 03/27/17 09:42; Admin Dose 300 MG; Start 03/17/17 at 09:00 Atorvastatin Calcium (Lipitor) 10 mg DAILY@21 PO ; Start 03/17/17 at 21:00; Status Future Hold Miscellaneous Information 1 ea NOTE XX ; Start 03/17/17 at 12:00 Glucose (Glutose) 15 gm Q15M PRN PO DECREASED GLUCOSE Last administered on 03/26 10:59; Admin Dose 15 GM; Start 03/17/17 at 12:00 Glucose (Glutose) 22.5 gm Q15M PRN PO DECREASED GLUCOSE; Start 03/17/17 at 12: 00 Dextrose (D50w Syringe) 25 ml Q15M PRN IV DECREASED GLUCOSE Last administered on 03/19/17 06:08; Admin Dose 25 ML; Start 03/17/17 at 12:00 Dextrose (D50w Syringe) 50 ml Q15M PRN IV DECREASED GLUCOSE; Start 03/17/17 at 12:00 Glucagon (Glucagen) 1 mg Q15M PRN IM DECREASED GLUCOSE; Start 03/17/17 at 12:00 Glucose (Glutose) 15 gm Q15M PRN BUCCAL DECREASED GLUCOSE Last administered on 03/26/17 09:24; Admin Dose 15 GM; Start 03/17/17 at 12:00 Diagnostic Test (Pha) (Accu-Chek) 1 ea 02 XX ; Start 03/19/17 at 02:00 Levothyroxine Sodium (Synthroid Iv) 75 mcg DAILY@06 IV Last administered on 06:11; Admin Dose 75 MCG; Start 03/19/17 at 06:00 Hydralazine HCl (Apresoline) 10 mg Q4H PRN IV SBP>160 Last administered on 03/20 17:12; Admin Dose 10 MG; Start 03/18/17 at 12:00 Clonidine HCl (Catapres-Tts 3 Patch) 1 patch Q7D TRANSDERM Last administered on 03/19/17 14:39; Admin Dose 1 PATCH; Start 03/19/17 at 14:00; Status Future Hold Clonidine HCl (Catapres-Tts 1 Patch) 1 patch Q7D TRANSDERM Last administered on 03/20/17 13:53; Admin Dose 1 PATCH; Start 03/20/17 at 13:00; Status Future Hold Magnesium Hydroxide (Milk Of Mag) 30 ml DAILY PRN PO CONSTIPATION; Start at 09:00 Collagenase (Santyl) 1 applic DAILY TOP Last administered on 03/27/17 09:44; Admin Dose 1 APPLIC; Start 03/23/17 at 12:30 Collagenase (Santyl) 1 applic PRN PRN TOP WOUND CARE; Start 03/23/17 at 11:30 Heparin Sodium (Porcine) (Heparin (5000 Units/0.5 ml)) 5,000 unit Q8 SC Last administered on 03/27/17 12:37; Admin Dose 5,000 UNIT; Start 03/24/17 at 22:00 Famotidine (Pepcid) 20 mg BID PO Last administered on 03/27/17 09:43; Admin Dose 20 MG; Start 03/25/17 at 21:00 Simethicone 80 mg 80 mg Q6H PRN PO DISTENSION/GAS/BLOATING; Start 03/25/17 at 10:30 Dextrose/Sodium Chloride (D5-1/2ns) 1,000 ml @ 50 mls/hr Q20H IV Last administered on 03/27/17 06:11; Admin Dose 50 MLS/HR; Start 03/26/17 at 10:00 Al Hydrox/Mg Hydrox/Simethicone (Mag-Al Plus) 30 ml Q4H PRN PO GASTROINTESTINAL UPSET; Start 03/26/17 at 14:30 Ondansetron HCl (Zofran Inj) 4 mg Q4H PRN IV NAUSEA AND/OR VOMITING; Start at 14:30 Aspirin (Aspirin) 325 mg DAILY PO Last administered on 03/27/17 09:42; Admin Dose 325 MG; Start 03/27/17 at 09:30 Fluconazole (Diflucan) 400 mg DAILY PO ; Start 03/27/17 at 13:00; Stop 04/03/17 at 12:59 Carvedilol (Coreg) 3.125 mg BID PO ; Start 03/27/17 at 21:00 Insulin Glargine (Lantus) 10 unit DAILY@08 SC ; Start 03/27/17 at 21:00 ELLI BURNETT MD Mar 27, 2017 19:30
[2017-03-27] MEDS ORDERED: INSULIN GLARGINE [LANtus] 3 ML PEN SC SCH (21:00)
[2017-03-27] MEDS ORDERED: INSULIN ASPART [NOVOLOG] 3 ML PEN SC ONE (21:30)
[2017-03-27] MEDS ORDERED: SOD CHLORIDE 0.9% 1,000 ML IV SCH (21:30)
[2017-03-28] VITALS (13 sets, daily range): BP systolic 87–137; BP diastolic 50–72; PULSE 92–107; RESP 18–19
[2017-03-28] MEDS: ACCU-CHEK XX SCH (02:00)
[2017-03-28] MEDS ORDERED: ALBUTEROL/IPRATROPIUM (NEB) 3 ML AMP HHN ONE (05:07)
[2017-03-28] MEDS: LEVOTHYROXINE 100 MCG VIAL IV SCH (05:27)
[2017-03-28] MEDS: HEPARIN 5,000 UNIT/0.5 ML VIAL SC SCH ×3 (05:29→21:26)
--- NOTE | 2017-03-28 05:34 | RADRPT ---
PROCEDURE: Chest. CLINICAL INDICATION: Chest pain. TECHNIQUE: Single frontal view of the chest was obtained. COMPARISON: 03/26/2017. FINDINGS: The cardiac silhouette is obscured. The aortic arch is calcified. There are bilateral hazy and pat vannessa opacities. There are bilateral moderate to large pleural effusions. There is no pneumothorax. IMPRESSION: Bilateral hazy and patchy opacities could represent pulmonary edema and/or multifocal pneumonia, inc reased compared with the prior study. Bilateral moderate to large pleural effusions, increased. Aortic atherosclerosis. .Garrett Ibrahim MD, MD Date Time Electronically viewed and signed by .Garrett Ibrahim MD, MD on 03/28/2017 05:34 .T/
[2017-03-28 07:28] LABS: CALCIUM 7.9 mg/dl (8.4-10.2); CREATININE 1.17 mg/dl (0.44-1.00); POTASSIUM 4.5 mmol/L (3.5-5.1)
[2017-03-28] MEDS: FLUCONAZOLE 200 MG TAB PO SCH (08:03)
[2017-03-28] MEDS: CALCIUM CARBONATE 500 MG CHEW TAB PO SCH ×3 (08:03→17:32)
[2017-03-28] MEDS: ASPIRIN 325 MG TAB PO SCH (08:03)
[2017-03-28] MEDS: FAMOTIDINE 20 MG TAB PO SCH ×2 (08:03→21:11)
[2017-03-28] MEDS: GABAPENTIN 300 MG CAP PO SCH (08:03)
[2017-03-28] MEDS: COLLAGENASE 30 GM TUBE TOP SCH (08:03)
[2017-03-28] MEDS: INSULIN ASPART [NOVOLOG] 3 ML PEN SC SCH ×5 (08:05→21:27)
[2017-03-28] MEDS: BENAZEPRIL 10 MG TAB PO SCH (09:00)
--- NOTE | 2017-03-28 09:33 | PN ---
Date/Time of Note Date/Time of Note DATE: 03/28/17 TIME: 09:19 Assessment/Plan Lines/Catheters IV Catheter Type (from [facility]): Peripheral IV Rivera in Place (from [facility]): Yes Assessment/Plan Chief Complaint/Hosp Course 1. Abdominal pain with CT findings are suggestive of either obstructive pattern versus ileus. Flatus. SBFT noted. tolerating diet; +bowel function; -close monitoring 2. PVD/PAD with Left lower extremity ischemia with tissue necrosis and gangrene ; s/p left AKA with thrombectomy; -Anticoagulation 3. Elevated troponin with possible demand ischemia and VT; s/p left heart cath -Cardiac evaluation on optimization 4. Elevated BNP with possible CHF -Judicious fluid management -Cardiac optimization 5. Renal insufficiency, multifactorial secondary to above; cr up -Judicious fluid management and avoid nephrotoxic agents as possible 6. Anemia. no nat bleed noted. h/h stable -Close monitoring -Transfuse as needed 7. Diabetes: episodes of hypoglycemia ; hyperglycemia currently: ?stress hyperglycemia -Diet and medication optimization 8. Hypertension: improved -Diet and medication optimization 9. Hypercholesterolemia -Diet and medication optimization 10. Leukocytosis: 2/2 #1 and #2 normalized;: likely 2/2 #7; afebrile -monitor 11. NSTEMI: elevated troponin, no cp; s/p left heart cath 12. 3 vessel CAD pending CABG 13. Bilateral pleural effusion with episodes of desaturation -supplemental O2 -?thora 14. Neurogenic diabetic bladder: rivera -per urology Patient seen and examined in collaboration with Dr. Steffen Kelly Problems: Subjective 24 Hr Interval Summary Shortness of breath and desaturating overnight. comfortable currently on 4L and maintaining sats. Tolerating diet. +bowel function. No c/o dizziness, chakraborty, sz, n/ v/d, dysuria, rash, fevers, chills. hyperglycemia Exam/Review of Systems Vital Signs Vitals Vital Signs Date Time Temp Pulse Resp B/P Pulse Ox O2 Delivery O2 Flow Rate FiO2 03/28/17 08:29 107 03/28/17 07:41 97.0 18 98/50 98 03/28/17 05:19 Simple Mask 6.0 Intake and Output 03/27/17 03/27/17 03/28/17 15:00 23:00 07:00 Intake Total 720 ml 200 ml Output Total 450 ml 400 ml Balance 270 ml -200 ml Exam Free Text/Dictation Constitutional: awake, NAD Psych: confused but able to answer simple questions, follows commands No anxiety, No nl mood/affect Head: atraumatic, normocephalic Eyes: EOMI, PERRL, nl conjunctiva, No icteric ENMT: nl external ears & nose, nl lips & teeth, NG tube No mucosa pink and moist (Dry mucosa) Neck: jvd, non-tender, supple Respiratory: diminished No congested cough Cardiovascular: regular rate and rhythm, No edema Gastrointestinal: nondistended, soft, nontender, bowel sounds x4 No firm, No rebound or guarding, Musculoskeletal: No joint tenderness, No nl extremities to inspection (Left AKA ), No nl gait and stance Extremities: No calf tenderness, No normal pulses Neurological: nl speech, No nl strength Skin: No diaphoresis, No nl turgor, No rash or lesions Lymph: nl lymph nodes Results Result Diagram: 03/27/17 0557 03/28/17 0552 JULIANA RUFFIN NP Mar 28, 2017 09:31
--- NOTE | 2017-03-28 10:42 | CONS ---
Date/Time of Note Date/Time of Note DATE: 03/28/17 TIME: 10:40 Assessment/Plan Assessment/Plan Additional Assessment/Plan 1.Nstemi-Increased troponin/CK-MB which started to downtrend today. NO CP. Now s /p LHC revealing mutivessel obstructive cad and now newly decreased LVEF 25% by cath LV gram - now evaluated - might have CABG, will discuss with surgical team 2.HTN - well Rx, con'tr med Rx 3.SBO - stable now 4.PAD now [post-op s/p LLE amputation 5. Hypopthyroid 6.UTI - omn anti-bx 7.anemia - h/H stable - no bleeding now Consultation Date/Type/Reason Admit Date/Time Mar 16, 2017 at 22:23 Initial Consult Date 03/27/17 Type of Consultation: cardiology Referring Provider: TOPHER DUNBAR MD 24 HR Interval Summary Free Text/Dictation NO acute events - surgical eval in progress now ROS: No fever, no chills, no nausea, no vomiting, no diarrhea/constipation No recent weight changes No chest pain, no PND, no orthopnea No dizziness, blurred vision No thirst, no heat or cold intolerance Exam/Review of Systems Vital Signs Vitals Vital Signs Date Time Temp Pulse Resp B/P Pulse Ox O2 Delivery O2 Flow Rate FiO2 03/28/17 08:29 107 03/28/17 08:15 Nasal Cannula 4.0 03/28/17 07:41 97.0 18 98/50 98 Intake and Output 03/27/17 03/27/17 03/28/17 15:00 23:00 07:00 Intake Total 720 ml 200 ml Output Total 450 ml 400 ml Balance 270 ml -200 ml Exam General: WN/WD/NAD, AOx 1-2 HEENT: Unicetric/atraumatic/EOMI (follow commands) NECK: JVD elevated, no thyromegaly Lymph: no lymphadenopathy HEART: regular with no S3, II/ systolic murmur at apex, PMI L LUNGS: Coarse sounds ABD: soft, NT, ND, +BS : Intact Neuro: non focal SKIN: chronic changes EXT: trace edema Results Result Diagram: 03/27/17 0557 03/28/17 0552 Results 24 hrs Laboratory Tests Test 03/27/17 17:00 03/27/17 20:32 03/28/17 02:34 03/28/17 05:52 Bedside Glucose 335 H 348 H 284 H Sodium Level 129 L Potassium Level 4.5 Chloride Level 88 L Carbon Dioxide Level 27 Anion Gap 19 H Blood Urea Nitrogen 23 H Creatinine 1.17 H Glucose Level 297 H Calcium Level 7.9 L Test 03/28/17 08:00 Bedside Glucose 313 H Medications Medications Current Medications Ondansetron HCl (Zofran Inj) 4 mg Q6H PRN IV NAUSEA AND/OR VOMITING Last administered on 03/24/17 08:20; Admin Dose 4 MG; Start 03/17/17 at 01:00 Morphine Sulfate (morphine) 2 mg Q4H PRN IV PAIN LEVEL 7-10 Last administered on 03/27/17 04:45; Admin Dose 2 MG; Start 03/17/17 at 01:00 Amlodipine Besylate (Norvasc) 10 mg DAILY PO Last administered on 03/17/17 09: 59; Admin Dose 10 MG; Start 03/17/17 at 09:00; Status Future Hold Benazepril HCl (Lotensin) 10 mg DAILY PO Last administered on 03/17/17 09:57; Admin Dose 10 MG; Start 03/17/17 at 09:00; Status Future hold Gabapentin (Neurontin) 300 mg BID PO Last administered on 03/28/17 08:03; Admin Dose 300 MG; Start 03/17/17 at 09:00 Atorvastatin Calcium (Lipitor) 10 mg DAILY@21 PO ; Start 03/17/17 at 21:00; Status Future Hold Miscellaneous Information 1 ea NOTE XX ; Start 03/17/17 at 12:00 Glucose (Glutose) 15 gm Q15M PRN PO DECREASED GLUCOSE Last administered on 03/26 10:59; Admin Dose 15 GM; Start 03/17/17 at 12:00 Glucose (Glutose) 22.5 gm Q15M PRN PO DECREASED GLUCOSE; Start 03/17/17 at 12: 00 Dextrose (D50w Syringe) 25 ml Q15M PRN IV DECREASED GLUCOSE Last administered on 03/19/17 06:08; Admin Dose 25 ML; Start 03/17/17 at 12:00 Dextrose (D50w Syringe) 50 ml Q15M PRN IV DECREASED GLUCOSE; Start 03/17/17 at 12:00 Glucagon (Glucagen) 1 mg Q15M PRN IM DECREASED GLUCOSE; Start 03/17/17 at 12:00 Glucose (Glutose) 15 gm Q15M PRN BUCCAL DECREASED GLUCOSE Last administered on 03/26/17 09:24; Admin Dose 15 GM; Start 03/17/17 at 12:00 Diagnostic Test (Pha) (Accu-Chek) 1 ea 02 XX ; Start 03/19/17 at 02:00 Levothyroxine Sodium (Synthroid Iv) 75 mcg DAILY@06 IV Last administered on 05:27; Admin Dose 75 MCG; Start 03/19/17 at 06:00 Hydralazine HCl (Apresoline) 10 mg Q4H PRN IV SBP>160 Last administered on 03/20 17:12; Admin Dose 10 MG; Start 03/18/17 at 12:00 Clonidine HCl (Catapres-Tts 3 Patch) 1 patch Q7D TRANSDERM Last administered on 03/19/17 14:39; Admin Dose 1 PATCH; Start 03/19/17 at 14:00; Status Future Hold Clonidine HCl (Catapres-Tts 1 Patch) 1 patch Q7D TRANSDERM Last administered on 03/20/17 13:53; Admin Dose 1 PATCH; Start 03/20/17 at 13:00; Status Future Hold Magnesium Hydroxide (Milk Of Mag) 30 ml DAILY PRN PO CONSTIPATION; Start at 09:00 Collagenase (Santyl) 1 applic DAILY TOP Last administered on 03/28/17 08:03; Admin Dose 1 APPLIC; Start 03/23/17 at 12:30 Collagenase (Santyl) 1 applic PRN PRN TOP WOUND CARE; Start 03/23/17 at 11:30 Heparin Sodium (Porcine) (Heparin (5000 Units/0.5 ml)) 5,000 unit Q8 SC Last administered on 03/28/17 05:29; Admin Dose 5,000 UNIT; Start 03/24/17 at 22:00 Famotidine (Pepcid) 20 mg BID PO Last administered on 03/28/17 08:03; Admin Dose 20 MG; Start 03/25/17 at 21:00 Simethicone (Mylicon) 80 mg Q6H PRN PO DISTENSION/GAS/BLOATING; Start 03/25/17 at 10:30 Al Hydrox/Mg Hydrox/Simethicone (Mag-Al Plus) 30 ml Q4H PRN PO GASTROINTESTINAL UPSET; Start 03/26/17 at 14:30 Ondansetron HCl (Zofran Inj) 4 mg Q4H PRN IV NAUSEA AND/OR VOMITING; Start at 14:30 Aspirin (Aspirin) 325 mg DAILY PO Last administered on 03/28/17 08:03; Admin Dose 325 MG; Start 03/27/17 at 09:30 Fluconazole (Diflucan) 400 mg DAILY PO Last administered on 03/28/17 08:03; Admin Dose 400 MG; Start 03/27/17 at 13:00; Stop 04/03/17 at 12:59 Carvedilol (Coreg) 3.125 mg BID PO ; Start 03/27/17 at 21:00 Insulin Glargine 10 unit 10 unit DAILY@08 SC Last administered on 03/27/17 20: 47; Admin Dose 10 UNIT; Start 03/27/17 at 21:00 Sodium Chloride (NS) 1,000 ml @ 50 mls/hr Q20H IV Last administered on 21:52; Admin Dose 50 MLS/HR; Start 03/27/17 at 21:30 VALENTINE MCKEON MD Mar 28, 2017 10:42
--- NOTE | 2017-03-28 13:56 | PN ---
Date/Time of Note Date/Time of Note DATE: 03/28/17 TIME: 13:50 Assessment/Plan VTE Prophylaxis VTE Prophylaxis Intervention: LMWH Lines/Catheters IV Catheter Type (from Nrs): Peripheral IV Urinary Cath still in place: Yes Reason Cath still needed: urinary retention Assessment/Plan Chief Complaint/Hosp Course 71 yo female with h/o PVD s/p AKA for gangrene who suffered periop NSTEMI and found to have systolic CHF and 3 vessel CAD. Now with acute decompensated systolic CHF exacerbatoin Acute hypoxic respiratory failure 2/2 acute decompensated CHF exacerbation: - Patient clearly overloaded with XR showing b/l effusions, marked JVD on exam - Start diuresis. Stop fluids Sysotlic CHF: - Continue beta blockade/DAMION for afterload reduction CAD: - Aspirin, statin - Consideration of revasculartization PVD: - S/p AKA CKD II: - stable DMII: - Basal bolus insulin, uptitrate as remains hyperglycemic Hyponatremia: - FW restrict, hypervolemic on exam. Should improve with lasix Hypothyroidism: - Continue synthroid Problems: Subjective 24 Hr Interval Summary Free Text/Dictation Patient hypoxic a bit tachypneic Complains of SOB, but asks to be left alone to sleep Exam/Review of Systems Vital Signs Vitals Vital Signs Date Time Temp Pulse Resp B/P Pulse Ox O2 Delivery O2 Flow Rate FiO2 03/28/17 12:39 97.0 96 18 87/62 98 03/28/17 08:15 Nasal Cannula 4.0 Intake and Output 03/27/17 03/27/17 03/28/17 15:00 23:00 07:00 Intake Total 720 ml 200 ml Output Total 450 ml 400 ml Balance 270 ml -200 ml Exam Slumped over, tachypneic, nonlabored Crackles at b/l bases +++ JVD s/p L AKA No peripheral edema Results Result Diagram: 03/27/17 0557 03/28/17 0552 Results 24 hrs Laboratory Tests Test 03/27/17 17:00 03/27/17 20:32 03/28/17 02:34 03/28/17 05:52 Bedside Glucose 335 H 348 H 284 H Sodium Level 129 L Potassium Level 4.5 Chloride Level 88 L Carbon Dioxide Level 27 Anion Gap 19 H Blood Urea Nitrogen 23 H Creatinine 1.17 H Glucose Level 297 H Calcium Level 7.9 L Test 03/28/17 08:00 03/28/17 12:14 Bedside Glucose 313 H 363 H Medications Medications Current Medications Ondansetron HCl (Zofran Inj) 4 mg Q6H PRN IV NAUSEA AND/OR VOMITING Last administered on 03/24/17 08:20; Admin Dose 4 MG; Start 03/17/17 at 01:00 Morphine Sulfate (morphine) 2 mg Q4H PRN IV PAIN LEVEL 7-10 Last administered on 03/27/17 04:45; Admin Dose 2 MG; Start 03/17/17 at 01:00 Amlodipine Besylate (Norvasc) 10 mg DAILY PO Last administered on 03/17/17 09: 59; Admin Dose 10 MG; Start 03/17/17 at 09:00; Status Future Hold Benazepril HCl (Lotensin) 10 mg DAILY PO Last administered on 03/17/17 09:57; Admin Dose 10 MG; Start 03/17/17 at 09:00; Status Future hold Gabapentin (Neurontin) 300 mg BID PO Last administered on 03/28/17 08:03; Admin Dose 300 MG; Start 03/17/17 at 09:00 Atorvastatin Calcium (Lipitor) 10 mg DAILY@21 PO ; Start 03/17/17 at 21:00; Status Future Hold Miscellaneous Information 1 ea NOTE XX ; Start 03/17/17 at 12:00 Glucose (Glutose) 15 gm Q15M PRN PO DECREASED GLUCOSE Last administered on 03/26 10:59; Admin Dose 15 GM; Start 03/17/17 at 12:00 Glucose (Glutose) 22.5 gm Q15M PRN PO DECREASED GLUCOSE; Start 03/17/17 at 12: 00 Dextrose (D50w Syringe) 25 ml Q15M PRN IV DECREASED GLUCOSE Last administered on 03/19/17 06:08; Admin Dose 25 ML; Start 03/17/17 at 12:00 Dextrose (D50w Syringe) 50 ml Q15M PRN IV DECREASED GLUCOSE; Start 03/17/17 at 12:00 Glucagon (Glucagen) 1 mg Q15M PRN IM DECREASED GLUCOSE; Start 03/17/17 at 12:00 Glucose (Glutose) 15 gm Q15M PRN BUCCAL DECREASED GLUCOSE Last administered on 03/26/17 09:24; Admin Dose 15 GM; Start 03/17/17 at 12:00 Diagnostic Test (Pha) (Accu-Chek) 1 ea 02 XX ; Start 03/19/17 at 02:00 Levothyroxine Sodium (Synthroid Iv) 75 mcg DAILY@06 IV Last administered on 05:27; Admin Dose 75 MCG; Start 03/19/17 at 06:00 Hydralazine HCl (Apresoline) 10 mg Q4H PRN IV SBP>160 Last administered on 03/20 17:12; Admin Dose 10 MG; Start 03/18/17 at 12:00 Clonidine HCl (Catapres-Tts 3 Patch) 1 patch Q7D TRANSDERM Last administered on 03/19/17 14:39; Admin Dose 1 PATCH; Start 03/19/17 at 14:00; Status Future Hold Clonidine HCl (Catapres-Tts 1 Patch) 1 patch Q7D TRANSDERM Last administered on 03/20/17 13:53; Admin Dose 1 PATCH; Start 03/20/17 at 13:00; Status Future Hold Magnesium Hydroxide (Milk Of Mag) 30 ml DAILY PRN PO CONSTIPATION; Start at 09:00 Collagenase (Santyl) 1 applic DAILY TOP Last administered on 03/28/17 08:03; Admin Dose 1 APPLIC; Start 03/23/17 at 12:30 Collagenase (Santyl) 1 applic PRN PRN TOP WOUND CARE; Start 03/23/17 at 11:30 Heparin Sodium (Porcine) (Heparin (5000 Units/0.5 ml)) 5,000 unit Q8 SC Last administered on 03/28/17 13:47; Admin Dose 5,000 UNIT; Start 03/24/17 at 22:00 Famotidine (Pepcid) 20 mg BID PO Last administered on 03/28/17 08:03; Admin Dose 20 MG; Start 03/25/17 at 21:00 Simethicone (Mylicon) 80 mg Q6H PRN PO DISTENSION/GAS/BLOATING; Start 03/25/17 at 10:30 Al Hydrox/Mg Hydrox/Simethicone (Mag-Al Plus) 30 ml Q4H PRN PO GASTROINTESTINAL UPSET; Start 03/26/17 at 14:30 Ondansetron HCl (Zofran Inj) 4 mg Q4H PRN IV NAUSEA AND/OR VOMITING; Start at 14:30 Aspirin (Aspirin) 325 mg DAILY PO Last administered on 03/28/17 08:03; Admin Dose 325 MG; Start 03/27/17 at 09:30 Fluconazole (Diflucan) 400 mg DAILY PO Last administered on 03/28/17 08:03; Admin Dose 400 MG; Start 03/27/17 at 13:00; Stop 04/03/17 at 12:59 Carvedilol (Coreg) 3.125 mg BID PO ; Start 03/27/17 at 21:00 Insulin Glargine (Lantus) 15 unit DAILY@08 SC ; Start 03/29/17 at 08:00; Status ALPA STEWARD MD Mar 28, 2017 13:56
[2017-03-28] MEDS: FUROSEMIDE 20 MG INJ IV SCH (14:00)
[2017-03-28] MEDS: morphine 2 MG INJ IV PRN (15:19)
--- NOTE | 2017-03-28 19:51 | PN ---
Date/Time of Note Date/Time of Note DATE: 03/28/17 TIME: 19:50 Assessment/Plan Lines/Catheters IV Catheter Type (from Nrsg): Peripheral IV Desai in Place (from Nrsg): Yes Assessment/Plan Chief Complaint/Hosp Course Additional Assessment/Plan Three-vessel coronary artery disease Status post non-ST elevation MD Peripheral vascular disease Recent above-knee amputation Diabetes Small bowel obstruction versus Hypothyroid Anemia UTI CHF Patient will need coronary artery bypass grafting however this needs to be done after medically stabilized Discussed with the patient and the family We will discuss with Dr. Thomson Problems: Subjective 24 Hr Interval Summary Constitutional: improved Pain Control: mild Exam/Review of Systems Vital Signs Vitals Vital Signs Date Time Temp Pulse Resp B/P Pulse Ox O2 Delivery O2 Flow Rate FiO2 03/28/17 17:26 4.0 03/28/17 16:24 92 03/28/17 15:43 98.0 18 137/72 98 03/28/17 08:15 Nasal Cannula Intake and Output 03/27/17 03/27/17 03/28/17 14:59 22:59 06:59 Intake Total 720 ml 200 ml Output Total 450 ml 400 ml Balance 270 ml -200 ml Exam ENMT: mucosa pink and moist, nl external ears & nose, nl lips & teeth, nl nasal mucosa & septum Neck: non-tender, supple Respiratory: clear to auscultation, normal air movement Cardiovascular: nl pulses, regular rate and rhythm Gastrointestinal: nl liver, spleen, non-tender, soft Results Result Diagram: 03/27/17 0557 03/28/17 0552 ZE CISSE MD Mar 28, 2017 19:51
[2017-03-29] VITALS (13 sets, daily range): BP systolic 98–108; BP diastolic 52–63; PULSE 95–100; RESP 18
[2017-03-29] MEDS: morphine 2 MG INJ IV PRN ×3 (01:49→23:37)
[2017-03-29] MEDS: ACCU-CHEK XX SCH (01:49)
[2017-03-29] MEDS: LEVOTHYROXINE 100 MCG VIAL IV SCH (05:22)
[2017-03-29] MEDS: HEPARIN 5,000 UNIT/0.5 ML VIAL SC SCH ×3 (05:30→21:22)
[2017-03-29 06:09] LABS: BASOPHILS % 0.2 % (0.0-2.0); EOSINOPHILS # 0.1 10^3/ul (0.0-0.5); EOSINOPHILS % 0.7 % (0.0-7.0); HEMATOCRIT 28.2 % (37.0-47.0); HEMOGLOBIN 8.7 g/dl (12.0-16.0); LYMPHOCYTES % 17.7 % (15.0-51.0); MEAN CORPUSCULAR HEMOGLOBIN 27.7 pg (29.0-33.0); MEAN CORPUSCULAR HGB CONC 30.9 g/dl (32.0-37.0); MEAN CORPUSCULAR VOLUME 89.8 fl (82.0-101.0); MEAN PLATELET VOLUME 11.6 fl (7.4-10.4); MONOCYTE # 0.9 10^3/ul (0.3-0.9); MONOCYTES % 7.9 % (0.0-11.0); NEUTROPHIL # 8.4 10^3/ul (1.6-7.5); PLATELET COUNT 270 10^3/UL (140-415); RED BLOOD COUNT 3.14 10^6/ul (4.20-5.40); RED CELL DISTRIBUTION WIDTH 13.7 % (11.5-14.5); WHITE BLOOD COUNT 11.5 10^3/ul (4.8-10.8)
[2017-03-29 06:33] LABS: ALBUMIN 2.3 g/dl (3.3-4.9); ALBUMIN/GLOBULIN RATIO 0.85; BILIRUBIN,INDIRECT 0.2 mg/dl (0-1.1); BILIRUBIN,TOTAL 0.2 mg/dl (0.2-1.3); CALCIUM 8.1 mg/dl (8.4-10.2); CREATININE 1.03 mg/dl (0.44-1.00); POTASSIUM 4.4 mmol/L (3.5-5.1)
[2017-03-29] MEDS ORDERED: INSULIN GLARGINE [LANtus] 3 ML PEN SC SCH (08:00)
[2017-03-29] MEDS: ASPIRIN 325 MG TAB PO SCH (08:14)
[2017-03-29] MEDS: CALCIUM CARBONATE 500 MG CHEW TAB PO SCH ×2 (08:14→12:13)
[2017-03-29] MEDS: FUROSEMIDE 20 MG INJ IV SCH (08:14)
[2017-03-29] MEDS: BENAZEPRIL 10 MG TAB PO SCH (08:15)
[2017-03-29] MEDS: FAMOTIDINE 20 MG TAB PO SCH ×2 (08:15→20:35)
[2017-03-29] MEDS: FLUCONAZOLE 200 MG TAB PO SCH (08:15)
[2017-03-29] MEDS: COLLAGENASE 30 GM TUBE TOP SCH (08:18)
[2017-03-29] MEDS: INSULIN ASPART [NOVOLOG] 3 ML PEN SC SCH ×7 (08:22→20:34)
[2017-03-29] MEDS: FUROSEMIDE 40 MG INJ IV SCH ×2 (10:56→20:35)
--- NOTE | 2017-03-29 13:23 | PN ---
Date/Time of Note Date/Time of Note DATE: 03/29/17 TIME: 13:14 Assessment/Plan VTE Prophylaxis VTE Prophylaxis Intervention: LMWH Lines/Catheters IV Catheter Type (from Nrs): Saline Lock Urinary Cath still in place: Yes Reason Cath still needed: other (indicate) Assessment/Plan Chief Complaint/Hosp Course 71 yo female with h/o PVD s/p AKA for gangrene who suffered periop NSTEMI and found to have systolic CHF and 3 vessel CAD. Now with acute decompensated systolic CHF exacerbatoin Acute hypoxic respiratory failure 2/2 acute decompensated CHF exacerbation: - Patient clearly overloaded with XR showing b/l effusions, marked JVD on exam - Continue diuresis, 40 IV BID, monitor output, can transition to PO maintenance when euvolemic - Underlying pneumonia quite possible, but no cough, sputum, or fever so will hold off on abx Transaminitis: - Perhaps from right sided, passive liver congestion - No RUQ symptoms - ? Drug effect - Monitor Hyponatremia: - Suspect hypervolemic hyponatremia, though will check urine lytes - FW restriction - Shoudl improve with lasix Sysotlic CHF: - Continue beta blockade/DAMION for afterload reduction CAD: - Aspirin, statin - Consideration of revasculartization per cards/CV surgery PVD: - S/p AKA, stable CKD II: - stable DMII: - Basal bolus insulin, uptitrate to lantus 18 as remains hyperglycemic Hypothyroidism: - Continue synthroid Problems: Subjective 24 Hr Interval Summary Free Text/Dictation Started on diuresis yesterday, inadequate response to 20 IV lasix, increased today Remains hypoxic on oxygen by NC, stable Says she is comfortable, no complaints Exam/Review of Systems Vital Signs Vitals Vital Signs Date Time Temp Pulse Resp B/P Pulse Ox O2 Delivery O2 Flow Rate FiO2 03/29/17 12:53 98.0 87 18 108/63 98 03/29/17 07:40 Nasal Cannula 4.0 Intake and Output 03/28/17 03/28/17 03/29/17 15:00 23:00 07:00 Intake Total 700 ml 400 ml Output Total 300 ml 500 ml Balance 400 ml -100 ml Exam Hypoxic to 84% on RA, requiring 4L by NC Slumped over, comfortable appearing Slightly tachypneic though nonlabored +++ JVD and ++ HJR Lungs with bibasilar crackles s/p L AKA, no edema in right leg No abdominal tenderness, notably benign exam of RUQ Mild hypeglycemia noted New transaminitis noted Worsening hyponatremia noted Results Result Diagram: 03/29/17 0537 03/29/17 0537 Results 24 hrs Laboratory Tests Test 03/28/17 17:26 03/28/17 21:13 03/29/17 01:47 03/29/17 05:37 Bedside Glucose 327 H 326 H 307 H White Blood Count 11.5 #H Red Blood Count 3.14 L Hemoglobin 8.7 L Hematocrit 28.2 L Mean Corpuscular Volume 89.8 Mean Corpuscular Hemoglobin 27.7 L Mean Corpuscular Hemoglobin Concent 30.9 L Red Cell Distribution Width 13.7 Platelet Count 270 Mean Platelet Volume 11.6 H Neutrophils % 73.0 Lymphocytes % 17.7 Monocytes % 7.9 Eosinophils % 0.7 Basophils % 0.2 Nucleated Red Blood Cells % 0.0 Neutrophils # 8.4 H Lymphocytes # 2.0 Monocytes # 0.9 Eosinophils # 0.1 Basophils # 0.0 Nucleated Red Blood Cells # 0.0 Sodium Level 127 L Potassium Level 4.4 Chloride Level 87 L Carbon Dioxide Level 31 Anion Gap 13 Blood Urea Nitrogen 27 H Creatinine 1.03 H Glucose Level 246 H Calcium Level 8.1 L Total Bilirubin 0.2 Direct Bilirubin 0.00 Indirect Bilirubin 0.2 Aspartate Amino Transf (AST/SGOT) 216 H Alanine Aminotransferase (ALT/SGPT) 638 H Alkaline Phosphatase 119 Total Protein 5.0 L Albumin 2.3 L Globulin 2.70 Albumin/Globulin Ratio 0.85 Test 03/29/17 08:11 03/29/17 12:11 Bedside Glucose 252 H 206 Medications Medications Current Medications Ondansetron HCl (Zofran Inj) 4 mg Q6H PRN IV NAUSEA AND/OR VOMITING Last administered on 03/24/17 08:20; Admin Dose 4 MG; Start 03/17/17 at 01:00 Morphine Sulfate (morphine) 2 mg Q4H PRN IV PAIN LEVEL 7-10 Last administered on 03/29/17 01:49; Admin Dose 2 MG; Start 03/17/17 at 01:00 Benazepril HCl (Lotensin) 10 mg DAILY PO Last administered on 03/17/17 09:57; Admin Dose 10 MG; Start 03/17/17 at 09:00; Status Future hold Atorvastatin Calcium (Lipitor) 10 mg DAILY@21 PO ; Start 03/17/17 at 21:00; Status Future Hold Miscellaneous Information 1 ea NOTE XX ; Start 03/17/17 at 12:00 Glucose (Glutose) 15 gm Q15M PRN PO DECREASED GLUCOSE Last administered on 03/26 10:59; Admin Dose 15 GM; Start 03/17/17 at 12:00 Glucose (Glutose) 22.5 gm Q15M PRN PO DECREASED GLUCOSE; Start 03/17/17 at 12: 00 Dextrose (D50w Syringe) 25 ml Q15M PRN IV DECREASED GLUCOSE Last administered on 03/19/17 06:08; Admin Dose 25 ML; Start 03/17/17 at 12:00 Dextrose (D50w Syringe) 50 ml Q15M PRN IV DECREASED GLUCOSE; Start 03/17/17 at 12:00 Glucagon (Glucagen) 1 mg Q15M PRN IM DECREASED GLUCOSE; Start 03/17/17 at 12:00 Glucose (Glutose) 15 gm Q15M PRN BUCCAL DECREASED GLUCOSE Last administered on 03/26/17 09:24; Admin Dose 15 GM; Start 03/17/17 at 12:00 Diagnostic Test (Pha) (Accu-Chek) 1 ea 02 XX Last administered on 03/29/17 01: 49; Admin Dose 1 EA; Start 03/19/17 at 02:00 Levothyroxine Sodium (Synthroid Iv) 75 mcg DAILY@06 IV Last administered on 05:22; Admin Dose 75 MCG; Start 03/19/17 at 06:00 Hydralazine HCl (Apresoline) 10 mg Q4H PRN IV SBP>160 Last administered on 03/20 17:12; Admin Dose 10 MG; Start 03/18/17 at 12:00 Clonidine HCl (Catapres-Tts 3 Patch) 1 patch Q7D TRANSDERM Last administered on 03/19/17 14:39; Admin Dose 1 PATCH; Start 03/19/17 at 14:00; Status Future Hold Clonidine HCl (Catapres-Tts 1 Patch) 1 patch Q7D TRANSDERM Last administered on 03/20/17 13:53; Admin Dose 1 PATCH; Start 03/20/17 at 13:00; Status Future Hold Magnesium Hydroxide (Milk Of Mag) 30 ml DAILY PRN PO CONSTIPATION; Start at 09:00 Collagenase (Santyl) 1 applic DAILY TOP Last administered on 03/29/17 08:18; Admin Dose 1 APPLIC; Start 03/23/17 at 12:30 Collagenase (Santyl) 1 applic PRN PRN TOP WOUND CARE; Start 03/23/17 at 11:30 Heparin Sodium (Porcine) (Heparin (5000 Units/0.5 ml)) 5,000 unit Q8 SC Last administered on 03/29/17 05:30; Admin Dose 5,000 UNIT; Start 03/24/17 at 22:00 Famotidine (Pepcid) 20 mg BID PO Last administered on 03/29/17 08:15; Admin Dose 20 MG; Start 03/25/17 at 21:00 Simethicone (Mylicon) 80 mg Q6H PRN PO DISTENSION/GAS/BLOATING; Start 03/25/17 at 10:30 Al Hydrox/Mg Hydrox/Simethicone (Mag-Al Plus) 30 ml Q4H PRN PO GASTROINTESTINAL UPSET; Start 03/26/17 at 14:30 Ondansetron HCl (Zofran Inj) 4 mg Q4H PRN IV NAUSEA AND/OR VOMITING; Start at 14:30 Aspirin (Aspirin) 325 mg DAILY PO Last administered on 03/29/17 08:14; Admin Dose 325 MG; Start 03/27/17 at 09:30 Fluconazole (Diflucan) 400 mg DAILY PO Last administered on 03/29/17 08:15; Admin Dose 400 MG; Start 03/27/17 at 13:00; Stop 04/03/17 at 12:59 Carvedilol (Coreg) 3.125 mg BID PO ; Start 03/27/17 at 21:00 Insulin Glargine (Lantus) 15 unit DAILY@08 SC Last administered on 03/29/17 08 :21; Admin Dose 15 UNIT; Start 03/29/17 at 08:00 Furosemide (Lasix) 40 mg BID IV Last administered on 03/29/17 10:56; Admin Dose 40 MG; Start 03/29/17 at 10:31 ALPA JONES MD Mar 29, 2017 13:23
--- NOTE | 2017-03-29 15:29 | PN ---
Date/Time of Note Date/Time of Note DATE: 03/29/17 TIME: 14:51 Assessment/Plan Lines/Catheters IV Catheter Type (from Nrsg): Saline Lock Desai in Place (from Nrsg): Yes Assessment/Plan Chief Complaint/Hosp Course Additional Assessment/Plan Three-vessel coronary artery disease Status post non-ST elevation MD Peripheral vascular disease Recent above-knee amputation Diabetes Small bowel obstruction versus Hypothyroid Anemia UTI CHF Patient will need coronary artery bypass grafting however this needs to be done after medically stabilized Discussed with the patient and the family We will discuss with Dr. Thomson Problems: Subjective 24 Hr Interval Summary Constitutional: improved Pain Control: mild Exam/Review of Systems Vital Signs Vitals Vital Signs Date Time Temp Pulse Resp B/P Pulse Ox O2 Delivery O2 Flow Rate FiO2 03/29/17 12:53 98.0 87 18 108/63 98 03/29/17 07:40 Nasal Cannula 4.0 Intake and Output 03/28/17 03/28/17 03/29/17 15:00 23:00 07:00 Intake Total 700 ml 400 ml Output Total 300 ml 500 ml Balance 400 ml -100 ml Exam Neck: non-tender, supple Respiratory: clear to auscultation, normal air movement Cardiovascular: nl pulses, regular rate and rhythm Gastrointestinal: nl liver, spleen, non-tender, soft Results Result Diagram: 03/29/17 0537 03/29/17 0537 ZE CISSE MD Mar 29, 2017 15:29
--- NOTE | 2017-03-29 15:58 | PN ---
Date/Time of Note Date/Time of Note DATE: 03/29/17 TIME: 15:53 Assessment/Plan Lines/Catheters IV Catheter Type (from [facility]): Saline Lock Rivera in Place (from [facility]): Yes Assessment/Plan Chief Complaint/Hosp Course 1. Abdominal pain with CT findings are suggestive of either obstructive pattern versus ileus. SBFT noted. Tolerating diet; Bowel function. -diet as tolerated 2. PVD/PAD with Left lower extremity ischemia with tissue necrosis and gangrene ; s/p left AKA with thrombectomy; -Anticoagulation 3. Elevated troponin with possible demand ischemia and NE; s/p left heart cath -Cardiac evaluation on optimization 4. Elevated BNP with possible CHF -Judicious fluid management -Cardiac optimization 5. Renal insufficiency, multifactorial secondary to above; cr up -Judicious fluid management and avoid nephrotoxic agents as possible 6. Anemia. no nat bleed noted. h/h stable -Close monitoring -Transfuse as needed 7. Diabetes: episodes of hypoglycemia ; hyperglycemia currently: ?stress hyperglycemia -Diet and medication optimization 8. Hypertension: improved -Diet and medication optimization 9. Hypercholesterolemia -Diet and medication optimization 10. Leukocytosis s/p abx -monitor 11. NSTEMI: elevated troponin, no cp; s/p left heart cath -3 vessel CAD pending CABG per CTS 12. Bilateral pleural effusion with episodes of desaturation -supplemental O2 -?thora 13. Neurogenic diabetic bladder: rivera -per urology Thank you, Problems: Subjective 24 Hr Interval Summary SOB improved. Tolerating diet. Bowel function. No c/o dizziness, chakraborty, sz, n/v/ d, dysuria, rash, fevers, chills. Exam/Review of Systems Vital Signs Vitals Vital Signs Date Time Temp Pulse Resp B/P Pulse Ox O2 Delivery O2 Flow Rate FiO2 03/29/17 12:53 98.0 87 18 108/63 98 03/29/17 07:40 Nasal Cannula 4.0 Intake and Output 03/28/17 03/28/17 03/29/17 15:00 23:00 07:00 Intake Total 700 ml 400 ml Output Total 300 ml 500 ml Balance 400 ml -100 ml Exam Free Text/Dictation Constitutional: awake, NAD Psych: confused but able to answer simple questions, follows commands, No anxiety, Head: atraumatic, normocephalic Eyes: EOMI, PERRL, nl conjunctiva, No icteric ENMT: nl external ears & nose, nl lips & teeth, NG tube No mucosa pink and moist (Dry mucosa) Neck: jvd, non-tender, supple Respiratory: diminished No congested cough Cardiovascular: regular rate and rhythm, No edema Gastrointestinal: nondistended, soft, nontender, bowel sounds x4 No firm, No rebound or guarding, Musculoskeletal: No joint tenderness, No nl extremities to inspection (Left AKA ), No nl gait and stance Extremities: No calf tenderness, No normal pulses Neurological: nl speech, No nl strength Skin: No diaphoresis, No nl turgor, No rash or lesions Lymph: nl lymph nodes Results Result Diagram: 03/29/17 0537 03/29/17 0537 ABNER FELIPE MD Mar 29, 2017 15:58
--- NOTE | 2017-03-29 16:22 | CONS ---
Date/Time of Note Date/Time of Note DATE: 03/29/17 TIME: 16:19 Assessment/Plan Assessment/Plan Additional Assessment/Plan 1.Nstemi-Increased troponin/CK-MB which started to downtrend today. NO CP. Now s /p LHC revealing mutivessel obstructive cad and now newly decreased LVEF 25% by cath LV gram - now evaluated - might have CABG, will discuss with surgical team - WILL KEEP NPO for now if intervention is planned tomorrow 2.HTN - well Rx, con'tr med Rx - in better [place] 3.SBO - stable now - LASIX increased day prior 4.PAD now, post-op s/p LLE amputation - vascular team follows. 5. Hypopthyroid 6.UTI - omn anti-bx 7.anemia - h/H stable - no bleeding now Consultation Date/Type/Reason Admit Date/Time Mar 16, 2017 at 22:23 Initial Consult Date 03/27/17 Type of Consultation: cardiology Referring Provider: TOPHER DUNBAR MD 24 HR Interval Summary Free Text/Dictation No acute change - in better fluid status now. ROS: No fever, no chills, no nausea, no vomiting, no diarrhea/constipation No recent weight changes No chest pain, no PND, no orthopnea No dizziness, blurred vision No thirst, no heat or cold intolerance Exam/Review of Systems Vital Signs Vitals Vital Signs Date Time Temp Pulse Resp B/P Pulse Ox O2 Delivery O2 Flow Rate FiO2 03/29/17 12:53 98.0 87 18 108/63 98 03/29/17 07:40 Nasal Cannula 4.0 Intake and Output 03/28/17 03/28/17 03/29/17 15:00 23:00 07:00 Intake Total 700 ml 400 ml Output Total 300 ml 500 ml Balance 400 ml -100 ml Exam General: WN/WD/NAD, AOx 1 HEENT: Unicetric/atraumatic/EOMI (does not follow commands) NECK: JVD elevated, no thyromegaly Lymph: no lymphadenopathy HEART: regular with no S3, II/ systolic murmur at apex, PMI L LUNGS: Coarse sounds ABD: soft, NT, ND, +BS : Intact Neuro: non focal SKIN: chronic changes EXT: amputation Results Result Diagram: 03/29/1753603/29/17536 Results 24 hrs Laboratory Tests Test 03/28/17 17:26 03/28/17 21:13 03/29/17 01:47 03/29/17 05:37 Bedside Glucose 327 H 326 H 307 H White Blood Count 11.5 #H Red Blood Count 3.14 L Hemoglobin 8.7 L Hematocrit 28.2 L Mean Corpuscular Volume 89.8 Mean Corpuscular Hemoglobin 27.7 L Mean Corpuscular Hemoglobin Concent 30.9 L Red Cell Distribution Width 13.7 Platelet Count 270 Mean Platelet Volume 11.6 H Neutrophils % 73.0 Lymphocytes % 17.7 Monocytes % 7.9 Eosinophils % 0.7 Basophils % 0.2 Nucleated Red Blood Cells % 0.0 Neutrophils # 8.4 H Lymphocytes # 2.0 Monocytes # 0.9 Eosinophils # 0.1 Basophils # 0.0 Nucleated Red Blood Cells # 0.0 Sodium Level 127 L Potassium Level 4.4 Chloride Level 87 L Carbon Dioxide Level 31 Anion Gap 13 Blood Urea Nitrogen 27 H Creatinine 1.03 H Glucose Level 246 H Calcium Level 8.1 L Total Bilirubin 0.2 Direct Bilirubin 0.00 Indirect Bilirubin 0.2 Aspartate Amino Transf (AST/SGOT) 216 H Alanine Aminotransferase (ALT/SGPT) 638 H Alkaline Phosphatase 119 Total Protein 5.0 L Albumin 2.3 L Globulin 2.70 Albumin/Globulin Ratio 0.85 Test 03/29/17 08:11 03/29/17 12:11 Bedside Glucose 252 H 206 Medications Medications Current Medications Ondansetron HCl (Zofran Inj) 4 mg Q6H PRN IV NAUSEA AND/OR VOMITING Last administered on 03/24/17 08:20; Admin Dose 4 MG; Start 03/17/17 at 01:00 Morphine Sulfate (morphine) 2 mg Q4H PRN IV PAIN LEVEL 7-10 Last administered on 03/29/17 01:49; Admin Dose 2 MG; Start 03/17/17 at 01:00 Benazepril HCl (Lotensin) 10 mg DAILY PO Last administered on 03/17/17 09:57; Admin Dose 10 MG; Start 03/17/17 at 09:00; Status Future hold Atorvastatin Calcium (Lipitor) 10 mg DAILY@21 PO ; Start 03/17/17 at 21:00; Status Future Hold Miscellaneous Information 1 ea NOTE XX ; Start 03/17/17 at 12:00 Glucose (Glutose) 15 gm Q15M PRN PO DECREASED GLUCOSE Last administered on 03/26 10:59; Admin Dose 15 GM; Start 03/17/17 at 12:00 Glucose (Glutose) 22.5 gm Q15M PRN PO DECREASED GLUCOSE; Start 03/17/17 at 12: 00 Dextrose (D50w Syringe) 25 ml Q15M PRN IV DECREASED GLUCOSE Last administered on 03/19/17 06:08; Admin Dose 25 ML; Start 03/17/17 at 12:00 Dextrose (D50w Syringe) 50 ml Q15M PRN IV DECREASED GLUCOSE; Start 03/17/17 at 12:00 Glucagon (Glucagen) 1 mg Q15M PRN IM DECREASED GLUCOSE; Start 03/17/17 at 12:00 Glucose (Glutose) 15 gm Q15M PRN BUCCAL DECREASED GLUCOSE Last administered on 03/26/17 09:24; Admin Dose 15 GM; Start 03/17/17 at 12:00 Diagnostic Test (Pha) (Accu-Chek) 1 ea 02 XX Last administered on 03/29/17 01: 49; Admin Dose 1 EA; Start 03/19/17 at 02:00 Levothyroxine Sodium (Synthroid Iv) 75 mcg DAILY@06 IV Last administered on 05:22; Admin Dose 75 MCG; Start 03/19/17 at 06:00 Clonidine HCl (Catapres-Tts 3 Patch) 1 patch Q7D TRANSDERM Last administered on 03/19/17 14:39; Admin Dose 1 PATCH; Start 03/19/17 at 14:00; Status Future Hold Clonidine HCl (Catapres-Tts 1 Patch) 1 patch Q7D TRANSDERM Last administered on 03/20/17 13:53; Admin Dose 1 PATCH; Start 03/20/17 at 13:00; Status Future Hold Magnesium Hydroxide (Milk Of Mag) 30 ml DAILY PRN PO CONSTIPATION; Start at 09:00 Collagenase (Santyl) 1 applic DAILY TOP Last administered on 03/29/17 08:18; Admin Dose 1 APPLIC; Start 03/23/17 at 12:30 Collagenase (Santyl) 1 applic PRN PRN TOP WOUND CARE; Start 03/23/17 at 11:30 Heparin Sodium (Porcine) (Heparin (5000 Units/0.5 ml)) 5,000 unit Q8 SC Last administered on 03/29/17 14:02; Admin Dose 5,000 UNIT; Start 03/24/17 at 22:00 Famotidine (Pepcid) 20 mg BID PO Last administered on 03/29/17 08:15; Admin Dose 20 MG; Start 03/25/17 at 21:00 Simethicone (Mylicon) 80 mg Q6H PRN PO DISTENSION/GAS/BLOATING; Start 03/25/17 at 10:30 Al Hydrox/Mg Hydrox/Simethicone (Mag-Al Plus) 30 ml Q4H PRN PO GASTROINTESTINAL UPSET; Start 03/26/17 at 14:30 Ondansetron HCl (Zofran Inj) 4 mg Q4H PRN IV NAUSEA AND/OR VOMITING; Start at 14:30 Aspirin (Aspirin) 325 mg DAILY PO Last administered on 03/29/17 08:14; Admin Dose 325 MG; Start 03/27/17 at 09:30 Fluconazole (Diflucan) 400 mg DAILY PO Last administered on 03/29/17 08:15; Admin Dose 400 MG; Start 03/27/17 at 13:00; Stop 04/03/17 at 12:59 Carvedilol (Coreg) 3.125 mg BID PO ; Start 03/27/17 at 21:00 Furosemide (Lasix) 40 mg BID IV Last administered on 03/29/17 10:56; Admin Dose 40 MG; Start 03/29/17 at 10:31 Insulin Glargine (Lantus) 18 unit DAILY@08 SC ; Start 03/30/17 at 08:00 VALENTINE MCKEON MD Mar 29, 2017 16:22
[2017-03-30] VITALS (13 sets, daily range): BP systolic 85–109; BP diastolic 51–61; PULSE 85–110; RESP 17–20
[2017-03-30] MEDS: ACCU-CHEK XX SCH (01:43)
[2017-03-30] MEDS: LEVOTHYROXINE 100 MCG VIAL IV SCH (05:07)
[2017-03-30] MEDS: morphine 2 MG INJ IV PRN (05:10)
[2017-03-30] MEDS: HEPARIN 5,000 UNIT/0.5 ML VIAL SC SCH ×3 (05:30→22:18)
[2017-03-30 06:21] LABS: HAAIG REFLEX REFLEX FILED
[2017-03-30 06:25] LABS: BASOPHILS % 0.2 % (0.0-2.0); EOSINOPHILS # 0.1 10^3/ul (0.0-0.5); EOSINOPHILS % 0.7 % (0.0-7.0); HEMATOCRIT 29.2 % (37.0-47.0); HEMOGLOBIN 9.2 g/dl (12.0-16.0); LYMPHOCYTES % 15.5 % (15.0-51.0); MEAN CORPUSCULAR HEMOGLOBIN 28.4 pg (29.0-33.0); MEAN CORPUSCULAR HGB CONC 31.5 g/dl (32.0-37.0); MEAN CORPUSCULAR VOLUME 90.1 fl (82.0-101.0); MEAN PLATELET VOLUME 11.8 fl (7.4-10.4); MONOCYTE # 0.9 10^3/ul (0.3-0.9); MONOCYTES % 7.3 % (0.0-11.0); NEUTROPHIL # 9.7 10^3/ul (1.6-7.5); NEUTROPHILS % 75.7 % (39.0-77.0); PLATELET COUNT 275 10^3/UL (140-415); RED BLOOD COUNT 3.24 10^6/ul (4.20-5.40); RED CELL DISTRIBUTION WIDTH 13.8 % (11.5-14.5); WHITE BLOOD COUNT 12.8 10^3/ul (4.8-10.8)
[2017-03-30 07:17] LABS: ALANINE AMINOTRANSFERASE 561 IU/L (13-69); ALBUMIN 2.4 g/dl (3.3-4.9); ALBUMIN/GLOBULIN RATIO 0.92; ALKALINE PHOSPHATASE 156 IU/L (42-121); ANION GAP 17 (8-16); ASPARTATE AMINO TRANSFERASE 220 IU/L (15-46); BILIRUBIN,INDIRECT 0.2 mg/dl (0-1.1); BILIRUBIN,TOTAL 0.2 mg/dl (0.2-1.3); BLOOD UREA NITROGEN 27 mg/dl (7-20); CARBON DIOXIDE 31 mmol/L (21-31); CHLORIDE 88 mmol/L (97-110); CREATININE 1.04 mg/dl (0.44-1.00); GLUCOSE 185 mg/dl (70-220); POTASSIUM 4.2 mmol/L (3.5-5.1); SODIUM 132 mmol/L (135-144)
[2017-03-30] MEDS: INSULIN ASPART [NOVOLOG] 3 ML PEN SC SCH ×7 (07:55→21:52)
[2017-03-30] MEDS: INSULIN GLARGINE [LANtus] 3 ML PEN SC SCH (08:01)
[2017-03-30] MEDS: ASPIRIN 325 MG TAB PO SCH (08:06)
[2017-03-30] MEDS: FAMOTIDINE 20 MG TAB PO SCH ×2 (08:07→20:35)
[2017-03-30] MEDS: FLUCONAZOLE 200 MG TAB PO SCH (08:08)
[2017-03-30] MEDS: BENAZEPRIL 10 MG TAB PO SCH (08:10)
[2017-03-30] MEDS: COLLAGENASE 30 GM TUBE TOP SCH (08:11)
[2017-03-30] MEDS: FUROSEMIDE 40 MG INJ IV SCH ×2 (08:12→20:35)
[2017-03-30 09:20] LABS: HEPATITIS B CORE ANTIBODY NEGATIVE (NEGATIVE)
--- NOTE | 2017-03-30 09:29 | PN ---
Date/Time of Note Date/Time of Note DATE: 03/30/17 TIME: 09:22 Assessment/Plan Lines/Catheters IV Catheter Type (from [facility]): Saline Lock Rivera in Place (from [facility]): Yes Assessment/Plan Chief Complaint/Hosp Course 1. Abdominal pain: Flatus. SBFT noted. tolerating diet; +bowel function; resolved -close monitoring 2. PVD/PAD with Left lower extremity ischemia with tissue necrosis and gangrene ; s/p left AKA with thrombectomy; -Anticoagulation 3. Elevated troponin with possible demand ischemia and HI; s/p left heart cath -Cardiac evaluation on optimization 4. Elevated BNP with possible CHF -Judicious fluid management -Cardiac optimization 5. Renal insufficiency, multifactorial secondary to above; cr up -Judicious fluid management and avoid nephrotoxic agents as possible 6. Anemia. no nat bleed noted. h/h stable -Close monitoring -Transfuse as needed 7. Diabetes: episodes of hypoglycemia ; hyperglycemia currently: ?stress hyperglycemia -Diet and medication optimization 8. Hypertension: improved -Diet and medication optimization 9. Hypercholesterolemia -Diet and medication optimization 10. Leukocytosis: 2/2 #1 and #2 normalized;: likely 2/2 #7; afebrile; -monitor 11. NSTEMI: elevated troponin, no cp; s/p left heart cath 12. 3 vessel CAD pending poss CABG 13. Bilateral pleural effusion with episodes of desaturation: improved SOB 14. Neurogenic diabetic bladder: rivera -per urology 15. Transaminitis: no c/o abdominal pain, tolerating diet +bowel function -supportive -trend Patient seen and examined in collaboration with Dr. Steffen Kelly Problems: Subjective 24 Hr Interval Summary Intermittent left leg pain, improved with meds. Tolerating diet. Bowel function. No c/o cp, palpitations, dizziness, chakraborty, sz, n/v/d, dysuria, rash, fevers, chills. Poos CABG Exam/Review of Systems Vital Signs Vitals Vital Signs Date Time Temp Pulse Resp B/P Pulse Ox O2 Delivery O2 Flow Rate FiO2 03/30/17 08:17 105 03/30/17 08:05 4.0 03/30/17 07:32 98.0 18 109/59 98 03/29/17 19:15 Nasal Cannula Intake and Output 03/29/17 03/29/17 03/30/17 15:00 23:00 07:00 Intake Total 750 ml 500 ml Output Total 1200 ml 900 ml Balance -450 ml -400 ml Exam Free Text/Dictation Constitutional: awake, NAD Psych: confused but able to answer simple questions, follows commands No anxiety, No nl mood/affect Head: atraumatic, normocephalic Eyes: EOMI, PERRL, nl conjunctiva, No icteric ENMT: nl external ears & nose, nl lips & teeth, NG tube No mucosa pink and moist (Dry mucosa) Neck: jvd, non-tender, supple Respiratory: diminished No congested cough Cardiovascular: regular rate and rhythm, No edema Gastrointestinal: nondistended, soft, nontender, bowel sounds x4 No firm, No rebound or guarding, Musculoskeletal: No joint tenderness, No nl extremities to inspection (Left AKA ), No nl gait and stance Extremities: No calf tenderness, No normal pulses Neurological: nl speech, No nl strength Skin: No diaphoresis, No nl turgor, No rash or lesions Lymph: nl lymph nodes Results Result Diagram: 03/30/17 0542 03/30/17 0542 JULIANA RUFFIN NP Mar 30, 2017 09:29
--- NOTE | 2017-03-30 11:04 | PN ---
Date/Time of Note Date/Time of Note DATE: 03/30/17 TIME: 10:43 Assessment/Plan VTE Prophylaxis VTE Prophylaxis Intervention: heparin Lines/Catheters IV Catheter Type (from Nrs): Saline Lock Urinary Cath still in place: Yes Reason Cath still needed: other (indicate) Assessment/Plan Chief Complaint/Hosp Course 1.Multivessel coronary artery disease. -Status post left heart catheterization with recommendation of revascularization.- when/timing?? - Continue optimization with anticoagulation, beta terra and DAMION inhibitors. 2. Acute Systolic CHF.[facility] with severely depressed left ejection fraction of approximately 25 % - Continue diuresis, BB,ACEI - monitor INTAKE/output 3.PVD Left lower extremity -Patient status post left [id number] amputation and left lateral artery thrombectomy . Continue surgeon recommendations and vascular checks. 4.Transaminitis- Perhaps from right sided, passive liver congestion- No RUQ symptoms - Monitor 5.Hyponatremia, likely from fluid overload. Stable - Continue diuretics and fluid restriction 6. Acute on likely CKD: Stable - Monitor renal fxn closely 7. Diabetes with A1c of 8.4 -Change ISS to mild algorithm.Continue 18 unit Lantus. 8. Urinary retention possibly neurogenic diabetic bladder.Urology emma appreciated and recommended rivera continuation for now with the plan of starting Urecholine and reassess. 9. Nina UTI. Status post treatment. 10. Hypothyroidism: - Continue synthroid 11. Essential hypertension. Stable. - On antihypertensives and adjust as needed. 12.Chronic anemia .Stable -Monitor. 13. Abdominal pain with CT scan suggestive of possible obstructive pattern versus ileus. Resolved. -Diet as tolerated. Prophylaxis: Heparin subcu/Pepcid Plan: Continue current medical management. Follow-up with consultants recs. Will discuss with whether any plan for CABG with this admission. if no plans, will follow-up with cards recs on any further angioplasty on major coronary vessel and consider DC planning to SNF with outpatient CT surgery follow-ups for eventual myocardial revascularization. Discussed plan of care with Dr. Astudillo. Problems: Subjective 24 Hr Interval Summary Free Text/Dictation Remains afebrile. Denies chest noble, SOB,N/V or abdominal pain. Exam/Review of Systems Vital Signs Vitals Vital Signs Date Time Temp Pulse Resp B/P Pulse Ox O2 Delivery O2 Flow Rate FiO2 03/30/17 08:17 105 03/30/17 08:05 4.0 03/30/17 07:32 98.0 18 109/59 98 03/29/17 19:15 Nasal Cannula Intake and Output 03/29/17 03/29/17 03/30/17 15:00 23:00 07:00 Intake Total 750 ml 500 ml Output Total 1200 ml 900 ml Balance -450 ml -400 ml Exam General: Thin built, not in any acute distress . HEENT: Normocephalic, Atraumatic, No laceration or hematoma; Eyes: PEERL, Conjunctiva clear, Anicteric sclera Neck: Supple without any lymphadenopathy, nontender, no JVD, no carotid bruits, trachea midline, no thyromegaly Cardiac: S1, S2 auscultated, regular rhythm and rate, no mumurs or gallop Pulmonary: Diminished breath sound bibasilar. Normal respiratory effort. Chest clear to auscultation bilaterally, no adventitious breath sounds GI: Abdomen soft,no masses, no rebound tenderness or guarding. Bowel sounds hypoactive on all four quadrants Genitourinary: Deferred Extremities: Left AKA, surgical dressing intact. Heart cath site intact. Neurologic: Alert to person, place, time, and situation. Affect appropriate, intact sensation. Skin: Clean,dry, and intact. No ecchymosis, no rashes, or lesions Results Result Diagram: 03/30/17 0542 03/30/17 0542 Results 24 hrs Laboratory Tests Test 03/29/17 12:11 03/29/17 16:00 03/29/17 17:09 03/29/17 20:34 Bedside Glucose 206 119 161 Urine Osmolality 200 L Urine Random Sodium 60 Test 03/30/17 05:42 03/30/17 07:53 White Blood Count 12.8 H Red Blood Count 3.24 L Hemoglobin 9.2 L Hematocrit 29.2 L Mean Corpuscular Volume 90.1 Mean Corpuscular Hemoglobin 28.4 L Mean Corpuscular Hemoglobin Concent 31.5 L Red Cell Distribution Width 13.8 Platelet Count 275 Mean Platelet Volume 11.8 H Neutrophils % 75.7 Lymphocytes % 15.5 Monocytes % 7.3 Eosinophils % 0.7 Basophils % 0.2 Nucleated Red Blood Cells % 0.0 Neutrophils # 9.7 H Lymphocytes # 2.0 Monocytes # 0.9 Eosinophils # 0.1 Basophils # 0.0 Nucleated Red Blood Cells # 0.0 Sodium Level 132 L Potassium Level 4.2 Chloride Level 88 L Carbon Dioxide Level 31 Anion Gap 17 H Blood Urea Nitrogen 27 H Creatinine 1.04 H Glucose Level 185 Calcium Level 8.0 L Total Bilirubin 0.2 Direct Bilirubin 0.00 Indirect Bilirubin 0.2 Aspartate Amino Transf (AST/SGOT) 220 H Alanine Aminotransferase (ALT/SGPT) 561 H Alkaline Phosphatase 156 H Total Protein 5.0 L Albumin 2.4 L Globulin 2.60 Albumin/Globulin Ratio 0.92 Hepatitis B Surface Antigen NEGATIVE Hepatitis B Core Total Antibody NEGATIVE Hepatitis C Antibody NEGATIVE Bedside Glucose 201 Medications Medications Current Medications Ondansetron HCl (Zofran Inj) 4 mg Q6H PRN IV NAUSEA AND/OR VOMITING Last administered on 03/24/17 08:20; Admin Dose 4 MG; Start 03/17/17 at 01:00 Morphine Sulfate (morphine) 2 mg Q4H PRN IV PAIN LEVEL 7-10 Last administered on 03/30/17 05:10; Admin Dose 2 MG; Start 03/17/17 at 01:00 Benazepril HCl (Lotensin) 10 mg DAILY PO Last administered on 03/30/17 08:10; Admin Dose 10 MG; Start 03/17/17 at 09:00; Status Future hold Atorvastatin Calcium (Lipitor) 10 mg DAILY@21 PO ; Start 03/17/17 at 21:00; Status Future Hold Miscellaneous Information 1 ea NOTE XX ; Start 03/17/17 at 12:00 Glucose (Glutose) 15 gm Q15M PRN PO DECREASED GLUCOSE Last administered on 03/26 10:59; Admin Dose 15 GM; Start 03/17/17 at 12:00 Glucose (Glutose) 22.5 gm Q15M PRN PO DECREASED GLUCOSE; Start 03/17/17 at 12: 00 Dextrose (D50w Syringe) 25 ml Q15M PRN IV DECREASED GLUCOSE Last administered on 03/19/17 06:08; Admin Dose 25 ML; Start 03/17/17 at 12:00 Dextrose (D50w Syringe) 50 ml Q15M PRN IV DECREASED GLUCOSE; Start 03/17/17 at 12:00 Glucagon (Glucagen) 1 mg Q15M PRN IM DECREASED GLUCOSE; Start 03/17/17 at 12:00 Glucose (Glutose) 15 gm Q15M PRN BUCCAL DECREASED GLUCOSE Last administered on 03/26/17 09:24; Admin Dose 15 GM; Start 03/17/17 at 12:00 Diagnostic Test (Pha) (Accu-Chek) 1 ea 02 XX Last administered on 03/29/17 01: 49; Admin Dose 1 EA; Start 03/19/17 at 02:00 Levothyroxine Sodium (Synthroid Iv) 75 mcg DAILY@06 IV Last administered on 05:07; Admin Dose 75 MCG; Start 03/19/17 at 06:00 Clonidine HCl (Catapres-Tts 3 Patch) 1 patch Q7D TRANSDERM Last administered on 03/19/17 14:39; Admin Dose 1 PATCH; Start 03/19/17 at 14:00; Status Future Hold Clonidine HCl (Catapres-Tts 1 Patch) 1 patch Q7D TRANSDERM Last administered on 03/20/17 13:53; Admin Dose 1 PATCH; Start 03/20/17 at 13:00; Status Future Hold Magnesium Hydroxide (Milk Of Mag) 30 ml DAILY PRN PO CONSTIPATION; Start at 09:00 Collagenase (Santyl) 1 applic DAILY TOP Last administered on 03/30/17 08:11; Admin Dose 1 APPLIC; Start 03/23/17 at 12:30 Collagenase (Santyl) 1 applic PRN PRN TOP WOUND CARE; Start 03/23/17 at 11:30 Heparin Sodium (Porcine) (Heparin (5000 Units/0.5 ml)) 5,000 unit Q8 SC Last administered on 03/30/17 05:30; Admin Dose 5,000 UNIT; Start 03/24/17 at 22:00 Famotidine (Pepcid) 20 mg BID PO Last administered on 03/30/17 08:07; Admin Dose 20 MG; Start 03/25/17 at 21:00 Simethicone (Mylicon) 80 mg Q6H PRN PO DISTENSION/GAS/BLOATING; Start 03/25/17 at 10:30 Al Hydrox/Mg Hydrox/Simethicone (Mag-Al Plus) 30 ml Q4H PRN PO GASTROINTESTINAL UPSET; Start 03/26/17 at 14:30 Ondansetron HCl (Zofran Inj) 4 mg Q4H PRN IV NAUSEA AND/OR VOMITING; Start at 14:30 Aspirin (Aspirin) 325 mg DAILY PO Last administered on 03/30/17 08:06; Admin Dose 325 MG; Start 03/27/17 at 09:30 Fluconazole (Diflucan) 400 mg DAILY PO Last administered on 03/30/17 08:08; Admin Dose 400 MG; Start 03/27/17 at 13:00; Stop 04/03/17 at 12:59 Carvedilol (Coreg) 3.125 mg BID PO Last administered on 03/30/17 08:09; Admin Dose 3.125 MG; Start 03/27/17 at 21:00 Furosemide (Lasix) 40 mg BID IV Last administered on 03/30/17 08:12; Admin Dose 40 MG; Start 03/29/17 at 10:31 Insulin Glargine (Lantus) 18 unit DAILY@08 SC Last administered on 03/30/17 08 :01; Admin Dose 18 UNIT; Start 03/30/17 at 08:00 BEBA HENSON NP Mar 30, 2017 10:54 BEBA HENOSN NP Mar 30, 2017 10:54
--- NOTE | 2017-03-30 11:26 | CONS ---
Date/Time of Note Date/Time of Note DATE: 03/30/17 TIME: 11:22 Assessment/Plan Assessment/Plan Chief Complaint/Hosp Course IMP: 1.Nstemi-Increased troponin/CK-MB which started to downtrend today. NO CP. Now s /p LHC revealing mutivessel obstructive cad and now newly decreased LVEF 25% by cath LV gram . Evaluated by CT surgery with reccs fo medical optimizsation prior to cabg-? timing 2.HTN 3.SBO 4.PAD now post-op s/p LLE amputation 5. Hypopthyroid 6.UTI 7.anemia Recc: -Tele -serial ecg's -Continue PO BB as trolerated and ACEI afterload reduction -Continue abx's and f/u cx data -trend cardiac enzymes -Continue heparin SQ /ASA -Pain control -Possible cabg awaiting timimg -Continue lasix diuresis and follow output closely Problems: Consultation Date/Type/Reason Admit Date/Time Mar 16, 2017 at 22:23 Initial Consult Date 03/17/17 Type of Consultation: cardiology Reason for Consultation nstemi Referring Provider: TOPHER DUNBAR MD Exam/Review of Systems Vital Signs Vitals Vital Signs Date Time Temp Pulse Resp B/P Pulse Ox O2 Delivery O2 Flow Rate FiO2 03/30/17 08:17 105 03/30/17 08:05 4.0 03/30/17 07:32 98.0 18 109/59 98 03/29/17 19:15 Nasal Cannula Intake and Output 03/29/17 03/29/17 03/30/17 15:00 23:00 07:00 Intake Total 750 ml 500 ml Output Total 1200 ml 900 ml Balance -450 ml -400 ml Exam Review of Systems: CONSTITUTIONAL: No fevers, chills. PULMONARY: No sob CARDIOVASCULAR: No chest pain/palpitations GASTROINTESTINAL: No nausea/vomiting. GENITOURINARY: No hematuria/dysuria. MUSCULOSKELETAL: No myagias/arthalgias. PSYCHIATRIC: The patient denies depression. NEUROLOGIC: No weakness Constitutional: alert Psych: no complaints Head: normocephalic ENMT: mucosa pink and moist Neck: jvd (8 cm water), supple Respiratory: diminished breath sounds (at bases/B) Cardiovascular: regular rate and rhythm Gastrointestinal: non-tender, soft Musculoskeletal: muscle tone (normal) Extremities: edema (none) Neurological: lethargic Results Result Diagram: 03/30/17 0542 03/30/17 0542 Results 24 hrs Laboratory Tests Test 03/29/17 12:11 03/29/17 16:00 03/29/17 17:09 03/29/17 20:34 Bedside Glucose 206 119 161 Urine Osmolality 200 L Urine Random Sodium 60 Test 03/30/17 05:42 03/30/17 07:53 White Blood Count 12.8 H Red Blood Count 3.24 L Hemoglobin 9.2 L Hematocrit 29.2 L Mean Corpuscular Volume 90.1 Mean Corpuscular Hemoglobin 28.4 L Mean Corpuscular Hemoglobin Concent 31.5 L Red Cell Distribution Width 13.8 Platelet Count 275 Mean Platelet Volume 11.8 H Neutrophils % 75.7 Lymphocytes % 15.5 Monocytes % 7.3 Eosinophils % 0.7 Basophils % 0.2 Nucleated Red Blood Cells % 0.0 Neutrophils # 9.7 H Lymphocytes # 2.0 Monocytes # 0.9 Eosinophils # 0.1 Basophils # 0.0 Nucleated Red Blood Cells # 0.0 Sodium Level 132 L Potassium Level 4.2 Chloride Level 88 L Carbon Dioxide Level 31 Anion Gap 17 H Blood Urea Nitrogen 27 H Creatinine 1.04 H Glucose Level 185 Calcium Level 8.0 L Total Bilirubin 0.2 Direct Bilirubin 0.00 Indirect Bilirubin 0.2 Aspartate Amino Transf (AST/SGOT) 220 H Alanine Aminotransferase (ALT/SGPT) 561 H Alkaline Phosphatase 156 H Total Protein 5.0 L Albumin 2.4 L Globulin 2.60 Albumin/Globulin Ratio 0.92 Hepatitis B Surface Antigen NEGATIVE Hepatitis B Core Total Antibody NEGATIVE Hepatitis C Antibody NEGATIVE Bedside Glucose 201 Medications Medications Current Medications Ondansetron HCl (Zofran Inj) 4 mg Q6H PRN IV NAUSEA AND/OR VOMITING Last administered on 03/24/17 08:20; Admin Dose 4 MG; Start 03/17/17 at 01:00 Morphine Sulfate (morphine) 2 mg Q4H PRN IV PAIN LEVEL 7-10 Last administered on 03/30/17 05:10; Admin Dose 2 MG; Start 03/17/17 at 01:00 Benazepril HCl (Lotensin) 10 mg DAILY PO Last administered on 03/30/17 08:10; Admin Dose 10 MG; Start 03/17/17 at 09:00; Status Future hold Atorvastatin Calcium (Lipitor) 10 mg DAILY@21 PO ; Start 03/17/17 at 21:00; Status Future Hold Miscellaneous Information 1 ea NOTE XX ; Start 03/17/17 at 12:00 Glucose (Glutose) 15 gm Q15M PRN PO DECREASED GLUCOSE Last administered on 03/26 10:59; Admin Dose 15 GM; Start 03/17/17 at 12:00 Glucose (Glutose) 22.5 gm Q15M PRN PO DECREASED GLUCOSE; Start 03/17/17 at 12: 00 Dextrose (D50w Syringe) 25 ml Q15M PRN IV DECREASED GLUCOSE Last administered on 03/19/17 06:08; Admin Dose 25 ML; Start 03/17/17 at 12:00 Dextrose (D50w Syringe) 50 ml Q15M PRN IV DECREASED GLUCOSE; Start 03/17/17 at 12:00 Glucagon (Glucagen) 1 mg Q15M PRN IM DECREASED GLUCOSE; Start 03/17/17 at 12:00 Glucose (Glutose) 15 gm Q15M PRN BUCCAL DECREASED GLUCOSE Last administered on 03/26/17 09:24; Admin Dose 15 GM; Start 03/17/17 at 12:00 Diagnostic Test (Pha) (Accu-Chek) 1 ea 02 XX Last administered on 03/29/17 01: 49; Admin Dose 1 EA; Start 03/19/17 at 02:00 Levothyroxine Sodium (Synthroid Iv) 75 mcg DAILY@06 IV Last administered on 05:07; Admin Dose 75 MCG; Start 03/19/17 at 06:00 Clonidine HCl (Catapres-Tts 3 Patch) 1 patch Q7D TRANSDERM Last administered on 03/19/17 14:39; Admin Dose 1 PATCH; Start 03/19/17 at 14:00; Status Future Hold Clonidine HCl (Catapres-Tts 1 Patch) 1 patch Q7D TRANSDERM Last administered on 03/20/17 13:53; Admin Dose 1 PATCH; Start 03/20/17 at 13:00; Status Future Hold Magnesium Hydroxide (Milk Of Mag) 30 ml DAILY PRN PO CONSTIPATION; Start at 09:00 Collagenase (Santyl) 1 applic DAILY TOP Last administered on 03/30/17 08:11; Admin Dose 1 APPLIC; Start 03/23/17 at 12:30 Collagenase (Santyl) 1 applic PRN PRN TOP WOUND CARE; Start 03/23/17 at 11:30 Heparin Sodium (Porcine) (Heparin (5000 Units/0.5 ml)) 5,000 unit Q8 SC Last administered on 03/30/17 05:30; Admin Dose 5,000 UNIT; Start 03/24/17 at 22:00 Famotidine (Pepcid) 20 mg BID PO Last administered on 03/30/17 08:07; Admin Dose 20 MG; Start 03/25/17 at 21:00 Simethicone (Mylicon) 80 mg Q6H PRN PO DISTENSION/GAS/BLOATING; Start 03/25/17 at 10:30 Al Hydrox/Mg Hydrox/Simethicone (Mag-Al Plus) 30 ml Q4H PRN PO GASTROINTESTINAL UPSET; Start 03/26/17 at 14:30 Ondansetron HCl (Zofran Inj) 4 mg Q4H PRN IV NAUSEA AND/OR VOMITING; Start at 14:30 Aspirin (Aspirin) 325 mg DAILY PO Last administered on 03/30/17 08:06; Admin Dose 325 MG; Start 03/27/17 at 09:30 Fluconazole (Diflucan) 400 mg DAILY PO Last administered on 03/30/17 08:08; Admin Dose 400 MG; Start 03/27/17 at 13:00; Stop 04/03/17 at 12:59 Carvedilol (Coreg) 3.125 mg BID PO Last administered on 03/30/17 08:09; Admin Dose 3.125 MG; Start 03/27/17 at 21:00 Furosemide (Lasix) 40 mg BID IV Last administered on 03/30/17 08:12; Admin Dose 40 MG; Start 03/29/17 at 10:31 Insulin Glargine (Lantus) 18 unit DAILY@08 SC Last administered on 03/30/17 08 :01; Admin Dose 18 UNIT; Start 03/30/17 at 08:00 JAVI LION Mar 30, 2017 11:26
[2017-03-30] MEDS: morphine 4 MG/ML VIAL IV PRN ×2 (17:40→21:55)
[2017-03-30] MEDS ORDERED: SOD CHLORIDE 0.9% 500 ML IV ONE (20:30)
[2017-03-31] VITALS (13 sets, daily range): BP systolic 87–98; BP diastolic 51–57; PULSE 90–96; RESP 18–22
[2017-03-31] MEDS: morphine 4 MG/ML VIAL IV PRN ×2 (02:11→06:26)
[2017-03-31] MEDS: ACCU-CHEK XX SCH (02:11)
[2017-03-31] MEDS: LEVOTHYROXINE 100 MCG VIAL IV SCH (06:26)
[2017-03-31] MEDS: HEPARIN 5,000 UNIT/0.5 ML VIAL SC SCH ×3 (06:42→21:53)
[2017-03-31 06:58] LABS: BASOPHILS % 0.2 % (0.0-2.0); EOSINOPHILS # 0.1 10^3/ul (0.0-0.5); EOSINOPHILS % 1.1 % (0.0-7.0); HEMATOCRIT 27.1 % (37.0-47.0); HEMOGLOBIN 8.3 g/dl (12.0-16.0); LYMPHOCYTES # 1.7 10^3/ul (0.8-2.9); MEAN CORPUSCULAR HEMOGLOBIN 27.9 pg (29.0-33.0); MEAN CORPUSCULAR HGB CONC 30.6 g/dl (32.0-37.0); MEAN CORPUSCULAR VOLUME 91.2 fl (82.0-101.0); MEAN PLATELET VOLUME 12.4 fl (7.4-10.4); MONOCYTE # 0.7 10^3/ul (0.3-0.9); MONOCYTES % 7.3 % (0.0-11.0); NEUTROPHIL # 7.2 10^3/ul (1.6-7.5); NEUTROPHILS % 73.9 % (39.0-77.0); NUCLEATED RED BLOOD CELLS% 0.2 /100WBC (0.0-0.0); RED BLOOD COUNT 2.97 10^6/ul (4.20-5.40); RED CELL DISTRIBUTION WIDTH 14.5 % (11.5-14.5); WHITE BLOOD COUNT 9.7 10^3/ul (4.8-10.8)
[2017-03-31 07:17] LABS: PLATELET COUNT 179 10^3/UL (140-415); POSITIVE DIFF @See below
[2017-03-31 07:27] LABS: CALCIUM 7.8 mg/dl (8.4-10.2); CREATININE 1.07 mg/dl (0.44-1.00); MAGNESIUM 1.5 mg/dl (1.7-2.5); POTASSIUM 4.1 mmol/L (3.5-5.1)
[2017-03-31] MEDS: FUROSEMIDE 40 MG INJ IV SCH ×2 (08:40→20:47)
[2017-03-31] MEDS: BENAZEPRIL 10 MG TAB PO SCH (08:41)
[2017-03-31] MEDS: INSULIN GLARGINE [LANtus] 3 ML PEN SC SCH (08:42)
[2017-03-31] MEDS: INSULIN ASPART [NOVOLOG] 3 ML PEN SC SCH ×7 (08:43→21:00)
[2017-03-31] MEDS: ASPIRIN 325 MG TAB PO SCH (08:44)
[2017-03-31] MEDS: FAMOTIDINE 20 MG TAB PO SCH ×2 (08:44→20:47)
[2017-03-31] MEDS: FLUCONAZOLE 200 MG TAB PO SCH (08:45)
[2017-03-31] MEDS: COLLAGENASE 30 GM TUBE TOP SCH (08:45)
--- NOTE | 2017-03-31 10:29 | PN ---
Date/Time of Note Date/Time of Note DATE: 03/31/17 TIME: 10:25 Assessment/Plan VTE Prophylaxis VTE Prophylaxis Intervention: heparin Lines/Catheters IV Catheter Type (from Nrs): Saline Lock Urinary Cath still in place: Yes Reason Cath still needed: other (indicate) Assessment/Plan Chief Complaint/Hosp Course 1.Multivessel coronary artery disease. -Status post left heart catheterization with eventual recommendation of revascularization-needs to be medically optimized further per CT surgery recommendation. - Continue optimization with anticoagulation, beta terra and DAMION inhibitors. 2. Acute Systolic CHF.[facility] with severely depressed left ejection fraction of approximately 25 % - Continue diuresis, BB,ACEI - monitor INTAKE/output 3.PVD Left lower extremity -Patient status post left [id number] amputation and left lateral artery thrombectomy . Continue surgeon recommendations and vascular checks. 4.Transaminitis- Perhaps from right sided, passive liver congestion- No RUQ symptoms - Monitor 5.Hyponatremia, likely from fluid overload. Stable - Continue diuretics and fluid restriction 6. Acute on likely CKD: Stable - Monitor renal fxn closely 7. Diabetes with A1c of 8.4 -Continue Accu-Cheks/ISS.Continue 18 unit Lantus. 8. Urinary retention possibly neurogenic diabetic bladder.Urology eval appreciated and recommended rivera continuation for now with the plan of starting Urecholine and reassess. 9. Nina UTI. Status post treatment. 10. Hypothyroidism: - Continue synthroid 11. Essential hypertension. Stable. - On antihypertensives and adjust as needed. 12.Chronic anemia .Stable -Monitor. 13. Abdominal pain with CT scan suggestive of possible obstructive pattern versus ileus. Resolved. -Diet as tolerated. 14. Hypomagnesemia. Replete and monitor. Prophylaxis: Heparin subcu/Pepcid Plan: Continue current medical management. Follow-up with consultants recs. As per the discussion with , patient needs to be medically optimized further prior to any revascularization. At this time, we will follow- up with cardiology recommendation. Discussed plan of care with Dr. Astudillo. Problems: Subjective 24 Hr Interval Summary Free Text/Dictation Lying in bed comfortably. Denies chest pain, palpitation, nausea, vomiting or other constitutional symptoms. Exam/Review of Systems Vital Signs Vitals Vital Signs Date Time Temp Pulse Resp B/P Pulse Ox O2 Delivery O2 Flow Rate FiO2 03/31/17 08:00 96 8/1/17 07:42 97.8 19 96/52 97 03/31/17 01:14 4.0 03/31/17 00:30 Nasal Cannula Intake and Output 03/30/17 03/30/17 03/31/17 15:00 23:00 07:00 Intake Total 1300 ml 250 ml Output Total 1100 ml 952 ml Balance 200 ml -702 ml Exam General: Thin built, not in any acute distress . HEENT: Normocephalic, Atraumatic, No laceration or hematoma; Eyes: PEERL, Conjunctiva clear, Anicteric sclera Neck: Supple without any lymphadenopathy, nontender, no JVD, no carotid bruits, trachea midline, no thyromegaly Cardiac: S1, S2 auscultated, regular rhythm and rate, no mumurs or gallop Pulmonary: Diminished breath sound bibasilar. Normal respiratory effort. Chest clear to auscultation bilaterally, no adventitious breath sounds GI: Abdomen soft,no masses, no rebound tenderness or guarding. Bowel sounds hypoactive on all four quadrants Genitourinary: Deferred Extremities: Left AKA, surgical dressing intact. Heart cath site intact. Neurologic: Alert to person, place, time, and situation. Affect appropriate, intact sensation. Skin: Clean,dry, and intact. No ecchymosis, no rashes, or lesions Results Result Diagram: 03/31/1761603/31/1717 Results 24 hrs Laboratory Tests Test 03/30/17 12:04 03/30/17 17:26 03/30/17 21:44 03/31/17 02:09 Bedside Glucose 275 H 192 207 220 Test 03/31/17 06:17 03/31/17 07:50 White Blood Count 9.7 # Red Blood Count 2.97 L Hemoglobin 8.3 L Hematocrit 27.1 L Mean Corpuscular Volume 91.2 Mean Corpuscular Hemoglobin 27.9 L Mean Corpuscular Hemoglobin Concent 30.6 L Red Cell Distribution Width 14.5 Platelet Count 179 # Mean Platelet Volume 12.4 H Neutrophils % 73.9 Lymphocytes % 17.0 Monocytes % 7.3 Eosinophils % 1.1 Basophils % 0.2 Nucleated Red Blood Cells % 0.2 H Neutrophils # 7.2 Lymphocytes # 1.7 Monocytes # 0.7 Eosinophils # 0.1 Basophils # 0.0 Nucleated Red Blood Cells # 0.0 Sodium Level 133 L Potassium Level 4.1 Chloride Level 91 L Carbon Dioxide Level 27 Anion Gap 19 H Blood Urea Nitrogen 33 H Creatinine 1.07 H Glucose Level 215 Calcium Level 7.8 L Magnesium Level 1.5 L Bedside Glucose 267 H Medications Medications Current Medications Ondansetron HCl (Zofran Inj) 4 mg Q6H PRN IV NAUSEA AND/OR VOMITING Last administered on 03/24/17 08:20; Admin Dose 4 MG; Start 03/17/17 at 01:00 Benazepril HCl (Lotensin) 10 mg DAILY PO Last administered on 03/30/17 08:10; Admin Dose 10 MG; Start 03/17/17 at 09:00; Status Future hold Atorvastatin Calcium (Lipitor) 10 mg DAILY@21 PO ; Start 03/17/17 at 21:00; Status Future Hold Miscellaneous Information 1 ea NOTE XX ; Start 03/17/17 at 12:00 Glucose (Glutose) 15 gm Q15M PRN PO DECREASED GLUCOSE Last administered on 03/26 10:59; Admin Dose 15 GM; Start 03/17/17 at 12:00 Glucose (Glutose) 22.5 gm Q15M PRN PO DECREASED GLUCOSE; Start 03/17/17 at 12: 00 Dextrose (D50w Syringe) 25 ml Q15M PRN IV DECREASED GLUCOSE Last administered on 03/19/17 06:08; Admin Dose 25 ML; Start 03/17/17 at 12:00 Dextrose (D50w Syringe) 50 ml Q15M PRN IV DECREASED GLUCOSE; Start 03/17/17 at 12:00 Glucagon (Glucagen) 1 mg Q15M PRN IM DECREASED GLUCOSE; Start 03/17/17 at 12:00 Glucose (Glutose) 15 gm Q15M PRN BUCCAL DECREASED GLUCOSE Last administered on 03/26/17 09:24; Admin Dose 15 GM; Start 03/17/17 at 12:00 Diagnostic Test (Pha) (Accu-Chek) 1 ea 02 XX Last administered on 03/31/17 02: 11; Admin Dose 1 EA; Start 03/19/17 at 02:00 Levothyroxine Sodium (Synthroid Iv) 75 mcg DAILY@06 IV Last administered on 03/31 06:26; Admin Dose 75 MCG; Start 03/19/17 at 06:00 Clonidine HCl (Catapres-Tts 3 Patch) 1 patch Q7D TRANSDERM Last administered on 03/19/17 14:39; Admin Dose 1 PATCH; Start 03/19/17 at 14:00; Status Future Hold Clonidine HCl (Catapres-Tts 1 Patch) 1 patch Q7D TRANSDERM Last administered on 03/20/17 13:53; Admin Dose 1 PATCH; Start 03/20/17 at 13:00; Status Future Hold Magnesium Hydroxide (Milk Of Mag) 30 ml DAILY PRN PO CONSTIPATION; Start at 09:00 Collagenase (Santyl) 1 applic DAILY TOP Last administered on 03/31/17 08:45; Admin Dose 1 APPLIC; Start 03/23/17 at 12:30 Collagenase (Santyl) 1 applic PRN PRN TOP WOUND CARE; Start 03/23/17 at 11:30 Heparin Sodium (Porcine) (Heparin (5000 Units/0.5 ml)) 5,000 unit Q8 SC Last administered on 03/31/17 06:42; Admin Dose 5,000 UNIT; Start 03/24/17 at 22:00 Famotidine (Pepcid) 20 mg BID PO Last administered on 03/31/17 08:44; Admin Dose 20 MG; Start 03/25/17 at 21:00 Simethicone (Mylicon) 80 mg Q6H PRN PO DISTENSION/GAS/BLOATING Last administered on 03/30/17 20:01; Admin Dose 80 MG; Start 03/25/17 at 10:30 Al Hydrox/Mg Hydrox/Simethicone (Mag-Al Plus) 30 ml Q4H PRN PO GASTROINTESTINAL UPSET; Start 03/26/17 at 14:30 Ondansetron HCl (Zofran Inj) 4 mg Q4H PRN IV NAUSEA AND/OR VOMITING; Start at 14:30 Aspirin (Aspirin) 325 mg DAILY PO Last administered on 03/31/17 08:44; Admin Dose 325 MG; Start 03/27/17 at 09:30 Fluconazole (Diflucan) 400 mg DAILY PO Last administered on 03/31/17 08:45; Admin Dose 400 MG; Start 03/27/17 at 13:00; Stop 04/03/17 at 12:59 Carvedilol (Coreg) 3.125 mg BID PO Last administered on 03/30/17 08:09; Admin Dose 3.125 MG; Start 03/27/17 at 21:00 Furosemide (Lasix) 40 mg BID IV Last administered on 03/30/17 08:12; Admin Dose 40 MG; Start 03/29/17 at 10:31 Insulin Glargine (Lantus) 18 unit DAILY@08 SC Last administered on 03/31/17 08: 42; Admin Dose 18 UNIT; Start 03/30/17 at 08:00 Morphine Sulfate (morphine) 2 mg Q4H PRN IV PAIN LEVEL 7-10 Last administered on 03/31/17 06:26; Admin Dose 2 MG; Start 03/30/17 at 14:30 BEBA HENSON NP Mar 31, 2017 10:29 BEBA HENSON NP Mar 31, 2017 10:29
[2017-03-31] MEDS ORDERED: MAGNESIUM SULFATE 2 GM/50 ML 50 ML IVPB ONE (10:30)
--- NOTE | 2017-03-31 12:32 | PN ---
Date/Time of Note Date/Time of Note DATE: 03/31/17 TIME: 12:30 Assessment/Plan Lines/Catheters IV Catheter Type (from Nrsg): Saline Lock Desai in Place (from Nrsg): Yes Assessment/Plan Chief Complaint/Hosp Course Additional Assessment/Plan Three-vessel coronary artery disease Status post non-ST elevation [place] Peripheral vascular disease Recent above-knee amputation Diabetes Small bowel obstruction versus Hypothyroid Anemia UTI CHF CXR Bilateral hazy and patchy opacities could represent pulmonary edema and/or multifocal pneumonia, increased compared with the prior study. Bilateral moderate to large pleural effusions, increased. Pedal Patient will need coronary artery bypass grafting however this needs to be done after medically stabilized Discussed with the patient and the family We will discuss with Dr. Thomson Problems: Subjective 24 Hr Interval Summary Constitutional: improved Pain Control: mild Exam/Review of Systems Vital Signs Vitals Vital Signs Date Time Temp Pulse Resp B/P Pulse Ox O2 Delivery O2 Flow Rate FiO2 03/31/17 11:29 98.0 98 19 91/55 94 03/31/17 10:42 Nasal Cannula 4.0 Intake and Output 03/30/17 03/30/17 03/31/17 15:00 23:00 07:00 Intake Total 1300 ml 250 ml Output Total 1100 ml 952 ml Balance 200 ml -702 ml Exam ENMT: mucosa pink and moist, nl external ears & nose, nl lips & teeth, nl nasal mucosa & septum Neck: non-tender, supple Respiratory: clear to auscultation, normal air movement Results Result Diagram: 03/31/17 0617 03/31/17 0617 ZE CISSE MD Mar 31, 2017 12:32
--- NOTE | 2017-03-31 12:40 | CONS ---
Date/Time of Note Date/Time of Note DATE: 03/31/17 TIME: 12:39 Assessment/Plan Assessment/Plan Additional Assessment/Plan 1.Nstemi-Increased troponin/CK-MB which started to downtrend today. NO CP. Now s /p LHC revealing mutivessel obstructive cad and now newly decreased LVEF 25% by cath LV gram - now evaluated - might have CABG, will discuss with surgical team - WILL KEEP NPO for now if intervention is planned tomorrow - WILL AWAIT DISPO PER CT TEam vs [facility] with DR. Thomson 2.HTN - well Rx, con'tr med Rx - in better [place] 3.SBO - stable now - LASIX increased day prior 4.PAD now, post-op s/p LLE amputation - vascular team follows. 5. Hypopthyroid 6.UTI - omn anti-bx 7.anemia - h/H stable - no bleeding now Consultation Date/Type/Reason Admit Date/Time Mar 16, 2017 at 22:23 Initial Consult Date 03/27/17 Type of Consultation: cardiology Referring Provider: TOPHER DUNBAR MD 24 HR Interval Summary Free Text/Dictation WILL AWAIT DISPO PER CT Team vs [facility] with DR. Thomson ROS: No fever, no chills, no nausea, no vomiting, no diarrhea/constipation No recent weight changes No chest pain, no PND, no orthopnea No dizziness, blurred vision No thirst, no heat or cold intolerance Exam/Review of Systems Vital Signs Vitals Vital Signs Date Time Temp Pulse Resp B/P Pulse Ox O2 Delivery O2 Flow Rate FiO2 03/31/17 11:29 98.0 98 19 91/55 94 03/31/17 10:42 Nasal Cannula 4.0 Intake and Output 03/30/17 03/30/17 03/31/17 15:00 23:00 07:00 Intake Total 1300 ml 250 ml Output Total 1100 ml 952 ml Balance 200 ml -702 ml Exam General: WN/WD/NAD, AOx 2-3 HEENT: Unicetric/atraumatic/EOMI (follow commands) NECK: JVD elevated, no thyromegaly Lymph: no lymphadenopathy HEART: regular with no S3, II/ systolic murmur at apex LUNGS: Coarse sounds ABD: soft, NT, ND, +BS : Intact Neuro: non focal SKIN: chronic changes EXT: trace edema Results Result Diagram: 03/31/17 0617 03/31/17 0617 Results 24 hrs Laboratory Tests Test 03/30/17 17:26 03/30/17 21:44 03/31/17 02:09 03/31/17 06:17 Bedside Glucose 192 207 220 White Blood Count 9.7 # Red Blood Count 2.97 L Hemoglobin 8.3 L Hematocrit 27.1 L Mean Corpuscular Volume 91.2 Mean Corpuscular Hemoglobin 27.9 L Mean Corpuscular Hemoglobin Concent 30.6 L Red Cell Distribution Width 14.5 Platelet Count 179 # Mean Platelet Volume 12.4 H Neutrophils % 73.9 Lymphocytes % 17.0 Monocytes % 7.3 Eosinophils % 1.1 Basophils % 0.2 Nucleated Red Blood Cells % 0.2 H Neutrophils # 7.2 Lymphocytes # 1.7 Monocytes # 0.7 Eosinophils # 0.1 Basophils # 0.0 Nucleated Red Blood Cells # 0.0 Sodium Level 133 L Potassium Level 4.1 Chloride Level 91 L Carbon Dioxide Level 27 Anion Gap 19 H Blood Urea Nitrogen 33 H Creatinine 1.07 H Glucose Level 215 Calcium Level 7.8 L Magnesium Level 1.5 L Test 03/31/17 07:50 03/31/17 11:13 Bedside Glucose 267 H 265 H Medications Medications Current Medications Ondansetron HCl (Zofran Inj) 4 mg Q6H PRN IV NAUSEA AND/OR VOMITING Last administered on 03/24/17 08:20; Admin Dose 4 MG; Start 03/17/17 at 01:00 Benazepril HCl (Lotensin) 10 mg DAILY PO Last administered on 03/30/17 08:10; Admin Dose 10 MG; Start 03/17/17 at 09:00; Status Future hold Atorvastatin Calcium (Lipitor) 10 mg DAILY@21 PO ; Start 03/17/17 at 21:00; Status Future Hold Miscellaneous Information 1 ea NOTE XX ; Start 03/17/17 at 12:00 Glucose (Glutose) 15 gm Q15M PRN PO DECREASED GLUCOSE Last administered on 03/26 10:59; Admin Dose 15 GM; Start 03/17/17 at 12:00 Glucose (Glutose) 22.5 gm Q15M PRN PO DECREASED GLUCOSE; Start 03/17/17 at 12: 00 Dextrose (D50w Syringe) 25 ml Q15M PRN IV DECREASED GLUCOSE Last administered on 03/19/17 06:08; Admin Dose 25 ML; Start 03/17/17 at 12:00 Dextrose (D50w Syringe) 50 ml Q15M PRN IV DECREASED GLUCOSE; Start 03/17/17 at 12:00 Glucagon (Glucagen) 1 mg Q15M PRN IM DECREASED GLUCOSE; Start 03/17/17 at 12:00 Glucose (Glutose) 15 gm Q15M PRN BUCCAL DECREASED GLUCOSE Last administered on 03/26/17 09:24; Admin Dose 15 GM; Start 03/17/17 at 12:00 Diagnostic Test (Pha) (Accu-Chek) 1 ea 02 XX Last administered on 03/31/17 02: 11; Admin Dose 1 EA; Start 03/19/17 at 02:00 Levothyroxine Sodium (Synthroid Iv) 75 mcg DAILY@06 IV Last administered on 03/31 06:26; Admin Dose 75 MCG; Start 03/19/17 at 06:00 Clonidine HCl (Catapres-Tts 3 Patch) 1 patch Q7D TRANSDERM Last administered on 03/19/17 14:39; Admin Dose 1 PATCH; Start 03/19/17 at 14:00; Status Future Hold Clonidine HCl (Catapres-Tts 1 Patch) 1 patch Q7D TRANSDERM Last administered on 03/20/17 13:53; Admin Dose 1 PATCH; Start 03/20/17 at 13:00; Status Future Hold Magnesium Hydroxide (Milk Of Mag) 30 ml DAILY PRN PO CONSTIPATION; Start at 09:00 Collagenase (Santyl) 1 applic DAILY TOP Last administered on 03/31/17 08:45; Admin Dose 1 APPLIC; Start 03/23/17 at 12:30 Collagenase (Santyl) 1 applic PRN PRN TOP WOUND CARE; Start 03/23/17 at 11:30 Heparin Sodium (Porcine) (Heparin (5000 Units/0.5 ml)) 5,000 unit Q8 SC Last administered on 03/31/17 06:42; Admin Dose 5,000 UNIT; Start 03/24/17 at 22:00 Famotidine (Pepcid) 20 mg BID PO Last administered on 03/31/17 08:44; Admin Dose 20 MG; Start 03/25/17 at 21:00 Simethicone (Mylicon) 80 mg Q6H PRN PO DISTENSION/GAS/BLOATING Last administered on 03/30/17 20:01; Admin Dose 80 MG; Start 03/25/17 at 10:30 Al Hydrox/Mg Hydrox/Simethicone (Mag-Al Plus) 30 ml Q4H PRN PO GASTROINTESTINAL UPSET; Start 03/26/17 at 14:30 Ondansetron HCl (Zofran Inj) 4 mg Q4H PRN IV NAUSEA AND/OR VOMITING; Start at 14:30 Aspirin (Aspirin) 325 mg DAILY PO Last administered on 03/31/17 08:44; Admin Dose 325 MG; Start 03/27/17 at 09:30 Fluconazole (Diflucan) 400 mg DAILY PO Last administered on 03/31/17 08:45; Admin Dose 400 MG; Start 03/27/17 at 13:00; Stop 04/03/17 at 12:59 Carvedilol (Coreg) 3.125 mg BID PO Last administered on 03/30/17 08:09; Admin Dose 3.125 MG; Start 03/27/17 at 21:00 Furosemide (Lasix) 40 mg BID IV Last administered on 03/30/17 08:12; Admin Dose 40 MG; Start 03/29/17 at 10:31 Insulin Glargine (Lantus) 18 unit DAILY@08 SC Last administered on 03/31/17 08: 42; Admin Dose 18 UNIT; Start 03/30/17 at 08:00 Morphine Sulfate (morphine) 2 mg Q4H PRN IV PAIN LEVEL 7-10 Last administered on 03/31/17 06:26; Admin Dose 2 MG; Start 03/30/17 at 14:30 VALENTINE MCKEON MD Mar 31, 2017 12:40
--- NOTE | 2017-03-31 20:28 | PN ---
Date/Time of Note Date/Time of Note DATE: 03/31/17 TIME: 20:24 Assessment/Plan Lines/Catheters IV Catheter Type (from Nrs): Saline Lock Rivera in Place (from Nrs): Yes Assessment/Plan Chief Complaint/Hosp Course 1. Abdominal pain with CT findings are suggestive of either obstructive pattern versus ileus. SBFT noted. Tolerating diet; Bowel function. -diet as tolerated 2. PVD/PAD with Left lower extremity ischemia with tissue necrosis and gangrene ; s/p left AKA with thrombectomy; -Anticoagulation 3. Elevated troponin with demand ischemia and MS; s/p left heart cath -Cardiac optimization -CABG after medical optimization per CTS 4. Elevated BNP with, CHF & pleural effusion -Judicious fluid management and gentle diuresis prn -Cardiac optimization 5. Renal insufficiency, multifactorial secondary to above; cr up -Judicious fluid management and avoid nephrotoxic agents as possible 6. Anemia. no nat bleed noted. h/h stable -Close monitoring -Transfuse as needed 7. Diabetes: episodes of hypoglycemia ; hyperglycemia currently: ?stress hyperglycemia -Diet and medication optimization 8. Hypertension: improved -Diet and medication optimization 9. Hypercholesterolemia -Diet and medication optimization 10. Leukocytosis s/p abx -monitor 11. Neurogenic diabetic bladder: rivera -per urology Thank you, Problems: Subjective 24 Hr Interval Summary Intermittent left leg pain, improved with meds. Tolerating diet. Bowel function. No c/o cp, palpitations, dizziness, chakraborty, sz, n/v/d, dysuria, rash, fevers, chills. ?CABG when medically optimized per CTS. Exam/Review of Systems Vital Signs Vitals Vital Signs Date Time Temp Pulse Resp B/P Pulse Ox O2 Delivery O2 Flow Rate FiO2 03/31/17 19:51 98.0 93 18 98/53 95 03/31/17 18:30 4.0 03/31/17 10:42 Nasal Cannula Intake and Output 03/30/17 03/30/17 03/31/17 15:00 23:00 07:00 Intake Total 1300 ml 250 ml Output Total 1100 ml 952 ml Balance 200 ml -702 ml Exam Free Text/Dictation Constitutional: awake, NAD Psych: confused but able to answer simple questions, follows commands. No anxiety, No nl mood/affect Head: atraumatic, normocephalic Eyes: EOMI, PERRL, nl conjunctiva, No icteric ENMT: nl external ears & nose, nl lips & teeth. No mucosa pink and moist (Dry mucosa) Neck: jvd, non-tender, supple Respiratory: No congested cough. No wheezing. Cardiovascular: regular rate and rhythm, No edema Gastrointestinal: nondistended, soft, nontender, bowel sounds x4. No firm, No rebound or guarding, Musculoskeletal: No joint tenderness, No nl extremities to inspection (Left AKA ), No nl gait and stance Extremities: No calf tenderness, No normal pulses Neurological: nl speech, No nl strength Skin: No diaphoresis, No nl turgor, No rash or lesions Lymph: nl lymph nodes Results Result Diagram: 03/31/17 0617 03/31/17 0617 ABNER FELIPE MD Mar 31, 2017 20:28
[2017-03-31] MEDS: HYDROCODONE/APAP (5/325) TAB PO PRN (20:46)
[2017-04-01] VITALS (12 sets, daily range): BP systolic 92–112; BP diastolic 51–57; PULSE 89–97; RESP 16–20
[2017-04-01] MEDS: morphine 4 MG/ML VIAL IV PRN (01:24)
[2017-04-01] MEDS: ACCU-CHEK XX SCH (01:25)
[2017-04-01] MEDS: LEVOTHYROXINE 100 MCG VIAL IV SCH (05:07)
[2017-04-01] MEDS: HEPARIN 5,000 UNIT/0.5 ML VIAL SC SCH ×3 (05:25→21:46)
[2017-04-01 07:52] LABS: BASOPHILS % 0.2 % (0.0-2.0); EOSINOPHILS % 0.3 % (0.0-7.0); HEMATOCRIT 28.4 % (37.0-47.0); HEMOGLOBIN 8.8 g/dl (12.0-16.0); LYMPHOCYTES # 1.4 10^3/ul (0.8-2.9); LYMPHOCYTES % 12.5 % (15.0-51.0); MEAN CORPUSCULAR HEMOGLOBIN 28.2 pg (29.0-33.0); MEAN PLATELET VOLUME 12.4 fl (7.4-10.4); MONOCYTE # 0.9 10^3/ul (0.3-0.9); MONOCYTES % 8.1 % (0.0-11.0); NEUTROPHILS % 78.3 % (39.0-77.0); PLATELET COUNT 217 10^3/UL (140-415); RED BLOOD COUNT 3.12 10^6/ul (4.20-5.40); RED CELL DISTRIBUTION WIDTH 14.9 % (11.5-14.5); WHITE BLOOD COUNT 11.5 10^3/ul (4.8-10.8)
--- NOTE | 2017-04-01 08:07 | PN ---
Date/Time of Note Date/Time of Note DATE: 04/01/17 TIME: 08:06 Assessment/Plan VTE Prophylaxis VTE Prophylaxis Intervention: heparin Lines/Catheters IV Catheter Type (from Nrs): Saline Lock Urinary Cath still in place: Yes Reason Cath still needed: urinary retention Assessment/Plan Chief Complaint/Hosp Course 1.Multivessel coronary artery disease. -Status post left heart catheterization with eventual recommendation of revascularization-however,as per CT surgery patient is at very high risk for surgery and needs to be medically optimized further more. - On anticoagulation, beta terra and DAMION inhibitors. -Follow-up with cardiology recs on further decision making. 2. Acute Systolic CHF.[facility] with severely depressed left ejection fraction of approximately 25 %. Symptoms improved. - Continue diuresis, BB,ACEI - monitor INTAKE/output 3.PVD Left lower extremity -Patient status post left [id number] amputation and left lateral artery thrombectomy . Continue surgeon recommendations and vascular checks. 4.Transaminitis- Perhaps from right sided, passive liver congestion- No RUQ symptoms - Monitor 5.Hyponatremia, likely fluid overload. Stable - Continue diuretics and fluid restriction 6. Acute on likely CKD: Stable - Monitor renal fxn closely 7. Diabetes with A1c of 8.4 -Continue Accu-Cheks/ISS.Continue 18 unit Lantus. 8. Urinary retention possibly neurogenic diabetic bladder.Urology emma appreciated and recommended rivera continuation for now with the plan of starting Urecholine and reassess. 9. Nina UTI. Status post treatment. 10. Hypothyroidism: - Continue synthroid 11. Essential hypertension. Stable. - On antihypertensives and adjust as needed. 12.Chronic anemia .Stable -Monitor. 13. Abdominal pain with CT scan suggestive of possible obstructive pattern versus ileus. Resolved. -Diet as tolerated. Prophylaxis: Heparin subcu/Pepcid Plan: Patient too high risk for CABG per CT surgery . But with a depressed LV, awaiting further also puts risk on her. At this time, we will defer further treatment strategies per our cardiology team. Meanwhile, Continue current medical management. Discussed plan of care with Dr. Astudillo. Problems: Subjective 24 Hr Interval Summary Free Text/Dictation Patient with no acute overnight episodes. No reported chest pain, palpitation, nausea, vomiting, abdominal distention or pain. Remains alert and oriented Exam/Review of Systems Vital Signs Vitals Vital Signs Date Time Temp Pulse Resp B/P Pulse Ox O2 Delivery O2 Flow Rate FiO2 04/01/17 07:19 98.4 99 17 104/52 95 04/01/17 00:52 4.0 03/31/17 20:00 Nasal Cannula Intake and Output 03/31/17 03/31/17 04/01/17 14:59 22:59 06:59 Intake Total 300 ml 120 ml Output Total 450 ml 300 ml Balance -150 ml -180 ml Exam General: Thin built, not in any acute distress . HEENT: Normocephalic, Atraumatic, No laceration or hematoma; Eyes: PEERL, Conjunctiva clear, Anicteric sclera Neck: Supple without any lymphadenopathy, nontender, no JVD, no carotid bruits, trachea midline, no thyromegaly Cardiac: S1, S2 auscultated, regular rhythm and rate, no mumurs or gallop Pulmonary: Diminished breath sound bibasilar. Normal respiratory effort. Chest clear to auscultation bilaterally, no adventitious breath sounds GI: Abdomen soft,no masses, no rebound tenderness or guarding. Bowel sounds hypoactive on all four quadrants Genitourinary: Deferred Extremities: Left AKA, surgical dressing intact. Heart cath site intact. Neurologic: Alert to person, place, time, and situation. Affect appropriate, intact sensation. Skin: Clean,dry, and intact. No ecchymosis, no rashes, or lesions Results Result Diagram: 04/01/17 0650 03/31/17 0617 Results 24 hrs Laboratory Tests Test 03/31/17 11:13 03/31/17 17:23 03/31/17 21:43 04/01/17 06:50 Bedside Glucose 265 H 132 127 White Blood Count 11.5 H Red Blood Count 3.12 L Hemoglobin 8.8 L Hematocrit 28.4 L Mean Corpuscular Volume 91.0 Mean Corpuscular Hemoglobin 28.2 L Mean Corpuscular Hemoglobin Concent 31.0 L Red Cell Distribution Width 14.9 H Platelet Count 217 # Mean Platelet Volume 12.4 H Neutrophils % 78.3 H Lymphocytes % 12.5 L Monocytes % 8.1 Eosinophils % 0.3 Basophils % 0.2 Nucleated Red Blood Cells % 0.0 Neutrophils # 9.0 H Lymphocytes # 1.4 Monocytes # 0.9 Eosinophils # 0.0 Basophils # 0.0 Nucleated Red Blood Cells # 0.0 Test 04/01/17 07:50 Bedside Glucose 170 Medications Medications Current Medications Ondansetron HCl (Zofran Inj) 4 mg Q6H PRN IV NAUSEA AND/OR VOMITING Last administered on 03/24/17 08:20; Admin Dose 4 MG; Start 03/17/17 at 01:00 Benazepril HCl (Lotensin) 10 mg DAILY PO Last administered on 03/30/17 08:10; Admin Dose 10 MG; Start 03/17/17 at 09:00; Status Future hold Atorvastatin Calcium (Lipitor) 10 mg DAILY@21 PO ; Start 03/17/17 at 21:00; Status Future Hold Miscellaneous Information 1 ea NOTE XX ; Start 03/17/17 at 12:00 Glucose (Glutose) 15 gm Q15M PRN PO DECREASED GLUCOSE Last administered on 03/26 10:59; Admin Dose 15 GM; Start 03/17/17 at 12:00 Glucose (Glutose) 22.5 gm Q15M PRN PO DECREASED GLUCOSE; Start 03/17/17 at 12: 00 Dextrose (D50w Syringe) 25 ml Q15M PRN IV DECREASED GLUCOSE Last administered on 03/19/17 06:08; Admin Dose 25 ML; Start 03/17/17 at 12:00 Dextrose (D50w Syringe) 50 ml Q15M PRN IV DECREASED GLUCOSE; Start 03/17/17 at 12:00 Glucagon (Glucagen) 1 mg Q15M PRN IM DECREASED GLUCOSE; Start 03/17/17 at 12:00 Glucose (Glutose) 15 gm Q15M PRN BUCCAL DECREASED GLUCOSE Last administered on 03/26/17 09:24; Admin Dose 15 GM; Start 03/17/17 at 12:00 Diagnostic Test (Pha) (Accu-Chek) 1 ea 02 XX Last administered on 03/31/17 02: 11; Admin Dose 1 EA; Start 03/19/17 at 02:00 Levothyroxine Sodium (Synthroid Iv) 75 mcg DAILY@06 IV Last administered on 04/01 05:07; Admin Dose 75 MCG; Start 03/19/17 at 06:00 Clonidine HCl (Catapres-Tts 3 Patch) 1 patch Q7D TRANSDERM Last administered on 03/19/17 14:39; Admin Dose 1 PATCH; Start 03/19/17 at 14:00; Status Future Hold Clonidine HCl (Catapres-Tts 1 Patch) 1 patch Q7D TRANSDERM Last administered on 03/20/17 13:53; Admin Dose 1 PATCH; Start 03/20/17 at 13:00; Status Future Hold Magnesium Hydroxide (Milk Of Mag) 30 ml DAILY PRN PO CONSTIPATION; Start at 09:00 Collagenase (Santyl) 1 applic DAILY TOP Last administered on 03/31/17 08:45; Admin Dose 1 APPLIC; Start 03/23/17 at 12:30 Collagenase (Santyl) 1 applic PRN PRN TOP WOUND CARE; Start 03/23/17 at 11:30 Heparin Sodium (Porcine) (Heparin (5000 Units/0.5 ml)) 5,000 unit Q8 SC Last administered on 04/01/17 05:25; Admin Dose 5,000 UNIT; Start 03/24/17 at 22:00 Famotidine (Pepcid) 20 mg BID PO Last administered on 03/31/17 20:47; Admin Dose 20 MG; Start 03/25/17 at 21:00 Simethicone (Mylicon) 80 mg Q6H PRN PO DISTENSION/GAS/BLOATING Last administered on 03/30/17 20:01; Admin Dose 80 MG; Start 03/25/17 at 10:30 Al Hydrox/Mg Hydrox/Simethicone (Mag-Al Plus) 30 ml Q4H PRN PO GASTROINTESTINAL UPSET; Start 03/26/17 at 14:30 Ondansetron HCl (Zofran Inj) 4 mg Q4H PRN IV NAUSEA AND/OR VOMITING; Start at 14:30 Aspirin (Aspirin) 325 mg DAILY PO Last administered on 03/31/17 08:44; Admin Dose 325 MG; Start 03/27/17 at 09:30 Fluconazole (Diflucan) 400 mg DAILY PO Last administered on 03/31/17 08:45; Admin Dose 400 MG; Start 03/27/17 at 13:00; Stop 04/03/17 at 12:59 Carvedilol (Coreg) 3.125 mg BID PO Last administered on 03/30/17 08:09; Admin Dose 3.125 MG; Start 03/27/17 at 21:00 Furosemide (Lasix) 40 mg BID IV Last administered on 03/30/17 08:12; Admin Dose 40 MG; Start 03/29/17 at 10:31 Insulin Glargine (Lantus) 18 unit DAILY@08 SC Last administered on 03/31/17 08: 42; Admin Dose 18 UNIT; Start 03/30/17 at 08:00 Morphine Sulfate (morphine) 2 mg Q4H PRN IV PAIN LEVEL 7-10 Last administered on 04/01/17 01:24; Admin Dose 2 MG; Start 03/30/17 at 14:30 Acetaminophen/ Hydrocodone Bitart ([place] (5/325)) 1 tab Q4H PRN PO PAIN Last administered on 03/31/17 20:46; Admin Dose 1 TAB; Start 03/31/17 at 20:30 BEBA HENSON NP Apr 01, 2017 08:07 BEBA HENSON NP Apr 01, 2017 08:07
[2017-04-01 08:23] LABS: CALCIUM 7.9 mg/dl (8.4-10.2); CREATININE 1.05 mg/dl (0.44-1.00)
[2017-04-01] MEDS: INSULIN ASPART [NOVOLOG] 3 ML PEN SC SCH ×7 (08:28→22:30)
[2017-04-01] MEDS: FUROSEMIDE 40 MG INJ IV SCH ×2 (08:29→21:00)
[2017-04-01] MEDS: ASPIRIN 325 MG TAB PO SCH (08:29)
[2017-04-01] MEDS: FLUCONAZOLE 200 MG TAB PO SCH (08:31)
[2017-04-01] MEDS: FAMOTIDINE 20 MG TAB PO SCH ×2 (08:31→21:29)
[2017-04-01] MEDS: BENAZEPRIL 10 MG TAB PO SCH (08:32)
[2017-04-01] MEDS: COLLAGENASE 30 GM TUBE TOP SCH (08:32)
[2017-04-01] MEDS: INSULIN GLARGINE [LANtus] 3 ML PEN SC SCH (08:43)
--- NOTE | 2017-04-01 12:57 | CONS ---
Date/Time of Note Date/Time of Note DATE: 04/01/17 TIME: 12:50 Assessment/Plan Assessment/Plan Chief Complaint/Hosp Course IMP: 1.Nstemi-Increased troponin/CK-MB which started to downtrend today. NO CP. Now s /p LHC revealing mutivessel obstructive cad and now newly decreased LVEF 25% by cath LV gram 03/26/17. Evaluated by CT surgery who believes patient is to high risk for CT surgery at this time and would like to wait for further medical optimization/healing of LE amputation. Thus given high grade stenosis in LAD and nstemi after amputation I am concerned patient is not stable to wait and after discussion with CT surgery will proceed with treatment of LAD by high risk PCI with possible additional PTCA to LCX as necessary 2.HTN 3.SBO 4.PAD now post-op s/p LLE amputation 5. Hypopthyroid 6.UTI 7.anemia Recc: -Tele -serial ecg's -Continue PO BB as tolerated and ACEI afterload reduction -Continue abx's and f/u cx data -Continue heparin SQ /ASA -Pain control -Continue lasix diuresis and follow output closely -LHC with PTCA/stent tomorrow and may need IABP support as possible given low EF but concern given PAD Problems: Consultation Date/Type/Reason Admit Date/Time Mar 16, 2017 at 22:23 Initial Consult Date 03/17/17 Type of Consultation: cardiology Reason for Consultation nstemi/chf Referring Provider: TOPHER DUNBAR MD Exam/Review of Systems Vital Signs Vitals Vital Signs Date Time Temp Pulse Resp B/P Pulse Ox O2 Delivery O2 Flow Rate FiO2 04/01/17 12:33 93 04/01/17 11:39 97.8 18 109/56 97 04/01/17 11:14 4.0 04/01/17 10:28 Nasal Cannula Intake and Output 03/31/17 03/31/17 04/01/17 15:00 23:00 07:00 Intake Total 300 ml 120 ml Output Total 450 ml 300 ml Balance -150 ml -180 ml Exam Review of Systems: CONSTITUTIONAL: No fevers, chills. PULMONARY: No sob CARDIOVASCULAR: No chest pain/palpitations GASTROINTESTINAL: No nausea/vomiting. GENITOURINARY: No hematuria/dysuria. MUSCULOSKELETAL:pain in leg PSYCHIATRIC: The patient denies depression. NEUROLOGIC: lethargic Constitutional: alert Psych: no complaints Head: normocephalic ENMT: mucosa pink and moist Neck: jvd (8-9 cm water), supple Respiratory: diminished breath sounds (at bases/B) Cardiovascular: regular rate and rhythm Gastrointestinal: non-tender, soft Musculoskeletal: other (s/p LE amputation) Extremities: edema (trace/B) Neurological: other (No focal deficits) Results Result Diagram: 04/01/17 0650 04/01/17 0656 Results 24 hrs Laboratory Tests Test 03/31/17 17:23 03/31/17 21:43 04/01/17 06:50 04/01/17 06:56 Bedside Glucose 132 127 White Blood Count 11.5 H Red Blood Count 3.12 L Hemoglobin 8.8 L Hematocrit 28.4 L Mean Corpuscular Volume 91.0 Mean Corpuscular Hemoglobin 28.2 L Mean Corpuscular Hemoglobin Concent 31.0 L Red Cell Distribution Width 14.9 H Platelet Count 217 # Mean Platelet Volume 12.4 H Neutrophils % 78.3 H Lymphocytes % 12.5 L Monocytes % 8.1 Eosinophils % 0.3 Basophils % 0.2 Nucleated Red Blood Cells % 0.0 Neutrophils # 9.0 H Lymphocytes # 1.4 Monocytes # 0.9 Eosinophils # 0.0 Basophils # 0.0 Nucleated Red Blood Cells # 0.0 Sodium Level 134 L Potassium Level 4.0 Chloride Level 89 L Carbon Dioxide Level 30 Anion Gap 19 H Blood Urea Nitrogen 34 H Creatinine 1.05 H Glucose Level 139 # Calcium Level 7.9 L Test 04/01/17 07:50 04/01/17 11:59 Bedside Glucose 170 165 Medications Medications Current Medications Ondansetron HCl (Zofran Inj) 4 mg Q6H PRN IV NAUSEA AND/OR VOMITING Last administered on 03/24/17 08:20; Admin Dose 4 MG; Start 03/17/17 at 01:00 Benazepril HCl (Lotensin) 10 mg DAILY PO Last administered on 03/30/17 08:10; Admin Dose 10 MG; Start 03/17/17 at 09:00; Status Future hold Atorvastatin Calcium (Lipitor) 10 mg DAILY@21 PO ; Start 03/17/17 at 21:00; Status Future Hold Miscellaneous Information 1 ea NOTE XX ; Start 03/17/17 at 12:00 Glucose (Glutose) 15 gm Q15M PRN PO DECREASED GLUCOSE Last administered on 03/26 10:59; Admin Dose 15 GM; Start 03/17/17 at 12:00 Glucose (Glutose) 22.5 gm Q15M PRN PO DECREASED GLUCOSE; Start 03/17/17 at 12: 00 Dextrose (D50w Syringe) 25 ml Q15M PRN IV DECREASED GLUCOSE Last administered on 03/19/17 06:08; Admin Dose 25 ML; Start 03/17/17 at 12:00 Dextrose (D50w Syringe) 50 ml Q15M PRN IV DECREASED GLUCOSE; Start 03/17/17 at 12:00 Glucagon (Glucagen) 1 mg Q15M PRN IM DECREASED GLUCOSE; Start 03/17/17 at 12:00 Glucose (Glutose) 15 gm Q15M PRN BUCCAL DECREASED GLUCOSE Last administered on 03/26/17 09:24; Admin Dose 15 GM; Start 03/17/17 at 12:00 Diagnostic Test (Pha) (Accu-Chek) 1 ea 02 XX Last administered on 03/31/17 02: 11; Admin Dose 1 EA; Start 03/19/17 at 02:00 Levothyroxine Sodium (Synthroid Iv) 75 mcg DAILY@06 IV Last administered on 04/01 05:07; Admin Dose 75 MCG; Start 03/19/17 at 06:00 Clonidine HCl (Catapres-Tts 3 Patch) 1 patch Q7D TRANSDERM Last administered on 03/19/17 14:39; Admin Dose 1 PATCH; Start 03/19/17 at 14:00; Status Future Hold Clonidine HCl (Catapres-Tts 1 Patch) 1 patch Q7D TRANSDERM Last administered on 03/20/17 13:53; Admin Dose 1 PATCH; Start 03/20/17 at 13:00; Status Future Hold Magnesium Hydroxide (Milk Of Mag) 30 ml DAILY PRN PO CONSTIPATION; Start at 09:00 Collagenase (Santyl) 1 applic DAILY TOP Last administered on 04/01/17 08:32; Admin Dose 1 APPLIC; Start 03/23/17 at 12:30 Collagenase (Santyl) 1 applic PRN PRN TOP WOUND CARE; Start 03/23/17 at 11:30 Heparin Sodium (Porcine) (Heparin (5000 Units/0.5 ml)) 5,000 unit Q8 SC Last administered on 04/01/17 05:25; Admin Dose 5,000 UNIT; Start 03/24/17 at 22:00 Famotidine (Pepcid) 20 mg BID PO Last administered on 04/01/17 08:31; Admin Dose 20 MG; Start 03/25/17 at 21:00 Simethicone (Mylicon) 80 mg Q6H PRN PO DISTENSION/GAS/BLOATING Last administered on 03/30/17 20:01; Admin Dose 80 MG; Start 03/25/17 at 10:30 Al Hydrox/Mg Hydrox/Simethicone (Mag-Al Plus) 30 ml Q4H PRN PO GASTROINTESTINAL UPSET; Start 03/26/17 at 14:30 Ondansetron HCl (Zofran Inj) 4 mg Q4H PRN IV NAUSEA AND/OR VOMITING; Start at 14:30 Aspirin (Aspirin) 325 mg DAILY PO Last administered on 04/01/17 08:29; Admin Dose 325 MG; Start 03/27/17 at 09:30 Fluconazole (Diflucan) 400 mg DAILY PO Last administered on 04/01/17 08:31; Admin Dose 400 MG; Start 03/27/17 at 13:00; Stop 04/03/17 at 12:59 Carvedilol (Coreg) 3.125 mg BID PO Last administered on 03/30/17 08:09; Admin Dose 3.125 MG; Start 03/27/17 at 21:00 Furosemide (Lasix) 40 mg BID IV Last administered on 04/01/17 08:29; Admin Dose 40 MG; Start 03/29/17 at 10:31 Insulin Glargine (Lantus) 18 unit DAILY@08 SC Last administered on 04/01/17 08: 43; Admin Dose 18 UNIT; Start 03/30/17 at 08:00 Morphine Sulfate (morphine) 2 mg Q4H PRN IV PAIN LEVEL 7-10 Last administered on 04/01/17 01:24; Admin Dose 2 MG; Start 03/30/17 at 14:30 Acetaminophen/ Hydrocodone Bitart (Norton (5/325)) 1 tab Q4H PRN PO PAIN Last administered on 8/1/17at 20:46; Admin Dose 1 TAB; Start 03/31/17 at 20:30 JAVI LION Apr 01, 2017 12:57
[2017-04-01] MEDS ORDERED: DIPHENHYDRAMINE 50 MG CAP PO SCH (13:00)
[2017-04-01] MEDS ORDERED: DIAZEPAM 5 MG TAB PO SCH ×2 (13:00→15:30)
--- NOTE | 2017-04-01 14:44 | CONS ---
DATE OF ADMISSION: 03/16/2017 DATE OF CONSULTATION: REASON FOR CONSULTATION: Positive troponins, significant. REQUESTING PHYSICIAN: Jesus Chin MD from the Hospital Service and Dr. Wm Fitch MD from the Vascular Surgery Service. HISTORY OF PRESENT ILLNESS: The patient is a 71-year-old female with a history of diabetes mellitus, hypertension, coronary artery disease, dyslipidemia who was transferred from [facility] for high level of care and possible limb salvage. The patient had a history of left lower extremity peripheral arterial disease and associated gangrenous changes. The patient underwent attempt at percutaneous intervention at the outside hospital but was not able to resolve the patient's issues. Initially upon arrival, temperature 98.9, blood pressure low at 78/45, pulse 100, respiratory rate 20, sating 99%. The patient's labs with a white cell count of 13.3, hemoglobin 11.8, platelet count of 332. Sodium 136, potassium 4.8, creatinine 1.4, BUN 48, troponin positive 2.11 with CK-MB of 11.6 and CK total of 592. BNP 9440. INR 0.95. UA positive. The patient underwent a foot x-ray, revealing demineralization soft tissue swelling without acute osseus abnormality. An extremity arterial study revealed an occluded right posterior tibial artery, completely occluded left lower extremity arterial system. Chest x-ray revealed no evidence of acute pathology. Abdominal angiography revealed G[employer], SFA, and profoundly widely patent in the right lower extremity [____] at the origin of the right anterior tibial artery. Left lower extremity occlusion of the left common femoral artery and suggests past intra-epigastric artery. There is [____] at the left [____] superficial artery at the origin. Saphenous artery is widely patent. The patient just underwent a KUB revealing diffusely distended small bowel, may represent an ileus, also revealing bilateral lower extremity venous mapping. The patient left electrocardiogram reveals normal sinus rhythm, rate of 84, with left axis deviation, anterior T eversion, inferior T eversion, lateral T eversions. The patient, today, underwent left [id number] amputation. The patient will now be admitted to the ICU for post procedure ongoing management and treatment. The patient has had her troponins trending, going from 2.1 down to 1.3. The patient denies chest pain or shortness of breath. PAST MEDICAL HISTORY: As above in HPI. CURRENT MEDICATIONS: 1. Synthroid. 2. Lantus. 3. Heparin 5000 subcutaneous q.8. 4. Insulin. 5. Metoprolol. 6. Lipitor. 7. Pepcid. 8. Lactated Ringer's. 9. Norvasc, being held currently. 10. Atenolol, being held currently. 11. Benazepril, currently being held. 12. The patient is NPO. 13. PRN morphine. 14. Vancomycin. ALLERGIES: PENICILLIN, TYLENOL, AND CODEINE. SOCIAL HISTORY: No tobacco, EtOH, or illicit drugs. FAMILY HISTORY: Negative for sudden cardiac , early CAD. REVIEW OF SYSTEMS: Constitutional: No fevers or chills. Pulmonary: No respiratory compromise. GI: No vomiting. : No hematuria. Musculoskeletal: Status post left AKA. Psych: No documented psych history. Neuro: No documented history of CVA. Endocrine: Diabetes mellitus. PHYSICAL EXAMINATION: VITALS: Temperature 98.2, blood pressure 149/61, pulse 79, respirations 17, sating 99%. GENERAL: The patient is alert, awake, complaining of leg pain. JVP approximately 8 to 9 cm. CHEST: Fair air movement throughout. HEART: Regular rate and rhythm. Normal S1, S2; 1/6 systolic. ABDOMEN: Positive bowel sounds, soft. EXTREMITIES: No edema. Left lower extremity status post AKA. LABS: Most recently from today: Sodium 143, potassium 4.2, creatinine 0.96, BUN 23, troponin 1.31. White blood cell count 11.4, hemoglobin 11.8, platelet count 313. INR 1.2. UA positive. IMAGING STUDIES: As in HPI with a chest x-ray from today revealing no acute cardiopulmonary disease. ECG: As in HPI. IMPRESSION: 1. Positive troponin, concerning for non-ST elevation myocardial infarction, currently downtrending. No chest pain. 2. Abnormal electrocardiogram with inferior lateral anterior tib eversions. 3. Hypertension, mildly uncontrolled. 4. History of dyslipidemia. 5. Peripheral arterial disease, status post lower extremity amputation. 6. Diabetes mellitus. 7. Urinary tract infection. 8. Anemia. 9. Leukocytosis. RECOMMENDATIONS: At this time, we will maintain the patient in ICU on telemetry monitoring following rhythm and rate control. Continue patient's IV push beta terra around the clock for heart rate control during patient's NPO and will place quantity pads on patient to improve overall systolic blood pressure control. Medications per rectal aspect at this time, as not able to take PO, and we will continue to trend the patient's cardiac enzymes. We will continue the patient's heparin 5000 subcu q.8. Get a 2D echo for the patient's ejection fraction wall motion and major abnormalities. When the patient is stable to take PO, we will resume the patient's statin therapy and check a fasting lipid panel and adjust it accordingly. Continue patient's antibiotics. Continue patient's local wound care and pain control. Thank
[2017-04-01] MEDS: HYDROCODONE/APAP (5/325) TAB PO PRN ×2 (16:27→21:30)
--- NOTE | 2017-04-01 18:56 | PN ---
Date/Time of Note Date/Time of Note DATE: 04/01/17 TIME: 18:51 Assessment/Plan Lines/Catheters IV Catheter Type (from Nrsg): Saline Lock Desai in Place (from Nrsg): Yes Assessment/Plan Chief Complaint/Hosp Course Additional Assessment/Plan Three-vessel coronary artery disease Status post non-ST elevation [place] Peripheral vascular disease Recent above-knee amputation Diabetes Small bowel obstruction versus Hypothyroid Anemia UTI CHF CXR Bilateral hazy and patchy opacities could represent pulmonary edema and/or multifocal pneumonia, increased compared with the prior study. Bilateral moderate to large pleural effusions, increased. Pedal Patient is at high risk for coronary artery bypass grafting however this needs to be done after medically stabilized would consider PCI Discussed with the patient and the family We will discuss with Dr. Thomson Problems: Subjective 24 Hr Interval Summary Constitutional: improved Pain Control: mild Exam/Review of Systems Vital Signs Vitals Vital Signs Date Time Temp Pulse Resp B/P Pulse Ox O2 Delivery O2 Flow Rate FiO2 04/01/17 16:18 97 04/01/17 15:22 97.6 17 101/56 95 04/01/17 11:14 4.0 04/01/17 10:28 Nasal Cannula Intake and Output 03/31/17 03/31/17 04/01/17 15:00 23:00 07:00 Intake Total 300 ml 120 ml Output Total 450 ml 300 ml Balance -150 ml -180 ml Exam Eyes: EOMI, nl conjunctiva, nl lids, nl sclera ENMT: mucosa pink and moist, nl external ears & nose, nl lips & teeth, nl nasal mucosa & septum Neck: non-tender, supple Respiratory: clear to auscultation, normal air movement Cardiovascular: nl pulses, regular rate and rhythm Results Result Diagram: 04/01/17 0650 04/01/17 0656 ZE CISSE MD Apr 01, 2017 18:56
--- NOTE | 2017-04-01 23:49 | PN ---
Date/Time of Note Date/Time of Note DATE: 04/01/17 TIME: 23:49 Assessment/Plan Lines/Catheters IV Catheter Type (from [facility]): Saline Lock Rivera in Place (from Nrs): Yes Assessment/Plan Chief Complaint/Hosp Course 1. Abdominal pain: Flatus. SBFT noted. tolerating diet; +bowel function; resolved -close monitoring 2. PVD/PAD with Left lower extremity ischemia with tissue necrosis and gangrene ; s/p left AKA with thrombectomy; -Anticoagulation 3. Elevated troponin with possible demand ischemia and VT; s/p left heart cath -Cardiac evaluation on optimization -Poss Left heart cath with intervention 4. Elevated BNP with possible CHF -Judicious fluid management -Cardiac optimization 5. Renal insufficiency, multifactorial secondary to above; -Judicious fluid management and avoid nephrotoxic agents as possible 6. Anemia. no nat bleed noted. h/h stable -Close monitoring -Transfuse as needed 7. Diabetes: episodes of hypoglycemia ; hyperglycemia currently: ?stress hyperglycemia -Diet and medication optimization 8. Hypertension: improved -Diet and medication optimization 9. Hypercholesterolemia -Diet and medication optimization 10. Leukocytosis: 2/ #1 and #2 normalized;: likely 2/ #7; afebrile; -monitor 11. NSTEMI: elevated troponin, no cp; s/p left heart cath 12. 3 vessel CAD pending poss CABG 13. Bilateral pleural effusion with episodes of desaturation: improved SOB 14. Neurogenic diabetic bladder: rivera -per urology 15. Transaminitis: no c/o abdominal pain, tolerating diet +bowel function -supportive -trend Patient seen and examined in collaboration with Dr. Steffen Kelly Problems: Subjective 24 Hr Interval Summary Feels well. In good spirits. No cp, palpitations. Tolerating diet with + gas, no bm. No n/v/d. Possible LHC with intervention tomorrow. Min pain on left leg. Exam/Review of Systems Vital Signs Vitals Vital Signs Date Time Temp Pulse Resp B/P Pulse Ox O2 Delivery O2 Flow Rate FiO2 04/01/17 21:23 89 04/01/17 20:22 97.9 20 92/51 96 04/01/17 11:14 4.0 04/01/17 10:28 Nasal Cannula Intake and Output 04/01/17 04/01/17 04/02/17 15:00 23:00 07:00 Intake Total 300 ml Output Total 700 ml Balance -400 ml Exam Free Text/Dictation Constitutional: awake, in good spirits Psych: No anxiety, No nl mood/affect Head: atraumatic, normocephalic Eyes: EOMI, PERRL, nl conjunctiva, No icteric ENMT: nl external ears & nose, nl lips & teeth. mucosa pink and moist Neck: jvd, non-tender, supple Respiratory: No congested cough. No wheezing. Cardiovascular: regular rate and rhythm, No edema Gastrointestinal: nondistended, soft, nontender, bowel sounds x4. No firm, No rebound or guarding, Musculoskeletal: No joint tenderness, No nl extremities to inspection (Left AKA ), No nl gait and stance Extremities: No calf tenderness, No normal pulses Neurological: nl speech, No nl strength Skin: No diaphoresis, No nl turgor, No rash or lesions Lymph: nl lymph nodes Results Result Diagram: 04/01/17 0650 04/01/17 0656 JULIANA RUFFIN NP Apr 01, 2017 23:49
[2017-04-02] VITALS (29 sets, daily range): BP systolic 86–130; BP diastolic 49–103; PULSE 92–110; RESP 10–26
[2017-04-02] MEDS: morphine 4 MG/ML VIAL IV PRN ×3 (00:02→15:22)
[2017-04-02] MEDS: ACCU-CHEK XX SCH (01:53)
[2017-04-02] MEDS: HEPARIN 5,000 UNIT/0.5 ML VIAL SC SCH ×3 (04:13→22:41)
[2017-04-02] MEDS: LEVOTHYROXINE 100 MCG VIAL IV SCH (05:06)
[2017-04-02 07:42] LABS: BASOPHILS % 0.2 % (0.0-2.0); EOSINOPHILS # 0.1 10^3/ul (0.0-0.5); EOSINOPHILS % 0.5 % (0.0-7.0); HEMATOCRIT 28.1 % (37.0-47.0); HEMOGLOBIN 8.6 g/dl (12.0-16.0); LYMPHOCYTES # 1.9 10^3/ul (0.8-2.9); LYMPHOCYTES % 19.4 % (15.0-51.0); MEAN CORPUSCULAR HGB CONC 30.6 g/dl (32.0-37.0); MEAN CORPUSCULAR VOLUME 91.5 fl (82.0-101.0); MONOCYTE # 0.9 10^3/ul (0.3-0.9); MONOCYTES % 9.5 % (0.0-11.0); NEUTROPHIL # 6.9 10^3/ul (1.6-7.5); NEUTROPHILS % 69.8 % (39.0-77.0); PLATELET COUNT 220 10^3/UL (140-415); RED BLOOD COUNT 3.07 10^6/ul (4.20-5.40); RED CELL DISTRIBUTION WIDTH 15.4 % (11.5-14.5); WHITE BLOOD COUNT 9.8 10^3/ul (4.8-10.8)
[2017-04-02] MEDS: INSULIN ASPART [NOVOLOG] 3 ML PEN SC SCH ×7 (07:55→21:00)
[2017-04-02 08:04] LABS: INR 0.97; PROTIME 12.9 Sec (12.2-14.2)
[2017-04-02 08:05] LABS: PARTIAL THROMBOPLASTIN TIME 32.6 Sec (25.0-35.0)
[2017-04-02 08:09] LABS: CALCIUM 7.8 mg/dl (8.4-10.2); CREATININE 1.11 mg/dl (0.44-1.00); POTASSIUM 4.1 mmol/L (3.5-5.1)
[2017-04-02] MEDS: INSULIN GLARGINE [LANtus] 3 ML PEN SC SCH (08:23)
--- NOTE | 2017-04-02 08:45 | RADRPT ---
PROCEDURE: Chest radiograph. CLINICAL INDICATION: Shortness of breath. TECHNIQUE: Single portable frontal view. COMPARISON: Radiograph of 03/28/2017 and 03/26/2017. FINDINGS: Moderate pulmonary vascular congestion with moderate bilateral pleural effusions, most consistent wi th congestive heart failure. These opacities may mask an underlying pneumonia. Aortic atherosclerosis. Slight levoconvex curvature of the lower thoracic spine. IMPRESSION: Overall, slightly improved aeration of the lungs compared to 03/28/1927. There is pulmonary vascula r congestion with bilateral pleural effusions indicating persistent congestive heart failure. RPTAT: PP Physician Luna Date Time Electronically viewed and signed by Physician Luna on 04/02/2017 08:45 LG/
[2017-04-02] MEDS: ASPIRIN 325 MG TAB PO SCH (08:55)
[2017-04-02] MEDS: FUROSEMIDE 40 MG INJ IV SCH ×2 (08:55→21:00)
[2017-04-02] MEDS: COLLAGENASE 30 GM TUBE TOP SCH (08:56)
[2017-04-02] MEDS: BENAZEPRIL 10 MG TAB PO SCH (08:56)
[2017-04-02] MEDS: FLUCONAZOLE 200 MG TAB PO SCH (08:56)
[2017-04-02] MEDS: FAMOTIDINE 20 MG TAB PO SCH ×2 (08:56→22:39)
--- NOTE | 2017-04-02 10:05 | PN ---
Date/Time of Note Date/Time of Note DATE: 04/02/17 TIME: 09:58 Assessment/Plan Lines/Catheters IV Catheter Type (from [facility]): Saline Lock Rivera in Place (from [facility]): Yes Assessment/Plan Chief Complaint/Hosp Course 1. Abdominal pain: Flatus. SBFT noted. tolerating diet; +bowel function; resolved -close monitoring 2. PVD/PAD with Left lower extremity ischemia with tissue necrosis and gangrene ; s/p left AKA with thrombectomy; -Anticoagulation 3. Elevated troponin with possible demand ischemia and NC; s/p left heart cath -Cardiac evaluation on optimization -Poss left heart cath with intervention 4. Elevated BNP with possible CHF -Judicious fluid management -Cardiac optimization 5. Renal insufficiency, multifactorial secondary to above; -Judicious fluid management and avoid nephrotoxic agents as possible 6. Anemia. no nat bleed noted. h/h stable -Close monitoring -Transfuse as needed 7. Diabetes: episodes of hypoglycemia ; hyperglycemia currently: ?stress hyperglycemia -Diet and medication optimization 8. Hypertension: improved -Diet and medication optimization 9. Hypercholesterolemia -Diet and medication optimization 10. Leukocytosis: 2/2 #1 and #2 normalized;: likely 2/2 #7; afebrile; -monitor 11. NSTEMI: elevated troponin, no cp; s/p left heart cath 12. 3 vessel CAD pending poss CABG 13. Bilateral pleural effusion with episodes of desaturation: improved SOB 14. Neurogenic diabetic bladder: rivera -per urology 15. Transaminitis: no c/o abdominal pain, tolerating diet +bowel function -supportive -trend 16. Constipation: -bowel regimen Patient seen and examined in collaboration with Dr. Steffen Kelly Problems: Subjective 24 Hr Interval Summary Feeling well. constipated. Tolerating diet +flatus, no bm. No n/v, fevers, chills, chakraborty, cp palpitations, sob, cough, dysuria. Left leg pain/discomfort improved Exam/Review of Systems Vital Signs Vitals Vital Signs Date Time Temp Pulse Resp B/P Pulse Ox O2 Delivery O2 Flow Rate FiO2 04/02/17 08:41 Nasal Cannula 4.0 04/02/17 08:30 94 04/02/17 07:54 98.0 18 101/58 96 Intake and Output 04/01/17 04/01/17 04/02/17 15:00 23:00 07:00 Intake Total 300 ml 240 ml Output Total 700 ml 500 ml Balance -400 ml -260 ml Exam Free Text/Dictation Constitutional: awake, in good spirits Psych: No anxiety, No nl mood/affect Head: atraumatic, normocephalic Eyes: EOMI, PERRL, nl conjunctiva, No icteric ENMT: nl external ears & nose, nl lips & teeth. mucosa pink and moist Neck: jvd, non-tender, supple Respiratory: No congested cough. No wheezing. Cardiovascular: regular rate and rhythm, No edema Gastrointestinal: min distended, soft, nontender, bowel sounds x4. No firm, No rebound or guarding, Musculoskeletal: No joint tenderness, No nl extremities to inspection (Left AKA ), No nl gait and stance Extremities: No calf tenderness, No normal pulses Neurological: nl speech, No nl strength Skin: No diaphoresis, No nl turgor, No rash or lesions Lymph: nl lymph nodes Results Result Diagram: 04/02/17 0658 04/02/17 0658 JULIANA RUFFIN NP Apr 02, 2017 10:05
--- NOTE | 2017-04-02 11:14 | PN ---
Date/Time of Note Date/Time of Note DATE: 04/02/17 TIME: 11:09 Assessment/Plan VTE Prophylaxis VTE Prophylaxis Intervention: heparin Lines/Catheters IV Catheter Type (from Nrs): Saline Lock Urinary Cath still in place: Yes Reason Cath still needed: urinary retention, other (indicate) Assessment/Plan Chief Complaint/Hosp Course 1.Multivessel coronary artery disease. -As per CT surgery patient is at very high risk for surgery and needs to be medically optimized further more-therefore, plan is to proceed with treatment of LAD by high risk PCI with possible additional PTCA to LCX as necessary per cardiology. - On anticoagulation, beta terra and DAMION inhibitors. 2. Acute Systolic CHF.[facility] with severely depressed left ejection fraction of approximately 25 %. Symptoms improved. - Continue diuresis, BB,ACEI - monitor INTAKE/output 3.PVD Left lower extremity -Patient status post left [id number] amputation and left lateral artery thrombectomy . Continue surgeon recommendations and vascular checks. 4.Transaminitis- Perhaps from right sided, passive liver congestion- No RUQ symptoms - Monitor 5.Hyponatremia, likely from fluid overload. Now stable. - Continue diuretics and fluid restriction 6. Acute on likely CKD: Stable - Monitor renal fxn closely 7. Diabetes with A1c of 8.4 -Continue Accu-Cheks/ISS.Continue 18 unit Lantus. 8. Urinary retention possibly neurogenic diabetic bladder.Urology emma appreciated and recommended rivera continuation for now with the plan of starting Urecholine and reassess. 9. Nina UTI. Status post treatment. 10. Hypothyroidism: - Continue synthroid 11. Essential hypertension. Stable. - On antihypertensives and adjust as needed. 12.Chronic anemia .Stable -Monitor. 13. Abdominal pain with CT scan suggestive of possible obstructive pattern versus ileus. Resolved. -Diet as tolerated. Prophylaxis: Heparin subcu/Pepcid Plan: Patient too high risk for CABG per CT surgery . But with a depressed LV, awaiting further also puts risk on her. At this time, plan is to proceed with treatment of LAD by high risk PCI with possible additional PTCA to LCX as necessary. We will follow-up with cardiology recommendations. Discussed plan of care with Dr. Astudillo. Problems: Subjective 24 Hr Interval Summary Free Text/Dictation No acute overnight episodes. Patient is for left heart catheterization today. Remains n.p.o. Exam/Review of Systems Vital Signs Vitals Vital Signs Date Time Temp Pulse Resp B/P Pulse Ox O2 Delivery O2 Flow Rate FiO2 04/02/17 08:41 Nasal Cannula 4.0 04/02/17 08:30 94 04/02/17 07:54 98.0 18 101/58 96 Intake and Output 04/01/17 04/01/17 04/02/17 15:00 23:00 07:00 Intake Total 300 ml 240 ml Output Total 700 ml 500 ml Balance -400 ml -260 ml Exam General: Thin built, not in any acute distress . HEENT: Normocephalic, Atraumatic, No laceration or hematoma; Eyes: PEERL, Conjunctiva clear, Anicteric sclera Neck: Supple without any lymphadenopathy, nontender, no JVD, no carotid bruits, trachea midline, no thyromegaly Cardiac: S1, S2 auscultated, regular rhythm and rate, no mumurs or gallop Pulmonary: Diminished breath sound bibasilar. Normal respiratory effort. Chest clear to auscultation bilaterally, no adventitious breath sounds GI: Abdomen soft,no masses, no rebound tenderness or guarding. Bowel sounds hypoactive on all four quadrants Genitourinary: Deferred Extremities: Left AKA, surgical dressing intact. Heart cath site intact. Neurologic: Alert to person, place, time, and situation. Affect appropriate, intact sensation. Skin: Clean,dry, and intact. No ecchymosis, no rashes, or lesions Results Result Diagram: 04/02/17 0658 04/02/17 0658 Results 24 hrs Laboratory Tests Test 04/01/17 11:59 04/01/17 17:19 04/01/17 22:27 04/02/17 06:58 Bedside Glucose 165 168 172 White Blood Count 9.8 Red Blood Count 3.07 L Hemoglobin 8.6 L Hematocrit 28.1 L Mean Corpuscular Volume 91.5 Mean Corpuscular Hemoglobin 28.0 L Mean Corpuscular Hemoglobin Concent 30.6 L Red Cell Distribution Width 15.4 H Platelet Count 220 Mean Platelet Volume 12.0 H Neutrophils % 69.8 Lymphocytes % 19.4 Monocytes % 9.5 Eosinophils % 0.5 Basophils % 0.2 Nucleated Red Blood Cells % 0.0 Neutrophils # 6.9 Lymphocytes # 1.9 Monocytes # 0.9 Eosinophils # 0.1 Basophils # 0.0 Nucleated Red Blood Cells # 0.0 Prothrombin Time 12.9 Prothrombin Time Ratio 1.0 INR International Normalized Ratio 0.97 Activated Partial Thromboplast Time 32.6 Sodium Level 134 L Potassium Level 4.1 Chloride Level 89 L Carbon Dioxide Level 30 Anion Gap 19 H Blood Urea Nitrogen 35 H Creatinine 1.11 H Glucose Level 140 Calcium Level 7.8 L Test 04/02/17 08:10 Bedside Glucose 199 Medications Medications Current Medications Ondansetron HCl (Zofran Inj) 4 mg Q6H PRN IV NAUSEA AND/OR VOMITING Last administered on 03/24/17 08:20; Admin Dose 4 MG; Start 03/17/17 at 01:00 Benazepril HCl (Lotensin) 10 mg DAILY PO Last administered on 03/30/17 08:10; Admin Dose 10 MG; Start 03/17/17 at 09:00; Status Future hold Atorvastatin Calcium (Lipitor) 10 mg DAILY@21 PO ; Start 03/17/17 at 21:00; Status Future Hold Miscellaneous Information 1 ea NOTE XX ; Start 03/17/17 at 12:00 Glucose (Glutose) 15 gm Q15M PRN PO DECREASED GLUCOSE Last administered on 03/26 10:59; Admin Dose 15 GM; Start 03/17/17 at 12:00 Glucose (Glutose) 22.5 gm Q15M PRN PO DECREASED GLUCOSE; Start 03/17/17 at 12: 00 Dextrose (D50w Syringe) 25 ml Q15M PRN IV DECREASED GLUCOSE Last administered on 03/19/17 06:08; Admin Dose 25 ML; Start 03/17/17 at 12:00 Dextrose (D50w Syringe) 50 ml Q15M PRN IV DECREASED GLUCOSE; Start 03/17/17 at 12:00 Glucagon (Glucagen) 1 mg Q15M PRN IM DECREASED GLUCOSE; Start 03/17/17 at 12:00 Glucose (Glutose) 15 gm Q15M PRN BUCCAL DECREASED GLUCOSE Last administered on 03/26/17 09:24; Admin Dose 15 GM; Start 03/17/17 at 12:00 Diagnostic Test (Pha) (Accu-Chek) 1 ea 02 XX Last administered on 03/31/17 02: 11; Admin Dose 1 EA; Start 03/19/17 at 02:00 Levothyroxine Sodium (Synthroid Iv) 75 mcg DAILY@06 IV Last administered on 04/02 05:06; Admin Dose 75 MCG; Start 03/19/17 at 06:00 Clonidine HCl (Catapres-Tts 3 Patch) 1 patch Q7D TRANSDERM Last administered on 03/19/17 14:39; Admin Dose 1 PATCH; Start 03/19/17 at 14:00; Status Future Hold Clonidine HCl (Catapres-Tts 1 Patch) 1 patch Q7D TRANSDERM Last administered on 03/20/17 13:53; Admin Dose 1 PATCH; Start 03/20/17 at 13:00; Status Future Hold Magnesium Hydroxide (Milk Of Mag) 30 ml DAILY PRN PO CONSTIPATION; Start at 09:00 Collagenase (Santyl) 1 applic DAILY TOP Last administered on 04/02/17 08:56; Admin Dose 1 APPLIC; Start 03/23/17 at 12:30 Collagenase (Santyl) 1 applic PRN PRN TOP WOUND CARE; Start 03/23/17 at 11:30 Heparin Sodium (Porcine) (Heparin (5000 Units/0.5 ml)) 5,000 unit Q8 SC Last administered on 04/01/17 21:46; Admin Dose 5,000 UNIT; Start 03/24/17 at 22:00 Famotidine (Pepcid) 20 mg BID PO Last administered on 04/01/17 21:29; Admin Dose 20 MG; Start 03/25/17 at 21:00 Simethicone (Mylicon) 80 mg Q6H PRN PO DISTENSION/GAS/BLOATING Last administered on 03/30/17 20:01; Admin Dose 80 MG; Start 03/25/17 at 10:30 Al Hydrox/Mg Hydrox/Simethicone (Mag-Al Plus) 30 ml Q4H PRN PO GASTROINTESTINAL UPSET; Start 03/26/17 at 14:30 Ondansetron HCl (Zofran Inj) 4 mg Q4H PRN IV NAUSEA AND/OR VOMITING; Start at 14:30 Aspirin (Aspirin) 325 mg DAILY PO Last administered on 04/01/17 08:29; Admin Dose 325 MG; Start 03/27/17 at 09:30 Fluconazole (Diflucan) 400 mg DAILY PO Last administered on 04/01/17 08:31; Admin Dose 400 MG; Start 03/27/17 at 13:00; Stop 04/03/17 at 12:59 Carvedilol (Coreg) 3.125 mg BID PO Last administered on 03/30/17 08:09; Admin Dose 3.125 MG; Start 03/27/17 at 21:00 Furosemide (Lasix) 40 mg BID IV Last administered on 04/01/17 08:29; Admin Dose 40 MG; Start 03/29/17 at 10:31 Insulin Glargine (Lantus) 18 unit DAILY@08 SC Last administered on 04/02/17 08: 23; Admin Dose 18 UNIT; Start 03/30/17 at 08:00 Morphine Sulfate (morphine) 2 mg Q4H PRN IV PAIN LEVEL 7-10 Last administered on 04/02/17 08:26; Admin Dose 2 MG; Start 03/30/17 at 14:30 Acetaminophen/ Hydrocodone Bitart (Cerro (5/325)) 1 tab Q4H PRN PO PAIN Last administered on 04/01/17 21:30; Admin Dose 1 TAB; Start 03/31/17 at 20:30 Diphenhydramine HCl (Benadryl) 50 mg OC PO ; Start 04/01/17 at 13:00; Stop at 12:59 Diazepam (Valium) 2.5 mg OC PO ; Start 04/01/17 at 15:30; Stop 04/02/17 at 15:29 BEBA HENSON NP Apr 02, 2017 11:14
[2017-04-02] MEDS ORDERED: HEPARIN 1000 UNITS/ML 10 ML INJ ONE (12:42)
[2017-04-02] MEDS ORDERED: MIDAZOLAM 1 MG/ML 2 ML INJ ONE (12:42)
[2017-04-02] MEDS ORDERED: LIDOCAINE 1% (MDV) 20 ML INJ ONE (12:42)
[2017-04-02] MEDS ORDERED: NITROGLYCERIN (IC) 100 MCG/ML INJ ONE (12:43)
[2017-04-02] MEDS ORDERED: VERAPAMIL 5 MG INJ ONE (12:43)
[2017-04-02] MEDS ORDERED: FENTAnyl 50 MCG/ML VIAL ONE (12:43)
[2017-04-02] MEDS ORDERED: BIVALIRUDIN 250MG /NS 50 ML 50 ML IVPB ONE (13:07)
[2017-04-02] MEDS ORDERED: SOD CHLORIDE 0.9% 500 ML ONE (13:10)
[2017-04-02] MEDS ORDERED: SOD CHLORIDE 0.9% 1,000 ML IV SCH (13:33)
--- NOTE | 2017-04-02 13:48 | OPR ---
Date/Time of Note Date/Time of Note DATE: 04/02/17 TIME: 13:37 Operative Report Procedure Date: Apr 02, 2017 Preoperative Diagnosis 1.Nstemi 2.Obstructive cad 3.cardiomyopathy Postoperative Diagnosis 1.Obstructive cad 2.Nstemi 3.cardiomyopathy 4.Hypotension 5. CHF Operation Performed 1.Left heart catheterization 2.30 minutes concious sedation Surgeon: JAVI LION Anesthesia: other (Moderate concious sedation) Estimated Blood Loss: minimal Specimens None Grafts/Implants NA Tubes/Drains NA Complications: None Pt Condition Post Procedure: guarded Disposition: other (ICU) Indications 1.NSTEMI 2.Cardiomyopathy 3.CHF Operative\Procedure Findings LMN ostial stenosis 30%, LCX mid 50-60%, LAD diffusely severely diseased with areas of stenosis up to 95%. Procedure Description Using modified seldinger technique 6 japanese radial sheath placed. Patient LMN canulated with 6 japanese Q 3.5 intervenational giude. Patient had immediate vasospsam of LMN and was given IC Nitro with improvement in spasm but significant Hypotension to 50's which took some time to recover. Patient then additionally had desaturation requiring placement of face mask with improvement in sats. We again attempted to cannualate LMN with rapid decline IN BP and recurrent vasospsam. Given recurrent Hypotension and desaturation it was decided to terminate procedure at this time with possible transfer to tertiary are center for further evaluation and treatment. JAVI LION Apr 02, 2017 13:48
[2017-04-02] MEDS ORDERED: ONDANSETRON 4 MG INJ IV PRN (14:00)
[2017-04-02] MEDS ORDERED: AL HYDROX/MG HYDROX/SIMETH 30 ML CUP PO PRN (14:00)
--- NOTE | 2017-04-02 14:31 | RADRPT ---
Vent Rate: 99 bpm RR Interval: 0 msec SC Interval: 196 msec QRS Duration: 102 msec QT Interval: 370 msec QTC Interval: 474 msec P-R-T [place]: 46 - -28 - 0 degrees Normal sinus rhythm Low voltage QRS Septal infarct , age undetermined ST amp; T wave abnormality, consider lateral ischemia Abnormal ECG Electronically Signed By: Ebenezer Thomson [id number]
--- NOTE | 2017-04-02 17:48 | QN ---
Documentation Comment Call received from at [phone] with recommendation of transferring patient to [facility] for further evaluation as patient is at high risk for any coronary intervention here at [facility]. CM notes also reviewed I spoke with Dr Sunil Pike at [phone] and discussed patient's condition. stated that he can accept patient . He will also look for CT surgeon who can follow her . MD will contact [facility] transfer center for bed availability. A LILLY bed was recommended for her. Provided with Bhupinder Morley (STEVE) extension and ICU extension to call back once bed is available. I have also provided my cell phone number in case if they need any additional information. Case discussed with . BEBA HENSON NP Apr 02, 2017 17:48
--- NOTE | 2017-04-02 17:49 | PDOCDIS ---
Discharge Instructions CONDITION Patient Condition: Guarded HOME CARE INSTRUCTIONS: Your diet recommendation is: carb-controlled, cardiac diet FOLLOW UP/APPOINTMENTS Follow-up Plan [facility] CT surgery team Vascular follow-up BEBA HENSON NP Apr 02, 2017 17:49
[2017-04-02] MEDS ORDERED: Accu-Chek XX (17:58)
[2017-04-02] MEDS ORDERED: UDMYL PO (17:58)
[2017-04-02] MEDS ORDERED: MORP4CAR IV (17:58)
[2017-04-02] MEDS ORDERED: ATOR10TA65 PO (17:58)
[2017-04-02] MEDS ORDERED: SAN30GM TOP ×2 (17:58)
[2017-04-02] MEDS ORDERED: DEXT37.54 BUCCAL (17:58)
[2017-04-02] MEDS ORDERED: ASPI325T4 PO (17:58)
[2017-04-02] MEDS ORDERED: ONDA4VIA2 IV (17:58)
[2017-04-02] MEDS ORDERED: GLUC1VIA3 IM (17:58)
[2017-04-02] MEDS ORDERED: HEP5KI SC (17:58)
[2017-04-02] MEDS ORDERED: UDMOM PO (17:58)
[2017-04-02] MEDS ORDERED: CARV3.1260 PO (17:58)
[2017-04-02] MEDS ORDERED: DEXT37.54 PO (17:58)
[2017-04-02] MEDS ORDERED: NOVO3I SC ×2 (17:58)
[2017-04-02] MEDS ORDERED: LANT3I SC (17:58)
[2017-04-02] MEDS ORDERED: FAMO20TA18 PO (17:58)
[2017-04-02] MEDS ORDERED: HYDR-3498 PO (17:58)
[2017-04-02] MEDS ORDERED: Furosemide IV (17:58)
[2017-04-02] MEDS ORDERED: MYL80 PO (17:58)
[2017-04-02] MEDS ORDERED: DEXT50DI2 IV (17:58)
--- NOTE | 2017-04-02 18:51 | DS ---
Date/Time of Note Date/Time of Note DATE: 04/02/17 TIME: 18:09 Discharge Summary Admission/Discharge Info Admit Date/Time Mar 16, 2017 at 22:23 Discharge Date/Time Discharge Diagnosis 1.Multivessel coronary artery disease. 2.Cardiomyopathy.[facility] with severely depressed left ejection fraction of approximately 25 % 3. Acute Systolic CHF 4.PVD, status post left [id number] amputation and left lateral artery thrombectomy . 5.Transaminitis- Perhaps from right sided, passive liver congestion 6.Hyponatremia, likely from fluid overload. Stable 7. Acute on likely CKD: 8 Type II Diabetes, A1c 8.4 9. Urinary retention possibly neurogenic diabetic bladder. 10. Nina UTI. Status post treatment. 11. Hypothyroidism: 12. Essential hypertension. 13.Chronic anemia 14. Abdominal pain with CT scan suggestive of possible obstructive pattern versus ileus. Resolved. Patient Condition: Guarded Consults ,cardiology ,CV surgery ,General surgery Procedures 03/17/2017 2D echo Conclusions 1. Normal left ventricular systolic function. Normal left ventricular cavity size. Mild concentric left ventricular hypertrophy. Ejection fraction is visually estimated at 60 %. Tissue Doppler/Mitral Doppler indices are consistent with impaired relaxation (Stage I diastolic dysfunction). 2. Normal right ventricular size. Normal right ventricular systolic function. 3. Mitral valve leaflets appear mildly thickened. Mild mitral annular calcification. Trace mitral regurgitation. 4. Normal appearance of the tricuspid valve. Estimated peak PA systolic pressure 30 mmHg. There is mild tricuspid regurgitation. 5. Pulmonic valve not well visualized. There is trace pulmonic regurgitation. 03/17/2017.Abdominal angiography Multiple dilated loops of small bowel with air-fluid levels as well as collapsed distal loops with a transition point in the posterior aspect of the pelvis consistent with a high-grade bowel obstruction. 03/18/2017.PROCEDURES 1. Left above knee amputation 2. Left femoral artery thrombectomy 03/19/2017. Small bowel series 1. No definite evidence of obstruction. 03/26/2017 PROCEDURES: 1. Left heart catheterization. 2. Coronary angiography. 3. Left vesiculogram. Left vesiculogram revealed a severely depressed left ejection fraction of approximately 25 percent with the majority of the patient's contraction preserved in the base and severe anteroapical hypokinesis. 04/02/2017. Operation Performed 1.Left heart catheterization Postoperative Diagnosis 1.Obstructive cad 2.Nstemi 3.cardiomyopathy 4.Hypotension 5. CHF 04/02/2017. Chest Xray Overall, slightly improved aeration of the lungs compared to 03/28/1927. There is pulmonary vascular congestion with bilateral pleural effusions indicating persistent congestive heart failure. Hospital Course This is a 71-year-old female with multiple comorbidities including DMII, Hypertension, Coronary artery disease, Hypercholesterolemia, Bilateral lower extremity atherosclerosis admitted with worsening left foot gangrene who eventually underwent left lower extremity above-knee amputation on 03/18/2017. During the postoperative period, patient was found to have non-ST elevation and had underwent LHC on 03/26/2017 where she was found to have diffuse multi- vessel coronary artery disease with newly decreased LVEF 25% (from 60%) by cath LV gram on 03/26/17. She was continued on medical optimization with ASA,diuretics , BB and low- dose statin as she was not a candidate for high intensity statin due to transaminase elevation. During the course of hospitalization patient was seen by multiple speciality including general surgery for abdominal pain with CT findings are suggestive of either obstructive pattern versus ileus. She was treated with bowel rest and NGtube decompression with resolution of SBO. She also had neurogenic bladder with retention and was evaluated by urology with the recommendation of rivera continuation and starting on urecholine once able to tolerate PO. Patient was then evaluated by CT surgery who believed patient is to high risk for CT surgery at this time and after multiple discussion with CT surgery and primary team, the best recommendation was to proceed with treatment of LAD by high risk PCI with possible additional PTCA to LCX as necessary given high grade stenosis in LAD and NSTEMI after amputation.On 04/02/17, patient was taken to cardiac catheterization lab for repeat LHC under conscious sedation. Unfortunately, procedure was interrupted due to recurrent vasospasm and significant hypotension in the 50's while correcting spasm with Nitro followed by desaturation requiring placement of face mask . Procedure was terminated with possible transfer to tertiary are center for further evaluation and treatment. Patient was monitored in ICU and transfer process was initiated ANA. Family in agreement for tertiary transfer. Patient was accepted to [facility] under DR.Robert Pike. Approximately 60mins spent on coordinating discharge on this patient case discussed with . Home Meds Active Scripts Collagenase* (Santyl*) 30 Gm Oint..gm., 1 APPLIC TOP PRN Y for WOUND CARE, #1 Prov:HENSON,BEBA V. REFRIGERATOR MOVER 04/02/17 Collagenase* (Santyl*) 30 Gm Oint..gm., 1 APPLIC TOP DAILY, #1 Prov:HENSON,BEBA V. REFRIGERATOR MOVER 04/02/17 Insulin Glargine* (Lantus*) 100 Unit/Ml Soln, 18 UNIT SC DAILY@08, #30 Prov:HENSON,BEBA V. REFRIGERATOR MOVER 04/02/17 Insulin Aspart* (Novolog Insulin Pen*) 100 Unit/Ml Soln, 3 UNIT SC WITH MEALS, # 30 Prov:HENSON,BEBA V. REFRIGERATOR MOVER 04/02/17 Insulin Aspart* (Novolog Insulin Pen*) 100 Unit/Ml Soln, 0 UNIT SC WITH MEALS BEDTIME, #30 Prov:HENSON,BEBA V. REFRIGERATOR MOVER 04/02/17 Glucagon,Human Recombinant (Glucagen) 1 Mg/1 Ml Vial, 1 MG IM Q15M Y for DECREASED GLUCOSE, #60 VIAL Prov:HENSON,BEBA V. REFRIGERATOR MOVER 04/02/17 Simethicone* (Mylicon*) 80 Mg Tab, 80 MG PO Q6H Y for DISTENSION/GAS/BLOATING, # 30 TAB Prov:HENSON,BEBA V. REFRIGERATOR MOVER 04/02/17 Ondansetron Hcl* (Ondansetron Hcl* Inj) 4 Mg/2 Ml Vial, 4 MG IV Q4H Y for NAUSEA AND/OR VOMITING, #30 VIAL Prov:HENSON,BEBA V. REFRIGERATOR MOVER 04/02/17 Magnesium Hydroxide* (Maldonado' MOM*) 30 Ml Susp, 30 ML PO DAILY Y for CONSTIPATION, #30 Prov:HENSON,BEBA V. REFRIGERATOR MOVER 04/02/17 Magaldrate/Simethicone* (Mag-Al Plus Suspension*) 30 Ml Oral.susp, 30 ML PO Q4H Y for GASTROINTESTINAL UPSET, #30 Prov:HENSON,BEBA V. REFRIGERATOR MOVER 04/02/17 Famotidine* (Famotidine*) 20 Mg Tablet, 20 MG PO BID, #30 TAB Prov:HENSON,BEBA V. REFRIGERATOR MOVER 04/02/17 [Furosemide] 10 MG/ML SOLN No Conflict Check, 40 MG IV BID, #30 Prov:HENSON,BEBA V. REFRIGERATOR MOVER 04/02/17 Dextrose* (D50W Syringe*) 50 Ml Soln, 50 ML IV Q15M Y for DECREASED GLUCOSE, #30 Prov:HENSON,BEBA V. REFRIGERATOR MOVER 04/02/17 Dextrose* (D50W Syringe*) 50 Ml Soln, 25 ML IV Q15M Y for DECREASED GLUCOSE, #30 Prov:HENSON,BEBA V. REFRIGERATOR MOVER 04/02/17 Dextrose (Glutose 15) 37.5 Gm Gel..gm., 15 GM BUCCAL Q15M Y for DECREASED GLUCOSE, #30 Prov:HENSON,BEBA V. REFRIGERATOR MOVER 04/02/17 Dextrose (Glutose 15) 37.5 Gm Gel..gm., 22.5 GM PO Q15M Y for DECREASED GLUCOSE , #30 Prov:HENSON,BEBA V. REFRIGERATOR MOVER 04/02/17 Dextrose (Glutose 15) 37.5 Gm Gel..gm., 15 GM PO Q15M Y for DECREASED GLUCOSE, # 30 Prov:HENSON,BEBA V. REFRIGERATOR MOVER 04/02/17 [Accu-Chek] 1 EA EA No Conflict Check, 1 EA XX 02, #30 Prov:HENSON,BEBA V. REFRIGERATOR MOVER 04/02/17 Morphine Sulfate* (Morphine*) 4 Mg/1 Ml Cartridge, 2 MG IV Q4H Y for PAIN LEVEL 7-10, #30 Prov:HENSON,BEBA V. REFRIGERATOR MOVER 04/02/17 Hydrocodone Bit-Acetaminophen (Hydrocodone Bit-APAP) 5-325MG Tablet, 1 TAB PO Q4H Y for PAIN, #30 TAB Prov:HENSON,BEBA V. REFRIGERATOR MOVER 04/02/17 Aspirin (Aspirin Lite-Coat) 325 Mg Tablet, 325 MG PO DAILY, #30 TAB Prov:HENSON,BEBA V. REFRIGERATOR MOVER 04/02/17 Carvedilol* (Carvedilol*) 3.125 Mg Tablet, 3.125 MG PO BID, #30 TAB Prov:HENSON,BEBA V. REFRIGERATOR MOVER 04/02/17 Atorvastatin (Atorvastatin) 10 Mg Tablet, 10 MG PO DAILY@21, #30 TAB Prov:HENSON,BEBA V. REFRIGERATOR MOVER 04/02/17 Heparin Sod (Porcine)* (Heparin*) 5,000 Unit/0.5 Ml Soln, 5000 UNIT SC Q8, #30 Prov:BEBA HENSON V. REFRIGERATOR MOVER 04/02/17 Reported Medications Benazepril Hcl* (Benazepril Hcl*) 10 Mg Tablet, 10 MG PO DAILY, #30 TAB 03/16/17 Levothyroxine Sodium* (Levothyroxine Sodium*) 75 Mcg Tablet, 75 MCG PO BEFORE BREAKFAST, #30 TAB 03/16/17 Discontinued Reported Medications Gabapentin* (Gabapentin*) 300 Mg Capsule, 300 MG PO BID, #60 CAP 03/16/17 Amlodipine Besylate* (Norvasc*) 10 Mg Tablet, 10 MG PO DAILY, TAB 03/16/17 Insulin Aspart* (Novolog Insulin Pen*) 100 Unit/Ml Soln, 8 UNIT SC WITH MEALS, EA 03/16/17 Simvastatin* (Zocor*) 20 Mg Tablet, 20 MG PO QHS, #30 TAB 03/16/17 Atenolol* (Atenolol*) 100 Mg Tablet, 100 MG PO DAILY, #30 TAB 03/16/17 Insulin Glargine* (Lantus*) 100 Unit/Ml Soln, 20 UNIT SC QHS, #1 VIAL 03/16/17 Follow-up Plan [facility] CV surgery team Vascular follow-up Primary Care Provider Not On Staff Doctor Pending Labs Laboratory Tests Test 04/01/17 22:27 04/02/17 06:58 04/02/17 08:10 04/02/17 14:20 Bedside Glucose 172mg/dL (70-220) 199mg/dL (70-220) 71mg/dL (70-220) White Blood Count 9.810^3/ul (4.8-10.8) Red Blood Count 3.0710^6/ul (4.20-5.40) Hemoglobin 8.6g/dl (12.0-16.0) Hematocrit 28.1% (37.0-47.0) Mean Corpuscular Volume 91.5fl (82.0-101.0) Mean Corpuscular Hemoglobin 28.0pg (29.0-33.0) Mean Corpuscular Hemoglobin Concent 30.6g/dl (32.0-37.0) Red Cell Distribution Width 15.4% (11.5-14.5) Platelet Count 55274^3/UL (140-415) Mean Platelet Volume 12.0fl (7.4-10.4) Neutrophils % 69.8% (39.0-77.0) Lymphocytes % 19.4% (15.0-51.0) Monocytes % 9.5% (0.0-11.0) Eosinophils % 0.5% (0.0-7.0) Basophils % 0.2% (0.0-2.0) Nucleated Red Blood Cells % 0.0/100WBC (0.0-0.0) Neutrophils # 6.910^3/ul (1.6-7.5) Lymphocytes # 1.910^3/ul (0.8-2.9) Monocytes # 0.910^3/ul (0.3-0.9) Eosinophils # 0.110^3/ul (0.0-0.5) Basophils # 0.010^3/ul (0.0-0.1) Nucleated Red Blood Cells # 0.010^3/ul (0.0-0.0) Prothrombin Time 12.9Sec (12.2-14.2) Prothrombin Time Ratio 1.0 INR International Normalized Ratio 0.97 Activated Partial Thromboplast Time 32.6Sec (25.0-35.0) Sodium Level 134mmol/L (135-144) Potassium Level 4.1mmol/L (3.5-5.1) Chloride Level 89mmol/L (97-110) Carbon Dioxide Level 30mmol/L (21-31) Anion Gap 19 (8-16) Blood Urea Nitrogen 35mg/dl (7-20) Creatinine 1.11mg/dl (0.44-1.00) Glucose Level 140mg/dl (70-220) Calcium Level 7.8mg/dl (8.4-10.2) Test 04/02/17 17:34 Bedside Glucose 63mg/dL (70-220) BEBA HENSON NP Apr 02, 2017 18:19
--- NOTE | 2017-04-02 19:11 | PN ---
Date/Time of Note Date/Time of Note DATE: 04/02/17 TIME: 19:05 Assessment/Plan VTE Prophylaxis VTE Prophylaxis Intervention: other Lines/Catheters IV Catheter Type (from Nrs): Central line still needed: No Urinary Cath still in place: No Assessment/Plan Chief Complaint/Hosp Course Additional Assessment/Plan Three-vessel coronary artery disease Status post non-ST elevation [place] Peripheral vascular disease Recent above-knee amputation Diabetes Small bowel obstruction versus Hypothyroid Anemia UTI CHF CXR Bilateral hazy and patchy opacities could represent pulmonary edema and/or multifocal pneumonia, increased compared with the prior study. Bilateral moderate to large pleural effusions, increased. Pedal Patient is at high risk for coronary artery bypass grafting however this needs to be done after medically stabilized PCI not possible today pt to go to tertiary care center Discussed with the patient and the family We will discuss with Dr. Thomson Problems: Subjective 24 Hr Interval Summary Gastrointestinal: no complaints Genitourinary: no complaints Musculoskeletal: no complaints Skin: no complaints Neurologic: no complaints Exam/Review of Systems Vital Signs Vitals Vital Signs Date Time Temp Pulse Resp B/P Pulse Ox O2 Delivery O2 Flow Rate FiO2 04/02/17 18:04 97 10 128/49 94 Nasal Cannula 2.0 04/02/17 11:40 97.9 Intake and Output 04/01/17 04/01/17 04/02/17 15:00 23:00 07:00 Intake Total 300 ml 240 ml Output Total 700 ml 500 ml Balance -400 ml -260 ml Exam Neck: non-tender, supple Respiratory: clear to auscultation, normal air movement Cardiovascular: nl pulses, regular rate and rhythm Gastrointestinal: nl liver, spleen, non-tender, soft Results Result Diagram: 04/02/17 0658 04/02/17 0658 Results 24 hrs Laboratory Tests Test 04/01/17 22:27 04/02/17 06:58 04/02/17 08:10 04/02/17 14:20 Bedside Glucose 172 199 71 White Blood Count 9.8 Red Blood Count 3.07 L Hemoglobin 8.6 L Hematocrit 28.1 L Mean Corpuscular Volume 91.5 Mean Corpuscular Hemoglobin 28.0 L Mean Corpuscular Hemoglobin Concent 30.6 L Red Cell Distribution Width 15.4 H Platelet Count 220 Mean Platelet Volume 12.0 H Neutrophils % 69.8 Lymphocytes % 19.4 Monocytes % 9.5 Eosinophils % 0.5 Basophils % 0.2 Nucleated Red Blood Cells % 0.0 Neutrophils # 6.9 Lymphocytes # 1.9 Monocytes # 0.9 Eosinophils # 0.1 Basophils # 0.0 Nucleated Red Blood Cells # 0.0 Prothrombin Time 12.9 Prothrombin Time Ratio 1.0 INR International Normalized Ratio 0.97 Activated Partial Thromboplast Time 32.6 Sodium Level 134 L Potassium Level 4.1 Chloride Level 89 L Carbon Dioxide Level 30 Anion Gap 19 H Blood Urea Nitrogen 35 H Creatinine 1.11 H Glucose Level 140 Calcium Level 7.8 L Test 04/02/17 17:34 04/02/17 18:15 Bedside Glucose 63 L 74 Medications Medications Current Medications Benazepril HCl (Lotensin) 10 mg DAILY PO Last administered on 03/30/17 08:10; Admin Dose 10 MG; Start 03/17/17 at 09:00; Status Future hold Atorvastatin Calcium (Lipitor) 10 mg DAILY@21 PO ; Start 03/17/17 at 21:00; Status Future Hold Miscellaneous Information 1 ea NOTE XX ; Start 03/17/17 at 12:00 Glucose (Glutose) 15 gm Q15M PRN PO DECREASED GLUCOSE Last administered on 03/26 10:59; Admin Dose 15 GM; Start 03/17/17 at 12:00 Glucose (Glutose) 22.5 gm Q15M PRN PO DECREASED GLUCOSE; Start 03/17/17 at 12: 00 Dextrose (D50w Syringe) 25 ml Q15M PRN IV DECREASED GLUCOSE Last administered on 03/19/17 06:08; Admin Dose 25 ML; Start 03/17/17 at 12:00 Dextrose (D50w Syringe) 50 ml Q15M PRN IV DECREASED GLUCOSE; Start 03/17/17 at 12:00 Glucagon (Glucagen) 1 mg Q15M PRN IM DECREASED GLUCOSE; Start 03/17/17 at 12:00 Glucose (Glutose) 15 gm Q15M PRN BUCCAL DECREASED GLUCOSE Last administered on 03/26/17 09:24; Admin Dose 15 GM; Start 03/17/17 at 12:00 Diagnostic Test (Pha) (Accu-Chek) 1 ea 02 XX Last administered on 03/31/17 02: 11; Admin Dose 1 EA; Start 03/19/17 at 02:00 Levothyroxine Sodium (Synthroid Iv) 75 mcg DAILY@06 IV Last administered on 04/02 05:06; Admin Dose 75 MCG; Start 03/19/17 at 06:00 Clonidine HCl (Catapres-Tts 3 Patch) 1 patch Q7D TRANSDERM Last administered on 03/19/17 14:39; Admin Dose 1 PATCH; Start 03/19/17 at 14:00; Status Future Hold Clonidine HCl (Catapres-Tts 1 Patch) 1 patch Q7D TRANSDERM Last administered on 03/20/17 13:53; Admin Dose 1 PATCH; Start 03/20/17 at 13:00; Status Future Hold Magnesium Hydroxide (Milk Of Mag) 30 ml DAILY PRN PO CONSTIPATION; Start at 09:00 Collagenase (Santyl) 1 applic DAILY TOP Last administered on 04/02/17 08:56; Admin Dose 1 APPLIC; Start 03/23/17 at 12:30 Collagenase (Santyl) 1 applic PRN PRN TOP WOUND CARE; Start 03/23/17 at 11:30 Heparin Sodium (Porcine) (Heparin (5000 Units/0.5 ml)) 5,000 unit Q8 SC Last administered on 04/02/17 14:00; Admin Dose 5,000 UNIT; Start 03/24/17 at 22:00 Famotidine (Pepcid) 20 mg BID PO Last administered on 04/01/17 21:29; Admin Dose 20 MG; Start 03/25/17 at 21:00 Simethicone (Mylicon) 80 mg Q6H PRN PO DISTENSION/GAS/BLOATING Last administered on 03/30/17 20:01; Admin Dose 80 MG; Start 03/25/17 at 10:30 Al Hydrox/Mg Hydrox/Simethicone (Mag-Al Plus) 30 ml Q4H PRN PO GASTROINTESTINAL UPSET; Start 03/26/17 at 14:30 Ondansetron HCl (Zofran Inj) 4 mg Q4H PRN IV NAUSEA AND/OR VOMITING; Start at 14:30 Aspirin (Aspirin) 325 mg DAILY PO Last administered on 04/01/17 08:29; Admin Dose 325 MG; Start 03/27/17 at 09:30 Fluconazole (Diflucan) 400 mg DAILY PO Last administered on 04/01/17 08:31; Admin Dose 400 MG; Start 03/27/17 at 13:00; Stop 04/03/17 at 12:59 Carvedilol (Coreg) 3.125 mg BID PO Last administered on 03/30/17 08:09; Admin Dose 3.125 MG; Start 03/27/17 at 21:00 Furosemide (Lasix) 40 mg BID IV Last administered on 04/01/17 08:29; Admin Dose 40 MG; Start 03/29/17 at 10:31 Insulin Glargine (Lantus) 18 unit DAILY@08 SC Last administered on 04/02/17 08: 23; Admin Dose 18 UNIT; Start 03/30/17 at 08:00 Morphine Sulfate (morphine) 2 mg Q4H PRN IV PAIN LEVEL 7-10 Last administered on 04/02/17 15:22; Admin Dose 2 MG; Start 03/30/17 at 14:30 Acetaminophen/ Hydrocodone Bitart ([place] (5/325)) 1 tab Q4H PRN PO PAIN Last administered on 04/01/17 21:30; Admin Dose 1 TAB; Start 03/31/17 at 20:30 ZE CISSE MD Apr 02, 2017 19:11
[2017-04-02] MEDS: ATORVASTATIN 10 MG TAB PO SCH (22:39)
[2017-04-02] MEDS: HYDROCODONE/APAP (5/325) TAB PO PRN (22:39)
[2017-04-03] VITALS (15 sets, daily range): BP systolic 79–105; BP diastolic 43–57; PULSE 38–107; RESP 17–19
[2017-04-03] MEDS: ACCU-CHEK XX SCH (02:00)
[2017-04-03] MEDS: LEVOTHYROXINE 100 MCG VIAL IV SCH (05:41)
[2017-04-03] MEDS: HEPARIN 5,000 UNIT/0.5 ML VIAL SC SCH ×3 (05:44→21:46)
[2017-04-03] MEDS: morphine 4 MG/ML VIAL IV PRN ×2 (06:23→12:19)
[2017-04-03] MEDS: INSULIN ASPART [NOVOLOG] 3 ML PEN SC SCH ×7 (08:00→21:00)
[2017-04-03] MEDS: BENAZEPRIL 10 MG TAB PO SCH (08:15)
[2017-04-03] MEDS: FUROSEMIDE 40 MG INJ IV SCH ×3 (08:15→21:00)
[2017-04-03] MEDS: FLUCONAZOLE 200 MG TAB PO SCH (08:31)
[2017-04-03] MEDS: ASPIRIN 325 MG TAB PO SCH (08:32)
[2017-04-03] MEDS: COLLAGENASE 30 GM TUBE TOP SCH (08:32)
[2017-04-03] MEDS: FAMOTIDINE 20 MG TAB PO SCH ×2 (08:32→21:00)
[2017-04-03 08:37] LABS: BASOPHILS % 0.2 % (0.0-2.0); EOSINOPHILS % 0.2 % (0.0-7.0); HEMATOCRIT 30.3 % (37.0-47.0); HEMOGLOBIN 9.1 g/dl (12.0-16.0); LYMPHOCYTES # 1.6 10^3/ul (0.8-2.9); LYMPHOCYTES % 16.4 % (15.0-51.0); MEAN CORPUSCULAR HEMOGLOBIN 27.7 pg (29.0-33.0); MEAN CORPUSCULAR VOLUME 92.1 fl (82.0-101.0); MEAN PLATELET VOLUME 12.1 fl (7.4-10.4); MONOCYTE # 0.8 10^3/ul (0.3-0.9); MONOCYTES % 8.3 % (0.0-11.0); NEUTROPHIL # 7.1 10^3/ul (1.6-7.5); NEUTROPHILS % 74.2 % (39.0-77.0); PLATELET COUNT 245 10^3/UL (140-415); RED BLOOD COUNT 3.29 10^6/ul (4.20-5.40); RED CELL DISTRIBUTION WIDTH 15.8 % (11.5-14.5); WHITE BLOOD COUNT 9.6 10^3/ul (4.8-10.8)
[2017-04-03] MEDS: INSULIN GLARGINE [LANtus] 3 ML PEN SC SCH (08:39)
[2017-04-03 09:09] LABS: CALCIUM 7.8 mg/dl (8.4-10.2); CREATININE 1.03 mg/dl (0.44-1.00); POTASSIUM 4.2 mmol/L (3.5-5.1)
--- NOTE | 2017-04-03 12:49 | PN ---
Date/Time of Note Date/Time of Note DATE: 04/03/17 TIME: 12:34 Assessment/Plan VTE Prophylaxis VTE Prophylaxis Intervention: heparin Lines/Catheters IV Catheter Type (from Nrsg): Peripheral IV Urinary Cath still in place: Yes Reason Cath still needed: urinary retention Assessment/Plan Chief Complaint/Hosp Course 1.Multivessel coronary artery disease, high risk for CV surgery at [facility]. Failed attempt for treatment of LAD by high risk PCI 2/2 recurrent vasospasm and significant hypotension -Needs myocardial revascularization at a tertiary care center --On anticoagulation, beta terra and DAMION inhibitors. Statin adjusted based on LFT. 2.Cardiomyopathy.[facility] [place] with severely depressed left ejection fraction of approximately 25 % -- Continue diuresis, BB,ACEI - monitor INTAKE/output 3. Acute Systolic CHF 4.PVD, status post left [id number] amputation and left lateral artery thrombectomy . --Patient status post left [id number] amputation and left lateral artery thrombectomy . Continue surgeon recommendations and vascular checks. 5.Transaminitis- Perhaps from right sided, passive liver congestion -- Monitor 6.Hyponatremia, likely from fluid overload. Stable -- Continue diuretics and fluid restriction 7. Acute on likely CKD: stable. - Monitor renal fxn closely 8 Type II Diabetes, A1c 8.4 -Continue Accu-Cheks/ISS.Continue 18 unit Lantus. 9. Urinary retention possibly neurogenic diabetic bladder. -Urology emma appreciated and recommended rivera continuation for now with the plan of starting Urecholine and reassess. 10. Nina UTI. Status post treatment. 11. Hypothyroidism: -- Continue synthroid 12. Essential hypertension. -- On antihypertensives and adjust as needed. 13.Chronic anemia --Monitor. 14. Abdominal pain with CT scan suggestive of possible obstructive pattern versus ileus. Resolved. --Diet as tolerated. Prophylaxis: Heparin subcu/Pepcid Plan: Patient at high risk for CT surgery at [facility] . Attempt for high risk [facility] [place] for treatment of LAD was unsuccessful due to recurrent vasospasm and hypotension. Expertise recommendation is to transfer to [facility] for further evaluation and treatment. CM to arrange transfer to [facility].I spoke with who will be the attending at receiving facility. Discussed plan of care with Dr. Astudillo. Problems: Subjective 24 Hr Interval Summary Free Text/Dictation Awaiting for transfer to tertiary care center.No acute episodes. Exam/Review of Systems Vital Signs Vitals Vital Signs Date Time Temp Pulse Resp B/P Pulse Ox O2 Delivery O2 Flow Rate FiO2 04/03/17 12:23 97.5 105 18 101/54 95 04/03/17 07:45 Nasal Cannula 2.0 Intake and Output 04/02/17 04/02/17 04/03/17 15:00 23:00 07:00 Intake Total 100 ml 280 ml 300 ml Output Total 200 ml 500 ml Balance 100 ml 80 ml -200 ml Exam General: Thin built, not in any acute distress . HEENT: Normocephalic, Atraumatic, No laceration or hematoma; Eyes: PEERL, Conjunctiva clear, Anicteric sclera Neck: Supple without any lymphadenopathy, nontender, no JVD, no carotid bruits, trachea midline, no thyromegaly Cardiac: S1, S2 auscultated, regular rhythm and rate, no mumurs or gallop Pulmonary: Diminished breath sound bibasilar. Normal respiratory effort. Chest clear to auscultation bilaterally, no adventitious breath sounds GI: Abdomen soft,no masses, no rebound tenderness or guarding. Bowel sounds hypoactive on all four quadrants Genitourinary: Deferred Extremities: Left AKA, surgical dressing intact. Heart cath site intact. Neurologic: Alert to person, place, time, and situation. Affect appropriate, intact sensation. Skin: Clean,dry, and intact. No ecchymosis, no rashes, or lesions Results Result Diagram: 04/03/17 0749 04/03/17 0749 Results 24 hrs Laboratory Tests Test 04/02/17 14:20 04/02/17 17:34 04/02/17 18:15 04/02/17 22:23 Bedside Glucose 71 63 L 74 88 Test 04/03/17 02:30 04/03/17 07:49 04/03/17 08:30 04/03/17 12:25 Bedside Glucose 81 127 99 White Blood Count 9.6 Red Blood Count 3.29 L Hemoglobin 9.1 L Hematocrit 30.3 L Mean Corpuscular Volume 92.1 Mean Corpuscular Hemoglobin 27.7 L Mean Corpuscular Hemoglobin Concent 30.0 L Red Cell Distribution Width 15.8 H Platelet Count 245 Mean Platelet Volume 12.1 H Neutrophils % 74.2 Lymphocytes % 16.4 Monocytes % 8.3 Eosinophils % 0.2 Basophils % 0.2 Nucleated Red Blood Cells % 0.0 Neutrophils # 7.1 Lymphocytes # 1.6 Monocytes # 0.8 Eosinophils # 0.0 Basophils # 0.0 Nucleated Red Blood Cells # 0.0 Sodium Level 135 Potassium Level 4.2 Chloride Level 91 L Carbon Dioxide Level 27 Anion Gap 21 H Blood Urea Nitrogen 36 H Creatinine 1.03 H Glucose Level 115 Calcium Level 7.8 L Magnesium Level 2.0 Medications Medications Current Medications Benazepril HCl (Lotensin) 10 mg DAILY PO Last administered on 03/30/17 08:10; Admin Dose 10 MG; Start 03/17/17 at 09:00; Status Future hold Miscellaneous Information 1 ea NOTE XX ; Start 03/17/17 at 12:00 Glucose (Glutose) 15 gm Q15M PRN PO DECREASED GLUCOSE Last administered on 03/26 10:59; Admin Dose 15 GM; Start 03/17/17 at 12:00 Glucose (Glutose) 22.5 gm Q15M PRN PO DECREASED GLUCOSE; Start 03/17/17 at 12: 00 Dextrose (D50w Syringe) 25 ml Q15M PRN IV DECREASED GLUCOSE Last administered on 03/19/17 06:08; Admin Dose 25 ML; Start 03/17/17 at 12:00 Dextrose (D50w Syringe) 50 ml Q15M PRN IV DECREASED GLUCOSE; Start 03/17/17 at 12:00 Glucagon (Glucagen) 1 mg Q15M PRN IM DECREASED GLUCOSE; Start 03/17/17 at 12:00 Glucose (Glutose) 15 gm Q15M PRN BUCCAL DECREASED GLUCOSE Last administered on 03/26/17 09:24; Admin Dose 15 GM; Start 03/17/17 at 12:00 Diagnostic Test (Pha) (Accu-Chek) 1 ea 02 XX Last administered on 03/31/17 02: 11; Admin Dose 1 EA; Start 03/19/17 at 02:00 Levothyroxine Sodium (Synthroid Iv) 75 mcg DAILY@06 IV Last administered on 04/03 05:41; Admin Dose 75 MCG; Start 03/19/17 at 06:00 Magnesium Hydroxide (Milk Of Mag) 30 ml DAILY PRN PO CONSTIPATION; Start at 09:00 Collagenase (Santyl) 1 applic DAILY TOP Last administered on 04/03/17 08:32; Admin Dose 1 APPLIC; Start 03/23/17 at 12:30 Collagenase (Santyl) 1 applic PRN PRN TOP WOUND CARE; Start 03/23/17 at 11:30 Heparin Sodium (Porcine) (Heparin (5000 Units/0.5 ml)) 5,000 unit Q8 SC Last administered on 04/03/17 05:44; Admin Dose 5,000 UNIT; Start 03/24/17 at 22:00 Famotidine (Pepcid) 20 mg BID PO Last administered on 04/03/17 08:32; Admin Dose 20 MG; Start 03/25/17 at 21:00 Simethicone (Mylicon) 80 mg Q6H PRN PO DISTENSION/GAS/BLOATING Last administered on 03/30/17 20:01; Admin Dose 80 MG; Start 03/25/17 at 10:30 Al Hydrox/Mg Hydrox/Simethicone (Mag-Al Plus) 30 ml Q4H PRN PO GASTROINTESTINAL UPSET; Start 03/26/17 at 14:30 Ondansetron HCl (Zofran Inj) 4 mg Q4H PRN IV NAUSEA AND/OR VOMITING; Start at 14:30 Aspirin (Aspirin) 325 mg DAILY PO Last administered on 04/03/17 08:32; Admin Dose 325 MG; Start 03/27/17 at 09:30 Fluconazole (Diflucan) 400 mg DAILY PO Last administered on 04/03/17 08:31; Admin Dose 400 MG; Start 03/27/17 at 13:00; Stop 04/03/17 at 12:59 Carvedilol (Coreg) 3.125 mg BID PO Last administered on 03/30/17 08:09; Admin Dose 3.125 MG; Start 03/27/17 at 21:00 Furosemide (Lasix) 40 mg BID IV Last administered on 04/01/17 08:29; Admin Dose 40 MG; Start 03/29/17 at 10:31 Insulin Glargine (Lantus) 18 unit DAILY@08 SC Last administered on 04/03/17 08: 39; Admin Dose 18 UNIT; Start 03/30/17 at 08:00 Morphine Sulfate (morphine) 2 mg Q4H PRN IV PAIN LEVEL 7-10 Last administered on 04/03/17 12:19; Admin Dose 2 MG; Start 03/30/17 at 14:30 Acetaminophen/ Hydrocodone Bitart ([place] (5/325)) 1 tab Q4H PRN PO PAIN Last administered on 04/02/17 22:39; Admin Dose 1 TAB; Start 03/31/17 at 20:30 Atorvastatin Calcium (Lipitor) 10 mg DAILY@21 PO Last administered on 04/02/17 22:39; Admin Dose 10 MG; Start 04/02/17 at 21:00 BEBA HENSON NP Apr 03, 2017 12:48
[2017-04-03] MEDS ORDERED: ALPRAZOLAM 0.25 MG TAB PO PRN (13:00)
[2017-04-03] MEDS: ALBUTEROL/IPRATROPIUM (NEB) 3 ML AMP HHN PRN ×2 (13:13→19:43)
--- NOTE | 2017-04-03 14:20 | CONS ---
Date/Time of Note Date/Time of Note DATE: 04/03/17 TIME: 14:16 Assessment/Plan Assessment/Plan Chief Complaint/Hosp Course IMP: 1.Nstemi-Increased troponin/CK-MB which started to downtrend today. NO CP. Now s /p LHC revealing mutivessel obstructive cad and now newly decreased LVEF 25% by cath LV gram 03/26/17. Evaluated by CT surgery who believes patient is to high risk for CT surgery at this time and would like to wait for further medical optimization/healing of LE amputation. Now s/p attempted PTCA to LADF which had to be aborted due to Hypotesnion/hypoxia and inability to support the patient hemodynamically throughout case. 2.HTN 3.SBO 4.PAD now post-op s/p LLE amputation 5. Hypopthyroid 6.UTI 7.anemia Recc: -Tele -serial ecg's -Continue PO BB as tolerated and ACEI afterload reduction -Continue abx's and f/u cx data -Continue heparin SQ /ASA -Pain control -Continue lasix diuresis and follow output closely -To be trasnfered to [facility] for higher level of care and possible PCI versus cabg/ transplant eval Problems: Consultation Date/Type/Reason Admit Date/Time Mar 16, 2017 at 22:23 Initial Consult Date 03/17/17 Type of Consultation: cardiology Reason for Consultation Nstemi/CHF/cardiomyopathy Referring Provider: TOPHER DUNBAR MD Exam/Review of Systems Vital Signs Vitals Vital Signs Date Time Temp Pulse Resp B/P Pulse Ox O2 Delivery O2 Flow Rate FiO2 04/03/17 13:14 116 22 95 Nasal Cannula 4.0 04/03/17 12:23 97.5 101/54 Intake and Output 04/02/17 04/02/17 04/03/17 15:00 23:00 07:00 Intake Total 100 ml 280 ml 300 ml Output Total 200 ml 500 ml Balance 100 ml 80 ml -200 ml Exam Review of Systems: CONSTITUTIONAL: No fevers, chills. PULMONARY: mild sob CARDIOVASCULAR: No chest pain/palpitations GASTROINTESTINAL: No nausea/vomiting. GENITOURINARY: No hematuria/dysuria. MUSCULOSKELETAL: No myagias/arthalgias. PSYCHIATRIC: The patient denies depression. NEUROLOGIC: No weakness Constitutional: alert Psych: no complaints Head: normocephalic ENMT: mucosa pink and moist Neck: jvd (9 cm waer), supple Respiratory: diminished breath sounds (at bases/B) Cardiovascular: regular rate and rhythm Gastrointestinal: non-tender, soft Musculoskeletal: muscle tone Extremities: edema Neurological: other (s/p LE amputation) Results Result Diagram: 04/03/17 0749 04/03/17 0749 Results 24 hrs Laboratory Tests Test 04/02/17 14:20 04/02/17 17:34 04/02/17 18:15 04/02/17 22:23 Bedside Glucose 71 63 L 74 88 Test 04/03/17 02:30 04/03/17 07:49 04/03/17 08:30 04/03/17 12:25 Bedside Glucose 81 127 99 White Blood Count 9.6 Red Blood Count 3.29 L Hemoglobin 9.1 L Hematocrit 30.3 L Mean Corpuscular Volume 92.1 Mean Corpuscular Hemoglobin 27.7 L Mean Corpuscular Hemoglobin Concent 30.0 L Red Cell Distribution Width 15.8 H Platelet Count 245 Mean Platelet Volume 12.1 H Neutrophils % 74.2 Lymphocytes % 16.4 Monocytes % 8.3 Eosinophils % 0.2 Basophils % 0.2 Nucleated Red Blood Cells % 0.0 Neutrophils # 7.1 Lymphocytes # 1.6 Monocytes # 0.8 Eosinophils # 0.0 Basophils # 0.0 Nucleated Red Blood Cells # 0.0 Sodium Level 135 Potassium Level 4.2 Chloride Level 91 L Carbon Dioxide Level 27 Anion Gap 21 H Blood Urea Nitrogen 36 H Creatinine 1.03 H Glucose Level 115 Calcium Level 7.8 L Magnesium Level 2.0 Medications Medications Current Medications Benazepril HCl (Lotensin) 10 mg DAILY PO Last administered on 03/30/17 08:10; Admin Dose 10 MG; Start 03/17/17 at 09:00; Status Future hold Miscellaneous Information 1 ea NOTE XX ; Start 03/17/17 at 12:00 Glucose (Glutose) 15 gm Q15M PRN PO DECREASED GLUCOSE Last administered on 03/26 10:59; Admin Dose 15 GM; Start 03/17/17 at 12:00 Glucose (Glutose) 22.5 gm Q15M PRN PO DECREASED GLUCOSE; Start 03/17/17 at 12: 00 Dextrose (D50w Syringe) 25 ml Q15M PRN IV DECREASED GLUCOSE Last administered on 03/19/17 06:08; Admin Dose 25 ML; Start 03/17/17 at 12:00 Dextrose (D50w Syringe) 50 ml Q15M PRN IV DECREASED GLUCOSE; Start 03/17/17 at 12:00 Glucagon (Glucagen) 1 mg Q15M PRN IM DECREASED GLUCOSE; Start 03/17/17 at 12:00 Glucose (Glutose) 15 gm Q15M PRN BUCCAL DECREASED GLUCOSE Last administered on 03/26/17 09:24; Admin Dose 15 GM; Start 03/17/17 at 12:00 Diagnostic Test (Pha) (Accu-Chek) 1 ea 02 XX Last administered on 03/31/17 02: 11; Admin Dose 1 EA; Start 03/19/17 at 02:00 Levothyroxine Sodium (Synthroid Iv) 75 mcg DAILY@06 IV Last administered on 04/03 05:41; Admin Dose 75 MCG; Start 03/19/17 at 06:00 Magnesium Hydroxide (Milk Of Mag) 30 ml DAILY PRN PO CONSTIPATION; Start at 09:00 Collagenase (Santyl) 1 applic DAILY TOP Last administered on 04/03/17 08:32; Admin Dose 1 APPLIC; Start 03/23/17 at 12:30 Collagenase (Santyl) 1 applic PRN PRN TOP WOUND CARE; Start 03/23/17 at 11:30 Heparin Sodium (Porcine) (Heparin (5000 Units/0.5 ml)) 5,000 unit Q8 SC Last administered on 04/03/17 13:43; Admin Dose 5,000 UNIT; Start 03/24/17 at 22:00 Famotidine (Pepcid) 20 mg BID PO Last administered on 04/03/17 08:32; Admin Dose 20 MG; Start 03/25/17 at 21:00 Simethicone (Mylicon) 80 mg Q6H PRN PO DISTENSION/GAS/BLOATING Last administered on 03/30/17 20:01; Admin Dose 80 MG; Start 03/25/17 at 10:30 Al Hydrox/Mg Hydrox/Simethicone (Mag-Al Plus) 30 ml Q4H PRN PO GASTROINTESTINAL UPSET; Start 03/26/17 at 14:30 Ondansetron HCl (Zofran Inj) 4 mg Q4H PRN IV NAUSEA AND/OR VOMITING; Start at 14:30 Aspirin (Aspirin) 325 mg DAILY PO Last administered on 04/03/17 08:32; Admin Dose 325 MG; Start 03/27/17 at 09:30 Carvedilol (Coreg) 3.125 mg BID PO Last administered on 03/30/17 08:09; Admin Dose 3.125 MG; Start 03/27/17 at 21:00 Furosemide (Lasix) 40 mg BID IV Last administered on 04/03/17 13:43; Admin Dose 40 MG; Start 03/29/17 at 10:31 Insulin Glargine (Lantus) 18 unit DAILY@08 SC Last administered on 04/03/17 08: 39; Admin Dose 18 UNIT; Start 03/30/17 at 08:00 Morphine Sulfate (morphine) 2 mg Q4H PRN IV PAIN LEVEL 7-10 Last administered on 04/03/17 12:19; Admin Dose 2 MG; Start 03/30/17 at 14:30 Acetaminophen/ Hydrocodone Bitart ([place] (5/325)) 1 tab Q4H PRN PO PAIN Last administered on 04/02/17 22:39; Admin Dose 1 TAB; Start 03/31/17 at 20:30 Atorvastatin Calcium (Lipitor) 10 mg DAILY@21 PO Last administered on 04/02/17 22:39; Admin Dose 10 MG; Start 04/02/17 at 21:00 Alprazolam (Xanax) 0.25 mg Q12H PRN PO ANXIETY; Start 04/03/17 at 13:00 JAVI LION Apr 03, 2017 14:20
--- NOTE | 2017-04-03 14:40 | PN ---
Date/Time of Note Date/Time of Note DATE: 04/03/17 TIME: 14:33 Assessment/Plan Lines/Catheters IV Catheter Type (from [facility]): Peripheral IV Rivera in Place (from [facility]): Yes Assessment/Plan Chief Complaint/Hosp Course 1. Abdominal pain: Flatus. SBFT noted. tolerating diet; +bowel function; resolved -close monitoring 2. PVD/PAD with Left lower extremity ischemia with tissue necrosis and gangrene ; s/p left AKA with thrombectomy; -Anticoagulation 3. Elevated troponin with possible demand ischemia and MD; s/p left heart cath -Cardiac evaluation on optimization -PTCA, case aborted due to Hypotesnion/hypoxia/hemodynamic instability 4. Elevated BNP with possible CHF -Judicious fluid management -Cardiac optimization 5. Renal insufficiency, multifactorial secondary to above; improving -Judicious fluid management and avoid nephrotoxic agents as possible 6. Anemia. no nat bleed noted. h/h improved -Close monitoring -Transfuse as needed 7. Diabetes: episodes of hypoglycemia ; hyperglycemia currently: ?stress hyperglycemia -Diet and medication optimization 8. Hypertension: improved -Diet and medication optimization 9. Hypercholesterolemia -Diet and medication optimization 10. Leukocytosis: 2/2 #1 and #2 normalized;: likely 2/2 #7; afebrile; -monitor 11. NSTEMI: elevated troponin, no cp; s/p left heart cath 12. 3 vessel CAD -as above 13. Bilateral pleural effusion with episodes of desaturation: improved SOB 14. Neurogenic diabetic bladder: rivera -per urology 15. Transaminitis: no c/o abdominal pain, tolerating diet +bowel function -supportive -trend 16. Constipation: -bowel regimen 17. Left ischium and sacrum: unstageable -local wound care -frequent turning and repositioning -specialty bed -vitamin c/short term zinc -optimize nutrition -possible debridement once medically stable Patient seen and examined in collaboration with Dr. Steffen Kelly. Thank you. Problems: Subjective 24 Hr Interval Summary No n/v. Tolerating diet. +flatus. s/p attempted PTCA, case aborted due to Hypotesnion/hypoxia/hemodynamic instability. Transfer to tertiary care center. No fevers, chills, n/v/d, abdominal pain. Exam/Review of Systems Vital Signs Vitals Vital Signs Date Time Temp Pulse Resp B/P Pulse Ox O2 Delivery O2 Flow Rate FiO2 04/03/17 13:14 116 22 95 Nasal Cannula 4.0 04/03/17 12:23 97.5 101/54 Intake and Output 04/02/17 04/02/17 04/03/17 15:00 23:00 07:00 Intake Total 100 ml 280 ml 300 ml Output Total 200 ml 500 ml Balance 100 ml 80 ml -200 ml Exam Free Text/Dictation Constitutional: awake, in good spirits Psych: No anxiety, No nl mood/affect Head: atraumatic, normocephalic Eyes: EOMI, PERRL, nl conjunctiva, No icteric ENMT: nl external ears & nose, nl lips & teeth. mucosa pink and moist Neck: jvd, non-tender, supple Respiratory: No congested cough. No wheezing. Cardiovascular: regular rate and rhythm, No edema Gastrointestinal: min distended, soft, nontender, bowel sounds x4. No firm, No rebound or guarding, Musculoskeletal: No joint tenderness, No nl extremities to inspection (Left AKA ), No nl gait and stance Extremities: No calf tenderness, No normal pulses Neurological: nl speech, No nl strength Skin: No diaphoresis, No nl turgor, left ischial and sacral wound;unstageable, some areas of slough, maroon Lymph: nl lymph nodes Results Result Diagram: 04/03/17 0749 04/03/17 0749 JULIANA RUFFIN NP Apr 03, 2017 14:40
--- NOTE | 2017-04-03 15:09 | DS ---
Date/Time of Note Date/Time of Note DATE: 04/03/17 TIME: 15:07 Discharge Summary Admission/Discharge Info Admit Date/Time Mar 16, 2017 at 22:23 Discharge Date/Time Discharge Diagnosis 1.Multivessel coronary artery disease. 2.Cardiomyopathy.[facility] with severely depressed left ejection fraction of approximately 25 % 3. Acute Systolic CHF 4.PVD, status post left [id number] amputation and left lateral artery thrombectomy . 5.Transaminitis- Perhaps from right sided, passive liver congestion 6.Hyponatremia, likely from fluid overload. Stable 7. Acute on likely CKD: 8 Type II Diabetes, A1c 8.4 9. Urinary retention possibly neurogenic diabetic bladder. 10. Nina UTI. Status post treatment. 11. Hypothyroidism: 12. Essential hypertension. 13.Chronic anemia 14. Abdominal pain with CT scan suggestive of possible obstructive pattern versus ileus. Resolved. Consults cardiology ,CV surgery ,General surgery Procedures 03/17/2017 2D echo Conclusions 1. Normal left ventricular systolic function. Normal left ventricular cavity size. Mild concentric left ventricular hypertrophy. Ejection fraction is visually estimated at 60 %. Tissue Doppler/Mitral Doppler indices are consistent with impaired relaxation (Stage I diastolic dysfunction). 2. Normal right ventricular size. Normal right ventricular systolic function. 3. Mitral valve leaflets appear mildly thickened. Mild mitral annular calcification. Trace mitral regurgitation. 4. Normal appearance of the tricuspid valve. Estimated peak PA systolic pressure 30 mmHg. There is mild tricuspid regurgitation. 5. Pulmonic valve not well visualized. There is trace pulmonic regurgitation. 03/17/2017.Abdominal angiography Multiple dilated loops of small bowel with air-fluid levels as well as collapsed distal loops with a transition point in the posterior aspect of the pelvis consistent with a high-grade bowel obstruction. 03/18/2017.PROCEDURES 1. Left above knee amputation 2. Left femoral artery thrombectomy 03/19/2017. Small bowel series 1. No definite evidence of obstruction. 03/26/2017 PROCEDURES: 1. Left heart catheterization. 2. Coronary angiography. 3. Left vesiculogram. Left vesiculogram revealed a severely depressed left ejection fraction of approximately 25 percent with the majority of the patient's contraction preserved in the base and severe anteroapical hypokinesis. 04/02/2017. Operation Performed 1.Left heart catheterization Postoperative Diagnosis 1.Obstructive cad 2.Nstemi 3.cardiomyopathy 4.Hypotension 5. CHF 04/02/2017. Chest Xray Overall, slightly improved aeration of the lungs compared to 03/28/1927. There is pulmonary vascular congestion with bilateral pleural effusions indicating persistent congestive heart failure. Hospital Course This is a 71-year-old female with multiple comorbidities including DMII, Hypertension, Coronary artery disease, Hypercholesterolemia, Bilateral lower extremity atherosclerosis admitted with worsening left foot gangrene who eventually underwent left lower extremity above-knee amputation on 03/18/2017. During the postoperative period, patient was found to have non-ST elevation and had underwent LHC on 03/26/2017 where she was found to have diffuse multi- vessel coronary artery disease with newly decreased LVEF 25% (from 60%) by cath LV gram on 03/26/17. She was continued on medical optimization with ASA,diuretics , BB and low- dose statin as she was not a candidate for high intensity statin due to transaminase elevation. During the course of hospitalization patient was seen by multiple speciality including general surgery for abdominal pain with CT findings are suggestive of either obstructive pattern versus ileus. She was treated with bowel rest and NGtube decompression with resolution of SBO. She also had neurogenic bladder with retention and was evaluated by urology with the recommendation of rivera continuation and starting on urecholine once able to tolerate PO. Patient was then evaluated by CT surgery who believed patient is to high risk for CT surgery at this time and after multiple discussion with CT surgery and primary team, the best recommendation was to proceed with treatment of LAD by high risk PCI with possible additional PTCA to LCX as necessary given high grade stenosis in LAD and NSTEMI after amputation.On 04/02/17, patient was taken to cardiac catheterization lab for repeat LHC under conscious sedation. Unfortunately, procedure was interrupted due to recurrent vasospasm and significant hypotension in the 50's while correcting spasm with Nitro followed by desaturation requiring placement of face mask . Procedure was terminated with possible transfer to tertiary are center for further evaluation and treatment. Patient was monitored in ICU and transfer process was initiated ANA. Family in agreement for tertiary transfer. Patient was accepted to [facility] under DR.Robert Pike for further management of advanced cardiac disease. Approximately 60mins spent on coordinating discharge on this patient case discussed with . Home Meds Active Scripts Collagenase* (Santyl*) 30 Gm Oint..gm., 1 APPLIC TOP PRN Y for WOUND CARE, #1 Prov:HENSON,BEBA V. CARBURIZER 04/02/17 Collagenase* (Santyl*) 30 Gm Oint..gm., 1 APPLIC TOP DAILY, #1 Prov:HENSON,BEBA V. CARBURIZER 04/02/17 Insulin Glargine* (Lantus*) 100 Unit/Ml Soln, 18 UNIT SC DAILY@08, #30 Prov:HENSON,BEBA V. CARBURIZER 04/02/17 Insulin Aspart* (Novolog Insulin Pen*) 100 Unit/Ml Soln, 3 UNIT SC WITH MEALS, # 30 Prov:HENSON,BEBA V. CARBURIZER 04/02/17 Insulin Aspart* (Novolog Insulin Pen*) 100 Unit/Ml Soln, 0 UNIT SC WITH MEALS BEDTIME, #30 Prov:EHNSON,BEBA V. CARBURIZER 04/02/17 Glucagon,Human Recombinant (Glucagen) 1 Mg/1 Ml Vial, 1 MG IM Q15M Y for DECREASED GLUCOSE, #60 VIAL Prov:HENSON,BEBA V. CARBURIZER 04/02/17 Simethicone* (Mylicon*) 80 Mg Tab, 80 MG PO Q6H Y for DISTENSION/GAS/BLOATING, # 30 TAB Prov:HENSON,BEBA V. CARBURIZER 04/02/17 Ondansetron Hcl* (Ondansetron Hcl* Inj) 4 Mg/2 Ml Vial, 4 MG IV Q4H Y for NAUSEA AND/OR VOMITING, #30 VIAL Prov:HENSON,BEBA V. CARBURIZER 04/02/17 Magnesium Hydroxide* (Maldonado' MOM*) 30 Ml Susp, 30 ML PO DAILY Y for CONSTIPATION, #30 Prov:HENSON,BEBA V. CARBURIZER 04/02/17 Magaldrate/Simethicone* (Mag-Al Plus Suspension*) 30 Ml Oral.susp, 30 ML PO Q4H Y for GASTROINTESTINAL UPSET, #30 Prov:HENSON,BEBA V. CARBURIZER 04/02/17 Famotidine* (Famotidine*) 20 Mg Tablet, 20 MG PO BID, #30 TAB Prov:HENSON,BEBA V. CARBURIZER 04/02/17 [Furosemide] 10 MG/ML SOLN No Conflict Check, 40 MG IV BID, #30 Prov:HENSON,BEBA V. CARBURIZER 04/02/17 Dextrose* (D50W Syringe*) 50 Ml Soln, 50 ML IV Q15M Y for DECREASED GLUCOSE, #30 Prov:HENSON,BEBA V. CARBURIZER 04/02/17 Dextrose* (D50W Syringe*) 50 Ml Soln, 25 ML IV Q15M Y for DECREASED GLUCOSE, #30 Prov:HENSON,BEBA V. CARBURIZER 04/02/17 Dextrose (Glutose 15) 37.5 Gm Gel..gm., 15 GM BUCCAL Q15M Y for DECREASED GLUCOSE, #30 Prov:HENSON,BEBA V. CARBURIZER 04/02/17 Dextrose (Glutose 15) 37.5 Gm Gel..gm., 22.5 GM PO Q15M Y for DECREASED GLUCOSE , #30 Prov:HENSON,BEBA V. CARBURIZER 04/02/17 Dextrose (Glutose 15) 37.5 Gm Gel..gm., 15 GM PO Q15M Y for DECREASED GLUCOSE, # 30 Prov:HENSON,BEBA V. CARBURIZER 04/02/17 [Accu-Chek] 1 EA EA No Conflict Check, 1 EA XX 02, #30 Prov:HENSON,BEBA V. CARBURIZER 04/02/17 Morphine Sulfate* (Morphine*) 4 Mg/1 Ml Cartridge, 2 MG IV Q4H Y for PAIN LEVEL 7-10, #30 Prov:HENSON,BEBA V. CARBURIZER 04/02/17 Hydrocodone Bit-Acetaminophen (Hydrocodone Bit-APAP) 5-325MG Tablet, 1 TAB PO Q4H Y for PAIN, #30 TAB Prov:HENSON,BEBA V. CARBURIZER 04/02/17 Aspirin (Aspirin Lite-Coat) 325 Mg Tablet, 325 MG PO DAILY, #30 TAB Prov:HENSON,BEBA V. CARBURIZER 04/02/17 Carvedilol* (Carvedilol*) 3.125 Mg Tablet, 3.125 MG PO BID, #30 TAB Prov:HENSON,BEBA V. CARBURIZER 04/02/17 Atorvastatin (Atorvastatin) 10 Mg Tablet, 10 MG PO DAILY@21, #30 TAB Prov:HENSON,BEBA V. CARBURIZER 04/02/17 Heparin Sod (Porcine)* (Heparin*) 5,000 Unit/0.5 Ml Soln, 5000 UNIT SC Q8, #30 Prov:BEBA HENSON V. CARBURIZER 04/02/17 Reported Medications Benazepril Hcl* (Benazepril Hcl*) 10 Mg Tablet, 10 MG PO DAILY, #30 TAB 03/16/17 Levothyroxine Sodium* (Levothyroxine Sodium*) 75 Mcg Tablet, 75 MCG PO BEFORE BREAKFAST, #30 TAB 03/16/17 Discontinued Reported Medications Gabapentin* (Gabapentin*) 300 Mg Capsule, 300 MG PO BID, #60 CAP 03/16/17 Amlodipine Besylate* (Norvasc*) 10 Mg Tablet, 10 MG PO DAILY, TAB 03/16/17 Insulin Aspart* (Novolog Insulin Pen*) 100 Unit/Ml Soln, 8 UNIT SC WITH MEALS, EA 03/16/17 Simvastatin* (Zocor*) 20 Mg Tablet, 20 MG PO QHS, #30 TAB 03/16/17 Atenolol* (Atenolol*) 100 Mg Tablet, 100 MG PO DAILY, #30 TAB 03/16/17 Insulin Glargine* (Lantus*) 100 Unit/Ml Soln, 20 UNIT SC QHS, #1 VIAL 03/16/17 Follow-up Plan HOME CARE INSTRUCTIONS: Your diet recommendation is: carb-controlled, cardiac diet FOLLOW UP/APPOINTMENTS Follow-up Plan [facility] CT surgery team Vascular follow-up Primary Care Provider Not On Staff Doctor Pending Labs Laboratory Tests Test 04/02/17 17:34 04/02/17 18:15 04/02/17 22:23 04/03/17 02:30 Bedside Glucose 63mg/dL (70-220) 74mg/dL (70-220) 88mg/dL (70-220) 81mg/dL (70-220) Test 04/03/17 07:49 04/03/17 08:30 04/03/17 12:25 White Blood Count 9.610^3/ul (4.8-10.8) Red Blood Count 3.2910^6/ul (4.20-5.40) Hemoglobin 9.1g/dl (12.0-16.0) Hematocrit 30.3% (37.0-47.0) Mean Corpuscular Volume 92.1fl (82.0-101.0) Mean Corpuscular Hemoglobin 27.7pg (29.0-33.0) Mean Corpuscular Hemoglobin Concent 30.0g/dl (32.0-37.0) Red Cell Distribution Width 15.8% (11.5-14.5) Platelet Count 32514^3/UL (140-415) Mean Platelet Volume 12.1fl (7.4-10.4) Neutrophils % 74.2% (39.0-77.0) Lymphocytes % 16.4% (15.0-51.0) Monocytes % 8.3% (0.0-11.0) Eosinophils % 0.2% (0.0-7.0) Basophils % 0.2% (0.0-2.0) Nucleated Red Blood Cells % 0.0/100WBC (0.0-0.0) Neutrophils # 7.110^3/ul (1.6-7.5) Lymphocytes # 1.610^3/ul (0.8-2.9) Monocytes # 0.810^3/ul (0.3-0.9) Eosinophils # 0.010^3/ul (0.0-0.5) Basophils # 0.010^3/ul (0.0-0.1) Nucleated Red Blood Cells # 0.010^3/ul (0.0-0.0) Sodium Level 135mmol/L (135-144) Potassium Level 4.2mmol/L (3.5-5.1) Chloride Level 91mmol/L (97-110) Carbon Dioxide Level 27mmol/L (21-31) Anion Gap 21 (8-16) Blood Urea Nitrogen 36mg/dl (7-20) Creatinine 1.03mg/dl (0.44-1.00) Glucose Level 115mg/dl (70-220) Calcium Level 7.8mg/dl (8.4-10.2) Magnesium Level 2.0mg/dl (1.7-2.5) Bedside Glucose 127mg/dL (70-220) 99mg/dL (70-220) BEBA HENSON NP Apr 03, 2017 15:09
[2017-04-03] MEDS ORDERED: MAGNESIUM SULFATE 1 GM/100 ML D5W IVPB ONE (18:00)
[2017-04-03] MEDS ORDERED: EPINEPHrine 100 MCG/10 ML SYG IV ONE (18:00)
[2017-04-03] MEDS ORDERED: NA BICARBONATE 8.4% 50 ML SYG ONE (18:00)
[2017-04-03] MEDS: ATORVASTATIN 10 MG TAB PO SCH (21:00)
[2017-04-03] MEDS ORDERED: SOD CHLORIDE 0.9% 250 ML IV ONE (21:30)
--- NOTE | 2017-04-03 22:34 | QN ---
Documentation Comment Call received from wound care nurse regarding pressure ulcer requiring surgical consult. This can be done in AM if patient still stays at [facility]. Discussed with DR. Astudillo. BEBA HENSON NP Apr 03, 2017 22:34
[2017-04-04] VITALS: PULSE 106; RESP 21
[2017-04-04] MEDS ORDERED: PHENYLephrine 20MG IN 250 ML 250 ML IV SCH
[2017-04-04] MEDS ORDERED: PROPOFOL 100 ML IV SCH
[2017-04-04 00:05] VITALS: RESP 19
[2017-04-04] MEDS ORDERED: PROPOFOL 100 ML ONE (00:22)
[2017-04-04 00:30] VITALS: BP 158/99; PULSE 0; RESP 18
[2017-04-04] MEDS ORDERED: MIDAZOLAM (DRIP) 50 mg/50 mL 50 ML IV ONE (00:51)
[2017-04-04 01:00] VITALS: PULSE 116; RESP 21
[2017-04-04] MEDS ORDERED: MIDAZOLAM (DRIP) 50 mg/50 mL 50 ML IV SCH (01:00)
--- NOTE | 2017-04-04 01:19 | RADRPT ---
PROCEDURE: XR Chest. CLINICAL INDICATION: Intubated TECHNIQUE: Single frontal view of the chest was obtained COMPARISON: 04/02/2017 FINDINGS: The tip of the endotracheal tube is approximately 3.9 cm above the matt. ECG leads projected over the chest. Calcification in the aortic arch. Minimal enlargement of the cardiac silhouette again apparent. There has been interval improvement in previously seen pulmonary vascular congestion comp ared to previous study. There is appearance of a moderate right pleural effusion not significantly changed and small left pleural effusion decreased compared to previous study. Previously seen pulmon lanette edema is decreased compared to previous study. External cardiac pacemaker pads are projected o shaji the left lower chest upper abdomen. IMPRESSION: The tip of the endotracheal tube is approximately 3.9 cm above the matt. Moderate right pleural ef fusion not significantly changed and small left pleural effusion decreased compared to previous stud y. Improvement in pulmonary edema since previous study. Please see above. RPTAT: HJES .Abner Tavarez MD, MD Date Time Electronically viewed and signed by .Abner Tavarez MD, on 04/04/2017 01:19 .S/
[2017-04-04 01:23] LABS: BASOPHILS % 0.1 % (0.0-2.0); EOSINOPHILS % 0.1 % (0.0-7.0); HEMATOCRIT 25.8 % (37.0-47.0); HEMOGLOBIN 7.8 g/dl (12.0-16.0); LYMPHOCYTES # 1.3 10^3/ul (0.8-2.9); LYMPHOCYTES % 8.1 % (15.0-51.0); MEAN CORPUSCULAR HGB CONC 30.2 g/dl (32.0-37.0); MEAN CORPUSCULAR VOLUME 95.9 fl (82.0-101.0); MONOCYTE # 0.7 10^3/ul (0.3-0.9); MONOCYTES % 4.1 % (0.0-11.0); NEUTROPHIL # 14.1 10^3/ul (1.6-7.5); NEUTROPHILS % 85.2 % (39.0-77.0); PLATELET COUNT 223 10^3/UL (140-415); RED BLOOD COUNT 2.69 10^6/ul (4.20-5.40); RED CELL DISTRIBUTION WIDTH 15.3 % (11.5-14.5); WHITE BLOOD COUNT 16.5 10^3/ul (4.8-10.8)
[2017-04-04 01:30] VITALS: BP 74/13; PULSE 151; RESP 20
[2017-04-04] MEDS ORDERED: EPINEPHrine 0.1 MG/ML SYG ONE (01:33)
[2017-04-04 01:43] LABS: ALBUMIN 2.2 g/dl (3.3-4.9); ALBUMIN/GLOBULIN RATIO 0.78; BILIRUBIN,DIRECT 0.4 mg/dl (0.00-0.20); BILIRUBIN,INDIRECT 0.3 mg/dl (0-1.1); BILIRUBIN,TOTAL 0.7 mg/dl (0.2-1.3); CALCIUM 7.5 mg/dl (8.4-10.2); CREATININE 1.77 mg/dl (0.44-1.00); POTASSIUM 4.9 mmol/L (3.5-5.1)
--- NOTE | 2017-04-04 02:29 | EN ---
Date/Time of Note Date/Time of Note DATE: 04/04/17 TIME: 02:23 ER Progress Note CODE BLUE HPI: The patient is a 71-year-old female, was having acute respiratory failure then CODE BLUE. I was asked by her physician Dr. Chin to evaluate the patient. Upon arrival to the bedside, she was being Ambu bag by the respiratory therapist, Dr. Chin was at the bedside. She was immediately intubated without any difficulty with [place] scope. CPR was in progress. The patient was in asystole. Accu-Chek was 176. she was treated with epinephrine 1 mg IV 2 and sodium bicarb IV 1 with spontaneous return of circulation. I now transferred the patient's care back to Dr. Chin who was at the bedside. She will be transferred to ICU CODE BLUE started at 2320 and ended at 2334 hr Cardiopulmonary Resuscitation by me: See code documentation for specific details. ACLS and BLS were performed with high quality chest compressions and minimal interruptions. Reversible causes were assessed and treated. Endotracheal Intubation by me: Pre assessment performed. See preceding note for details. Pre-oxygenation performed with 100% oxygen RSI: Performed w/o complication or hypoxic events. Medications as ordered. Blade: [place] Scope ET Tube: 7.5cm Depth: 23 cm at the lip Intubation confirmed by colorimetric CO2, equal breath sounds, quiet over the stomach. JOSIAH PARIKH MD Apr 04, 2017 02:29
[2017-04-04] MEDS ORDERED: PHENYLephrine 40 MG in DEXTROSE 5% 496 ML IV SCH (09:00)
--- NOTE | 2017-04-04 11:48 | DES ---
Date/Time of Note Date/Time of Note DATE: 04/04/17 TIME: 11:08 Discharge/ Summary Admission/Discharge Info Admit Date/Time Mar 16, 2017 at 22:23 Discharge Date/Time Apr 04, 2017 at 01:34() Final Diagnosis 1.Severe diffuse Multivessel coronary artery disease. 2. Severe Cardiomyopathy with ejection fraction of approximately 25 % 3. Acute Systolic CHF 4.Severe PVD- Left AKA,thrombectomy 5.Transaminitis- Perhaps from right sided, passive liver congestion 6.Hyponatremia, likely from fluid overload. Stable 7. Acute on likely CKD 8 Type II Diabetes, A1c 8.4 9. Urinary retention possibly neurogenic diabetic bladder. 10. Status post Nina UTI 11. Hypothyroidism: 12. Essential hypertension. 13.Chronic anemia 14. Status post possible small bowel obstruction verses ileus Preliminary Cause of 1. Cardiopulmonary arrest dated 04/04/2017. 2. Acute CHF exacerbation dated 03/30/2017-04/04/2017. 3. Cardiomyopathy with EF 25% dated 03/30/2017-04/04/2017. 4. Multivessel coronary artery disease dated since admission 03/27/2017-2016 5. Severe PVD, status post left [id number] amputation and left lateral artery thrombectomy since admission 03/27/2017-04/04/2017 . 6. Acute on likely CKD 7.Transaminitis with Possible passive liver congestion Hospital Course This is a 71-year-old female with multiple comorbidities including DMII, Hypertension, Coronary artery disease, Hypercholesterolemia, Bilateral lower extremity atherosclerosis admitted with worsening left foot gangrene who eventually underwent left lower extremity above-knee amputation on 03/18/2017. During the postoperative period, patient was found to have non-ST elevation and had underwent LHC on 03/26/2017 where she was found to have diffuse multi- vessel coronary artery disease with newly decreased LVEF 25% (from 60%) by cath LV gram on 03/26/17. She was continued on medical optimization with ASA,diuretics , BB and low- dose statin as she was not a candidate for high intensity statin due to transaminase elevation. During the course of hospitalization patient was seen by multiple speciality including general surgery for abdominal pain with CT findings are suggestive of either obstructive pattern versus ileus. She was treated with bowel rest and NGtube decompression with resolution of SBO. She also had neurogenic bladder with retention and was evaluated by urology with the recommendation of rivera continuation and starting on urecholine once able to tolerate PO. Patient was then evaluated by CT surgery who believed patient is to high risk for CT surgery at this time and after multiple discussion with CT surgery and primary team, the best recommendation was to proceed with treatment of LAD by high risk PCI with possible additional PTCA to LCX as necessary given high grade stenosis in LAD and NSTEMI after amputation.On 04/02/17, patient was taken to cardiac catheterization lab for repeat LHC under conscious sedation. Unfortunately, procedure was interrupted due to recurrent vasospasm and significant hypotension in the 50's while correcting spasm with Nitro followed by desaturation requiring placement of face mask . Procedure was terminated with possible transfer to tertiary [facility] for further evaluation and treatment under DR.Robert Pike, who agreed to admit patient under him for further management of advanced cardiac disease. Patient was then monitored in ICU and transfer process was initiated ANA. Family opted for [facility].Patient was accepted to [facility] under DR.Robert Pike for further management of advanced cardiac disease. Patient was continued on agreessive medical management with pharmacological and non pharmacological intervention including BB as tolerated , ACEI afterload reduction, aspirin, heparin SQ, lasix diuresis, low dose statin (as liver function allowed), pain control, strict intake/output monitoring and fluid restriction. Patient remained hemodynamically stable and was then transferred to telemetry as waiting for insurance clearance and bed availability at [facility].She was also evaluated by wound care team on 04/03/16 and a surgical consult was recommended for worsening ischeal pressure ulcer. On 04/03/2017, at 1150pm,The patient initially became hypotensive and unresponsive on the tele unit and a code blue was called with successful resuscitation followed by intubation, mechanical ventilation and ICU transfer. Patient also required pressors for blood pressure control. Unfortunately, despite of aggressive management,patient again had cardiopulmonary arrests with PEA, requiring multiple code blue attempts.(please refer to code blue records for medications received) She also had IO access established as placing a central line was impossible. Patient remained in PEA through out her last Code blue attempt. Extensive discussion was done with the patient's family about the poor prognosis of the patient and family decided to stop further resuscitation. Resuscitation ceased per family wish. She went into asystole. Patient was pronounced on 04/04/2017 at 1:34 AM. The etiology of the patient 's sudden compromise in clinical status was most likely secondary to acute exacerbation of CHF with severe depressed LV function and underlying multivessel coronary artery diseases complicated with underlying other comorbid conditions. The patient's family was at the bedside during resuscitation. Patient's family was given enough time for grieving. Please refer to nursing documentation on [employer] reporting and organ donation discussion. Case discussed with . Pending Labs/Cultures Laboratory Tests Test 04/03/17 12:25 04/03/17 18:17 04/03/17 21:21 04/03/17 23:32 Bedside Glucose 99mg/dL (70-220) 97mg/dL (70-220) 160mg/dL (70-220) 176mg/dL (70-220) Test 04/04/17 00:37 04/04/17 01:14 Bedside Glucose 132mg/dL (70-220) White Blood Count 16.510^3/ul (4.8-10.8) Red Blood Count 2.6910^6/ul (4.20-5.40) Hemoglobin 7.8g/dl (12.0-16.0) Hematocrit 25.8% (37.0-47.0) Mean Corpuscular Volume 95.9fl (82.0-101.0) Mean Corpuscular Hemoglobin 29.0pg (29.0-33.0) Mean Corpuscular Hemoglobin Concent 30.2g/dl (32.0-37.0) Red Cell Distribution Width 15.3% (11.5-14.5) Platelet Count 72653^3/UL (140-415) Mean Platelet Volume 12.0fl (7.4-10.4) Neutrophils % 85.2% (39.0-77.0) Lymphocytes % 8.1% (15.0-51.0) Monocytes % 4.1% (0.0-11.0) Eosinophils % 0.1% (0.0-7.0) Basophils % 0.1% (0.0-2.0) Nucleated Red Blood Cells % 0.0/100WBC (0.0-0.0) Neutrophils # 14.110^3/ul (1.6-7.5) Lymphocytes # 1.310^3/ul (0.8-2.9) Monocytes # 0.710^3/ul (0.3-0.9) Eosinophils # 0.010^3/ul (0.0-0.5) Basophils # 0.010^3/ul (0.0-0.1) Nucleated Red Blood Cells # 0.010^3/ul (0.0-0.0) Sodium Level 138mmol/L (135-144) Potassium Level 4.9mmol/L (3.5-5.1) Chloride Level 91mmol/L (97-110) Carbon Dioxide Level 17mmol/L (21-31) Anion Gap 35 (8-16) Blood Urea Nitrogen 40mg/dl (7-20) Creatinine 1.77mg/dl (0.44-1.00) Glucose Level 95mg/dl (70-220) Calcium Level 7.5mg/dl (8.4-10.2) Total Bilirubin 0.7mg/dl (0.2-1.3) Direct Bilirubin 0.40mg/dl (0.00-0.20) Indirect Bilirubin 0.3mg/dl (0-1.1) Aspartate Amino Transf (AST/SGOT) 3921IU/L (15-46) Alanine Aminotransferase (ALT/SGPT) 1795IU/L (13-69) Alkaline Phosphatase 179IU/L (42-121) Total Protein 5.0g/dl (6.1-8.1) Albumin 2.2g/dl (3.3-4.9) Globulin 2.80g/dl (1.3-3.2) Albumin/Globulin Ratio 0.78 BEBA HENSON NP Apr 04, 2017 11:20
== END 2017-04-04 01:35 | disposition expired | DRG 239 ==
LOC: E/R 17:22 → MS3 22:23 → ICU 03-18 00:51 → TEL 03-20 22:05 → ICU 04-02 12:23 → MS4 04-02 20:26 → ICU 04-03 23:48
PROVIDERS: ADMIT Internal Medicine; ATTEND Internal Medicine
PROC: 04CL0ZZ Extirpation of Matter from Left Femoral Artery, Open Approach (ICD-10-PCS; 2017-03-18)
PROC: 0Y6D0Z1 Detachment at Left Upper Leg, High, Open Approach (ICD-10-PCS; principal; 2017-03-18 06:30)
PROC: 02703ZZ Dilation of Coronary Artery, One Artery, Percutaneous Approach (ICD-10-PCS; 2017-04-02)
PROC: 0BH17EZ Insertion of Endotracheal Airway into Trachea, Via Natural or Artificial Opening (ICD-10-PCS; 2017-04-04)
PROC: 5A1935Z Respiratory Ventilation, Less than 24 Consecutive Hours (ICD-10-PCS; 2017-04-04)
PROC: 5A12012 Performance of Cardiac Output, Single, Manual (ICD-10-PCS; 2017-04-04)
DX: I70.269 Atherosclerosis of native arteries of extremities with gangrene, unspecified extremity (principal); I21.4 Non-ST elevation (NSTEMI) myocardial infarction; J96.00 Acute respiratory failure, unspecified whether with hypoxia or hypercapnia; K56.60 Unspecified intestinal obstruction; I50.21 Acute systolic (congestive) heart failure; I95.9 Hypotension, unspecified; I42.9 Cardiomyopathy, unspecified; I13.0 Hypertensive heart and chronic kidney disease with heart failure and stage 1 through stage 4 chronic kidney disease, or unspecified chronic kidney disease; N39.0 Urinary tract infection, site not specified; I46.9 Cardiac arrest, cause unspecified; E83.42 Hypomagnesemia; R10.9 Unspecified abdominal pain; D72.829 Elevated white blood cell count, unspecified; N18.9 Chronic kidney disease, unspecified; E11.22 Type 2 diabetes mellitus with diabetic chronic kidney disease; I25.10 Atherosclerotic heart disease of native coronary artery without angina pectoris; R33.9 Retention of urine, unspecified; N31.9 Neuromuscular dysfunction of bladder, unspecified; E03.9 Hypothyroidism, unspecified; D64.9 Anemia, unspecified; E78.00 Pure hypercholesterolemia, unspecified; E78.5 Hyperlipidemia, unspecified; R74.0 Nonspecific elevation of levels of transaminase and lactic acid dehydrogenase [LDH]
CPT/HCPCS: 31500; 36415; 71010; 74000; 74250; 75635; 80048; 80053; 80061; 80202; 81001; 82550; 82553; 82962; 83036; 83540; 83605; 83735; 83874; 83880; 83930; 83935; 84300; 84443; 84484; 85025; 85610; 85730; 86704; 86709; 86803; 86850; 86900; 86901; 86920; 87040; 87086; 87340; 88305; 92920; 92950; 93005; 93306; 93458; 93922; 93970; 94640; 94664; 94770; 94799; 96365; 96366; 96367; 96375; 96376; 97163; J1940; A4310; C1769; C1887; J0171; J0360; J0583; J0692; J1170; J1450; J1610; J1644; J1650; J1815; J1885; J2250; J2270; J2370; J2405; J2543; J2765; J2795; J3010; J3370; J3475; J7030; J7040; J7042; J7120; J7999; L8460; Q9967